=== PATIENT | male | born 1950 | race Caucasian/White ===

== ENCOUNTER 2021-01-23 12:59 | Inpatient (IN) | payer MEDICARE, OTHER ==
--- NOTE | 2021-01-23 13:34 | PCM.EKG ---
#1 Interpretation EKG Date: 01/23/21 Time: 13:27 Rhythm: NSR Rate (Beats/Min): 99 ST-T: Normal
[2021-01-23 14:28] LABS: BLOOD UREA NITROGEN,BUN 28 mg/dL (7.0-18.0); CARBON DIOXIDE,CO2 27.9 mmol/L (21.0-32.0); CHLORIDE,CL 102 mmol/L (98-107); GLUCOSE RANDOM 103 mg/dL (74-106); POTASSIUM,K 3.3 mmol/L (3.5-5.1); SODIUM,NA 140 mmol/L (136-148)
[2021-01-23] MEDS ORDERED: Sodium Chloride 0.9% 1,000 ML IV ONE (14:35)
[2021-01-23 15:14] LABS: LIPASE 30 U/L (73-393)
[2021-01-23] MEDS ORDERED: Iopamidol 755 MG/ML 500 ML Multipack Bottle IVPUSH STA (15:42)
[2021-01-23] MEDS ORDERED: Piperacillin/Tazobactam 3.375 GM in Sodium Chloride 0.9% 50 ML IV ONE (16:28)
[2021-01-23 16:41] LABS: CORONAVIRUS COVID-19 NAA NEGATIVE (NEGATIVE); INFLUENZA A NAA NEGATIVE (NEGATIVE); INFLUENZA B NAA NEGATIVE (NEGATIVE)
[2021-01-23] MEDS ORDERED: LORazepam 2 MG/ML SDV IVPUSH ONE ×2 (16:47→22:29)
--- NOTE | 2021-01-23 17:57 | CR ---
For Patients: As a result of the Cures Act, medical imaging exams and procedure reports are released immediately into your electronic medical record. You may view this report before your referring provider. If you have questions, please contact your health care provider. INDICATION: Sepsis TECHNIQUE: Chest 1 views COMPARISON: April 09, 2018 FINDINGS: Cardiovascular and mediastinum: Heart size and vasculature are normal in caliber and appearance. Lungs and pleural spaces: Lungs are hyperinflated but otherwise clear. No sign of infiltrate or mass. No sign of pleural effusion. No pneumothorax. Bones and soft tissues: No significant findings. IMPRESSION: No acute findings and no significant changes from the prior exam. No sign of pneumonia. Dictated by Rei Hawthorne MD @ 01/23/2021 5:56:[address] Rei Hawthorne @ Jan 23 2021 5:56PM
--- NOTE | 2021-01-23 18:42 | EDM.PDOC ---
ED HPI GENERAL MEDICAL PROBLEM - General Chief Complaint: General Stated Complaint: COPD FEET SWELLING Time Seen by Provider: 01/23/21 13:03 Source of Information: Reports: Patient, Family History Limitations: Reports: Other (dementia) - History of Present Illness INITIAL COMMENTS - FREE TEXT/NARRATIVE: HISTORY AND PHYSICAL: History of present illness: HPI is limited due to patient underlying dementia. He is unable to appropriately answer questions which is his baseline per . Patient is 71-year-old male, with a h/o dementia, COPD, who presents emergency department with his , who is his primary acute care nurse practitioner, secondary to a 2-day history of an itchy rash on his back and buttocks. Patients originally stats that she would just life a refill of his COPD medications as he is out of refills. She then notes that patient has been scratching at his back and buttocks over the last 2 days. The also reports that the patient feet has been swelling over the last week and sometimes red. The reports that the patient has COPD and has a primary care doctor who he sees but he had run out of his medications and she wanted him to get a refill. The was unable to remember which medications the patient is on for his COPD. The reports that the patient is able to toilet himself. She also notes that he has had intermittent softer stools. denies fever, chills, chest pain, shortness of breath, or cough. Denies headache, neck stiff ness, change in vision, syncope, or near syncope. Denies nausea, vomiting, abdominal pain, constipation, or dysuria. Has not noted any blood in urine or stool. Patient has been eating and drinking appropriately. Review of systems: As per history of present illness and below otherwise all systems reviewed and negative. Past medical history: As per history of present illness and as reviewed below otherwise noncontributory. Surgical history: As per history of present illness and as reviewed below otherwise noncontributory. Social history: See social history for further information Family history: As per history of present illness and as reviewed below otherwise noncontributory. Physical exam: General: Patient is alert, orientated to location but confused to time and unable to answer questions appropriately, baseline per , and in no acute distress. Non toxic. Patient sitting comfortably on exam table. Patient is tachycardic with a pulse of 100-110 but otherwise vitals are stable. HEENT: Atraumatic, normocephalic, pupils equal and reactive bilaterally, negative for conjunctival pallor or scleral icterus, mucous membranes moist, TMs normal bilaterally, throat clear, neck supple, nontender, trachea midline. No drooling or trismus noted. No meningeal signs. No hot potato voice noted. Lungs: Clear to auscultation, breath sounds equal bilaterally, chest nontender. Heart: S1S2, regular rate and rhythm without overt murmur Abdomen: Thin, Lower abdomen is distended but nontender. Negative for masses or hepatosplenomegaly. Negative for costovertebral tenderness. Pelvis: Stable nontender. Genitourinary: Package Car Driver at bedside, NARCISA Becker. The patient has a phimosis which is non-retractable and unable to visualize the urethral meatus, no masses or lesions noted. Rectal: See skin. Package Car Driver at bedside, NARCISA Becker. The external gluteal cleft is severely excoriated and bleeding noted from excoriation sites. Dried on feces of the gluteal cleft and buttock and down patients bilateral lower extremities. No obvious hemorrhoid, masses noted. Skin: Significant excoriations and scratch haas in various stages of healing on patient's back and buttocks around anus, there is dried stool in the gluteal cleft and down the patient's leg. Otherwise intact, warm, dry. No lesions or rashes noted. Extremities: 2+ pitting edema of bilateral lower extremities. Feet were initially purple as patient was sitting but when asked to lay down, this resolved. No erythema, drainage. DP/PT pulses intact bilaterally via doppler. Otherwise, Atraumatic, negative for cords or calf pain. Neurovascular unremarkable. Neuro: Awake, alert, oriented. Cranial nerves II through XII unremarkable. Cerebellum unremarkable. Motor and sensory unremarkable throughout. Exam nonfocal. Notes: Patient is a 71-year-old male, with a h/o COPD and dementia, who presents to the emergency department today with his primary lawn care specialist / , secondary to a 2- day history of rash and for refill for COPD medication. On initial exam, patient is noted to be tachycardic 110s but otherwise vitals are stable. Patient is sitting comfortably on exam table is alert, but confused on questioning but at baseline according to . Upon exam the patient's feet are moderately edematous and mottled/purple with sitting. Doppler was performed at the bedside and pulses were found which were consistent with media monitor. After patient elevated legs, after a few seconds, mottling and purple resolved. There are excoriations over the patient's back and buttocks, there are scratches in various stages of healing along the patient's back and on the buttock including the gluteal cleft and around the anus. There is dried feces in the patient's gluteal cleft and down the patient's leg. While cleaning the patient it was noted that the patient has severe phimosis, there is a small amount of urine around the opening of the phimosis but the phimosis is non-retractable and unable to visualize the urethra. The patient tried to urinate into a urinal and was unable to void any urine. At that time, performed a scan of the bladder with an ultrasound, the bladder was noted to be distended to the umbilicus. An 18 Divehi Blanc catheter was inserted through the phimosis and was successfully inserted into the urethra. 1800 mL of dark urine came out through the catheter. Started patient on normal saline and will obtain cardiac evaluation as well as obtain CT ang of abd/pelvis and bilateral lower extremities. See Dr. Dempsey's dictation for specific EKG interpretation. Otherwise, normal sinus rhythm and no signs of ischemia. The patient's CBC shows an elevated WBC of 18.97 with a normal lactate, RBC of 4.30, Hgb 12.5, neutrophil percent 90.6, lymph percent 2.8, neutrophil count 17.2, lymph count 0.5, [place] count 1.1. The patient's INR is 0.99. The patient's CMP shows mild derangements with a potassium of 3.3, BUN 28, calcium 8.4, ALT 10, albumin 3.1, Albumin/globulin ratio 1.8, lipase 30. Patient's UA shows trace protein, trace occult blood, trace leukocyte esterase, urine bacteria 2+. Will culture urine and blood. CXR shows no acute findings and no significant changes from prior. After patient had received the ct scans, due to technological difficulties at a hospital wide level, I have been informed that imaging cannot be formally interpreted for possibly 24 hours. The on-call hospital administration, Stormy Thurston, advised having Dr. Diaz look at the imaging in the interim. Dr. Diaz's preliminary interpretation of the CT angio shows no obvious occlusions in the lower extremities and no concern for acute abdomen. Dr. Hurley's interpretation of the images showed no acute urological reason for the patient's elevated white count and nothing surgical at this time. He recommends leaving the blanc in place and he will follow in an outpatient status to address the ph imosis. Given that I am unable to get a formal CT reading at this time, with no indication as to when this will be available, I will treat patient empirically for sepsis due to elevation in WBC and HR with IV vancomycin and Zosyn empirically. I did call and speak to the hospitalist on-call, Dr. Oneill, and thoroughly discussed patient's case. She is aware that patient's CT images are not able to be read formally by a radiologist at this time. Will admit to Dr. Oneill inpatient telemetry. Patient full code according to his Filed form with Vulnerable Adult for State of [place] Diagnostics: CBC, CMP, blood culture x 2, lactate, EKG, chest x-ray, CT angiogram abdomen and lower extremities INR, UA Therapeutics: Vancomycin, Zosyn, Ativan, normal saline Impression: SIRS, r/o sepsis, source unknown Urinary retention secondary to phimosis Plan: Admit to inpatient telemetry to Dr. Oneill. Definitive disposition and diagnosis as appropriate pending reevaluation and review of above. Bilateral Lower Leg Pain Score (Numeric/FACES): 4 - Related Data Allergies Allergy/AdvReac Type Severity Reaction Status Date / Time No Known Allergies Allergy Verified 01/23/21 13:58 Home Meds: Home Meds . [Unable to Verify Home Med List] 01/23/21 [History] Past Medical History HEENT History: Reports: None Cardiovascular History: Reports: None Respiratory History: Reports: Asthma, COPD Genitourinary History: Reports: None Musculoskeletal History: Reports: None Neurological History: Reports: Other (See Below) Other Neuro History: dementia Psychiatric History: Reports: None Endocrine/Metabolic History: Reports: None Hematologic History: Reports: None Immunologic History: Reports: None Oncologic (Cancer) History: Reports: None Dermatologic History: Reports: None - Infectious Disease History Infectious Disease History: Reports: None - Past Surgical History Head Surgeries/Procedures: Reports: None GI Surgical History: Reports: Hernia Repair/Other Social & Family History - Family History Family Medical History: No Pertinent Family History - Tobacco Use Tobacco Use Status *Q: Former Tobacco User Used Tobacco, but Quit: Yes Month/Year Tobacco Last Used: 10 years - Caffeine Use Caffeine Use: Reports: None - Recreational Drug Use Recreational Drug Use: No ED ROS GENERAL - Review of Systems Review Of Systems: Comprehensive ROS is negative, except as noted in HPI. ED EXAM, GENERAL - Physical Exam Exam: See Below (see dictation) Course - Vital Signs Last Recorded V/S: Last Vital Signs Temp 98.1 F 01/24/21 07:29 Pulse 95 01/24/21 07:29 Resp 16 01/24/21 07:29 BP 97/56 L 01/24/21 07:29 Pulse Ox 92 L 01/24/21 07:29 - Orders/Labs/Meds Orders: Active Orders 24 hr Category Date Time Status Bladder Scan [RC] ASDIRECTED Care 01/23/21 14:36 Active EKG Documentation Completion [RC] STAT Care 01/23/21 13:07 Active Blanc Catheter Insertion [Insert Urinary Catheter] [OM. Care 01/23/21 15:15 Ordered PC] Q24H Urinary Catheter Assessment [RC] ASDIRECTED Care 01/23/21 15:09 Active CULTURE BLOOD [BC] Stat Lab 01/23/21 14:41 Received CULTURE BLOOD [BC] Stat Lab 01/23/21 14:44 Received CULTURE URINE [MREF] Stat Lab 01/23/21 15:07 Received Blood Culture x2 Reflex Set [OM.PC] Stat Oth 01/23/21 14:35 Ordered Medication Orders Acetaminophen (Acetaminophen 325 Mg Tab) 650 mg PO Q4H PRN PRN Reason: Pain (Mild 1-3)/fever Albuterol/Ipratropium (Albuterol/Ipratropium 3.0-0.5 Mg/3 Ml Neb Soln) 3 ml NEB Q4HRRT PRN PRN Reason: Shortness Of Breath/wheezing Docusate Sodium (Docusate Sodium 100 Mg Cap) 100 mg PO BID PRN PRN Reason: Constipation Enoxaparin Sodium (Enoxaparin 40 Mg/0.4 Ml Syringe) 40 mg SUBCUT Q24H PENDING SALE TO [facility] Last Admin: 01/24/21 08:45 Dose: 40 mg Documented by: YAYA Piperacillin Sod/Tazobactam (Sod 3.375 gm/ Sodium Chloride) 50 mls @ 100 mls/hr IV Q6H PENDING SALE TO [facility] Last Admin: 01/24/21 10:55 Dose: 100 mls/hr Documented by: Infusion: 01/24/21 05:30 Dose: 100 mls/hr Documented by: Admin: 01/24/21 05:00 Dose: 100 mls/hr Documented by: Infusion: 01/23/21 23:49 Dose: 100 mls/hr Documented by: Admin: 01/23/21 23:19 Dose: 100 mls/hr Documented by: AUDRA Lactated Ringer's (Ringers, Lactated) 1,000 mls @ 125 mls/hr IV ASDIRECTED PENDING SALE TO [facility] Last Admin: 01/23/21 23:29 Dose: 125 mls/hr Documented by: AUDRA Ondansetron HCl (Ondansetron 4 Mg Tab.Dis) 4 mg PO Q4H PRN PRN Reason: nausea, able to take PO Labs: Laboratory Tests 01/23/21 01/23/21 01/23/21 Range/Units 13:37 13:37 14:35 WBC 18.97 H (4.0-11.0) K/uL RBC 4.30 L (4.50-5.90) M/uL Hgb 12.5 L (13.0-17.0) g/dL Hct 38.2 (38.0-50.0) % MCV 88.8 (80.0-98.0) fL MCH 29.1 (27.0-32.0) pg MCHC 32.7 (31.0-37.0) g/dL RDW Std Deviation 47.7 (28.0-62.0) fl RDW Coeff of Azeem 15 (11.0-15.0) % Plt Count 153 (150-400) K/uL MPV 12.10 H (7.40-12.00) fL Neut % (Auto) 90.6 H (48.0-80.0) % Lymph % (Auto) 2.8 L (16.0-40.0) % [place] % (Auto) 6.0 (0.0-15.0) % Eos % (Auto) 0.4 (0.0-7.0) % Baso % (Auto) 0.2 (0.0-1.5) % Neut # (Auto) 17.2 H (1.4-5.7) K/uL Lymph # (Auto) 0.5 L (0.6-2.4) K/uL [place] # (Auto) 1.1 H (0.0-0.8) K/uL Eos # (Auto) 0.1 (0.0-0.7) K/uL Baso # (Auto) 0.0 (0.0-0.1) K/uL Nucleated RBC % 0.0 /100WBC Nucleated RBCs # 0 K/uL INR Sodium 140 (136-148) mmol/L Potassium 3.3 L (3.5-5.1) mmol/L Chloride 102 (98-107) mmol/L Carbon Dioxide 27.9 (21.0-32.0) mmol/L BUN 28 H (7.0-18.0) mg/dL Creatinine 1.2 (0.8-1.3) mg/dL Est Cr Clr Drug Dosing 51.45 mL/min Estimated GFR (MDRD) 59.9 ml/min Glucose 103 (74-106) mg/dL Lactic Acid 1.3 (0.4-2.0) mmol/L Calcium 8.4 L (8.5-10.1) mg/dL Total Bilirubin 0.7 (0.2-1.0) mg/dL AST 27 (15-37) IU/L ALT 10 L (14-63) IU/L Alkaline Phosphatase 79 (46-116) U/L Troponin I < 0.050 (0.000-0.056) ng/mL Total Protein 6.8 (6.4-8.2) g/dL Albumin 3.1 L (3.4-5.0) g/dL Globulin 3.7 (2.6-4.0) g/dL Albumin/Globulin Ratio 0.8 L (0.9-1.6) Lipase (73-393) U/L Urine Color Urine Appearance Urine pH (5.0-8.0) Ur Specific Shelby (1.001-1.035) Urine Protein (NEGATIVE) mg/dL Urine Glucose (UA) (NEGATIVE) mg/dL Urine Ketones (NEGATIVE) mg/dL Urine Occult Blood (NEGATIVE) Urine Nitrite (NEGATIVE) Urine Bilirubin (NEGATIVE) Urine Urobilinogen (<2.0) EU/dL Ur Leukocyte Esterase (NEGATIVE) Urine RBC (0-2/HPF) Urine WBC (0-5/HPF) Ur Epithelial Cells (NONE-FEW) Urine Bacteria (NEGATIVE) Urine Mucus (NONE-MOD) Influenza Type A RNA (NEGATIVE) Influenza Type B RNA (NEGATIVE) SARS-CoV-2 RNA (BRENDA) (NEGATIVE) 01/23/21 01/23/21 01/23/21 Range/Units 14:36 14:41 15:07 WBC (4.0-11.0) K/uL RBC (4.50-5.90) M/uL Hgb (13.0-17.0) g/dL Hct (38.0-50.0) % MCV (80.0-98.0) fL MCH (27.0-32.0) pg MCHC (31.0-37.0) g/dL RDW Std Deviation (28.0-62.0) fl RDW Coeff of Azeem (11.0-15.0) % Plt Count (150-400) K/uL MPV (7.40-12.00) fL Neut % (Auto) (48.0-80.0) % Lymph % (Auto) (16.0-40.0) % [place] % (Auto) (0.0-15.0) % Eos % (Auto) (0.0-7.0) % Baso % (Auto) (0.0-1.5) % Neut # (Auto) (1.4-5.7) K/uL Lymph # (Auto) (0.6-2.4) K/uL [place] # (Auto) (0.0-0.8) K/uL Eos # (Auto) (0.0-0.7) K/uL Baso # (Auto) (0.0-0.1) K/uL Nucleated RBC % /100WBC Nucleated RBCs # K/uL INR 0.99 Sodium (136-148) mmol/L Potassium (3.5-5.1) mmol/L Chloride (98-107) mmol/L Carbon Dioxide (21.0-32.0) mmol/L BUN (7.0-18.0) mg/dL Creatinine (0.8-1.3) mg/dL Est Cr Clr Drug Dosing mL/min Estimated GFR (MDRD) ml/min Glucose (74-106) mg/dL Lactic Acid (0.4-2.0) mmol/L Calcium (8.5-10.1) mg/dL Total Bilirubin (0.2-1.0) mg/dL AST (15-37) IU/L ALT (14-63) IU/L Alkaline Phosphatase (46-116) U/L Troponin I < 0.050 (0.000-0.056) ng/mL Total Protein (6.4-8.2) g/dL Albumin (3.4-5.0) g/dL Globulin (2.6-4.0) g/dL Albumin/Globulin Ratio (0.9-1.6) Lipase 30 L (73-393) U/L Urine Color YELLOW Urine Appearance SLT CLOUDY Urine pH 7.0 (5.0-8.0) Ur Specific [place] 1.015 (1.001-1.035) Urine Protein TRACE H (NEGATIVE) mg/dL Urine Glucose (UA) NEGATIVE (NEGATIVE) mg/dL Urine Ketones NEGATIVE (NEGATIVE) mg/dL Urine Occult Blood TRACE-INTACT H (NEGATIVE) Urine Nitrite NEGATIVE (NEGATIVE) Urine Bilirubin NEGATIVE (NEGATIVE) Urine Urobilinogen 0.2 (<2.0) EU/dL Ur Leukocyte Esterase TRACE H (NEGATIVE) Urine RBC NONE SEEN (0-2/HPF) Urine WBC 0-2 (0-5/HPF) Ur Epithelial Cells RARE (NONE-FEW) Urine Bacteria 2+ H (NEGATIVE) Urine Mucus LIGHT (NONE-MOD) Influenza Type A RNA (NEGATIVE) Influenza Type B RNA (NEGATIVE) SARS-CoV-2 RNA (BRENDA) (NEGATIVE) 01/23/21 Range/Units 15:19 WBC (4.0-11.0) K/uL RBC (4.50-5.90) M/uL Hgb (13.0-17.0) g/dL Hct (38.0-50.0) % MCV (80.0-98.0) fL MCH (27.0-32.0) pg MCHC (31.0-37.0) g/dL RDW Std Deviation (28.0-62.0) fl RDW Coeff of Azeem (11.0-15.0) % Plt Count (150-400) K/uL MPV (7.40-12.00) fL Neut % (Auto) (48.0-80.0) % Lymph % (Auto) (16.0-40.0) % [place] % (Auto) (0.0-15.0) % Eos % (Auto) (0.0-7.0) % Baso % (Auto) (0.0-1.5) % Neut # (Auto) (1.4-5.7) K/uL Lymph # (Auto) (0.6-2.4) K/uL [place] # (Auto) (0.0-0.8) K/uL Eos # (Auto) (0.0-0.7) K/uL Baso # (Auto) (0.0-0.1) K/uL Nucleated RBC % /100WBC Nucleated RBCs # K/uL INR Sodium (136-148) mmol/L Potassium (3.5-5.1) mmol/L Chloride (98-107) mmol/L Carbon Dioxide (21.0-32.0) mmol/L BUN (7.0-18.0) mg/dL Creatinine (0.8-1.3) mg/dL Est Cr Clr Drug Dosing mL/min Estimated GFR (MDRD) ml/min Glucose (74-106) mg/dL Lactic Acid (0.4-2.0) mmol/L Calcium (8.5-10.1) mg/dL Total Bilirubin (0.2-1.0) mg/dL AST (15-37) IU/L ALT (14-63) IU/L Alkaline Phosphatase (46-116) U/L Troponin I (0.000-0.056) ng/mL Total Protein (6.4-8.2) g/dL Albumin (3.4-5.0) g/dL Globulin (2.6-4.0) g/dL Albumin/Globulin Ratio (0.9-1.6) Lipase (73-393) U/L Urine Color Urine Appearance Urine pH (5.0-8.0) Ur Specific [place] (1.001-1.035) Urine Protein (NEGATIVE) mg/dL Urine Glucose (UA) (NEGATIVE) mg/dL Urine Ketones (NEGATIVE) mg/dL Urine Occult Blood (NEGATIVE) Urine Nitrite (NEGATIVE) Urine Bilirubin (NEGATIVE) Urine Urobilinogen (<2.0) EU/dL Ur Leukocyte Esterase (NEGATIVE) Urine RBC (0-2/HPF) Urine WBC (0-5/HPF) Ur Epithelial Cells (NONE-FEW) Urine Bacteria (NEGATIVE) Urine Mucus (NONE-MOD) Influenza Type A RNA NEGATIVE (NEGATIVE) Influenza Type B RNA NEGATIVE (NEGATIVE) SARS-CoV-2 RNA (BRENDA) NEGATIVE (NEGATIVE) Meds: Medications Generic Name Dose Route Start Last Admin Trade Name Mary PRN Reason Stop Dose Admin Acetaminophen 650 mg 01/23/21 19:05 Acetaminophen 325 Mg Tab PO Q4H PRN Pain (Mild 1-3)/fever Albuterol/Ipratropium 3 ml 01/23/21 19:05 Albuterol/Ipratropium 3.0-0.5 Mg/3 Ml Neb Soln NEB Q4HRRT PRN Shortness Of Breath/wheezing Docusate Sodium 100 mg 01/23/21 19:05 Docusate Sodium 100 Mg Cap PO BID PRN Constipation Enoxaparin Sodium 40 mg 01/24/21 09:00 01/24/21 08:45 Enoxaparin 40 Mg/0.4 Ml Syringe SUBCUT 40 mg Q24H LEONARD Administration Piperacillin Sod/Tazobactam 50 mls @ 100 mls/hr 01/23/21 23:00 01/24/21 10:55 Sod 3.375 gm/ Sodium Chloride IV 100 mls/hr Q6H LEONARD Administration Lactated Ringer's 1,000 mls @ 125 mls/hr 01/23/21 20:30 01/23/21 23:29 Ringers, Lactated IV 125 mls/hr ASDIRECTED LEONARD Administration Ondansetron HCl 4 mg 01/23/21 19:05 Ondansetron 4 Mg Tab.Dis PO Q4H PRN nausea, able to take PO Discontinued Medications Generic Name Dose Route Start Last Admin Trade Name Mary PRN Reason Stop Dose Admin Diphenhydramine HCl 25 mg 01/23/21 20:58 01/23/21 21:08 Diphenhydramine 50 Mg/Ml Sdv IM 01/23/21 20:59 25 mg ONETIME ONE Administration Diphenhydramine HCl 25 mg 01/23/21 22:28 Diphenhydramine 50 Mg/Ml Sdv IVPUSH 01/23/21 22:29 ONETIME ONE Diphenhydramine HCl 25 mg 01/23/21 22:40 01/23/21 23:20 Diphenhydramine 50 Mg/Ml Sdv IM 01/23/21 22:41 25 mg ONETIME ONE Administration Diphenhydramine HCl Confirm 01/23/21 22:51 01/23/21 23:22 Diphenhydramine 50 Mg/Ml Sdv Administered 01/23/21 22:52 Not Given Dose 50 mg .ROUTE .STK-MED ONE Haloperidol Lactate 5 mg 01/23/21 20:57 01/23/21 21:09 Haloperidol Lactate 5 Mg/Ml Sdv IM 01/23/21 20:58 5 mg ONETIME ONE Administration Sodium Chloride 1,000 mls @ 999 mls/hr 01/23/21 14:35 01/23/21 15:49 Normal Saline IV 01/23/21 15:35 999 mls/hr STAT ONE Administration Piperacillin Sod/Tazobactam 50 mls @ 100 mls/hr 01/23/21 16:28 01/23/21 16:47 Sod 3.375 gm/ Sodium Chloride IV 01/23/21 16:57 100 mls/hr ONETIME ONE Administration Vancomycin HCl 1 gm/ Sodium 250 mls @ 166 mls/hr 01/23/21 16:29 01/23/21 17:31 Chloride IV 01/23/21 17:59 166 mls/hr ONETIME ONE Administration Lactated Ringer's 1,000 mls @ 999 mls/hr 01/23/21 19:05 01/23/21 20:00 Ringers, Lactated IV 01/23/21 20:05 999 mls/hr BOLUS ONE Administration Potassium Chloride 40 meq/ 100 mls @ 25 mls/hr 01/23/21 20:29 01/24/21 00:25 Premix IV 01/24/21 00:28 25 mls/hr ONETIME ONE Administration Olanzapine 10 mg/ Sterile 2.1 mls @ 999 mls/hr 01/23/21 22:28 Water IM 01/23/21 22:29 ONETIME ONE Sterile Water Confirm 01/23/21 23:06 01/23/21 23:22 Sterile Water For Injection Administered 01/23/21 23:07 Not Given Dose 20 mls @ as directed .ROUTE .STK-MED ONE Iopamidol 100 ml 01/23/21 15:42 01/23/21 15:42 Iopamidol 755 Mg/Ml 500 Ml Multipack Bottle IVPUSH 01/23/21 15:43 100 ml ONETIME STA Administration Lorazepam 0.5 mg 01/23/21 16:47 01/23/21 16:53 Lorazepam 2 Mg/Ml Sdv IVPUSH 01/23/21 16:48 0.5 mg ONETIME ONE Administration Lorazepam 2 mg 01/23/21 22:29 01/24/21 00:24 Lorazepam 2 Mg/Ml Sdv IVPUSH 01/23/21 22:30 2 mg ONETIME ONE Administration Olanzapine 10 mg 01/23/21 22:47 01/23/21 23:21 Olanzapine 10 Mg Vial IM 01/23/21 22:48 10 mg ONETIME ONE Administration Olanzapine Confirm 01/23/21 23:01 01/23/21 23:22 Olanzapine 10 Mg Vial Administered 01/23/21 23:02 Not Given Dose 10 mg .ROUTE .STK-MED ONE Departure - Departure Time of Disposition: 21:42 Disposition: Admitted As Inpatient 67 Clinical Impression: SIRS (systemic inflammatory response syndrome), Urinary retention, Phimosis - Discharge Information Sepsis Event Note (ED) - Evaluation Sepsis Screening Result: No Definite Risk - My Orders Last 24 Hours: My Active Orders 01/23/21 13:07 EKG Documentation Completion [RC] STAT 01/23/21 14:35 Blood Culture x2 Reflex Set [OM.PC] Stat 01/23/21 14:36 Bladder Scan [RC] ASDIRECTED 01/23/21 14:41 CULTURE BLOOD [BC] Stat 01/23/21 14:44 CULTURE BLOOD [BC] Stat 01/23/21 15:07 CULTURE URINE [MREF] Stat 01/23/21 15:09 Urinary Catheter Assessment [RC] ASDIRECTED 01/23/21 15:15 Blanc Catheter Insertion [Insert Urinary Catheter] [OM.PC] Q24H - Assessment/Plan Last 24 Hours: My Active Orders 01/23/21 13:07 EKG Documentation Completion [RC] STAT 01/23/21 14:35 Blood Culture x2 Reflex Set [OM.PC] Stat 01/23/21 14:36 Bladder Scan [RC] ASDIRECTED 01/23/21 14:41 CULTURE BLOOD [BC] Stat 01/23/21 14:44 CULTURE BLOOD [BC] Stat 01/23/21 15:07 CULTURE URINE [MREF] Stat 01/23/21 15:09 Urinary Catheter Assessment [RC] ASDIRECTED 01/23/21 15:15 Blanc Catheter Insertion [Insert Urinary Catheter] [OM.PC] Q24H
[2021-01-23] MEDS ORDERED: Acetaminophen 325 MG Tab PO PRN (19:05)
[2021-01-23] MEDS ORDERED: Ondansetron 4 MG Tab.DIS PO PRN (19:05)
[2021-01-23] MEDS ORDERED: Docusate Sodium 100 MG Cap PO PRN (19:05)
[2021-01-23] MEDS ORDERED: Lactated Ringers 1,000 ML IV ONE (19:05)
--- NOTE | 2021-01-23 19:30 | PCM.HP.2 ---
<Brenda Maciel - Last Filed: 01/23/21 19:52> H&P History of Present Illness - General Date of Service: 01/23/21 Admit Problem/Dx: Admission Diagnosis/Problem Admission Diagnosis/Problem Sepsis Source of Information: Family, Provider, Significant Other History Limitations: Reports: Altered Mental Status, Other (History of dementia) - History of Present Illness Initial Comments - Free Text/Narative: Patient is a 71-year-old gentleman with medical history of COPD, dementia therefore limiting his ability to share history. History was obtained by devin rubio other and ER admitting physician title i assistant. Patient was brought into the ED initially for refill of his COPD medications by his , patient was found to be alert and oriented x1, sitting in his feces, vitally unstable tachycardic and hypotensive. Patient was worked up for sepsis, also found to have a very distended bladder, unable to void therefore had Prince catheter inserted and found to have significant retention of approximately 2 L with dark- colored urine, foul-smelling. Patient denied any pain, fever, chills, cough, palpitations, shortness of breath, lesions, recent travel or sick contacts. ER course: Chest x-ray, aorta with runoff CTA, EKG, patient was restless therefore given Ativan 0.5, Zosyn, bank, bolus of normal saline, labs including CBC, CMP, INR, tropes, UA, influenza AB Covid with collection of urine blood cultures and lactic level. Bilateral Lower Leg Pain Score (Numeric/FACES): 4 - Related Data Allergies/Adverse Reactions: Allergies Allergy/AdvReac Type Severity Reaction Status Date / Time No Known Allergies Allergy Verified 01/23/21 13:58 Home Medications: Home Meds . [Unable to Verify Home Med List] 01/23/21 [History] Past Medical History HEENT History: Reports: None Cardiovascular History: Reports: None Respiratory History: Reports: Asthma, COPD Genitourinary History: Reports: None Musculoskeletal History: Reports: None Neurological History: Reports: Other (See Below) Other Neuro History: dementia Psychiatric History: Reports: None Endocrine/Metabolic History: Reports: None Hematologic History: Reports: None Immunologic History: Reports: None Oncologic (Cancer) History: Reports: None Dermatologic History: Reports: None - Infectious Disease History Infectious Disease History: Reports: None - Past Surgical History Head Surgeries/Procedures: Reports: None GI Surgical History: Reports: Hernia Repair/Other Social & Family History - Family History Family Medical History: No Pertinent Family History - Tobacco Use Tobacco Use Status *Q: Former Tobacco User Used Tobacco, but Quit: Yes Month/Year Tobacco Last Used: 10 years - Caffeine Use Caffeine Use: Reports: None - Recreational Drug Use Recreational Drug Use: No H&P Review of Systems - Review of Systems: Review Of Systems: Unable To Obtain Reason Not Obtained: Dementia Exam - Exam Exam: See Below - Vital Signs Vital Signs: Last Vital Signs Temp 98.6 F 01/23/21 19:08 Pulse 98 01/23/21 19:08 Resp 18 01/23/21 19:08 BP 104/66 01/23/21 19:08 Pulse Ox 98 01/23/21 19:08 Weight: 63.503 kg - Exam Quality Assessment: Urinary Catheter, DVT Prophylaxis General: Alert, Oriented HEENT: Conjunctiva Clear, EACs Clear, EOMI, Hearing Intact, Mucosa Moist & [place], PERRLA Neck: Supple, Trachea Midline Lungs: Clear to Auscultation, Normal Respiratory Effort Cardiovascular: Regular Rate, Regular Rhythm GI/Abdominal Exam: Normal Bowel Sounds, Soft, Non-Tender (At the end of the year you the contract that we have for leg was), No Distention (But I appreciate) Extremities: Normal Inspection, Normal Range of Motion, Normal Capillary Refill (I her biggest more with me any family member or even Basically like God visibly A), Pedal Edema Peripheral Pulses: 2+: Carotid (L), Carotid (R), Dorsalis Pedis (L), Dorsalis Pedis (R) (Extraocular) Skin: Warm, Dry, Intact Neurological: Cranial Nerves Intact, Reflexes Equal Bilateral Neuro Extensive - Mental Status: Alert, Oriented x3, Normal Mood/Affect, Normal Cognition, Memory Intact Neuro Extensive - Motor, Sensory, Reflexes: CN II-XII Intact, Normal Gait, Normal Reflexes DTR: 2+: Bicep (L), Bicep (R), Achilles (L), Achilles (R) Psychiatric: Alert, Normal Affect, Normal Mood - Patient Data Lab Results Last 24 hrs: Laboratory Results - last 24 hr 01/23/21 01/23/21 01/23/21 Range/Units 13:37 13:37 14:35 WBC 18.97 H (4.0-11.0) K/uL RBC 4.30 L (4.50-5.90) M/uL Hgb 12.5 L (13.0-17.0) g/dL Hct 38.2 (38.0-50.0) % MCV 88.8 (80.0-98.0) fL MCH 29.1 (27.0-32.0) pg MCHC 32.7 (31.0-37.0) g/dL RDW Std Deviation 47.7 (28.0-62.0) fl RDW Coeff of Azeem 15 (11.0-15.0) % Plt Count 153 (150-400) K/uL MPV 12.10 H (7.40-12.00) fL Neut % (Auto) 90.6 H (48.0-80.0) % Lymph % (Auto) 2.8 L (16.0-40.0) % Starr % (Auto) 6.0 (0.0-15.0) % Eos % (Auto) 0.4 (0.0-7.0) % Baso % (Auto) 0.2 (0.0-1.5) % Neut # (Auto) 17.2 H (1.4-5.7) K/uL Lymph # (Auto) 0.5 L (0.6-2.4) K/uL Starr # (Auto) 1.1 H (0.0-0.8) K/uL Eos # (Auto) 0.1 (0.0-0.7) K/uL Baso # (Auto) 0.0 (0.0-0.1) K/uL Nucleated RBC % 0.0 /100WBC Nucleated RBCs # 0 K/uL INR Sodium 140 (136-148) mmol/L Potassium 3.3 L (3.5-5.1) mmol/L Chloride 102 (98-107) mmol/L Carbon Dioxide 27.9 (21.0-32.0) mmol/L BUN 28 H (7.0-18.0) mg/dL Creatinine 1.2 (0.8-1.3) mg/dL Est Cr Clr Drug Dosing 51.45 mL/min Estimated GFR (MDRD) 59.9 ml/min Glucose 103 (74-106) mg/dL Lactic Acid 1.3 (0.4-2.0) mmol/L Calcium 8.4 L (8.5-10.1) mg/dL Total Bilirubin 0.7 (0.2-1.0) mg/dL AST 27 (15-37) IU/L ALT 10 L (14-63) IU/L Alkaline Phosphatase 79 (46-116) U/L Troponin I < 0.050 (0.000-0.056) ng/mL Total Protein 6.8 (6.4-8.2) g/dL Albumin 3.1 L (3.4-5.0) g/dL Globulin 3.7 (2.6-4.0) g/dL Albumin/Globulin Ratio 0.8 L (0.9-1.6) Lipase (73-393) U/L Urine Color Urine Appearance Urine pH (5.0-8.0) Ur Specific Echo (1.001-1.035) Urine Protein (NEGATIVE) mg/dL Urine Glucose (UA) (NEGATIVE) mg/dL Urine Ketones (NEGATIVE) mg/dL Urine Occult Blood (NEGATIVE) Urine Nitrite (NEGATIVE) Urine Bilirubin (NEGATIVE) Urine Urobilinogen (<2.0) EU/dL Ur Leukocyte Esterase (NEGATIVE) Urine RBC (0-2/HPF) Urine WBC (0-5/HPF) Ur Epithelial Cells (NONE-FEW) Urine Bacteria (NEGATIVE) Urine Mucus (NONE-MOD) Influenza Type A RNA (NEGATIVE) Influenza Type B RNA (NEGATIVE) SARS-CoV-2 RNA (BRENDA) (NEGATIVE) 01/23/21 01/23/21 01/23/21 Range/Units 14:36 14:41 15:07 WBC (4.0-11.0) K/uL RBC (4.50-5.90) M/uL Hgb (13.0-17.0) g/dL Hct (38.0-50.0) % MCV (80.0-98.0) fL MCH (27.0-32.0) pg MCHC (31.0-37.0) g/dL RDW Std Deviation (28.0-62.0) fl RDW Coeff of Azeem (11.0-15.0) % Plt Count (150-400) K/uL MPV (7.40-12.00) fL Neut % (Auto) (48.0-80.0) % Lymph % (Auto) (16.0-40.0) % Starr % (Auto) (0.0-15.0) % Eos % (Auto) (0.0-7.0) % Baso % (Auto) (0.0-1.5) % Neut # (Auto) (1.4-5.7) K/uL Lymph # (Auto) (0.6-2.4) K/uL Starr # (Auto) (0.0-0.8) K/uL Eos # (Auto) (0.0-0.7) K/uL Baso # (Auto) (0.0-0.1) K/uL Nucleated RBC % /100WBC Nucleated RBCs # K/uL INR 0.99 Sodium (136-148) mmol/L Potassium (3.5-5.1) mmol/L Chloride (98-107) mmol/L Carbon Dioxide (21.0-32.0) mmol/L BUN (7.0-18.0) mg/dL Creatinine (0.8-1.3) mg/dL Est Cr Clr Drug Dosing mL/min Estimated GFR (MDRD) ml/min Glucose (74-106) mg/dL Lactic Acid (0.4-2.0) mmol/L Calcium (8.5-10.1) mg/dL Total Bilirubin (0.2-1.0) mg/dL AST (15-37) IU/L ALT (14-63) IU/L Alkaline Phosphatase (46-116) U/L Troponin I < 0.050 (0.000-0.056) ng/mL Total Protein (6.4-8.2) g/dL Albumin (3.4-5.0) g/dL Globulin (2.6-4.0) g/dL Albumin/Globulin Ratio (0.9-1.6) Lipase 30 L (73-393) U/L Urine Color YELLOW Urine Appearance SLT CLOUDY Urine pH 7.0 (5.0-8.0) Ur Specific Echo 1.015 (1.001-1.035) Urine Protein TRACE H (NEGATIVE) mg/dL Urine Glucose (UA) NEGATIVE (NEGATIVE) mg/dL Urine Ketones NEGATIVE (NEGATIVE) mg/dL Urine Occult Blood TRACE-INTACT H (NEGATIVE) Urine Nitrite NEGATIVE (NEGATIVE) Urine Bilirubin NEGATIVE (NEGATIVE) Urine Urobilinogen 0.2 (<2.0) EU/dL Ur Leukocyte Esterase TRACE H (NEGATIVE) Urine RBC NONE SEEN (0-2/HPF) Urine WBC 0-2 (0-5/HPF) Ur Epithelial Cells RARE (NONE-FEW) Urine Bacteria 2+ H (NEGATIVE) Urine Mucus LIGHT (NONE-MOD) Influenza Type A RNA (NEGATIVE) Influenza Type B RNA (NEGATIVE) SARS-CoV-2 RNA (BRENDA) (NEGATIVE) 01/23/21 Range/Units 15:19 WBC (4.0-11.0) K/uL RBC (4.50-5.90) M/uL Hgb (13.0-17.0) g/dL Hct (38.0-50.0) % MCV (80.0-98.0) fL MCH (27.0-32.0) pg MCHC (31.0-37.0) g/dL RDW Std Deviation (28.0-62.0) fl RDW Coeff of Azeem (11.0-15.0) % Plt Count (150-400) K/uL MPV (7.40-12.00) fL Neut % (Auto) (48.0-80.0) % Lymph % (Auto) (16.0-40.0) % Starr % (Auto) (0.0-15.0) % Eos % (Auto) (0.0-7.0) % Baso % (Auto) (0.0-1.5) % Neut # (Auto) (1.4-5.7) K/uL Lymph # (Auto) (0.6-2.4) K/uL Starr # (Auto) (0.0-0.8) K/uL Eos # (Auto) (0.0-0.7) K/uL Baso # (Auto) (0.0-0.1) K/uL Nucleated RBC % /100WBC Nucleated RBCs # K/uL INR Sodium (136-148) mmol/L Potassium (3.5-5.1) mmol/L Chloride (98-107) mmol/L Carbon Dioxide (21.0-32.0) mmol/L BUN (7.0-18.0) mg/dL Creatinine (0.8-1.3) mg/dL Est Cr Clr Drug Dosing mL/min Estimated GFR (MDRD) ml/min Glucose (74-106) mg/dL Lactic Acid (0.4-2.0) mmol/L Calcium (8.5-10.1) mg/dL Total Bilirubin (0.2-1.0) mg/dL AST (15-37) IU/L ALT (14-63) IU/L Alkaline Phosphatase (46-116) U/L Troponin I (0.000-0.056) ng/mL Total Protein (6.4-8.2) g/dL Albumin (3.4-5.0) g/dL Globulin (2.6-4.0) g/dL Albumin/Globulin Ratio (0.9-1.6) Lipase (73-393) U/L Urine Color Urine Appearance Urine pH (5.0-8.0) Ur Specific Echo (1.001-1.035) Urine Protein (NEGATIVE) mg/dL Urine Glucose (UA) (NEGATIVE) mg/dL Urine Ketones (NEGATIVE) mg/dL Urine Occult Blood (NEGATIVE) Urine Nitrite (NEGATIVE) Urine Bilirubin (NEGATIVE) Urine Urobilinogen (<2.0) EU/dL Ur Leukocyte Esterase (NEGATIVE) Urine RBC (0-2/HPF) Urine WBC (0-5/HPF) Ur Epithelial Cells (NONE-FEW) Urine Bacteria (NEGATIVE) Urine Mucus (NONE-MOD) Influenza Type A RNA NEGATIVE (NEGATIVE) Influenza Type B RNA NEGATIVE (NEGATIVE) SARS-CoV-2 RNA (BRENDA) NEGATIVE (NEGATIVE) Result Diagrams: 01/23/21 13:37 01/23/21 13:37 Sepsis Event Note - Evaluation Sepsis Screening Result: No Definite Risk - Focused Exam Vital Signs: Vital Signs Temp Pulse Resp BP Pulse Ox 01/23/21 19:08 98.6 F 98 18 104/66 98 01/23/21 18:00 84 18 98/52 L 98 01/23/21 17:36 98.6 F 84 18 91/52 L 95 01/23/21 16:57 99.0 F 88 18 92/54 L 98 01/23/21 15:48 98.2 F 94 18 97/42 L 97 01/23/21 15:05 99.0 F 92 18 93/48 L 97 01/23/21 14:24 99.8 F 98 18 104/58 L 99 01/23/21 13:36 99.6 F 100 20 127/61 96 Problem List Initiated/Reviewed/Updated: Yes Orders Last 24hrs: Active Orders 24 hr Category Date Time Status Admission Status [Patient Status] [ADT] Stat ADT 01/23/21 18:16 Active Antiembolic Devices [RC] PER UNIT ROUTINE Care 01/23/21 19:09 Active Bedrest Bedside Commode [RC] ASDIRECTED Care 01/23/21 19:05 Active Bladder Scan [RC] ASDIRECTED Care 01/23/21 14:36 Active EKG Documentation Completion [RC] STAT Care 01/23/21 13:07 Active Prince Catheter Insertion [Insert Urinary Catheter] [OM. Care 01/23/21 15:15 Ordered PC] Q24H Oxygen Therapy [RC] PRN Care 01/23/21 19:05 Active RT Aerosol Therapy [RC] ASDIRECTED Care 01/23/21 19:09 Active Urinary Catheter Assessment [RC] ASDIRECTED Care 01/23/21 15:09 Active VTE/DVT Education [RC] PER UNIT ROUTINE Care 01/23/21 19:05 Active Vital Signs [RC] Q4H Care 01/23/21 19:05 Active PT Evaluation and Treatment [CONS] Routine Cons 01/23/21 19:05 Active Ang Abdomen Aorta w Bi Runoff [CT] Stat Exams 01/23/21 14:37 Taken CBC W/O DIFF,HEMOGRAM [HEME] AM Lab 01/24/21 05:11 Ordered COMPREHENSIVE METABOLIC PN,CMP [CHEM] AM Lab 01/24/21 05:11 Ordered CULTURE BLOOD [BC] Stat Lab 01/23/21 14:41 Received CULTURE BLOOD [BC] Stat Lab 01/23/21 14:44 Received CULTURE URINE [MREF] Stat Lab 01/23/21 15:07 Received MAGNESIUM [CHEM] AM Lab 01/24/21 05:11 Ordered PHOSPHORUS [CHEM] AM Lab 01/24/21 05:11 Ordered Acetaminophen [TylenoL] Med 01/23/21 19:05 Active 650 mg PO Q4H PRN Albuterol/Ipratropium [DuoNeb 3.0-0.5 MG/3 ML] Med 01/23/21 19:05 Active 3 ml NEB Q4HRRT PRN Docusate Sodium [Colace] Med 01/23/21 19:05 Active 100 mg PO BID PRN Lactated Ringers [Ringers, Lactated] 1,000 ml Med 01/23/21 19:05 Active IV BOLUS Ondansetron [Zofran ODT] Med 01/23/21 19:05 Active 4 mg PO Q4H PRN Blood Culture x2 Reflex Set [OM.PC] Stat Oth 01/23/21 14:35 Ordered Sequential Compression Device [OM.PC] Per Unit Routine Oth 01/23/21 19:07 Ordered Resuscitation Status Routine Resus Stat 01/23/21 19:05 Ordered Medication Orders Acetaminophen (Acetaminophen 325 Mg Tab) 650 mg PO Q4H PRN PRN Reason: Pain (Mild 1-3)/fever Albuterol/Ipratropium (Albuterol/Ipratropium 3.0-0.5 Mg/3 Ml Neb Soln) 3 ml NEB Q4HRRT PRN PRN Reason: Shortness Of Breath/wheezing Docusate Sodium (Docusate Sodium 100 Mg Cap) 100 mg PO BID PRN PRN Reason: Constipation Lactated Ringer's (Ringers, Lactated) 1,000 mls @ 999 mls/hr IV BOLUS ONE Stop: 01/23/21 20:05 Ondansetron HCl (Ondansetron 4 Mg Tab.Dis) 4 mg PO Q4H PRN PRN Reason: nausea, able to take PO Assessment/Plan Comment:: 71-year-old gentleman with history of advanced dementia, COPD was admitted for sepsis of unconfirmed source. 1. Sepsis: Elevated white blood cell count 19, normal lactate, urine, blood cultures are pending. Patient given 1 L bolus of fluids, will give additional bolus of LR, then on maintenance at 125. Patient is fluid responsive tachycardia has resolved, however patient appears to be hypotensive with blood pressure of 9 1/52. Patient had significant urinary retention, Prince catheter in place, removed approximately 2 L of foul-smelling dark-colored urine. Chest x-ray was normal without pneumonia UA, with 2+ bacteria, trace leukocyte esterase We will cover with broad-spectrum antibiotics Zosyn and will narrow based on cultures. 2. Mild BHARATI: Fluids, monitor daily CMP, avoid nephrotoxic agents possible secondary to sepsis/dehydration/significant urinary retention. 3.Mild hypokalemia: Replete 40 mEq IV CODE STATUS: Full code per GI prophylaxis: Protonix IV 40 DVT prophylaxis: Enoxaparin 40 IV Activity: Bedrest with commode Diet: Soft mechanical - Mortality Measure Prognosis:: Good <Astrid Oneill - Last Filed: 01/24/21 12:31> H&P History of Present Illness - General Admit Problem/Dx: Admission Diagnosis/Problem Admission Diagnosis/Problem Sepsis Exam - Vital Signs Vital Signs: Last Vital Signs Temp 36.1 C 01/24/21 11:00 Pulse 91 01/24/21 11:00 Resp 16 01/24/21 11:00 BP 102/56 L 01/24/21 11:00 Pulse Ox 95 01/24/21 11:00 - Patient Data Lab Results Last 24 hrs: Laboratory Results - last 24 hr 01/23/21 01/23/21 01/23/21 Range/Units 13:37 13:37 14:35 WBC 18.97 H (4.0-11.0) K/uL RBC 4.30 L (4.50-5.90) M/uL Hgb 12.5 L (13.0-17.0) g/dL Hct 38.2 (38.0-50.0) % MCV 88.8 (80.0-98.0) fL MCH 29.1 (27.0-32.0) pg MCHC 32.7 (31.0-37.0) g/dL RDW Std Deviation 47.7 (28.0-62.0) fl RDW Coeff of Azeem 15 (11.0-15.0) % Plt Count 153 (150-400) K/uL MPV 12.10 H (7.40-12.00) fL Neut % (Auto) 90.6 H (48.0-80.0) % Lymph % (Auto) 2.8 L (16.0-40.0) % Starr % (Auto) 6.0 (0.0-15.0) % Eos % (Auto) 0.4 (0.0-7.0) % Baso % (Auto) 0.2 (0.0-1.5) % Neut # (Auto) 17.2 H (1.4-5.7) K/uL Lymph # (Auto) 0.5 L (0.6-2.4) K/uL Starr # (Auto) 1.1 H (0.0-0.8) K/uL Eos # (Auto) 0.1 (0.0-0.7) K/uL Baso # (Auto) 0.0 (0.0-0.1) K/uL Nucleated RBC % 0.0 /100WBC Nucleated RBCs # 0 K/uL INR Sodium 140 (136-148) mmol/L Potassium 3.3 L (3.5-5.1) mmol/L Chloride 102 (98-107) mmol/L Carbon Dioxide 27.9 (21.0-32.0) mmol/L BUN 28 H (7.0-18.0) mg/dL Creatinine 1.2 (0.8-1.3) mg/dL Est Cr Clr Drug Dosing 51.45 mL/min Estimated GFR (MDRD) 59.9 ml/min Glucose 103 (74-106) mg/dL Lactic Acid 1.3 (0.4-2.0) mmol/L Calcium 8.4 L (8.5-10.1) mg/dL Phosphorus (2.6-4.7) mg/dL Magnesium (1.8-2.4) mg/dL Total Bilirubin 0.7 (0.2-1.0) mg/dL AST 27 (15-37) IU/L ALT 10 L (14-63) IU/L Alkaline Phosphatase 79 (46-116) U/L Troponin I < 0.050 (0.000-0.056) ng/mL Total Protein 6.8 (6.4-8.2) g/dL Albumin 3.1 L (3.4-5.0) g/dL Globulin 3.7 (2.6-4.0) g/dL Albumin/Globulin Ratio 0.8 L (0.9-1.6) Lipase (73-393) U/L Urine Color Urine Appearance Urine pH (5.0-8.0) Ur Specific Echo (1.001-1.035) Urine Protein (NEGATIVE) mg/dL Urine Glucose (UA) (NEGATIVE) mg/dL Urine Ketones (NEGATIVE) mg/dL Urine Occult Blood (NEGATIVE) Urine Nitrite (NEGATIVE) Urine Bilirubin (NEGATIVE) Urine Urobilinogen (<2.0) EU/dL Ur Leukocyte Esterase (NEGATIVE) Urine RBC (0-2/HPF) Urine WBC (0-5/HPF) Ur Epithelial Cells (NONE-FEW) Urine Bacteria (NEGATIVE) Urine Mucus (NONE-MOD) Influenza Type A RNA (NEGATIVE) Influenza Type B RNA (NEGATIVE) SARS-CoV-2 RNA (BRENDA) (NEGATIVE) 01/23/21 01/23/21 01/23/21 Range/Units 14:36 14:41 15:07 WBC (4.0-11.0) K/uL RBC (4.50-5.90) M/uL Hgb (13.0-17.0) g/dL Hct (38.0-50.0) % MCV (80.0-98.0) fL MCH (27.0-32.0) pg MCHC (31.0-37.0) g/dL RDW Std Deviation (28.0-62.0) fl RDW Coeff of Azeem (11.0-15.0) % Plt Count (150-400) K/uL MPV (7.40-12.00) fL Neut % (Auto) (48.0-80.0) % Lymph % (Auto) (16.0-40.0) % Starr % (Auto) (0.0-15.0) % Eos % (Auto) (0.0-7.0) % Baso % (Auto) (0.0-1.5) % Neut # (Auto) (1.4-5.7) K/uL Lymph # (Auto) (0.6-2.4) K/uL Starr # (Auto) (0.0-0.8) K/uL Eos # (Auto) (0.0-0.7) K/uL Baso # (Auto) (0.0-0.1) K/uL Nucleated RBC % /100WBC Nucleated RBCs # K/uL INR 0.99 Sodium (136-148) mmol/L Potassium (3.5-5.1) mmol/L Chloride (98-107) mmol/L Carbon Dioxide (21.0-32.0) mmol/L BUN (7.0-18.0) mg/dL Creatinine (0.8-1.3) mg/dL Est Cr Clr Drug Dosing mL/min Estimated GFR (MDRD) ml/min Glucose (74-106) mg/dL Lactic Acid (0.4-2.0) mmol/L Calcium (8.5-10.1) mg/dL Phosphorus (2.6-4.7) mg/dL Magnesium (1.8-2.4) mg/dL Total Bilirubin (0.2-1.0) mg/dL AST (15-37) IU/L ALT (14-63) IU/L Alkaline Phosphatase (46-116) U/L Troponin I < 0.050 (0.000-0.056) ng/mL Total Protein (6.4-8.2) g/dL Albumin (3.4-5.0) g/dL Globulin (2.6-4.0) g/dL Albumin/Globulin Ratio (0.9-1.6) Lipase 30 L (73-393) U/L Urine Color YELLOW Urine Appearance SLT CLOUDY Urine pH 7.0 (5.0-8.0) Ur Specific Echo 1.015 (1.001-1.035) Urine Protein TRACE H (NEGATIVE) mg/dL Urine Glucose (UA) NEGATIVE (NEGATIVE) mg/dL Urine Ketones NEGATIVE (NEGATIVE) mg/dL Urine Occult Blood TRACE-INTACT H (NEGATIVE) Urine Nitrite NEGATIVE (NEGATIVE) Urine Bilirubin NEGATIVE (NEGATIVE) Urine Urobilinogen 0.2 (<2.0) EU/dL Ur Leukocyte Esterase TRACE H (NEGATIVE) Urine RBC NONE SEEN (0-2/HPF) Urine WBC 0-2 (0-5/HPF) Ur Epithelial Cells RARE (NONE-FEW) Urine Bacteria 2+ H (NEGATIVE) Urine Mucus LIGHT (NONE-MOD) Influenza Type A RNA (NEGATIVE) Influenza Type B RNA (NEGATIVE) SARS-CoV-2 RNA (BRENDA) (NEGATIVE) 01/23/21 01/24/21 01/24/21 Range/Units 15:19 05:56 05:56 WBC 11.85 H (4.0-11.0) K/uL RBC 3.92 L (4.50-5.90) M/uL Hgb 11.4 L (13.0-17.0) g/dL Hct 34.7 L (38.0-50.0) % MCV 88.5 (80.0-98.0) fL MCH 29.1 (27.0-32.0) pg MCHC 32.9 (31.0-37.0) g/dL RDW Std Deviation 47.3 (28.0-62.0) fl RDW Coeff of Azeem 15 (11.0-15.0) % Plt Count 129 L (150-400) K/uL MPV 12.00 (7.40-12.00) fL Neut % (Auto) (48.0-80.0) % Lymph % (Auto) (16.0-40.0) % Starr % (Auto) (0.0-15.0) % Eos % (Auto) (0.0-7.0) % Baso % (Auto) (0.0-1.5) % Neut # (Auto) (1.4-5.7) K/uL Lymph # (Auto) (0.6-2.4) K/uL Starr # (Auto) (0.0-0.8) K/uL Eos # (Auto) (0.0-0.7) K/uL Baso # (Auto) (0.0-0.1) K/uL Nucleated RBC % 0.0 /100WBC Nucleated RBCs # 0 K/uL INR Sodium 142 (136-148) mmol/L Potassium 3.6 (3.5-5.1) mmol/L Chloride 109 H (98-107) mmol/L Carbon Dioxide 25.8 (21.0-32.0) mmol/L BUN 14 (7.0-18.0) mg/dL Creatinine 0.9 (0.8-1.3) mg/dL Est Cr Clr Drug Dosing 68.60 mL/min Estimated GFR (MDRD) > 60.0 ml/min Glucose 84 (74-106) mg/dL Lactic Acid (0.4-2.0) mmol/L Calcium 7.6 L (8.5-10.1) mg/dL Phosphorus 2.1 L (2.6-4.7) mg/dL Magnesium 1.9 (1.8-2.4) mg/dL Total Bilirubin 0.4 (0.2-1.0) mg/dL AST 28 (15-37) IU/L ALT 9 L (14-63) IU/L Alkaline Phosphatase 67 (46-116) U/L Troponin I (0.000-0.056) ng/mL Total Protein 5.4 L (6.4-8.2) g/dL Albumin 2.3 L (3.4-5.0) g/dL Globulin 3.1 (2.6-4.0) g/dL Albumin/Globulin Ratio 0.7 L (0.9-1.6) Lipase (73-393) U/L Urine Color Urine Appearance Urine pH (5.0-8.0) Ur Specific Echo (1.001-1.035) Urine Protein (NEGATIVE) mg/dL Urine Glucose (UA) (NEGATIVE) mg/dL Urine Ketones (NEGATIVE) mg/dL Urine Occult Blood (NEGATIVE) Urine Nitrite (NEGATIVE) Urine Bilirubin (NEGATIVE) Urine Urobilinogen (<2.0) EU/dL Ur Leukocyte Esterase (NEGATIVE) Urine RBC (0-2/HPF) Urine WBC (0-5/HPF) Ur Epithelial Cells (NONE-FEW) Urine Bacteria (NEGATIVE) Urine Mucus (NONE-MOD) Influenza Type A RNA NEGATIVE (NEGATIVE) Influenza Type B RNA NEGATIVE (NEGATIVE) SARS-CoV-2 RNA (BRENDA) NEGATIVE (NEGATIVE) Result Diagrams: 01/24/21 05:56 01/24/21 05:56 Sepsis Event Note - Focused Exam Vital Signs: Vital Signs Temp Pulse Resp BP BP Pulse Ox 01/24/21 11:00 36.1 C 91 16 102/56 L 95 01/24/21 07:29 36.7 C 95 16 97/56 L 92 L 01/24/21 04:00 36.9 C 86 17 112/73 90 L Orders Last 24hrs: Active Orders 24 hr Category Date Time Status Admission Status [Patient Status] [ADT] Stat ADT 01/23/21 18:16 Active Antiembolic Devices [RC] PER UNIT ROUTINE Care 01/23/21 19:09 Active Bedrest Bedside Commode [RC] ASDIRECTED Care 01/23/21 19:05 Active Bladder Scan [RC] ASDIRECTED Care 01/23/21 14:36 Active EKG Documentation Completion [RC] STAT Care 01/23/21 13:07 Active Prince Catheter Insertion [Insert Urinary Catheter] [OM. Care 01/23/21 15:15 Ordered PC] Q24H Oxygen Therapy [RC] PRN Care 01/23/21 19:05 Active RT Aerosol Therapy [RC] ASDIRECTED Care 01/23/21 19:09 Active Urinary Catheter Assessment [RC] ASDIRECTED Care 01/23/21 15:09 Active VTE/DVT Education [RC] PER UNIT ROUTINE Care 01/23/21 19:05 Active Vital Signs [RC] Q4H Care 01/23/21 19:05 Active Consult to Case Management/Machine Feed Operator [CONS] Cons 01/24/21 11:39 Active Routine PT Evaluation and Treatment [CONS] Routine Cons 01/23/21 19:05 Active Soft Diet [DIET] Diet 01/24/21 Dinner Active CULTURE BLOOD [BC] Stat Lab 01/23/21 14:41 Received CULTURE BLOOD [BC] Stat Lab 01/23/21 14:44 Received CULTURE URINE [MREF] Stat Lab 01/23/21 15:07 Received PHOSPHORUS [CHEM] Routine Lab 01/24/21 15:00 Ordered Acetaminophen [TylenoL] Med 01/23/21 19:05 Active 650 mg PO Q4H PRN Albuterol/Ipratropium [DuoNeb 3.0-0.5 MG/3 ML] Med 01/23/21 19:05 Active 3 ml NEB Q4HRRT PRN Docusate Sodium [Colace] Med 01/23/21 19:05 Active 100 mg PO BID PRN Enoxaparin [Lovenox] Med 01/24/21 09:00 Active 40 mg SUBCUT Q24H Lactated Ringers [Ringers, Lactated] 1,000 ml Med 01/23/21 20:30 Active IV ASDIRECTED Ondansetron [Zofran ODT] Med 01/23/21 19:05 Active 4 mg PO Q4H PRN Pantoprazole [ProTONIX IV] 40 mg Med 01/24/21 12:00 Active Sodium Chloride 0.9% [Normal Saline] 10 ml IV DAILY Phosphorus #1 [Neutra-Phos] Med 01/24/21 12:00 Active 250 mg PO QID Piperacillin/Tazobactam [Piperacil-Tazobact] 3.375 gm Med 01/23/21 23:00 Active Sodium Chloride 0.9% [Normal Saline] 50 ml IV Q6H Blood Culture x2 Reflex Set [OM.PC] Stat Oth 01/23/21 14:35 Ordered Sequential Compression Device [OM.PC] Per Unit Routine Oth 01/23/21 19:07 Ordered Resuscitation Status Routine Resus Stat 01/23/21 19:05 Ordered Medication Orders Acetaminophen (Acetaminophen 325 Mg Tab) 650 mg PO Q4H PRN PRN Reason: Pain (Mild 1-3)/fever Albuterol/Ipratropium (Albuterol/Ipratropium 3.0-0.5 Mg/3 Ml Neb Soln) 3 ml NEB Q4HRRT PRN PRN Reason: Shortness Of Breath/wheezing Docusate Sodium (Docusate Sodium 100 Mg Cap) 100 mg PO BID PRN PRN Reason: Constipation Enoxaparin Sodium (Enoxaparin 40 Mg/0.4 Ml Syringe) 40 mg SUBCUT Q24H FOR[facility], 1928–1983 Last Admin: 01/24/21 08:45 Dose: 40 mg Documented by: YAYA Piperacillin Sod/Tazobactam (Sod 3.375 gm/ Sodium Chloride) 50 mls @ 100 mls/hr IV Q6H [facility], 1928–1983 Last Admin: 01/24/21 10:55 Dose: 100 mls/hr Documented by: Infusion: 01/24/21 05:30 Dose: 100 mls/hr Documented by: Admin: 01/24/21 05:00 Dose: 100 mls/hr Documented by: Infusion: 01/23/21 23:49 Dose: 100 mls/hr Documented by: Admin: 01/23/21 23:19 Dose: 100 mls/hr Documented by: AUDRA Lactated Ringer's (Ringers, Lactated) 1,000 mls @ 125 mls/hr IV ASDIRECTED [facility], [facility]–1983 Last Admin: 01/24/21 12:21 Dose: 125 mls/hr Documented by: Infusion: 01/24/21 07:29 Dose: 125 mls/hr Documented by: Admin: 01/23/21 23:29 Dose: 125 mls/hr Documented by: AUDRA Pantoprazole Sodium 40 mg/ (Sodium Chloride) 10 mls @ 300 mls/hr IV DAILY FORMERLY [facility], 1928–1983 Last Admin: 01/24/21 12:20 Dose: 300 mls/hr Documented by: YAYA Ondansetron HCl (Ondansetron 4 Mg Tab.Dis) 4 mg PO Q4H PRN PRN Reason: nausea, able to take PO Sodium Phosphate (Phosphorus #1 250 Mg Tab) 250 mg PO QID LEONARD Last Admin: 01/24/21 12:28 Dose: Not Given Documented by: YAYA Assessment/Plan Comment:: I performed a history and physical exam of the patient and discussed management with resident. I have reviewed the residents note and agree with documented findings and plan unless otherwise specified in my note.
[2021-01-23] MEDS ORDERED: Potassium Chloride Riders 40 MEQ in Premix Bag 1 BAG IV ONE (20:29)
[2021-01-23] MEDS ORDERED: Haloperidol Lactate 5 MG/ML SDV IM ONE (20:57)
[2021-01-23] MEDS ORDERED: diphenhydrAMINE 50 MG/ML SDV IM ONE ×2 (20:58→22:40)
[2021-01-23] MEDS ORDERED: OLANZapine 10 MG in Water For Injection, Sterile 2.1 ML IM ONE (22:28)
[2021-01-23] MEDS ORDERED: diphenhydrAMINE 50 MG/ML SDV IVPUSH ONE (22:28)
[2021-01-23] MEDS ORDERED: OLANZapine 10 MG Vial IM ONE (22:47)
[2021-01-23] MEDS ORDERED: diphenhydrAMINE 50 MG/ML SDV ONE (22:51)
[2021-01-23] MEDS ORDERED: OLANZapine 10 MG Vial ONE (23:01)
[2021-01-23] MEDS ORDERED: Water For Injection, Sterile 20 ML ONE (23:06)
[2021-01-23] MEDS: Piperacillin/Tazobactam 3.375 GM in Sodium Chloride 0.9% 50 ML IV SCH (23:19)
[2021-01-23] MEDS: Lactated Ringers 1,000 ML IV SCH (23:29)
[2021-01-24] MEDS: Piperacillin/Tazobactam 3.375 GM in Sodium Chloride 0.9% 50 ML IV SCH ×4 (05:00→23:49)
[2021-01-24 06:40] LABS: BLOOD UREA NITROGEN,BUN 14 mg/dL (7.0-18.0); CARBON DIOXIDE,CO2 25.8 mmol/L (21.0-32.0); CHLORIDE,CL 109 mmol/L (98-107); GLUCOSE RANDOM 84 mg/dL (74-106); POTASSIUM,K 3.6 mmol/L (3.5-5.1); SODIUM,NA 142 mmol/L (136-148)
[2021-01-24] MEDS: Enoxaparin 40 MG/0.4 ML Syringe SUBCUT SCH (08:45)
--- NOTE | 2021-01-24 09:10 | PCM.PN ---
<Brenda Maciel - Last Filed: 01/24/21 11:34> - General Info Date of Service: 01/24/21 Admission Dx/Problem (Free Text): Admission Diagnosis/Problem Admission Diagnosis/Problem Sepsis Subjective Update: 71 gentleman with advanced dementia, was admitted for sepsis with unknown source, started on Zosyn. Overnight he is 90 agitated and pulled his IV out. IV in lumens were appropriately replaced. Patient was confused and try to get out of bed frequently, cursing at the staff saying like this upon to go home. Appreciate staff working with patient to reorient and frequently advising to say. Alarms currently placing patient has a one-to-one sitter. Patient was seen at bedside resting comfortably, in no acute distress, without any shortness of breath, pain or fever. - Review of Systems Systems Review Comment:: Unable to obtain review of systems since patient is alert but confused. Denies any pain, shortness of breath. - Patient Data Vitals - Most Recent: Last Vital Signs Temp 98.1 F 01/24/21 07:29 Pulse 95 01/24/21 07:29 Resp 16 01/24/21 07:29 BP 97/56 L 01/24/21 07:29 Pulse Ox 92 L 01/24/21 07:29 Weight - Most Recent: 63.503 kg I&O - Last 24 Hours: Intake & Output 01/23/21 01/24/21 01/24/21 22:59 06:59 14:59 Intake Total 1149 Output Total 90 350 Balance -89* 799 Lab Results Last 24 Hours: Laboratory Results - last 24 hr 01/23/21 01/23/21 01/23/21 Range/Units 13:37 13:37 14:35 WBC 18.97 H (4.0-11.0) K/uL RBC 4.30 L (4.50-5.90) M/uL Hgb 12.5 L (13.0-17.0) g/dL Hct 38.2 (38.0-50.0) % MCV 88.8 (80.0-98.0) fL MCH 29.1 (27.0-32.0) pg MCHC 32.7 (31.0-37.0) g/dL RDW Std Deviation 47.7 (28.0-62.0) fl RDW Coeff of Azeem 15 (11.0-15.0) % Plt Count 153 (150-400) K/uL MPV 12.10 H (7.40-12.00) fL Neut % (Auto) 90.6 H (48.0-80.0) % Lymph % (Auto) 2.8 L (16.0-40.0) % [place] % (Auto) 6.0 (0.0-15.0) % Eos % (Auto) 0.4 (0.0-7.0) % Baso % (Auto) 0.2 (0.0-1.5) % Neut # (Auto) 17.2 H (1.4-5.7) K/uL Lymph # (Auto) 0.5 L (0.6-2.4) K/uL [place] # (Auto) 1.1 H (0.0-0.8) K/uL Eos # (Auto) 0.1 (0.0-0.7) K/uL Baso # (Auto) 0.0 (0.0-0.1) K/uL Nucleated RBC % 0.0 /100WBC Nucleated RBCs # 0 K/uL INR Sodium 140 (136-148) mmol/L Potassium 3.3 L (3.5-5.1) mmol/L Chloride 102 (98-107) mmol/L Carbon Dioxide 27.9 (21.0-32.0) mmol/L BUN 28 H (7.0-18.0) mg/dL Creatinine 1.2 (0.8-1.3) mg/dL Est Cr Clr Drug Dosing 51.45 mL/min Estimated GFR (MDRD) 59.9 ml/min Glucose 103 (74-106) mg/dL Lactic Acid 1.3 (0.4-2.0) mmol/L Calcium 8.4 L (8.5-10.1) mg/dL Phosphorus (2.6-4.7) mg/dL Magnesium (1.8-2.4) mg/dL Total Bilirubin 0.7 (0.2-1.0) mg/dL AST 27 (15-37) IU/L ALT 10 L (14-63) IU/L Alkaline Phosphatase 79 (46-116) U/L Troponin I < 0.050 (0.000-0.056) ng/mL Total Protein 6.8 (6.4-8.2) g/dL Albumin 3.1 L (3.4-5.0) g/dL Globulin 3.7 (2.6-4.0) g/dL Albumin/Globulin Ratio 0.8 L (0.9-1.6) Lipase (73-393) U/L Urine Color Urine Appearance Urine pH (5.0-8.0) Ur Specific [place] (1.001-1.035) Urine Protein (NEGATIVE) mg/dL Urine Glucose (UA) (NEGATIVE) mg/dL Urine Ketones (NEGATIVE) mg/dL Urine Occult Blood (NEGATIVE) Urine Nitrite (NEGATIVE) Urine Bilirubin (NEGATIVE) Urine Urobilinogen (<2.0) EU/dL Ur Leukocyte Esterase (NEGATIVE) Urine RBC (0-2/HPF) Urine WBC (0-5/HPF) Ur Epithelial Cells (NONE-FEW) Urine Bacteria (NEGATIVE) Urine Mucus (NONE-MOD) Influenza Type A RNA (NEGATIVE) Influenza Type B RNA (NEGATIVE) SARS-CoV-2 RNA (BRENDA) (NEGATIVE) 01/23/21 01/23/21 01/23/21 Range/Units 14:36 14:41 15:07 WBC (4.0-11.0) K/uL RBC (4.50-5.90) M/uL Hgb (13.0-17.0) g/dL Hct (38.0-50.0) % MCV (80.0-98.0) fL MCH (27.0-32.0) pg MCHC (31.0-37.0) g/dL RDW Std Deviation (28.0-62.0) fl RDW Coeff of Azeem (11.0-15.0) % Plt Count (150-400) K/uL MPV (7.40-12.00) fL Neut % (Auto) (48.0-80.0) % Lymph % (Auto) (16.0-40.0) % [place] % (Auto) (0.0-15.0) % Eos % (Auto) (0.0-7.0) % Baso % (Auto) (0.0-1.5) % Neut # (Auto) (1.4-5.7) K/uL Lymph # (Auto) (0.6-2.4) K/uL [place] # (Auto) (0.0-0.8) K/uL Eos # (Auto) (0.0-0.7) K/uL Baso # (Auto) (0.0-0.1) K/uL Nucleated RBC % /100WBC Nucleated RBCs # K/uL INR 0.99 Sodium (136-148) mmol/L Potassium (3.5-5.1) mmol/L Chloride (98-107) mmol/L Carbon Dioxide (21.0-32.0) mmol/L BUN (7.0-18.0) mg/dL Creatinine (0.8-1.3) mg/dL Est Cr Clr Drug Dosing mL/min Estimated GFR (MDRD) ml/min Glucose (74-106) mg/dL Lactic Acid (0.4-2.0) mmol/L Calcium (8.5-10.1) mg/dL Phosphorus (2.6-4.7) mg/dL Magnesium (1.8-2.4) mg/dL Total Bilirubin (0.2-1.0) mg/dL AST (15-37) IU/L ALT (14-63) IU/L Alkaline Phosphatase (46-116) U/L Troponin I < 0.050 (0.000-0.056) ng/mL Total Protein (6.4-8.2) g/dL Albumin (3.4-5.0) g/dL Globulin (2.6-4.0) g/dL Albumin/Globulin Ratio (0.9-1.6) Lipase 30 L (73-393) U/L Urine Color YELLOW Urine Appearance SLT CLOUDY Urine pH 7.0 (5.0-8.0) Ur Specific [place] 1.015 (1.001-1.035) Urine Protein TRACE H (NEGATIVE) mg/dL Urine Glucose (UA) NEGATIVE (NEGATIVE) mg/dL Urine Ketones NEGATIVE (NEGATIVE) mg/dL Urine Occult Blood TRACE-INTACT H (NEGATIVE) Urine Nitrite NEGATIVE (NEGATIVE) Urine Bilirubin NEGATIVE (NEGATIVE) Urine Urobilinogen 0.2 (<2.0) EU/dL Ur Leukocyte Esterase TRACE H (NEGATIVE) Urine RBC NONE SEEN (0-2/HPF) Urine WBC 0-2 (0-5/HPF) Ur Epithelial Cells RARE (NONE-FEW) Urine Bacteria 2+ H (NEGATIVE) Urine Mucus LIGHT (NONE-MOD) Influenza Type A RNA (NEGATIVE) Influenza Type B RNA (NEGATIVE) SARS-CoV-2 RNA (BRENDA) (NEGATIVE) 01/23/21 01/24/21 01/24/21 Range/Units 15:19 05:56 05:56 WBC 11.85 H (4.0-11.0) K/uL RBC 3.92 L (4.50-5.90) M/uL Hgb 11.4 L (13.0-17.0) g/dL Hct 34.7 L (38.0-50.0) % MCV 88.5 (80.0-98.0) fL MCH 29.1 (27.0-32.0) pg MCHC 32.9 (31.0-37.0) g/dL RDW Std Deviation 47.3 (28.0-62.0) fl RDW Coeff of Azeem 15 (11.0-15.0) % Plt Count 129 L (150-400) K/uL MPV 12.00 (7.40-12.00) fL Neut % (Auto) (48.0-80.0) % Lymph % (Auto) (16.0-40.0) % [place] % (Auto) (0.0-15.0) % Eos % (Auto) (0.0-7.0) % Baso % (Auto) (0.0-1.5) % Neut # (Auto) (1.4-5.7) K/uL Lymph # (Auto) (0.6-2.4) K/uL [place] # (Auto) (0.0-0.8) K/uL Eos # (Auto) (0.0-0.7) K/uL Baso # (Auto) (0.0-0.1) K/uL Nucleated RBC % 0.0 /100WBC Nucleated RBCs # 0 K/uL INR Sodium 142 (136-148) mmol/L Potassium 3.6 (3.5-5.1) mmol/L Chloride 109 H (98-107) mmol/L Carbon Dioxide 25.8 (21.0-32.0) mmol/L BUN 14 (7.0-18.0) mg/dL Creatinine 0.9 (0.8-1.3) mg/dL Est Cr Clr Drug Dosing 68.60 mL/min Estimated GFR (MDRD) > 60.0 ml/min Glucose 84 (74-106) mg/dL Lactic Acid (0.4-2.0) mmol/L Calcium 7.6 L (8.5-10.1) mg/dL Phosphorus 2.1 L (2.6-4.7) mg/dL Magnesium 1.9 (1.8-2.4) mg/dL Total Bilirubin 0.4 (0.2-1.0) mg/dL AST 28 (15-37) IU/L ALT 9 L (14-63) IU/L Alkaline Phosphatase 67 (46-116) U/L Troponin I (0.000-0.056) ng/mL Total Protein 5.4 L (6.4-8.2) g/dL Albumin 2.3 L (3.4-5.0) g/dL Globulin 3.1 (2.6-4.0) g/dL Albumin/Globulin Ratio 0.7 L (0.9-1.6) Lipase (73-393) U/L Urine Color Urine Appearance Urine pH (5.0-8.0) Ur Specific [place] (1.001-1.035) Urine Protein (NEGATIVE) mg/dL Urine Glucose (UA) (NEGATIVE) mg/dL Urine Ketones (NEGATIVE) mg/dL Urine Occult Blood (NEGATIVE) Urine Nitrite (NEGATIVE) Urine Bilirubin (NEGATIVE) Urine Urobilinogen (<2.0) EU/dL Ur Leukocyte Esterase (NEGATIVE) Urine RBC (0-2/HPF) Urine WBC (0-5/HPF) Ur Epithelial Cells (NONE-FEW) Urine Bacteria (NEGATIVE) Urine Mucus (NONE-MOD) Influenza Type A RNA NEGATIVE (NEGATIVE) Influenza Type B RNA NEGATIVE (NEGATIVE) SARS-CoV-2 RNA (BRENDA) NEGATIVE (NEGATIVE) Med Orders - Current: Current Medications Acetaminophen (Acetaminophen 325 Mg Tab) 650 mg PO Q4H PRN PRN Reason: Pain (Mild 1-3)/fever Albuterol/Ipratropium (Albuterol/Ipratropium 3.0-0.5 Mg/3 Ml Neb Soln) 3 ml NEB Q4HRRT PRN PRN Reason: Shortness Of Breath/wheezing Docusate Sodium (Docusate Sodium 100 Mg Cap) 100 mg PO BID PRN PRN Reason: Constipation Enoxaparin Sodium (Enoxaparin 40 Mg/0.4 Ml Syringe) 40 mg SUBCUT Q24H [facility] Last Admin: 01/24/21 08:45 Dose: 40 mg Documented by: Piperacillin Sod/Tazobactam (Sod 3.375 gm/ Sodium Chloride) 50 mls @ 100 mls/hr IV Q6H [facility] Last Admin: 01/24/21 05:00 Dose: 100 mls/hr Documented by: Lactated Ringer's (Ringers, Lactated) 1,000 mls @ 125 mls/hr IV ASDIRECTED [facility] Last Admin: 01/23/21 23:29 Dose: 125 mls/hr Documented by: Ondansetron HCl (Ondansetron 4 Mg Tab.Dis) 4 mg PO Q4H PRN PRN Reason: nausea, able to take PO Discontinued Medications Diphenhydramine HCl (Diphenhydramine 50 Mg/Ml Sdv) 25 mg IM ONETIME ONE Stop: 01/23/21 20:59 Last Admin: 01/23/21 21:08 Dose: 25 mg Documented by: Diphenhydramine HCl (Diphenhydramine 50 Mg/Ml Sdv) 25 mg IVPUSH ONETIME ONE Stop: 01/23/21 22:29 Diphenhydramine HCl (Diphenhydramine 50 Mg/Ml Sdv) 25 mg IM ONETIME ONE Stop: 01/23/21 22:41 Last Admin: 01/23/21 23:20 Dose: 25 mg Documented by: Diphenhydramine HCl (Diphenhydramine 50 Mg/Ml Sdv) Confirm Administered Dose 50 mg .ROUTE .STK-MED ONE Stop: 01/23/21 22:52 Last Admin: 01/23/21 23:22 Dose: Not Given Documented by: Haloperidol Lactate (Haloperidol Lactate 5 Mg/Ml Sdv) 5 mg IM ONETIME ONE Stop: 01/23/21 20:58 Last Admin: 01/23/21 21:09 Dose: 5 mg Documented by: Sodium Chloride (Normal Saline) 1,000 mls @ 999 mls/hr IV STAT ONE Stop: 01/23/21 15:35 Last Admin: 01/23/21 15:49 Dose: 999 mls/hr Documented by: Piperacillin Sod/Tazobactam (Sod 3.375 gm/ Sodium Chloride) 50 mls @ 100 mls/hr IV ONETIME ONE Stop: 01/23/21 16:57 Last Admin: 01/23/21 16:47 Dose: 100 mls/hr Documented by: Vancomycin HCl 1 gm/ Sodium (Chloride) 250 mls @ 166 mls/hr IV ONETIME ONE Stop: 01/23/21 17:59 Last Admin: 01/23/21 17:31 Dose: 166 mls/hr Documented by: Lactated Ringer's (Ringers, Lactated) 1,000 mls @ 999 mls/hr IV BOLUS ONE Stop: 01/23/21 20:05 Last Admin: 01/23/21 20:00 Dose: 999 mls/hr Documented by: Potassium Chloride 40 meq/ (Premix) 100 mls @ 25 mls/hr IV ONETIME ONE Stop: 01/24/21 00:28 Last Admin: 01/24/21 00:25 Dose: 25 mls/hr Documented by: Olanzapine 10 mg/ Sterile (Water) 2.1 mls @ 999 mls/hr IM ONETIME ONE Stop: 01/23/21 22:29 Sterile Water (Sterile Water For Injection) Confirm Administered Dose 20 mls @ as directed .ROUTE .STK-MED ONE Stop: 01/23/21 23:07 Last Admin: 01/23/21 23:22 Dose: Not Given Documented by: Iopamidol (Iopamidol 755 Mg/Ml 500 Ml Multipack Bottle) 100 ml IVPUSH ONETIME STA Stop: 01/23/21 15:43 Last Admin: 01/23/21 15:42 Dose: 100 ml Documented by: Lorazepam (Lorazepam 2 Mg/Ml Sdv) 0.5 mg IVPUSH ONETIME ONE Stop: 01/23/21 16:48 Last Admin: 01/23/21 16:53 Dose: 0.5 mg Documented by: Lorazepam (Lorazepam 2 Mg/Ml Sdv) 2 mg IVPUSH ONETIME ONE Stop: 01/23/21 22:30 Last Admin: 01/24/21 00:24 Dose: 2 mg Documented by: Olanzapine (Olanzapine 10 Mg Vial) 10 mg IM ONETIME ONE Stop: 01/23/21 22:48 Last Admin: 01/23/21 23:21 Dose: 10 mg Documented by: Olanzapine (Olanzapine 10 Mg Vial) Confirm Administered Dose 10 mg .ROUTE .STK- MED ONE Stop: 01/23/21 23:02 Last Admin: 01/23/21 23:22 Dose: Not Given Documented by: - Exam Quality Assessment: Urine Catheter, DVT Prophylaxis Urinary Catheter Total Time: 0Days 0Hours General: Alert, Oriented (X1, able to standing), No Acute Distress HEENT: Pupils Equal, Pupils Reactive, EOMI, Mucous Membr. Moist/[place] Neck: Supple, Trachea Midline, No JVD. No: Lymphadenopathy, Carotid Bruit, Thyromegaly Lungs: Clear to Auscultation, Normal Respiratory Effort, Decreased Breath Sounds. No: Crackles, Rales, Rhonchi, Wheezing Cardiovascular: Regular Rate, Regular Rhythm GI/Abdominal Exam: Normal Bowel Sounds, Soft, Non-Tender Back Exam: Normal Inspection. No: CVA Tenderness (L), CVA Tenderness (R) Extremities: Normal Inspection, Normal Range of Motion, Non-Tender, No Pedal Edema, Normal Capillary Refill Peripheral Pulses: 2+: Carotid (L), Carotid (R), Dorsalis Pedis (L), Dorsalis Pedis (R) Skin: Warm, Dry, Other (Excoriations noted in anal region) Wound/Incisions: Healing Well, No Drainage, Erythema Improving Neurological: No New Focal Deficit, Reflexes Equal Bilateral, Sensation Intact. No: Normal Tone Psy/Mental Status: Alert - Patient Data Lab Results Last 24 hrs: Laboratory Results - last 24 hr 01/23/21 01/23/21 01/23/21 Range/Units 13:37 13:37 14:35 WBC 18.97 H (4.0-11.0) K/uL RBC 4.30 L (4.50-5.90) M/uL Hgb 12.5 L (13.0-17.0) g/dL Hct 38.2 (38.0-50.0) % MCV 88.8 (80.0-98.0) fL MCH 29.1 (27.0-32.0) pg MCHC 32.7 (31.0-37.0) g/dL RDW Std Deviation 47.7 (28.0-62.0) fl RDW Coeff of Azeem 15 (11.0-15.0) % Plt Count 153 (150-400) K/uL MPV 12.10 H (7.40-12.00) fL Neut % (Auto) 90.6 H (48.0-80.0) % Lymph % (Auto) 2.8 L (16.0-40.0) % [place] % (Auto) 6.0 (0.0-15.0) % Eos % (Auto) 0.4 (0.0-7.0) % Baso % (Auto) 0.2 (0.0-1.5) % Neut # (Auto) 17.2 H (1.4-5.7) K/uL Lymph # (Auto) 0.5 L (0.6-2.4) K/uL [place] # (Auto) 1.1 H (0.0-0.8) K/uL Eos # (Auto) 0.1 (0.0-0.7) K/uL Baso # (Auto) 0.0 (0.0-0.1) K/uL Nucleated RBC % 0.0 /100WBC Nucleated RBCs # 0 K/uL INR Sodium 140 (136-148) mmol/L Potassium 3.3 L (3.5-5.1) mmol/L Chloride 102 (98-107) mmol/L Carbon Dioxide 27.9 (21.0-32.0) mmol/L BUN 28 H (7.0-18.0) mg/dL Creatinine 1.2 (0.8-1.3) mg/dL Est Cr Clr Drug Dosing 51.45 mL/min Estimated GFR (MDRD) 59.9 ml/min Glucose 103 (74-106) mg/dL Lactic Acid 1.3 (0.4-2.0) mmol/L Calcium 8.4 L (8.5-10.1) mg/dL Phosphorus (2.6-4.7) mg/dL Magnesium (1.8-2.4) mg/dL Total Bilirubin 0.7 (0.2-1.0) mg/dL AST 27 (15-37) IU/L ALT 10 L (14-63) IU/L Alkaline Phosphatase 79 (46-116) U/L Troponin I < 0.050 (0.000-0.056) ng/mL Total Protein 6.8 (6.4-8.2) g/dL Albumin 3.1 L (3.4-5.0) g/dL Globulin 3.7 (2.6-4.0) g/dL Albumin/Globulin Ratio 0.8 L (0.9-1.6) Lipase (73-393) U/L Urine Color Urine Appearance Urine pH (5.0-8.0) Ur Specific [place] (1.001-1.035) Urine Protein (NEGATIVE) mg/dL Urine Glucose (UA) (NEGATIVE) mg/dL Urine Ketones (NEGATIVE) mg/dL Urine Occult Blood (NEGATIVE) Urine Nitrite (NEGATIVE) Urine Bilirubin (NEGATIVE) Urine Urobilinogen (<2.0) EU/dL Ur Leukocyte Esterase (NEGATIVE) Urine RBC (0-2/HPF) Urine WBC (0-5/HPF) Ur Epithelial Cells (NONE-FEW) Urine Bacteria (NEGATIVE) Urine Mucus (NONE-MOD) Influenza Type A RNA (NEGATIVE) Influenza Type B RNA (NEGATIVE) SARS-CoV-2 RNA (BRENDA) (NEGATIVE) 01/23/21 01/23/21 01/23/21 Range/Units 14:36 14:41 15:07 WBC (4.0-11.0) K/uL RBC (4.50-5.90) M/uL Hgb (13.0-17.0) g/dL Hct (38.0-50.0) % MCV (80.0-98.0) fL MCH (27.0-32.0) pg MCHC (31.0-37.0) g/dL RDW Std Deviation (28.0-62.0) fl RDW Coeff of Azeem (11.0-15.0) % Plt Count (150-400) K/uL MPV (7.40-12.00) fL Neut % (Auto) (48.0-80.0) % Lymph % (Auto) (16.0-40.0) % [place] % (Auto) (0.0-15.0) % Eos % (Auto) (0.0-7.0) % Baso % (Auto) (0.0-1.5) % Neut # (Auto) (1.4-5.7) K/uL Lymph # (Auto) (0.6-2.4) K/uL [place] # (Auto) (0.0-0.8) K/uL Eos # (Auto) (0.0-0.7) K/uL Baso # (Auto) (0.0-0.1) K/uL Nucleated RBC % /100WBC Nucleated RBCs # K/uL INR 0.99 Sodium (136-148) mmol/L Potassium (3.5-5.1) mmol/L Chloride (98-107) mmol/L Carbon Dioxide (21.0-32.0) mmol/L BUN (7.0-18.0) mg/dL Creatinine (0.8-1.3) mg/dL Est Cr Clr Drug Dosing mL/min Estimated GFR (MDRD) ml/min Glucose (74-106) mg/dL Lactic Acid (0.4-2.0) mmol/L Calcium (8.5-10.1) mg/dL Phosphorus (2.6-4.7) mg/dL Magnesium (1.8-2.4) mg/dL Total Bilirubin (0.2-1.0) mg/dL AST (15-37) IU/L ALT (14-63) IU/L Alkaline Phosphatase (46-116) U/L Troponin I < 0.050 (0.000-0.056) ng/mL Total Protein (6.4-8.2) g/dL Albumin (3.4-5.0) g/dL Globulin (2.6-4.0) g/dL Albumin/Globulin Ratio (0.9-1.6) Lipase 30 L (73-393) U/L Urine Color YELLOW Urine Appearance SLT CLOUDY Urine pH 7.0 (5.0-8.0) Ur Specific [place] 1.015 (1.001-1.035) Urine Protein TRACE H (NEGATIVE) mg/dL Urine Glucose (UA) NEGATIVE (NEGATIVE) mg/dL Urine Ketones NEGATIVE (NEGATIVE) mg/dL Urine Occult Blood TRACE-INTACT H (NEGATIVE) Urine Nitrite NEGATIVE (NEGATIVE) Urine Bilirubin NEGATIVE (NEGATIVE) Urine Urobilinogen 0.2 (<2.0) EU/dL Ur Leukocyte Esterase TRACE H (NEGATIVE) Urine RBC NONE SEEN (0-2/HPF) Urine WBC 0-2 (0-5/HPF) Ur Epithelial Cells RARE (NONE-FEW) Urine Bacteria 2+ H (NEGATIVE) Urine Mucus LIGHT (NONE-MOD) Influenza Type A RNA (NEGATIVE) Influenza Type B RNA (NEGATIVE) SARS-CoV-2 RNA (BRENDA) (NEGATIVE) 01/23/21 01/24/21 01/24/21 Range/Units 15:19 05:56 05:56 WBC 11.85 H (4.0-11.0) K/uL RBC 3.92 L (4.50-5.90) M/uL Hgb 11.4 L (13.0-17.0) g/dL Hct 34.7 L (38.0-50.0) % MCV 88.5 (80.0-98.0) fL MCH 29.1 (27.0-32.0) pg MCHC 32.9 (31.0-37.0) g/dL RDW Std Deviation 47.3 (28.0-62.0) fl RDW Coeff of Azeem 15 (11.0-15.0) % Plt Count 129 L (150-400) K/uL MPV 12.00 (7.40-12.00) fL Neut % (Auto) (48.0-80.0) % Lymph % (Auto) (16.0-40.0) % [place] % (Auto) (0.0-15.0) % Eos % (Auto) (0.0-7.0) % Baso % (Auto) (0.0-1.5) % Neut # (Auto) (1.4-5.7) K/uL Lymph # (Auto) (0.6-2.4) K/uL [place] # (Auto) (0.0-0.8) K/uL Eos # (Auto) (0.0-0.7) K/uL Baso # (Auto) (0.0-0.1) K/uL Nucleated RBC % 0.0 /100WBC Nucleated RBCs # 0 K/uL INR Sodium 142 (136-148) mmol/L Potassium 3.6 (3.5-5.1) mmol/L Chloride 109 H (98-107) mmol/L Carbon Dioxide 25.8 (21.0-32.0) mmol/L BUN 14 (7.0-18.0) mg/dL Creatinine 0.9 (0.8-1.3) mg/dL Est Cr Clr Drug Dosing 68.60 mL/min Estimated GFR (MDRD) > 60.0 ml/min Glucose 84 (74-106) mg/dL Lactic Acid (0.4-2.0) mmol/L Calcium 7.6 L (8.5-10.1) mg/dL Phosphorus 2.1 L (2.6-4.7) mg/dL Magnesium 1.9 (1.8-2.4) mg/dL Total Bilirubin 0.4 (0.2-1.0) mg/dL AST 28 (15-37) IU/L ALT 9 L (14-63) IU/L Alkaline Phosphatase 67 (46-116) U/L Troponin I (0.000-0.056) ng/mL Total Protein 5.4 L (6.4-8.2) g/dL Albumin 2.3 L (3.4-5.0) g/dL Globulin 3.1 (2.6-4.0) g/dL Albumin/Globulin Ratio 0.7 L (0.9-1.6) Lipase (73-393) U/L Urine Color Urine Appearance Urine pH (5.0-8.0) Ur Specific [place] (1.001-1.035) Urine Protein (NEGATIVE) mg/dL Urine Glucose (UA) (NEGATIVE) mg/dL Urine Ketones (NEGATIVE) mg/dL Urine Occult Blood (NEGATIVE) Urine Nitrite (NEGATIVE) Urine Bilirubin (NEGATIVE) Urine Urobilinogen (<2.0) EU/dL Ur Leukocyte Esterase (NEGATIVE) Urine RBC (0-2/HPF) Urine WBC (0-5/HPF) Ur Epithelial Cells (NONE-FEW) Urine Bacteria (NEGATIVE) Urine Mucus (NONE-MOD) Influenza Type A RNA NEGATIVE (NEGATIVE) Influenza Type B RNA NEGATIVE (NEGATIVE) SARS-CoV-2 RNA (BRENDA) NEGATIVE (NEGATIVE) Result Diagrams: 01/24/21 05:56 01/24/21 05:56 Sepsis Event Note - Evaluation Sepsis Screening Result: No Definite Risk - Focused Exam Vital Signs: Vital Signs Temp Pulse Resp BP BP Pulse Ox 01/24/21 07:29 98.1 F 95 16 97/56 L 92 L 01/24/21 04:00 98.4 F 86 17 112/73 90 L 01/24/21 00:00 98.3 F 87 17 103/69 93 L - Problem List Review Problem List Initiated/Reviewed/Updated: Yes - My Orders Last 24 Hours: My Active Orders 01/23/21 19:05 Bedrest Bedside Commode [RC] ASDIRECTED Oxygen Therapy [RC] PRN VTE/DVT Education [RC] PER UNIT ROUTINE Vital Signs [RC] Q4H PT Evaluation and Treatment [CONS] Routine Acetaminophen [TylenoL] 650 mg PO Q4H PRN Albuterol/Ipratropium [DuoNeb 3.0-0.5 MG/3 ML] 3 ml NEB Q4HRRT PRN Docusate Sodium [Colace] 100 mg PO BID PRN Ondansetron [Zofran ODT] 4 mg PO Q4H PRN Resuscitation Status Routine 01/23/21 19:07 Sequential Compression Device [OM.PC] Per Unit Routine 01/23/21 19:09 Antiembolic Devices [RC] PER UNIT ROUTINE RT Aerosol Therapy [RC] ASDIRECTED 01/23/21 20:30 Lactated Ringers [Ringers, Lactated] 1,000 ml IV ASDIRECTED 01/23/21 23:00 Piperacillin/Tazobactam [Piperacil-Tazobact] 3.375 gm Sodium Chloride 0.9% [Normal Saline] 50 ml IV Q6H 01/24/21 09:00 Enoxaparin [Lovenox] 40 mg SUBCUT Q24H 01/24/21 Dinner Soft Diet [DIET] - Plan Plan:: 71-year-old gentleman with history of advanced dementia, COPD was admitted for sepsis of unconfirmed source. 1. Delirium likely secondary to possible underlying UTI: Remains afebrile, vital signs have improved however patient has soft blood pressure of 97/56 with maps over 65 Leukocytosis improved, 11.9 this morning, normal lactate, urine, blood cultures are pending. No longer septic Patient had significant urinary retention, Prince catheter in place, removed approximately 2 L of foul-smelling dark-colored urine on admission. This morning, Prince in place, with drainage, with yellow straw-colored urine Chest x-ray was normal without pneumonia UA, with 2+ bacteria, trace leukocyte esterase, urine culture pending Continue treating with Zosyn; awaiting cultures to narrow antibiotics. 2. Mild BHARATI: Resolved, continue on maintenance fluids until patient demonstrates ability to tolerate a diet. 3.Mild hypokalemia: Resolved 4. Possible history of dementia: Contact and confirm possible past medical history of dementia; as he is demonstrated will be alert and oriented x1, significant confusion, restlessness/agitation overnight, frequently needing reorientation and likely lacking capacity. We will discuss possible need for assistance with his care. Consult case management regarding possibility for placement options. CODE STATUS: Full code per GI prophylaxis: Protonix IV 40 DVT prophylaxis: Enoxaparin 40 IV Activity: Bedrest with commode Diet: Soft mechanical <Astrid Oneill - Last Filed: 01/28/21 16:19> - Patient Data Vitals - Most Recent: Last Vital Signs Temp 37.0 C 01/27/21 12:26 Pulse 77 01/27/21 12:26 Resp 17 01/27/21 12:26 BP 105/63 01/27/21 12:26 Pulse Ox 92 L 01/27/21 12:26 Shahbaz Results Last 24 Hours: Microbiology 01/23/21 14:44 Aerobic Blood Culture - Final Blood - Venous - Lab Draw NO GROWTH AFTER 5 DAYS Anaerobic Blood Culture - Final NO GROWTH AFTER 5 DAYS 01/23/21 14:41 Aerobic Blood Culture - Final Blood - Venous NO GROWTH AFTER 5 DAYS Anaerobic Blood Culture - Final NO GROWTH AFTER 5 DAYS Med Orders - Current: Current Medications Discontinued Medications Acetaminophen (Acetaminophen 325 Mg Tab) 650 mg PO Q4H PRN PRN Reason: Pain (Mild 1-3)/fever Albuterol/Ipratropium (Albuterol/Ipratropium 3.0-0.5 Mg/3 Ml Neb Soln) 3 ml NEB Q4HRRT PRN PRN Reason: Shortness Of Breath/wheezing Last Admin: 01/27/21 09:25 Dose: 3 ml Documented by: Diphenhydramine HCl (Diphenhydramine 50 Mg/Ml Sdv) 25 mg IM ONETIME ONE Stop: 01/23/21 20:59 Last Admin: 01/23/21 21:08 Dose: 25 mg Documented by: Diphenhydramine HCl (Diphenhydramine 50 Mg/Ml Sdv) 25 mg IVPUSH ONETIME ONE Stop: 01/23/21 22:29 Diphenhydramine HCl (Diphenhydramine 50 Mg/Ml Sdv) 25 mg IM ONETIME ONE Stop: 01/23/21 22:41 Last Admin: 01/23/21 23:20 Dose: 25 mg Documented by: Diphenhydramine HCl (Diphenhydramine 50 Mg/Ml Sdv) Confirm Administered Dose 50 mg .ROUTE .STK-MED ONE Stop: 01/23/21 22:52 Last Admin: 01/23/21 23:22 Dose: Not Given Documented by: Docusate Sodium (Docusate Sodium 100 Mg Cap) 100 mg PO BID PRN PRN Reason: Constipation Enoxaparin Sodium (Enoxaparin 40 Mg/0.4 Ml Syringe) 40 mg SUBCUT Q24H [facility] Last Admin: 01/27/21 08:40 Dose: 40 mg Documented by: Haloperidol Lactate (Haloperidol Lactate 5 Mg/Ml Sdv) 5 mg IM ONETIME ONE Stop: 01/23/21 20:58 Last Admin: 01/23/21 21:09 Dose: 5 mg Documented by: Sodium Chloride (Normal Saline) 1,000 mls @ 999 mls/hr IV STAT ONE Stop: 01/23/21 15:35 Last Admin: 01/23/21 15:49 Dose: 999 mls/hr Documented by: Piperacillin Sod/Tazobactam (Sod 3.375 gm/ Sodium Chloride) 50 mls @ 100 mls/hr IV ONETIME ONE Stop: 01/23/21 16:57 Last Admin: 01/23/21 16:47 Dose: 100 mls/hr Documented by: Vancomycin HCl 1 gm/ Sodium (Chloride) 250 mls @ 166 mls/hr IV ONETIME ONE Stop: 01/23/21 17:59 Last Admin: 01/23/21 17:31 Dose: 166 mls/hr Documented by: Lactated Ringer's (Ringers, Lactated) 1,000 mls @ 999 mls/hr IV BOLUS ONE Stop: 01/23/21 20:05 Last Admin: 01/23/21 20:00 Dose: 999 mls/hr Documented by: Piperacillin Sod/Tazobactam (Sod 3.375 gm/ Sodium Chloride) 50 mls @ 100 mls/hr IV Q6H [facility] Last Admin: 01/26/21 11:18 Dose: 100 mls/hr Documented by: Potassium Chloride 40 meq/ (Premix) 100 mls @ 25 mls/hr IV ONETIME ONE Stop: 01/24/21 00:28 Last Admin: 01/24/21 00:25 Dose: 25 mls/hr Documented by: Lactated Ringer's (Ringers, Lactated) 1,000 mls @ 125 mls/hr IV ASDIRECTED [facility] Last Admin: 01/27/21 08:41 Dose: 125 mls/hr Documented by: Olanzapine 10 mg/ Sterile (Water) 2.1 mls @ 999 mls/hr IM ONETIME ONE Stop: 01/23/21 22:29 Sterile Water (Sterile Water For Injection) Confirm Administered Dose 20 mls @ as directed .ROUTE .STK-MED ONE Stop: 01/23/21 23:07 Last Admin: 01/23/21 23:22 Dose: Not Given Documented by: Pantoprazole Sodium 40 mg/ (Sodium Chloride) 10 mls @ 300 mls/hr IV DAILY [facility] Last Admin: 01/27/21 08:41 Dose: 300 mls/hr Documented by: Sodium Phosphate 20 mmole/ (Sodium Chloride) 256.6667 mls @ 51.333 mls/hr IV ONETIME ONE Stop: 01/24/21 23:14 Last Admin: 01/24/21 18:29 Dose: 51.333 mls/hr Documented by: Potassium Chloride 40 meq/Magnesium Sulfate 2 gm/ Sodium Chloride 524 mls @ 131 mls/hr IV ONETIME ONE Stop: 01/25/21 15:29 Last Admin: 01/25/21 12:54 Dose: 131 mls/hr Documented by: Potassium Phosphate 15 mmole/ (Sodium Chloride) 255 mls @ 42.5 mls/hr IV ONETIME ONE Stop: 01/26/21 20:29 Last Admin: 01/26/21 15:21 Dose: 42.5 mls/hr Documented by: Iopamidol (Iopamidol 755 Mg/Ml 500 Ml Multipack Bottle) 100 ml IVPUSH ONETIME STA Stop: 01/23/21 15:43 Last Admin: 01/23/21 15:42 Dose: 100 ml Documented by: Lorazepam (Lorazepam 2 Mg/Ml Sdv) 0.5 mg IVPUSH ONETIME ONE Stop: 01/23/21 16:48 Last Admin: 01/23/21 16:53 Dose: 0.5 mg Documented by: Lorazepam (Lorazepam 2 Mg/Ml Sdv) 2 mg IVPUSH ONETIME ONE Stop: 01/23/21 22:30 Last Admin: 01/24/21 00:24 Dose: 2 mg Documented by: Olanzapine (Olanzapine 10 Mg Vial) 10 mg IM ONETIME ONE Stop: 01/23/21 22:48 Last Admin: 01/23/21 23:21 Dose: 10 mg Documented by: Olanzapine (Olanzapine 10 Mg Vial) Confirm Administered Dose 10 mg .ROUTE .STK- MED ONE Stop: 01/23/21 23:02 Last Admin: 01/23/21 23:22 Dose: Not Given Documented by: Ondansetron HCl (Ondansetron 4 Mg Tab.Dis) 4 mg PO Q4H PRN PRN Reason: nausea, able to take PO Potassium Chloride (Potassium Chloride 20 Meq Tab.Er) 40 meq PO ONETIME ONE Stop: 01/25/21 11:21 Last Admin: 01/25/21 12:54 Dose: 40 meq Documented by: Quetiapine Fumarate (Quetiapine 50 Mg Tab) 50 mg PO BEDTIME [facility] Last Admin: 01/26/21 20:17 Dose: 50 mg Documented by: Sodium Phosphate (Phosphorus #1 250 Mg Tab) 250 mg PO QID [facility] Last Admin: 01/24/21 17:14 Dose: 250 mg Documented by: - Patient Data Result Diagrams: 01/27/21 04:45 01/27/21 04:45 Shahbaz Results Last 24 hrs: Microbiology 01/23/21 14:44 Aerobic Blood Culture - Final Blood - Venous - Lab Draw NO GROWTH AFTER 5 DAYS Anaerobic Blood Culture - Final NO GROWTH AFTER 5 DAYS 01/23/21 14:41 Aerobic Blood Culture - Final Blood - Venous NO GROWTH AFTER 5 DAYS Anaerobic Blood Culture - Final NO GROWTH AFTER 5 DAYS - Plan Plan:: I have seen and evaluated the patient and agree with the residents note unless specified in my note
--- NOTE | 2021-01-24 11:08 | CT ---
INDICATION: Abdominal pain, diarrhea, distension, pain, mottling, and difficult pulses in extremities. COMPARISON: None available. TECHNIQUE: CTA runoffs with CTA imaging of the abdomen, pelvis, bilateral lower extremities with additional delayed imaging obtained from the distal femurs through the feet. 100 mL intravenous contrast administered. FINDINGS: Atherosclerotic changes. This includes both calcified and noncalcified atherosclerotic disease. No abdominal aortic aneurysm. No significant iliac artery stenosis. The celiac artery and SMA are patent. The renal arteries are patent. The TIAGO stenosis at origin but is patent. In the right lower extremity there is coral reef plaque causing less than 50 percent stenosis of the common femoral artery. High-grade stenosis of a posterior femoral circumflex artery. The profunda and SFA are otherwise patent. The popliteal artery is patent. There is a three-vessel runoff. Patent dorsalis pedis artery and common plantar artery. In the left lower extremity there is mild posterior disease in the common femoral artery. The profunda femoral artery and SFA are patent. The popliteal artery is patent. There is a 2 vessel runoff with a patent posterior tibial artery and peroneal artery. Anterior tibial artery is small and diseased, potentially occluding in the mid to distal portion. The common plantar arteries patent. The dorsalis pedis artery is not opacified which may be due to the timing and there are no delayed phase images available. There is subcutaneous edema in bilateral lower extremities involving the feet and ankles mostly the dorsum. Moderate severity emphysema in the lung bases. Arterial phase imaging limits evaluation of solid organs and bowel. The liver is not cirrhotic in morphology. Motion artifact also limits the upper abdomen. The gallbladder is nondistended. The kidneys enhance symmetrically without hydronephrosis. The spleen is normal in size. Adrenal glands are unremarkable. No obvious pancreatic mass lesion or pancreatitis. No intra or extrahepatic biliary ductal dilatation. No bowel obstruction. A Prince catheter is present. There is marked diffuse urinary bladder wall thickening present, with mild stranding surrounding the urinary bladder. Multilevel degenerative change in the lumbar spine. No listhesis. Vertebral body heights are well maintained. There is a pseudo permeative appearance within the femur and about the knee, nonspecific but may be due to disuse. This is seen to a lesser degree around the ankle. IMPRESSION: 1. Diffuse atherosclerotic disease with no significant inflow or outflow lesions, a 3 vessel runoff on the right and 2 vessel runoff on the left. 2. Severe diffuse urinary bladder wall thickening with an indwelling Prince catheter. 3. Emphysema seen in the lung bases. 4. Arterial phase imaging limits evaluation of solid organs and bowel. No bowel obstruction. Please note that all CT scans at this facility use dose modulation, iterative reconstruction, and/or weight-based dosing when appropriate to reduce radiation dose to as low as reasonably achievable. Dictated by Jesus Monahan MD @ 01/24/2021 10:00:43 AM (Electronically Signed)
[2021-01-24] MEDS: Phosphorus #1 250 MG Tab PO SCH ×3 (12:20→17:14)
[2021-01-24] MEDS: Pantoprazole 40 MG in Sodium Chloride 0.9% 10 ML IV SCH (12:20)
[2021-01-24] MEDS: Lactated Ringers 1,000 ML IV SCH (12:21)
[2021-01-24] MEDS ORDERED: Sodium Phosphate 20 MMOLE in Sodium Chloride 0.9% 250 ML IV ONE (18:15)
[2021-01-24] MEDS ORDERED: Sodium Phosphate 15 mMole/5 ML SDV IV ONE (18:15)
[2021-01-24] MEDS: Albuterol/Ipratropium 3.0-0.5 MG/3 ML Neb Soln NEB PRN (23:44)
[2021-01-25] MEDS: Lactated Ringers 1,000 ML IV SCH ×2 (02:53→10:23)
[2021-01-25] MEDS: Piperacillin/Tazobactam 3.375 GM in Sodium Chloride 0.9% 50 ML IV SCH ×4 (05:37→23:03)
[2021-01-25 05:41] LABS: BLOOD UREA NITROGEN,BUN 8 mg/dL (7.0-18.0); CARBON DIOXIDE,CO2 29.4 mmol/L (21.0-32.0); CHLORIDE,CL 108 mmol/L (98-107); GLUCOSE RANDOM 100 mg/dL (74-106); SODIUM,NA 145 mmol/L (136-148)
[2021-01-25] MEDS: Enoxaparin 40 MG/0.4 ML Syringe SUBCUT SCH (09:13)
--- NOTE | 2021-01-25 09:25 | PCM.PN ---
<Brenda Maciel - Last Filed: 01/25/21 20:40> - General Info Date of Service: 01/25/21 Admission Dx/Problem (Free Text): Admission Diagnosis/Problem Admission Diagnosis/Problem Sepsis Subjective Update: 71 gentleman with advanced dementia, was admitted for sepsis with unknown source, on Zosyn. Overnight patient barely slept Per report, appeared to be confused and requiring reorientation. Last 24 hours patient has had very minimal p.o. intake. This morning patient was wheezing therefore given duo nebs. Patient at bedside appears to be calm resting comfortably this morning, now had just completed a full breakfast. No acute distress denies any pain, more alert however unable to clearly communicate or demonstrate being alert and oriented x3. Family members both sisters were visiting at bedside were updated on his treatment, all questions and concerns were addressed at bedside. Functional Status: Reports: Pain Controlled - Review of Systems General: Reports: No Symptoms HEENT: Reports: No Symptoms Pulmonary: Reports: No Symptoms Cardiovascular: Reports: No Symptoms Gastrointestinal: Reports: No Symptoms Genitourinary: Reports: No Symptoms Musculoskeletal: Reports: No Symptoms Skin: Reports: No Symptoms Neurological: Reports: No Symptoms Psychiatric: Reports: No Symptoms - Patient Data Vitals - Most Recent: Last Vital Signs Temp 98.4 F 01/25/21 07:40 Pulse 62 01/25/21 07:40 Resp 16 01/25/21 07:40 BP 128/68 01/25/21 07:40 Pulse Ox 96 01/25/21 07:40 Weight - Most Recent: 63.503 kg I&O - Last 24 Hours: Intake & Output 01/24/21 01/25/21 01/25/21 22:59 06:59 14:59 Intake Total 1540 1263 Output Total 87% 80 Balance 66E 46C Lab Results Last 24 Hours: Laboratory Results - last 24 hr 01/24/21 01/25/21 01/25/21 Range/Units 15:06 05:00 05:00 WBC 8.43 (4.0-11.0) K/uL RBC 4.17 L (4.50-5.90) M/uL Hgb 12.1 L (13.0-17.0) g/dL Hct 36.7 L (38.0-50.0) % MCV 88.0 (80.0-98.0) fL MCH 29.0 (27.0-32.0) pg MCHC 33.0 (31.0-37.0) g/dL RDW Std Deviation 46.3 (28.0-62.0) fl RDW Coeff of Azeem 14 (11.0-15.0) % Plt Count 144 L (150-400) K/uL MPV 12.30 H (7.40-12.00) fL Neut % (Auto) 80.9 H (48.0-80.0) % Lymph % (Auto) 7.6 L (16.0-40.0) % [place] % (Auto) 9.0 (0.0-15.0) % Eos % (Auto) 2.3 (0.0-7.0) % Baso % (Auto) 0.2 (0.0-1.5) % Neut # (Auto) 6.8 H (1.4-5.7) K/uL Lymph # (Auto) 0.6 (0.6-2.4) K/uL [place] # (Auto) 0.8 (0.0-0.8) K/uL Eos # (Auto) 0.2 (0.0-0.7) K/uL Baso # (Auto) 0.0 (0.0-0.1) K/uL Nucleated RBC % 0.0 /100WBC Nucleated RBCs # 0 K/uL Sodium 145 (136-148) mmol/L Potassium 3.0 L (3.5-5.1) mmol/L Chloride 108 H (98-107) mmol/L Carbon Dioxide 29.4 (21.0-32.0) mmol/L BUN 8 (7.0-18.0) mg/dL Creatinine 0.9 (0.8-1.3) mg/dL Est Cr Clr Drug Dosing 68.60 mL/min Estimated GFR (MDRD) > 60.0 ml/min Glucose 100 (74-106) mg/dL Calcium 7.4 L (8.5-10.1) mg/dL Phosphorus 2.0 L 2.9 (2.6-4.7) mg/dL Magnesium 1.5 L (1.8-2.4) mg/dL Total Bilirubin 0.6 (0.2-1.0) mg/dL AST 27 (15-37) IU/L ALT 12 L (14-63) IU/L Alkaline Phosphatase 72 (46-116) U/L Total Protein 5.4 L (6.4-8.2) g/dL Albumin 2.3 L (3.4-5.0) g/dL Globulin 3.1 (2.6-4.0) g/dL Albumin/Globulin Ratio 0.7 L (0.9-1.6) Shahbaz Results Last 24 Hours: Microbiology 01/23/21 14:44 Aerobic Blood Culture - Preliminary Blood - Venous - Lab Draw NO GROWTH AFTER 1 DAY Anaerobic Blood Culture - Preliminary NO GROWTH AFTER 1 DAY 01/23/21 14:41 Aerobic Blood Culture - Preliminary Blood - Venous NO GROWTH AFTER 1 DAY Anaerobic Blood Culture - Preliminary NO GROWTH AFTER 1 DAY Med Orders - Current: Current Medications Acetaminophen (Acetaminophen 325 Mg Tab) 650 mg PO Q4H PRN PRN Reason: Pain (Mild 1-3)/fever Albuterol/Ipratropium (Albuterol/Ipratropium 3.0-0.5 Mg/3 Ml Neb Soln) 3 ml NEB Q4HRRT PRN PRN Reason: Shortness Of Breath/wheezing Last Admin: 01/24/21 23:44 Dose: 3 ml Documented by: Docusate Sodium (Docusate Sodium 100 Mg Cap) 100 mg PO BID PRN PRN Reason: Constipation Enoxaparin Sodium (Enoxaparin 40 Mg/0.4 Ml Syringe) 40 mg SUBCUT Q24H [facility] Last Admin: 01/25/21 09:13 Dose: 40 mg Documented by: Piperacillin Sod/Tazobactam (Sod 3.375 gm/ Sodium Chloride) 50 mls @ 100 mls/hr IV Q6H [facility] Last Admin: 01/25/21 05:37 Dose: 100 mls/hr Documented by: Lactated Ringer's (Ringers, Lactated) 1,000 mls @ 125 mls/hr IV ASDIRECTED [facility] Last Admin: 01/25/21 02:53 Dose: 125 mls/hr Documented by: Pantoprazole Sodium 40 mg/ (Sodium Chloride) 10 mls @ 300 mls/hr IV DAILY [facility] Last Admin: 01/24/21 12:20 Dose: 300 mls/hr Documented by: Ondansetron HCl (Ondansetron 4 Mg Tab.Dis) 4 mg PO Q4H PRN PRN Reason: nausea, able to take PO Discontinued Medications Diphenhydramine HCl (Diphenhydramine 50 Mg/Ml Sdv) 25 mg IM ONETIME ONE Stop: 01/23/21 20:59 Last Admin: 01/23/21 21:08 Dose: 25 mg Documented by: Diphenhydramine HCl (Diphenhydramine 50 Mg/Ml Sdv) 25 mg IVPUSH ONETIME ONE Stop: 01/23/21 22:29 Diphenhydramine HCl (Diphenhydramine 50 Mg/Ml Sdv) 25 mg IM ONETIME ONE Stop: 01/23/21 22:41 Last Admin: 01/23/21 23:20 Dose: 25 mg Documented by: Diphenhydramine HCl (Diphenhydramine 50 Mg/Ml Sdv) Confirm Administered Dose 50 mg .ROUTE .STK-MED ONE Stop: 01/23/21 22:52 Last Admin: 01/23/21 23:22 Dose: Not Given Documented by: Haloperidol Lactate (Haloperidol Lactate 5 Mg/Ml Sdv) 5 mg IM ONETIME ONE Stop: 01/23/21 20:58 Last Admin: 01/23/21 21:09 Dose: 5 mg Documented by: Sodium Chloride (Normal Saline) 1,000 mls @ 999 mls/hr IV STAT ONE Stop: 01/23/21 15:35 Last Admin: 01/23/21 15:49 Dose: 999 mls/hr Documented by: Piperacillin Sod/Tazobactam (Sod 3.375 gm/ Sodium Chloride) 50 mls @ 100 mls/hr IV ONETIME ONE Stop: 01/23/21 16:57 Last Admin: 01/23/21 16:47 Dose: 100 mls/hr Documented by: Vancomycin HCl 1 gm/ Sodium (Chloride) 250 mls @ 166 mls/hr IV ONETIME ONE Stop: 01/23/21 17:59 Last Admin: 01/23/21 17:31 Dose: 166 mls/hr Documented by: Lactated Ringer's (Ringers, Lactated) 1,000 mls @ 999 mls/hr IV BOLUS ONE Stop: 01/23/21 20:05 Last Admin: 01/23/21 20:00 Dose: 999 mls/hr Documented by: Potassium Chloride 40 meq/ (Premix) 100 mls @ 25 mls/hr IV ONETIME ONE Stop: 01/24/21 00:28 Last Admin: 01/24/21 00:25 Dose: 25 mls/hr Documented by: Olanzapine 10 mg/ Sterile (Water) 2.1 mls @ 999 mls/hr IM ONETIME ONE Stop: 01/23/21 22:29 Sterile Water (Sterile Water For Injection) Confirm Administered Dose 20 mls @ as directed .ROUTE .STK-MED ONE Stop: 01/23/21 23:07 Last Admin: 01/23/21 23:22 Dose: Not Given Documented by: Sodium Phosphate 20 mmole/ (Sodium Chloride) 256.6667 mls @ 51.333 mls/hr IV ONETIME ONE Stop: 01/24/21 23:14 Last Admin: 01/24/21 18:29 Dose: 51.333 mls/hr Documented by: Iopamidol (Iopamidol 755 Mg/Ml 500 Ml Multipack Bottle) 100 ml IVPUSH ONETIME STA Stop: 01/23/21 15:43 Last Admin: 01/23/21 15:42 Dose: 100 ml Documented by: Lorazepam (Lorazepam 2 Mg/Ml Sdv) 0.5 mg IVPUSH ONETIME ONE Stop: 01/23/21 16:48 Last Admin: 01/23/21 16:53 Dose: 0.5 mg Documented by: Lorazepam (Lorazepam 2 Mg/Ml Sdv) 2 mg IVPUSH ONETIME ONE Stop: 01/23/21 22:30 Last Admin: 01/24/21 00:24 Dose: 2 mg Documented by: Olanzapine (Olanzapine 10 Mg Vial) 10 mg IM ONETIME ONE Stop: 01/23/21 22:48 Last Admin: 01/23/21 23:21 Dose: 10 mg Documented by: Olanzapine (Olanzapine 10 Mg Vial) Confirm Administered Dose 10 mg .ROUTE .STK- MED ONE Stop: 01/23/21 23:02 Last Admin: 01/23/21 23:22 Dose: Not Given Documented by: Sodium Phosphate (Phosphorus #1 250 Mg Tab) 250 mg PO QID [facility] Last Admin: 01/24/21 17:14 Dose: 250 mg Documented by: - Exam Urinary Catheter Total Time: 1Days 14Hours General: Alert, Cooperative, No Acute Distress HEENT: Pupils Equal, Pupils Reactive, EOMI Neck: Supple, No JVD. No: Thyromegaly Lungs: Clear to Auscultation, Normal Respiratory Effort Cardiovascular: Regular Rate, Regular Rhythm GI/Abdominal Exam: Normal Bowel Sounds, Soft, Non-Tender Extremities: Normal Inspection, Normal Range of Motion, No Pedal Edema, Normal Capillary Refill Peripheral Pulses: 2+: Carotid (L), Carotid (R), Dorsalis Pedis (L), Dorsalis Pedis (R) Skin: Warm, Dry, Intact Neurological: No New Focal Deficit Psy/Mental Status: Alert, Normal Affect, Normal Mood - Patient Data Lab Results Last 24 hrs: Laboratory Results - last 24 hr 01/24/21 01/25/21 01/25/21 Range/Units 15:06 05:00 05:00 WBC 8.43 (4.0-11.0) K/uL RBC 4.17 L (4.50-5.90) M/uL Hgb 12.1 L (13.0-17.0) g/dL Hct 36.7 L (38.0-50.0) % MCV 88.0 (80.0-98.0) fL MCH 29.0 (27.0-32.0) pg MCHC 33.0 (31.0-37.0) g/dL RDW Std Deviation 46.3 (28.0-62.0) fl RDW Coeff of Azeem 14 (11.0-15.0) % Plt Count 144 L (150-400) K/uL MPV 12.30 H (7.40-12.00) fL Neut % (Auto) 80.9 H (48.0-80.0) % Lymph % (Auto) 7.6 L (16.0-40.0) % [place] % (Auto) 9.0 (0.0-15.0) % Eos % (Auto) 2.3 (0.0-7.0) % Baso % (Auto) 0.2 (0.0-1.5) % Neut # (Auto) 6.8 H (1.4-5.7) K/uL Lymph # (Auto) 0.6 (0.6-2.4) K/uL [place] # (Auto) 0.8 (0.0-0.8) K/uL Eos # (Auto) 0.2 (0.0-0.7) K/uL Baso # (Auto) 0.0 (0.0-0.1) K/uL Nucleated RBC % 0.0 /100WBC Nucleated RBCs # 0 K/uL Sodium 145 (136-148) mmol/L Potassium 3.0 L (3.5-5.1) mmol/L Chloride 108 H (98-107) mmol/L Carbon Dioxide 29.4 (21.0-32.0) mmol/L BUN 8 (7.0-18.0) mg/dL Creatinine 0.9 (0.8-1.3) mg/dL Est Cr Clr Drug Dosing 68.60 mL/min Estimated GFR (MDRD) > 60.0 ml/min Glucose 100 (74-106) mg/dL Calcium 7.4 L (8.5-10.1) mg/dL Phosphorus 2.0 L 2.9 (2.6-4.7) mg/dL Magnesium 1.5 L (1.8-2.4) mg/dL Total Bilirubin 0.6 (0.2-1.0) mg/dL AST 27 (15-37) IU/L ALT 12 L (14-63) IU/L Alkaline Phosphatase 72 (46-116) U/L Total Protein 5.4 L (6.4-8.2) g/dL Albumin 2.3 L (3.4-5.0) g/dL Globulin 3.1 (2.6-4.0) g/dL Albumin/Globulin Ratio 0.7 L (0.9-1.6) Result Diagrams: 01/25/21 05:00 01/25/21 18:28 Shahbaz Results Last 24 hrs: Microbiology 01/23/21 14:44 Aerobic Blood Culture - Preliminary Blood - Venous - Lab Draw NO GROWTH AFTER 1 DAY Anaerobic Blood Culture - Preliminary NO GROWTH AFTER 1 DAY 01/23/21 14:41 Aerobic Blood Culture - Preliminary Blood - Venous NO GROWTH AFTER 1 DAY Anaerobic Blood Culture - Preliminary NO GROWTH AFTER 1 DAY Sepsis Event Note - Evaluation Sepsis Screening Result: No Definite Risk - Focused Exam Vital Signs: Vital Signs Temp Pulse Resp BP Pulse Ox 01/25/21 07:40 98.4 F 62 16 128/68 96 01/25/21 04:20 98.2 F 82 17 98/57 L 93 L 01/24/21 23:36 98.4 F 70 18 128/75 95 - Problem List Review Problem List Initiated/Reviewed/Updated: Yes - My Orders Last 24 Hours: My Active Orders 01/24/21 09:00 Enoxaparin [Lovenox] 40 mg SUBCUT Q24H 01/24/21 11:39 Consult to Case Management/Resident Care Manager [CONS] Routine 01/24/21 12:00 Pantoprazole [ProTONIX IV] 40 mg Sodium Chloride 0.9% [Normal Saline] 10 ml IV DAILY 01/24/21 Dinner Soft Diet [DIET] 01/26/21 05:11 CBC WITH AUTO DIFF [HEME] AM CMP [COMPREHENSIVE METABOLIC PN,CMP] [CHEM] AM MAGNESIUM [CHEM] AM PHOSPHORUS [CHEM] AM 01/27/21 05:11 CBC WITH AUTO DIFF [HEME] AM CMP [COMPREHENSIVE METABOLIC PN,CMP] [CHEM] AM MAGNESIUM [CHEM] AM PHOSPHORUS [CHEM] AM - Plan Plan:: 71-year-old gentleman with history of advanced dementia, COPD was admitted for sepsis of unconfirmed source. 1. Delirium likely secondary to possible underlying UTI: Improved per family members appears to be at his baseline with history of advancing dementia Remains afebrile, vital signs have improved however patient has soft blood pressure of 97/56 with maps over 65 Leukocytosis resolved, 8.4 this morning, normal lactate, urine, blood cultures no growth. Continue treating with Zosyn 2. Mild BHARATI: Resolved, had minimal intake day prior therefore continue maintenance fluids for now, per I's and O's/p.o. intake will consider discontinuing fluids tomorrow. 3.Mild hypokalemia and hypomagnesemia: 40 mEq IV, 40 mEq p.o potassium., continue to monitor daily Replete mag with mag sulfate 2 g, continue to monitor daily 4. Possible history of dementia: Contact and confirm possible past medical history of dementia; a, significant confusion, restlessness/agitation overnight, frequently needing reorientation and likely lacking capacity. Discussed with family likely need for group home facility as it is recommended due to patient unable to currently perform ADLs or take medications. Advancing disease puts him at risk for injury and self-harm. We will discuss possible need for assistance with his in the interim case management has been consulted. Suggested be present on rounds so we can address any concerns or questions that may help with her decision-making process. Will rediscuss tomorrow with family. Check CT head, consider consulting neurology, Have physical therapy evaluate and treat help with strength and conditioning Seroquel 50 mg at night to help with agitation CODE STATUS: Full code per GI prophylaxis: Protonix IV 40 DVT prophylaxis: Enoxaparin 40 IV Activity: Bedrest with commode Diet: Soft mechanical I performed a history and physical exam of the patient and discussed management with resident. I have reviewed the residents note and agree with documented findings and plan unless otherwise specified in my note. <Astrid Oneill - Last Filed: 01/28/21 16:21> - Patient Data Vitals - Most Recent: Last Vital Signs Temp 37.0 C 01/27/21 12:26 Pulse 77 01/27/21 12:26 Resp 17 01/27/21 12:26 BP 105/63 01/27/21 12:26 Pulse Ox 92 L 01/27/21 12:26 Shahbaz Results Last 24 Hours: Microbiology 01/23/21 14:44 Aerobic Blood Culture - Final Blood - Venous - Lab Draw NO GROWTH AFTER 5 DAYS Anaerobic Blood Culture - Final NO GROWTH AFTER 5 DAYS 01/23/21 14:41 Aerobic Blood Culture - Final Blood - Venous NO GROWTH AFTER 5 DAYS Anaerobic Blood Culture - Final NO GROWTH AFTER 5 DAYS Med Orders - Current: Current Medications Discontinued Medications Acetaminophen (Acetaminophen 325 Mg Tab) 650 mg PO Q4H PRN PRN Reason: Pain (Mild 1-3)/fever Albuterol/Ipratropium (Albuterol/Ipratropium 3.0-0.5 Mg/3 Ml Neb Soln) 3 ml NEB Q4HRRT PRN PRN Reason: Shortness Of Breath/wheezing Last Admin: 01/27/21 09:25 Dose: 3 ml Documented by: Diphenhydramine HCl (Diphenhydramine 50 Mg/Ml Sdv) 25 mg IM ONETIME ONE Stop: 01/23/21 20:59 Last Admin: 01/23/21 21:08 Dose: 25 mg Documented by: Diphenhydramine HCl (Diphenhydramine 50 Mg/Ml Sdv) 25 mg IVPUSH ONETIME ONE Stop: 01/23/21 22:29 Diphenhydramine HCl (Diphenhydramine 50 Mg/Ml Sdv) 25 mg IM ONETIME ONE Stop: 01/23/21 22:41 Last Admin: 01/23/21 23:20 Dose: 25 mg Documented by: Diphenhydramine HCl (Diphenhydramine 50 Mg/Ml Sdv) Confirm Administered Dose 50 mg .ROUTE .STK-MED ONE Stop: 01/23/21 22:52 Last Admin: 01/23/21 23:22 Dose: Not Given Documented by: Docusate Sodium (Docusate Sodium 100 Mg Cap) 100 mg PO BID PRN PRN Reason: Constipation Enoxaparin Sodium (Enoxaparin 40 Mg/0.4 Ml Syringe) 40 mg SUBCUT Q24H [facility] Last Admin: 01/27/21 08:40 Dose: 40 mg Documented by: Haloperidol Lactate (Haloperidol Lactate 5 Mg/Ml Sdv) 5 mg IM ONETIME ONE Stop: 01/23/21 20:58 Last Admin: 01/23/21 21:09 Dose: 5 mg Documented by: Sodium Chloride (Normal Saline) 1,000 mls @ 999 mls/hr IV STAT ONE Stop: 01/23/21 15:35 Last Admin: 01/23/21 15:49 Dose: 999 mls/hr Documented by: Piperacillin Sod/Tazobactam (Sod 3.375 gm/ Sodium Chloride) 50 mls @ 100 mls/hr IV ONETIME ONE Stop: 01/23/21 16:57 Last Admin: 01/23/21 16:47 Dose: 100 mls/hr Documented by: Vancomycin HCl 1 gm/ Sodium (Chloride) 250 mls @ 166 mls/hr IV ONETIME ONE Stop: 01/23/21 17:59 Last Admin: 01/23/21 17:31 Dose: 166 mls/hr Documented by: Lactated Ringer's (Ringers, Lactated) 1,000 mls @ 999 mls/hr IV BOLUS ONE Stop: 01/23/21 20:05 Last Admin: 01/23/21 20:00 Dose: 999 mls/hr Documented by: Piperacillin Sod/Tazobactam (Sod 3.375 gm/ Sodium Chloride) 50 mls @ 100 mls/hr IV Q6H [facility] Last Admin: 01/26/21 11:18 Dose: 100 mls/hr Documented by: Potassium Chloride 40 meq/ (Premix) 100 mls @ 25 mls/hr IV ONETIME ONE Stop: 01/24/21 00:28 Last Admin: 01/24/21 00:25 Dose: 25 mls/hr Documented by: Lactated Ringer's (Ringers, Lactated) 1,000 mls @ 125 mls/hr IV ASDIRECTED [facility] Last Admin: 01/27/21 08:41 Dose: 125 mls/hr Documented by: Olanzapine 10 mg/ Sterile (Water) 2.1 mls @ 999 mls/hr IM ONETIME ONE Stop: 01/23/21 22:29 Sterile Water (Sterile Water For Injection) Confirm Administered Dose 20 mls @ as directed .ROUTE .STK-MED ONE Stop: 01/23/21 23:07 Last Admin: 01/23/21 23:22 Dose: Not Given Documented by: Pantoprazole Sodium 40 mg/ (Sodium Chloride) 10 mls @ 300 mls/hr IV DAILY [facility] Last Admin: 01/27/21 08:41 Dose: 300 mls/hr Documented by: Sodium Phosphate 20 mmole/ (Sodium Chloride) 256.6667 mls @ 51.333 mls/hr IV ONETIME ONE Stop: 01/24/21 23:14 Last Admin: 01/24/21 18:29 Dose: 51.333 mls/hr Documented by: Potassium Chloride 40 meq/Magnesium Sulfate 2 gm/ Sodium Chloride 524 mls @ 131 mls/hr IV ONETIME ONE Stop: 01/25/21 15:29 Last Admin: 01/25/21 12:54 Dose: 131 mls/hr Documented by: Potassium Phosphate 15 mmole/ (Sodium Chloride) 255 mls @ 42.5 mls/hr IV ONETIME ONE Stop: 01/26/21 20:29 Last Admin: 01/26/21 15:21 Dose: 42.5 mls/hr Documented by: Iopamidol (Iopamidol 755 Mg/Ml 500 Ml Multipack Bottle) 100 ml IVPUSH ONETIME STA Stop: 01/23/21 15:43 Last Admin: 01/23/21 15:42 Dose: 100 ml Documented by: Lorazepam (Lorazepam 2 Mg/Ml Sdv) 0.5 mg IVPUSH ONETIME ONE Stop: 01/23/21 16:48 Last Admin: 01/23/21 16:53 Dose: 0.5 mg Documented by: Lorazepam (Lorazepam 2 Mg/Ml Sdv) 2 mg IVPUSH ONETIME ONE Stop: 01/23/21 22:30 Last Admin: 01/24/21 00:24 Dose: 2 mg Documented by: Olanzapine (Olanzapine 10 Mg Vial) 10 mg IM ONETIME ONE Stop: 01/23/21 22:48 Last Admin: 01/23/21 23:21 Dose: 10 mg Documented by: Olanzapine (Olanzapine 10 Mg Vial) Confirm Administered Dose 10 mg .ROUTE .STK- MED ONE Stop: 01/23/21 23:02 Last Admin: 01/23/21 23:22 Dose: Not Given Documented by: Ondansetron HCl (Ondansetron 4 Mg Tab.Dis) 4 mg PO Q4H PRN PRN Reason: nausea, able to take PO Potassium Chloride (Potassium Chloride 20 Meq Tab.Er) 40 meq PO ONETIME ONE Stop: 01/25/21 11:21 Last Admin: 01/25/21 12:54 Dose: 40 meq Documented by: Quetiapine Fumarate (Quetiapine 50 Mg Tab) 50 mg PO BEDTIME [facility] Last Admin: 01/26/21 20:17 Dose: 50 mg Documented by: Sodium Phosphate (Phosphorus #1 250 Mg Tab) 250 mg PO QID [facility] Last Admin: 01/24/21 17:14 Dose: 250 mg Documented by: - Patient Data Result Diagrams: 01/27/21 04:45 01/27/21 04:45 Shahbaz Results Last 24 hrs: Microbiology 01/23/21 14:44 Aerobic Blood Culture - Final Blood - Venous - Lab Draw NO GROWTH AFTER 5 DAYS Anaerobic Blood Culture - Final NO GROWTH AFTER 5 DAYS 01/23/21 14:41 Aerobic Blood Culture - Final Blood - Venous NO GROWTH AFTER 5 DAYS Anaerobic Blood Culture - Final NO GROWTH AFTER 5 DAYS - Plan Plan:: I have seen and evaluated the patient and agree with the residents note unless specified in my note .
[2021-01-25] MEDS: Pantoprazole 40 MG in Sodium Chloride 0.9% 10 ML IV SCH (10:05)
[2021-01-25] MEDS ORDERED: Magnesium Sulfate/Water 2 GM in Premix Bag 1 BAG IV ONE (11:15)
[2021-01-25] MEDS ORDERED: Potassium Chloride 20 MEQ Tab.ER PO ONE (11:20)
[2021-01-25] MEDS ORDERED: Potassium Chloride 40 MEQ, Magnesium Sulfate 2 GM in Sodium Chloride 0.9% 500 ML IV ONE (11:30)
--- NOTE | 2021-01-25 12:45 | CT ---
For Patients: As a result of the Cures Act, medical imaging exams and procedure reports are released immediately into your electronic medical record. You may view this report before your referring provider. If you have questions, please contact your health care provider. Indication: Headache hypertension confusion Technique: Noncontrast head CT Comparison: No comparison Findings: Axial noncontrast images the brain demonstrates generalized parenchymal volume loss and periventricular hypo lucencies reflecting chronic small vessel ischemic change. Area of old right frontal infarct. There is no acute intracranial hemorrhage or mass. There is no midline shift. No abnormal extra-axial air fluid collections are seen. Mucosal thickening of the maxillary sinuses paranasal sinuses mastoid air cells, skull and scalp otherwise appears unremarkable. Impression: No acute intracranial hemorrhage or mass. Old right frontal infarct. Please note that all CT scans at this facility use dose modulation, iterative reconstruction, and/or weight-based dosing when appropriate to reduce radiation dose to as low as reasonably achievable. Dictated by Josie Ceballos MD @ 01/25/2021 12:44:[address] Josie Ceballos @ Jan 25 2021 12:44PM
[2021-01-25 19:15] LABS: POTASSIUM,K 3.5 mmol/L (3.5-5.1)
[2021-01-26] MEDS: Lactated Ringers 1,000 ML IV SCH ×2 (01:28→09:56)
[2021-01-26] MEDS: Piperacillin/Tazobactam 3.375 GM in Sodium Chloride 0.9% 50 ML IV SCH ×2 (05:01→11:18)
[2021-01-26] MEDS: Albuterol/Ipratropium 3.0-0.5 MG/3 ML Neb Soln NEB PRN (05:12)
[2021-01-26 06:18] LABS: BLOOD UREA NITROGEN,BUN 5 mg/dL (7.0-18.0); CARBON DIOXIDE,CO2 25.8 mmol/L (21.0-32.0); CHLORIDE,CL 110 mmol/L (98-107); GLUCOSE RANDOM 94 mg/dL (74-106); POTASSIUM,K 3.6 mmol/L (3.5-5.1); SODIUM,NA 145 mmol/L (136-148)
[2021-01-26] MEDS: Pantoprazole 40 MG in Sodium Chloride 0.9% 10 ML IV SCH (09:56)
[2021-01-26] MEDS: Enoxaparin 40 MG/0.4 ML Syringe SUBCUT SCH (09:57)
[2021-01-26] MEDS ORDERED: Potassium Phosphates 15 MMOLE in Sodium Chloride 0.9% 250 ML IV ONE (14:30)
[2021-01-26] MEDS ORDERED: Potassium Phos,M-Basic-D-Basic 3 MMOL/ML VIAL IV ONE (14:30)
--- NOTE | 2021-01-26 16:40 | PCM.PN ---
<TalibcorinnaBrenda - Last Filed: 01/26/21 17:05> - General Info Date of Service: 01/26/21 Admission Dx/Problem (Free Text): Admission Diagnosis/Problem Admission Diagnosis/Problem Sepsis Subjective Update: Mr. Pineda was admitted for sepsis due to urinary retention, continues to have Prince in place, urine is straw-colored, catheter is draining appropriately. Last night patient was initially restless but eventually settled down and is doing well with Seroquel. Slept really well throughout the night. This morning was noted to have some wheezing at 5 AM was given duo nebs with improvement. Patient was seen at bedside this morning, much improved, stable in no acute distress with significant improvement in mentation alert and oriented x2, able make eye contact, express his desires to go home and with an increased ability to respond to questions today despite underlying dementia. Functional Status: Reports: Tolerating Diet, Urinating - Review of Systems General: Reports: No Symptoms HEENT: Reports: No Symptoms Pulmonary: Reports: No Symptoms Cardiovascular: Reports: No Symptoms Gastrointestinal: Reports: No Symptoms Genitourinary: Reports: No Symptoms. Denies: Flank Pain Musculoskeletal: Reports: No Symptoms Skin: Reports: No Symptoms Neurological: Reports: No Symptoms Psychiatric: Reports: No Symptoms - Patient Data Vitals - Most Recent: Last Vital Signs Temp 97.8 F 01/26/21 15:26 Pulse 58 L 01/26/21 15:26 Resp 22 H 01/26/21 15:26 BP 138/68 01/26/21 15:26 Pulse Ox 94 L 01/26/21 15:26 Weight - Most Recent: 63.503 kg I&O - Last 24 Hours: Intake & Output 01/26/21 01/26/21 01/26/21 06:59 14:59 22:59 Intake Total 240 Output Total 85 Balance -61 Lab Results Last 24 Hours: Laboratory Results - last 24 hr 01/25/21 01/26/21 01/26/21 Range/Units 18:28 05:25 05:25 WBC 7.07 (4.0-11.0) K/uL RBC 4.03 L (4.50-5.90) M/uL Hgb 11.6 L (13.0-17.0) g/dL Hct 35.1 L (38.0-50.0) % MCV 87.1 (80.0-98.0) fL MCH 28.8 (27.0-32.0) pg MCHC 33.0 (31.0-37.0) g/dL RDW Std Deviation 45.9 (28.0-62.0) fl RDW Coeff of Azeem 14 (11.0-15.0) % Plt Count 149 L (150-400) K/uL MPV 12.00 (7.40-12.00) fL Neut % (Auto) 68.8 (48.0-80.0) % Lymph % (Auto) 14.6 L (16.0-40.0) % [place] % (Auto) 11.5 (0.0-15.0) % Eos % (Auto) 4.7 (0.0-7.0) % Baso % (Auto) 0.4 (0.0-1.5) % Neut # (Auto) 4.9 (1.4-5.7) K/uL Lymph # (Auto) 1.0 (0.6-2.4) K/uL [place] # (Auto) 0.8 (0.0-0.8) K/uL Eos # (Auto) 0.3 (0.0-0.7) K/uL Baso # (Auto) 0.0 (0.0-0.1) K/uL Nucleated RBC % 0.0 /100WBC Nucleated RBCs # 0 K/uL Sodium 145 (136-148) mmol/L Potassium 3.5 3.6 (3.5-5.1) mmol/L Chloride 110 H (98-107) mmol/L Carbon Dioxide 25.8 (21.0-32.0) mmol/L BUN 5 L (7.0-18.0) mg/dL Creatinine 0.9 (0.8-1.3) mg/dL Est Cr Clr Drug Dosing 68.60 mL/min Estimated GFR (MDRD) > 60.0 ml/min Glucose 94 (74-106) mg/dL Calcium 7.5 L (8.5-10.1) mg/dL Phosphorus 2.5 L (2.6-4.7) mg/dL Magnesium 2.2 2.0 (1.8-2.4) mg/dL Total Bilirubin 0.6 (0.2-1.0) mg/dL AST 16 (15-37) IU/L ALT 8 L (14-63) IU/L Alkaline Phosphatase 69 (46-116) U/L Total Protein 5.4 L (6.4-8.2) g/dL Albumin 2.2 L (3.4-5.0) g/dL Globulin 3.2 (2.6-4.0) g/dL Albumin/Globulin Ratio 0.7 L (0.9-1.6) Shahbaz Results Last 24 Hours: Microbiology 01/23/21 14:44 Aerobic Blood Culture - Preliminary Blood - Venous - Lab Draw NO GROWTH AFTER 3 DAYS Anaerobic Blood Culture - Preliminary NO GROWTH AFTER 3 DAYS 01/23/21 14:41 Aerobic Blood Culture - Preliminary Blood - Venous NO GROWTH AFTER 3 DAYS Anaerobic Blood Culture - Preliminary NO GROWTH AFTER 3 DAYS 01/23/21 15:07 Urine Culture - Final Urine Med Orders - Current: Current Medications Acetaminophen (Acetaminophen 325 Mg Tab) 650 mg PO Q4H PRN PRN Reason: Pain (Mild 1-3)/fever Albuterol/Ipratropium (Albuterol/Ipratropium 3.0-0.5 Mg/3 Ml Neb Soln) 3 ml NEB Q4HRRT PRN PRN Reason: Shortness Of Breath/wheezing Last Admin: 01/26/21 05:12 Dose: 3 ml Documented by: Docusate Sodium (Docusate Sodium 100 Mg Cap) 100 mg PO BID PRN PRN Reason: Constipation Enoxaparin Sodium (Enoxaparin 40 Mg/0.4 Ml Syringe) 40 mg SUBCUT Q24H [facility] Last Admin: 01/26/21 09:57 Dose: 40 mg Documented by: Lactated Ringer's (Ringers, Lactated) 1,000 mls @ 125 mls/hr IV ASDIRECTED [facility] Last Admin: 01/26/21 09:56 Dose: 125 mls/hr Documented by: Pantoprazole Sodium 40 mg/ (Sodium Chloride) 10 mls @ 300 mls/hr IV DAILY [facility] Last Admin: 01/26/21 09:56 Dose: 300 mls/hr Documented by: Potassium Phosphate 15 mmole/ (Sodium Chloride) 255 mls @ 42.5 mls/hr IV ONETIME ONE Stop: 01/26/21 20:29 Last Admin: 01/26/21 15:21 Dose: 42.5 mls/hr Documented by: Ondansetron HCl (Ondansetron 4 Mg Tab.Dis) 4 mg PO Q4H PRN PRN Reason: nausea, able to take PO Quetiapine Fumarate (Quetiapine 50 Mg Tab) 50 mg PO BEDTIME [facility] Last Admin: 01/25/21 21:15 Dose: 50 mg Documented by: Discontinued Medications Diphenhydramine HCl (Diphenhydramine 50 Mg/Ml Sdv) 25 mg IM ONETIME ONE Stop: 01/23/21 20:59 Last Admin: 01/23/21 21:08 Dose: 25 mg Documented by: Diphenhydramine HCl (Diphenhydramine 50 Mg/Ml Sdv) 25 mg IVPUSH ONETIME ONE Stop: 01/23/21 22:29 Diphenhydramine HCl (Diphenhydramine 50 Mg/Ml Sdv) 25 mg IM ONETIME ONE Stop: 01/23/21 22:41 Last Admin: 01/23/21 23:20 Dose: 25 mg Documented by: Diphenhydramine HCl (Diphenhydramine 50 Mg/Ml Sdv) Confirm Administered Dose 50 mg .ROUTE .STK-MED ONE Stop: 01/23/21 22:52 Last Admin: 01/23/21 23:22 Dose: Not Given Documented by: Haloperidol Lactate (Haloperidol Lactate 5 Mg/Ml Sdv) 5 mg IM ONETIME ONE Stop: 01/23/21 20:58 Last Admin: 01/23/21 21:09 Dose: 5 mg Documented by: Sodium Chloride (Normal Saline) 1,000 mls @ 999 mls/hr IV STAT ONE Stop: 01/23/21 15:35 Last Admin: 01/23/21 15:49 Dose: 999 mls/hr Documented by: Piperacillin Sod/Tazobactam (Sod 3.375 gm/ Sodium Chloride) 50 mls @ 100 mls/hr IV ONETIME ONE Stop: 01/23/21 16:57 Last Admin: 01/23/21 16:47 Dose: 100 mls/hr Documented by: Vancomycin HCl 1 gm/ Sodium (Chloride) 250 mls @ 166 mls/hr IV ONETIME ONE Stop: 01/23/21 17:59 Last Admin: 01/23/21 17:31 Dose: 166 mls/hr Documented by: Lactated Ringer's (Ringers, Lactated) 1,000 mls @ 999 mls/hr IV BOLUS ONE Stop: 01/23/21 20:05 Last Admin: 01/23/21 20:00 Dose: 999 mls/hr Documented by: Piperacillin Sod/Tazobactam (Sod 3.375 gm/ Sodium Chloride) 50 mls @ 100 mls/hr IV Q6H [facility] Last Admin: 01/26/21 11:18 Dose: 100 mls/hr Documented by: Potassium Chloride 40 meq/ (Premix) 100 mls @ 25 mls/hr IV ONETIME ONE Stop: 01/24/21 00:28 Last Admin: 01/24/21 00:25 Dose: 25 mls/hr Documented by: Olanzapine 10 mg/ Sterile (Water) 2.1 mls @ 999 mls/hr IM ONETIME ONE Stop: 01/23/21 22:29 Sterile Water (Sterile Water For Injection) Confirm Administered Dose 20 mls @ as directed .ROUTE .STK-MED ONE Stop: 01/23/21 23:07 Last Admin: 01/23/21 23:22 Dose: Not Given Documented by: Sodium Phosphate 20 mmole/ (Sodium Chloride) 256.6667 mls @ 51.333 mls/hr IV ONETIME ONE Stop: 01/24/21 23:14 Last Admin: 01/24/21 18:29 Dose: 51.333 mls/hr Documented by: Potassium Chloride 40 meq/Magnesium Sulfate 2 gm/ Sodium Chloride 524 mls @ 131 mls/hr IV ONETIME ONE Stop: 01/25/21 15:29 Last Admin: 01/25/21 12:54 Dose: 131 mls/hr Documented by: Iopamidol (Iopamidol 755 Mg/Ml 500 Ml Multipack Bottle) 100 ml IVPUSH ONETIME STA Stop: 01/23/21 15:43 Last Admin: 01/23/21 15:42 Dose: 100 ml Documented by: Lorazepam (Lorazepam 2 Mg/Ml Sdv) 0.5 mg IVPUSH ONETIME ONE Stop: 01/23/21 16:48 Last Admin: 01/23/21 16:53 Dose: 0.5 mg Documented by: Lorazepam (Lorazepam 2 Mg/Ml Sdv) 2 mg IVPUSH ONETIME ONE Stop: 01/23/21 22:30 Last Admin: 01/24/21 00:24 Dose: 2 mg Documented by: Olanzapine (Olanzapine 10 Mg Vial) 10 mg IM ONETIME ONE Stop: 01/23/21 22:48 Last Admin: 01/23/21 23:21 Dose: 10 mg Documented by: Olanzapine (Olanzapine 10 Mg Vial) Confirm Administered Dose 10 mg .ROUTE .STK- MED ONE Stop: 01/23/21 23:02 Last Admin: 01/23/21 23:22 Dose: Not Given Documented by: Potassium Chloride (Potassium Chloride 20 Meq Tab.Er) 40 meq PO ONETIME ONE Stop: 01/25/21 11:21 Last Admin: 01/25/21 12:54 Dose: 40 meq Documented by: Sodium Phosphate (Phosphorus #1 250 Mg Tab) 250 mg PO QID [facility] Last Admin: 01/24/21 17:14 Dose: 250 mg Documented by: - Exam Quality Assessment: Supplemental Oxygen, DVT Prophylaxis Urinary Catheter Total Time: 2Days 14Hours General: Alert, Oriented HEENT: Pupils Equal, Pupils Reactive, EOMI, Mucous Membr. Moist/[place] Neck: Supple Lungs: Clear to Auscultation, Normal Respiratory Effort Cardiovascular: Regular Rate, Regular Rhythm GI/Abdominal Exam: Normal Bowel Sounds, Soft, Non-Tender, No Organomegaly, No Distention Extremities: Normal Inspection, Normal Range of Motion, Non-Tender, No Pedal Edema, Normal Capillary Refill Peripheral Pulses: 2+: Carotid (L), Carotid (R), Dorsalis Pedis (L), Dorsalis Pedis (R) Skin: Warm, Dry, Intact Wound/Incisions: Healing Well Neurological: No New Focal Deficit Psy/Mental Status: Alert, Normal Affect, Normal Mood - Patient Data Lab Results Last 24 hrs: Laboratory Results - last 24 hr 01/25/21 01/26/21 01/26/21 Range/Units 18:28 05:25 05:25 WBC 7.07 (4.0-11.0) K/uL RBC 4.03 L (4.50-5.90) M/uL Hgb 11.6 L (13.0-17.0) g/dL Hct 35.1 L (38.0-50.0) % MCV 87.1 (80.0-98.0) fL MCH 28.8 (27.0-32.0) pg MCHC 33.0 (31.0-37.0) g/dL RDW Std Deviation 45.9 (28.0-62.0) fl RDW Coeff of Azeem 14 (11.0-15.0) % Plt Count 149 L (150-400) K/uL MPV 12.00 (7.40-12.00) fL Neut % (Auto) 68.8 (48.0-80.0) % Lymph % (Auto) 14.6 L (16.0-40.0) % [place] % (Auto) 11.5 (0.0-15.0) % Eos % (Auto) 4.7 (0.0-7.0) % Baso % (Auto) 0.4 (0.0-1.5) % Neut # (Auto) 4.9 (1.4-5.7) K/uL Lymph # (Auto) 1.0 (0.6-2.4) K/uL [place] # (Auto) 0.8 (0.0-0.8) K/uL Eos # (Auto) 0.3 (0.0-0.7) K/uL Baso # (Auto) 0.0 (0.0-0.1) K/uL Nucleated RBC % 0.0 /100WBC Nucleated RBCs # 0 K/uL Sodium 145 (136-148) mmol/L Potassium 3.5 3.6 (3.5-5.1) mmol/L Chloride 110 H (98-107) mmol/L Carbon Dioxide 25.8 (21.0-32.0) mmol/L BUN 5 L (7.0-18.0) mg/dL Creatinine 0.9 (0.8-1.3) mg/dL Est Cr Clr Drug Dosing 68.60 mL/min Estimated GFR (MDRD) > 60.0 ml/min Glucose 94 (74-106) mg/dL Calcium 7.5 L (8.5-10.1) mg/dL Phosphorus 2.5 L (2.6-4.7) mg/dL Magnesium 2.2 2.0 (1.8-2.4) mg/dL Total Bilirubin 0.6 (0.2-1.0) mg/dL AST 16 (15-37) IU/L ALT 8 L (14-63) IU/L Alkaline Phosphatase 69 (46-116) U/L Total Protein 5.4 L (6.4-8.2) g/dL Albumin 2.2 L (3.4-5.0) g/dL Globulin 3.2 (2.6-4.0) g/dL Albumin/Globulin Ratio 0.7 L (0.9-1.6) Result Diagrams: 01/26/21 05:25 01/26/21 05:25 Shahbaz Results Last 24 hrs: Microbiology 01/23/21 14:44 Aerobic Blood Culture - Preliminary Blood - Venous - Lab Draw NO GROWTH AFTER 3 DAYS Anaerobic Blood Culture - Preliminary NO GROWTH AFTER 3 DAYS 01/23/21 14:41 Aerobic Blood Culture - Preliminary Blood - Venous NO GROWTH AFTER 3 DAYS Anaerobic Blood Culture - Preliminary NO GROWTH AFTER 3 DAYS 01/23/21 15:07 Urine Culture - Final Urine Sepsis Event Note - Evaluation Sepsis Screening Result: No Definite Risk - Focused Exam Vital Signs: Vital Signs Temp Pulse Resp BP Pulse Ox 01/26/21 15:26 97.8 F 58 L 22 H 138/68 94 L 01/26/21 12:00 96.1 F L 75 20 107/61 90 L 01/26/21 08:00 97.4 F 71 22 H 129/59 L 92 L - Problem List & Annotations (1) Phimosis SNOMED Code(s): 961094992 Code(s): N47.1 - PHIMOSIS Status: Acute (2) SIRS (systemic inflammatory response syndrome) SNOMED Code(s): 561439819 Code(s): R65.10 - SIRS OF NON-INFECTIOUS ORIGIN W/O ACUTE ORGAN DYSFUNCTION Status: Acute (3) Urinary retention SNOMED Code(s): 305253721 Code(s): R33.9 - RETENTION OF URINE, UNSPECIFIED Status: Acute - Problem List Review Problem List Initiated/Reviewed/Updated: Yes - My Orders Last 24 Hours: My Active Orders 01/25/21 21:00 QUEtiapine [SEROquel] 50 mg PO BEDTIME 01/26/21 14:30 Potassium Phosphates 15 mmole Sodium Chloride 0.9% [Normal Saline] 250 ml IV ONETIME 01/27/21 05:11 CBC WITH AUTO DIFF [HEME] AM CMP [COMPREHENSIVE METABOLIC PN,CMP] [CHEM] AM MAGNESIUM [CHEM] AM PHOSPHORUS [CHEM] AM - Plan Plan:: 71-year-old gentleman with history of advanced dementia, COPD was admitted for sepsis of unconfirmed source. 1. Delirium likely secondary to possible underlying UTI: Resolved, Patient has significant improvement in mentation alert and oriented x2, able to make eye contact and significantly more responsive in more inclined to engage i n conversation and expresses desires. However due to underlying history of dementia patient unable to answer or orient to time and place. Remains afebrile, vitally stable on room air Leukocytosis resolved, 7.1 today , normal lactate, urine, blood cultures no growth. Discontinue antibiotics as no source of infection found 2. Mild BHARATI: Resolved, BUN 5, creatinine 0.9 3.Mild hypokalemia and hypomagnesemia: resolved, repleted yesterday 4. Hypophosphatemia: 2.5 today, will replete with 15 mmol IV, recheck and replete as necessary. 5.Possible history of dementia: Head CT demonstrated no mass or intracranial lesion, did demonstrate old infarct, therefore we suspect possible microvascular changes contributing to dementia as it has been slow ongoing progressive process. Had an extensive discussion with and 3 siblings along with patient present. Discussed possible need for additional support due to his underlying condition of dementia. Patient will benefit from outpatient neurology follow-up and follow-up closer follow-ups with his PCP to ensure he receives appropriate care post discharge. Emphasized to patient and family the importance of this. Case management is involved, home health has been consulted. Patient's family has been made well aware of all possible options and given the appropriate contacts for our recommendations with care. Patient himself expresses desire to return home, additional option of having home health at least help with ho mebound and skilled services. In addition had discussed possible eventual need for senior care facility. Discussed that patient is not vaccinated at this time and therefore [facility] would not accept patient. Emphasized to family that if this is something they are interested in they may want to consider getting vaccinated if they want to pursue such placement. This can also be made a possible future option, which repeat close follow-up with his PCP can help facilitate. patientHave physical therapy evaluate and treat help with strength and conditioning Seroquel 50 mg at night to help with agitation CODE STATUS: Full code per GI prophylaxis: Protonix IV 40 DVT prophylaxis: Enoxaparin 40 IV Activity: Bedrest with commode Diet: Soft mechanical I performed a history and physical exam of the patient and discussed management with resident. I have reviewed the residents note and agree with documented findings and plan unless otherwise specified in my note. <Astrid Oneill - Last Filed: 01/28/21 16:15> - Patient Data Vitals - Most Recent: Last Vital Signs Temp 37.0 C 01/27/21 12:26 Pulse 77 01/27/21 12:26 Resp 17 01/27/21 12:26 BP 105/63 01/27/21 12:26 Pulse Ox 92 L 01/27/21 12:26 Shahbaz Results Last 24 Hours: Microbiology 01/23/21 14:44 Aerobic Blood Culture - Preliminary Blood - Venous - Lab Draw NO GROWTH AFTER 4 DAYS Anaerobic Blood Culture - Preliminary NO GROWTH AFTER 4 DAYS 01/23/21 14:41 Aerobic Blood Culture - Preliminary Blood - Venous NO GROWTH AFTER 4 DAYS Anaerobic Blood Culture - Preliminary NO GROWTH AFTER 4 DAYS Med Orders - Current: Current Medications Discontinued Medications Acetaminophen (Acetaminophen 325 Mg Tab) 650 mg PO Q4H PRN PRN Reason: Pain (Mild 1-3)/fever Albuterol/Ipratropium (Albuterol/Ipratropium 3.0-0.5 Mg/3 Ml Neb Soln) 3 ml NEB Q4HRRT PRN PRN Reason: Shortness Of Breath/wheezing Last Admin: 01/27/21 09:25 Dose: 3 ml Documented by: Diphenhydramine HCl (Diphenhydramine 50 Mg/Ml Sdv) 25 mg IM ONETIME ONE Stop: 01/23/21 20:59 Last Admin: 01/23/21 21:08 Dose: 25 mg Documented by: Diphenhydramine HCl (Diphenhydramine 50 Mg/Ml Sdv) 25 mg IVPUSH ONETIME ONE Stop: 01/23/21 22:29 Diphenhydramine HCl (Diphenhydramine 50 Mg/Ml Sdv) 25 mg IM ONETIME ONE Stop: 01/23/21 22:41 Last Admin: 01/23/21 23:20 Dose: 25 mg Documented by: Diphenhydramine HCl (Diphenhydramine 50 Mg/Ml Sdv) Confirm Administered Dose 50 mg .ROUTE .STK-MED ONE Stop: 01/23/21 22:52 Last Admin: 01/23/21 23:22 Dose: Not Given Documented by: Docusate Sodium (Docusate Sodium 100 Mg Cap) 100 mg PO BID PRN PRN Reason: Constipation Enoxaparin Sodium (Enoxaparin 40 Mg/0.4 Ml Syringe) 40 mg SUBCUT Q24H [facility] Last Admin: 01/27/21 08:40 Dose: 40 mg Documented by: Haloperidol Lactate (Haloperidol Lactate 5 Mg/Ml Sdv) 5 mg IM ONETIME ONE Stop: 01/23/21 20:58 Last Admin: 01/23/21 21:09 Dose: 5 mg Documented by: Sodium Chloride (Normal Saline) 1,000 mls @ 999 mls/hr IV STAT ONE Stop: 01/23/21 15:35 Last Admin: 01/23/21 15:49 Dose: 999 mls/hr Documented by: Piperacillin Sod/Tazobactam (Sod 3.375 gm/ Sodium Chloride) 50 mls @ 100 mls/hr IV ONETIME ONE Stop: 01/23/21 16:57 Last Admin: 01/23/21 16:47 Dose: 100 mls/hr Documented by: Vancomycin HCl 1 gm/ Sodium (Chloride) 250 mls @ 166 mls/hr IV ONETIME ONE Stop: 01/23/21 17:59 Last Admin: 01/23/21 17:31 Dose: 166 mls/hr Documented by: Lactated Ringer's (Ringers, Lactated) 1,000 mls @ 999 mls/hr IV BOLUS ONE Stop: 01/23/21 20:05 Last Admin: 01/23/21 20:00 Dose: 999 mls/hr Documented by: Piperacillin Sod/Tazobactam (Sod 3.375 gm/ Sodium Chloride) 50 mls @ 100 mls/hr IV Q6H [facility] Last Admin: 01/26/21 11:18 Dose: 100 mls/hr Documented by: Potassium Chloride 40 meq/ (Premix) 100 mls @ 25 mls/hr IV ONETIME ONE Stop: 01/24/21 00:28 Last Admin: 01/24/21 00:25 Dose: 25 mls/hr Documented by: Lactated Ringer's (Ringers, Lactated) 1,000 mls @ 125 mls/hr IV ASDIRECTED [facility] Last Admin: 01/27/21 08:41 Dose: 125 mls/hr Documented by: Olanzapine 10 mg/ Sterile (Water) 2.1 mls @ 999 mls/hr IM ONETIME ONE Stop: 01/23/21 22:29 Sterile Water (Sterile Water For Injection) Confirm Administered Dose 20 mls @ as directed .ROUTE .STK-MED ONE Stop: 01/23/21 23:07 Last Admin: 01/23/21 23:22 Dose: Not Given Documented by: Pantoprazole Sodium 40 mg/ (Sodium Chloride) 10 mls @ 300 mls/hr IV DAILY [facility] Last Admin: 01/27/21 08:41 Dose: 300 mls/hr Documented by: Sodium Phosphate 20 mmole/ (Sodium Chloride) 256.6667 mls @ 51.333 mls/hr IV ONETIME ONE Stop: 01/24/21 23:14 Last Admin: 01/24/21 18:29 Dose: 51.333 mls/hr Documented by: Potassium Chloride 40 meq/Magnesium Sulfate 2 gm/ Sodium Chloride 524 mls @ 131 mls/hr IV ONETIME ONE Stop: 01/25/21 15:29 Last Admin: 01/25/21 12:54 Dose: 131 mls/hr Documented by: Potassium Phosphate 15 mmole/ (Sodium Chloride) 255 mls @ 42.5 mls/hr IV ONETIME ONE Stop: 01/26/21 20:29 Last Admin: 01/26/21 15:21 Dose: 42.5 mls/hr Documented by: Iopamidol (Iopamidol 755 Mg/Ml 500 Ml Multipack Bottle) 100 ml IVPUSH ONETIME STA Stop: 01/23/21 15:43 Last Admin: 01/23/21 15:42 Dose: 100 ml Documented by: Lorazepam (Lorazepam 2 Mg/Ml Sdv) 0.5 mg IVPUSH ONETIME ONE Stop: 01/23/21 16:48 Last Admin: 01/23/21 16:53 Dose: 0.5 mg Documented by: Lorazepam (Lorazepam 2 Mg/Ml Sdv) 2 mg IVPUSH ONETIME ONE Stop: 01/23/21 22:30 Last Admin: 01/24/21 00:24 Dose: 2 mg Documented by: Olanzapine (Olanzapine 10 Mg Vial) 10 mg IM ONETIME ONE Stop: 01/23/21 22:48 Last Admin: 01/23/21 23:21 Dose: 10 mg Documented by: Olanzapine (Olanzapine 10 Mg Vial) Confirm Administered Dose 10 mg .ROUTE .STK- MED ONE Stop: 01/23/21 23:02 Last Admin: 01/23/21 23:22 Dose: Not Given Documented by: Ondansetron HCl (Ondansetron 4 Mg Tab.Dis) 4 mg PO Q4H PRN PRN Reason: nausea, able to take PO Potassium Chloride (Potassium Chloride 20 Meq Tab.Er) 40 meq PO ONETIME ONE Stop: 01/25/21 11:21 Last Admin: 01/25/21 12:54 Dose: 40 meq Documented by: Quetiapine Fumarate (Quetiapine 50 Mg Tab) 50 mg PO BEDTIME [facility] Last Admin: 01/26/21 20:17 Dose: 50 mg Documented by: Sodium Phosphate (Phosphorus #1 250 Mg Tab) 250 mg PO QID [facility] Last Admin: 01/24/21 17:14 Dose: 250 mg Documented by: - Patient Data Result Diagrams: 01/27/21 04:45 01/27/21 04:45 Shahbaz Results Last 24 hrs: Microbiology 01/23/21 14:44 Aerobic Blood Culture - Preliminary Blood - Venous - Lab Draw NO GROWTH AFTER 4 DAYS Anaerobic Blood Culture - Preliminary NO GROWTH AFTER 4 DAYS 01/23/21 14:41 Aerobic Blood Culture - Preliminary Blood - Venous NO GROWTH AFTER 4 DAYS Anaerobic Blood Culture - Preliminary NO GROWTH AFTER 4 DAYS - Plan Plan:: I have seen and evaluated the patient and agree with the residents note unless specified in my note
[2021-01-27] MEDS: Lactated Ringers 1,000 ML IV SCH ×2 (00:20→08:41)
[2021-01-27 05:25] LABS: BLOOD UREA NITROGEN,BUN 4 mg/dL (7.0-18.0); CHLORIDE,CL 110 mmol/L (98-107); GLUCOSE RANDOM 88 mg/dL (74-106); POTASSIUM,K 3.7 mmol/L (3.5-5.1); SODIUM,NA 144 mmol/L (136-148)
[2021-01-27] MEDS: Enoxaparin 40 MG/0.4 ML Syringe SUBCUT SCH (08:40)
[2021-01-27] MEDS: Pantoprazole 40 MG in Sodium Chloride 0.9% 10 ML IV SCH (08:41)
[2021-01-27] MEDS: Albuterol/Ipratropium 3.0-0.5 MG/3 ML Neb Soln NEB PRN (09:25)
--- NOTE | 2021-01-27 12:54 | PCM.DCSUM1 ---
Discharge Summary - Hospital Course Free Text/Narrative:: Patient is a 71-year-old male, with a h/o COPD and dementia, who presents to the emergency department today with his primary childcare center director / , secondary to a 2- day history of rash and for refill for COPD medication. On initial exam, patient is noted to be tachycardic 110s but otherwise vitals are stable. Patient is sitting comfortably on exam table is alert, but confused on questioning but at baseline according to . Upon exam the patient's feet are moderately edematous and mottled/purple with sitting. Doppler was performed at the bedside and pulses were found which were consistent with monitoring engineer. After patient elevated legs, after a few seconds, mottling and purple resolved. There are excoriations over the patient's back and buttocks, there are scratches in various stages of healing along the patient's back and on the buttock inclu ding the gluteal cleft and around the anus. There is dried feces in the patient's gluteal cleft and down the patient's leg. While cleaning the patient it was noted that the patient has severe phimosis, there is a small amount of urine around the opening of the phimosis but the phimosis is non-retractable and unable to visualize the urethra. The patient tried to urinate into a urinal and was unable to void any urine. At that time, performed a scan of the bladder with an ultrasound, the bladder was noted to be distended to the umbilicus. An 18 [place] Prince catheter was inserted through the phimosis and was successfully inserted into the urethra. 1800 mL of dark urine came out through the catheter. Started patient on normal saline and will obtain cardiac evaluation as well as obtain CT ang of abd/pelvis and bilateral lower extremities. EKG showed, normal sinus rhythm and no signs of ischemia. The patient's CBC shows an elevated WBC of 18.97 with a normal lactate, RBC of 4.30, Hgb 12.5, neutrophil percent 90.6, lymph percent 2.8, neutrophil count 17.2, lymph count 0.5, Payne count 1.1. The patient's INR is 0.99. The patient's CMP shows mild derangements with a potassium of 3.3, BUN 28, calcium 8.4, ALT 10, albumin 3.1, Albumin/globulin ratio 1.8, lipase 30. Patient's UA shows trace protein, trace occult blood, trace leukocyte esterase, urine bacteria 2+. Will culture urine and blood. CXR shows no acute findings and no significant changes from prior. After patient had received the ct scans, due to technological difficulties at a hospital wide level, I have been informed that imaging cannot be formally interpreted for possibly 24 hours. The on-call hospital administration, Stormy Thurston, advised having Dr. Diaz look at the imaging in the interim. Dr. Diaz's preliminary interpretation of the CT angio shows no obvious occlusions in the lower extremities and no concern for acute abdomen. Dr. Hurley's interpretation of the images showed no acute urological reason for the patient's elevated white count and nothing surgical at this time. He recommends leaving the Prince in place and he will follow in an outpatient status to address the phimosis. patient was treated empirically for sepsis due to elevation in WBC and HR with IV vancomycin and Zosyn empirically. Patient was admitted to the hospital for further care. The final report of the CT came back later which showed diffuse atherosclerotic changes with no significant inflow or outflow lesions, diffuse severe urinary bladder wall thickening with an indwelling Prince catheter that had been placed earlier. Chest x-ray was negative for any pneumonia. Upon admission patient was quite agitated and delirious and was pulling on his IVs and trying to pull the Prince and get out of bed. Patient was constantly redirected and required a sitter by bedside. Patient also received some Haldol and Zyprexa for chemical sedation for patient safety. 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 MRI of the brain could not be obtained because patient would not have been able to tolerate being in the MRI machine for longer period of time without getting agitated. The agitation was contributed to delirium possibly secondary to underlying UTI as well as worsening dementia. Patient's mentation was a little better but he was still quite confused and agitated. patient was started on risperidone at bedtime for agitation, it helped patient remained calm through the night and get a good night sleep, Patient became more calm and complacent the following days, . Urine culture came back negative. IV antibiotics were eventually stopped. Patient's urine was more clear. Patient was more alert awake and oriented although still had some memory deficit. Patient was doing much better, eating and drinking had no chest pain, PT evaluated the patient and recommended walker for ambulation which patient is very reluctant to use. Family meeting was held and family was explained that patient needs to see primary care on regular basis as well as asked to see a urologist for the indwelling Prince. Patient will also benefit from seeing neurology at some time in future. Patient is very resistant to seeing physicians and seeking health care. Goals of care discussion was recommended as well. Family was informed that patient would be going home with home health/PT. patient was medically stable for discharge and recommended to follow-up with his primary care for further care. Patient will need to have an appointment with urology as well as neurology in near future. Diagnosis: Stroke: No - Discharge Data Discharge Date: 01/27/21 Discharge Disposition: Home, Self-Care 01 Condition: Stable - Referral to Home Health Primary Care Physician: Renato Sol MD - Patient Summary/Data Consults: Consultations 01/23/21 19:05 PT Evaluation and Treatment [CONS] Routine 01/24/21 11:39 Consult to Case Management/Internal Controls Manager [CONS] Routine 01/26/21 10:35 Consult to Home Health [CONS] Routine - Discharge Plan *PRESCRIPTION DRUG MONITORING PROGRAM REVIEWED*: No *COPY OF PRESCRIPTION DRUG MONITORING REPORT IN PATIENT RAI: No Prescriptions/Med Rec: Albuterol Sulfate [Albuterol Sulfate HFA] 8.5 gm INH Q2H #1 inhaler Docusate Sodium [Colace] 100 mg PO BID PRN #30 cap PRN Reason: Constipation QUEtiapine [SEROquel] 50 mg PO BEDTIME #30 tab Home Medications: Home Meds Albuterol Sulfate [Albuterol Sulfate HFA] 8.5 gm INH Q2H #1 inhaler 01/27/21 [Rx] Docusate Sodium [Colace] 100 mg PO BID PRN #30 cap 01/27/21 [Rx] QUEtiapine [SEROquel] 50 mg PO BEDTIME #30 tab 01/27/21 [Rx] Patient Handouts: Albuterol inhalation aerosol, Quetiapine tablets, Urinary Tract Infection, Adult, [id number], Indwelling Urinary Catheter Care, Adult, [id number], Docusate capsules Referrals: Renato Sol MD [Primary Care Provider] - 02/02/21 10:15 am - Discharge Summary/Plan Comment DC Time >30 min.: No - Patient Data Vitals - Most Recent: Last Vital Signs Temp 37.0 C 01/27/21 12:26 Pulse 77 01/27/21 12:26 Resp 17 01/27/21 12:26 BP 105/63 01/27/21 12:26 Pulse Ox 92 L 01/27/21 12:26 Weight - Most Recent: 63.503 kg I&O - Last 24 hours: Intake & Output 01/26/21 01/27/21 01/27/21 22:59 06:59 14:59 Intake Total 2321 881 Output Total 145 67% Balance 887 20F Lab Results - Last 24 hrs: Laboratory Results - last 24 hr 01/27/21 01/27/21 Range/Units 04:45 04:45 WBC 8.16 (4.0-11.0) K/uL RBC 3.80 L (4.50-5.90) M/uL Hgb 10.9 L (13.0-17.0) g/dL Hct 33.4 L (38.0-50.0) % MCV 87.9 (80.0-98.0) fL MCH 28.7 (27.0-32.0) pg MCHC 32.6 (31.0-37.0) g/dL RDW Std Deviation 46.5 (28.0-62.0) fl RDW Coeff of Azeem 14 (11.0-15.0) % Plt Count 174 (150-400) K/uL MPV 11.60 (7.40-12.00) fL Neut % (Auto) 64.0 (48.0-80.0) % Lymph % (Auto) 16.5 (16.0-40.0) % Payne % (Auto) 12.6 (0.0-15.0) % Eos % (Auto) 6.5 (0.0-7.0) % Baso % (Auto) 0.4 (0.0-1.5) % Neut # (Auto) 5.2 (1.4-5.7) K/uL Lymph # (Auto) 1.4 (0.6-2.4) K/uL Payne # (Auto) 1.0 H (0.0-0.8) K/uL Eos # (Auto) 0.5 (0.0-0.7) K/uL Baso # (Auto) 0.0 (0.0-0.1) K/uL Nucleated RBC % 0.0 /100WBC Nucleated RBCs # 0 K/uL Sodium 144 (136-148) mmol/L Potassium 3.7 (3.5-5.1) mmol/L Chloride 110 H (98-107) mmol/L Carbon Dioxide 28.0 (21.0-32.0) mmol/L BUN 4 L (7.0-18.0) mg/dL Creatinine 0.7 L (0.8-1.3) mg/dL Est Cr Clr Drug Dosing 88.20 mL/min Estimated GFR (MDRD) > 60.0 ml/min Glucose 88 (74-106) mg/dL Calcium 7.5 L (8.5-10.1) mg/dL Phosphorus 2.7 (2.6-4.7) mg/dL Magnesium 1.8 (1.8-2.4) mg/dL Total Bilirubin 0.3 (0.2-1.0) mg/dL AST 17 (15-37) IU/L ALT 9 L (14-63) IU/L Alkaline Phosphatase 55 (46-116) U/L Total Protein 5.0 L (6.4-8.2) g/dL Albumin 2.1 L (3.4-5.0) g/dL Globulin 2.9 (2.6-4.0) g/dL Albumin/Globulin Ratio 0.7 L (0.9-1.6) NIDIA Results - Last 24 hrs: Microbiology 01/23/21 14:44 Aerobic Blood Culture - Preliminary Blood - Venous - Lab Draw NO GROWTH AFTER 3 DAYS Anaerobic Blood Culture - Preliminary NO GROWTH AFTER 3 DAYS 01/23/21 14:41 Aerobic Blood Culture - Preliminary Blood - Venous NO GROWTH AFTER 3 DAYS Anaerobic Blood Culture - Preliminary NO GROWTH AFTER 3 DAYS 01/23/21 15:07 Urine Culture - Final Urine Med Orders - Current: Current Medications Acetaminophen (Acetaminophen 325 Mg Tab) 650 mg PO Q4H PRN PRN Reason: Pain (Mild 1-3)/fever Albuterol/Ipratropium (Albuterol/Ipratropium 3.0-0.5 Mg/3 Ml Neb Soln) 3 ml NEB Q4HRRT PRN PRN Reason: Shortness Of Breath/wheezing Last Admin: 01/27/21 09:25 Dose: 3 ml Documented by: Docusate Sodium (Docusate Sodium 100 Mg Cap) 100 mg PO BID PRN PRN Reason: Constipation Enoxaparin Sodium (Enoxaparin 40 Mg/0.4 Ml Syringe) 40 mg SUBCUT Q24H [facility] Last Admin: 01/27/21 08:40 Dose: 40 mg Documented by: Lactated Ringer's (Ringers, Lactated) 1,000 mls @ 125 mls/hr IV ASDIRECTED [facility] Last Admin: 01/27/21 08:41 Dose: 125 mls/hr Documented by: Pantoprazole Sodium 40 mg/ (Sodium Chloride) 10 mls @ 300 mls/hr IV DAILY [facility] Last Admin: 01/27/21 08:41 Dose: 300 mls/hr Documented by: Ondansetron HCl (Ondansetron 4 Mg Tab.Dis) 4 mg PO Q4H PRN PRN Reason: nausea, able to take PO Quetiapine Fumarate (Quetiapine 50 Mg Tab) 50 mg PO BEDTIME [facility] Last Admin: 01/26/21 20:17 Dose: 50 mg Documented by: Discontinued Medications Diphenhydramine HCl (Diphenhydramine 50 Mg/Ml Sdv) 25 mg IM ONETIME ONE Stop: 01/23/21 20:59 Last Admin: 01/23/21 21:08 Dose: 25 mg Documented by: Diphenhydramine HCl (Diphenhydramine 50 Mg/Ml Sdv) 25 mg IVPUSH ONETIME ONE Stop: 01/23/21 22:29 Diphenhydramine HCl (Diphenhydramine 50 Mg/Ml Sdv) 25 mg IM ONETIME ONE Stop: 01/23/21 22:41 Last Admin: 01/23/21 23:20 Dose: 25 mg Documented by: Diphenhydramine HCl (Diphenhydramine 50 Mg/Ml Sdv) Confirm Administered Dose 50 mg .ROUTE .STK-MED ONE Stop: 01/23/21 22:52 Last Admin: 01/23/21 23:22 Dose: Not Given Documented by: Haloperidol Lactate (Haloperidol Lactate 5 Mg/Ml Sdv) 5 mg IM ONETIME ONE Stop: 01/23/21 20:58 Last Admin: 01/23/21 21:09 Dose: 5 mg Documented by: Sodium Chloride (Normal Saline) 1,000 mls @ 999 mls/hr IV STAT ONE Stop: 01/23/21 15:35 Last Admin: 01/23/21 15:49 Dose: 999 mls/hr Documented by: Piperacillin Sod/Tazobactam (Sod 3.375 gm/ Sodium Chloride) 50 mls @ 100 mls/hr IV ONETIME ONE Stop: 01/23/21 16:57 Last Admin: 01/23/21 16:47 Dose: 100 mls/hr Documented by: Vancomycin HCl 1 gm/ Sodium (Chloride) 250 mls @ 166 mls/hr IV ONETIME ONE Stop: 01/23/21 17:59 Last Admin: 01/23/21 17:31 Dose: 166 mls/hr Documented by: Lactated Ringer's (Ringers, Lactated) 1,000 mls @ 999 mls/hr IV BOLUS ONE Stop: 01/23/21 20:05 Last Admin: 01/23/21 20:00 Dose: 999 mls/hr Documented by: Piperacillin Sod/Tazobactam (Sod 3.375 gm/ Sodium Chloride) 50 mls @ 100 mls/hr IV Q6H [facility] Last Admin: 01/26/21 11:18 Dose: 100 mls/hr Documented by: Potassium Chloride 40 meq/ (Premix) 100 mls @ 25 mls/hr IV ONETIME ONE Stop: 01/24/21 00:28 Last Admin: 01/24/21 00:25 Dose: 25 mls/hr Documented by: Olanzapine 10 mg/ Sterile (Water) 2.1 mls @ 999 mls/hr IM ONETIME ONE Stop: 01/23/21 22:29 Sterile Water (Sterile Water For Injection) Confirm Administered Dose 20 mls @ as directed .ROUTE .STK-MED ONE Stop: 01/23/21 23:07 Last Admin: 01/23/21 23:22 Dose: Not Given Documented by: Sodium Phosphate 20 mmole/ (Sodium Chloride) 256.6667 mls @ 51.333 mls/hr IV ONETIME ONE Stop: 01/24/21 23:14 Last Admin: 01/24/21 18:29 Dose: 51.333 mls/hr Documented by: Potassium Chloride 40 meq/Magnesium Sulfate 2 gm/ Sodium Chloride 524 mls @ 131 mls/hr IV ONETIME ONE Stop: 01/25/21 15:29 Last Admin: 01/25/21 12:54 Dose: 131 mls/hr Documented by: Potassium Phosphate 15 mmole/ (Sodium Chloride) 255 mls @ 42.5 mls/hr IV ONETIME ONE Stop: 01/26/21 20:29 Last Admin: 01/26/21 15:21 Dose: 42.5 mls/hr Documented by: Iopamidol (Iopamidol 755 Mg/Ml 500 Ml Multipack Bottle) 100 ml IVPUSH ONETIME STA Stop: 01/23/21 15:43 Last Admin: 01/23/21 15:42 Dose: 100 ml Documented by: Lorazepam (Lorazepam 2 Mg/Ml Sdv) 0.5 mg IVPUSH ONETIME ONE Stop: 01/23/21 16:48 Last Admin: 01/23/21 16:53 Dose: 0.5 mg Documented by: Lorazepam (Lorazepam 2 Mg/Ml Sdv) 2 mg IVPUSH ONETIME ONE Stop: 01/23/21 22:30 Last Admin: 01/24/21 00:24 Dose: 2 mg Documented by: Olanzapine (Olanzapine 10 Mg Vial) 10 mg IM ONETIME ONE Stop: 01/23/21 22:48 Last Admin: 01/23/21 23:21 Dose: 10 mg Documented by: Olanzapine (Olanzapine 10 Mg Vial) Confirm Administered Dose 10 mg .ROUTE .STK- MED ONE Stop: 01/23/21 23:02 Last Admin: 01/23/21 23:22 Dose: Not Given Documented by: Potassium Chloride (Potassium Chloride 20 Meq Tab.Er) 40 meq PO ONETIME ONE Stop: 01/25/21 11:21 Last Admin: 01/25/21 12:54 Dose: 40 meq Documented by: Sodium Phosphate (Phosphorus #1 250 Mg Tab) 250 mg PO QID [facility]ONARD Last Admin: 01/24/21 17:14 Dose: 250 mg Documented by:
== END 2021-01-27 15:20 | disposition home health service (06) | DRG 872 ==
LOC: MW.ED 12:59 → MW.MS 18:16 → UNDOADMIN 18:26 → MW.MS 19:55
PROVIDERS: ADMIT Student in an Organized Health Care Education/Training Program; ATTEND Student in an Organized Health Care Education/Training Program
DX: A41.9 Sepsis, unspecified organism (principal); N39.0 Urinary tract infection, site not specified; N17.9 Acute kidney failure, unspecified; F33.9 Major depressive disorder, recurrent, unspecified; R45.1 Restlessness and agitation; R41.0 Disorientation, unspecified; N47.1 Phimosis; J44.9 Chronic obstructive pulmonary disease, unspecified; E87.6 Hypokalemia; E83.42 Hypomagnesemia; E83.39 Other disorders of phosphorus metabolism; F03.90 Unspecified dementia, unspecified severity, without behavioral disturbance, psychotic disturbance, mood disturbance, and anxiety; Z79.899 Other long term (current) drug therapy; Z87.891 Personal history of nicotine dependence; Z20.822 Contact with and (suspected) exposure to COVID-19
CPT/HCPCS: 0240U; 36415; 51702; 70450; 71045; 75635; 80053; 81001; 83605; 83690; 83735; 84100; 84132; 84484; 85025; 85027; 85610; 87040; 87086; 93005; 94640; 96365; 96367; 96375; 97162; 99285; 93010; 99222; 99233; 99238; A9270-GY; C9113; J1200; J1630; J1650; J2060; J2543; J3370; J3475; J3480; J3490; J7030; J7040; J7050; J7120; J7620-GY; Q9967

== ENCOUNTER 2021-02-08 21:09 | Inpatient (IN) | payer MEDICARE, OTHER ==
[2021-02-08] MEDS ORDERED: Sodium Chloride 0.9% 10 ML Syringe FLUSH PRN (21:18)
[2021-02-08] MEDS ORDERED: Sodium Chloride 0.9% 2.5 ML Syringe FLUSH PRN (21:18)
--- NOTE | 2021-02-08 22:02 | EDM.PDOC ---
ED HPI GENERAL MEDICAL PROBLEM - General Chief Complaint: Genitourinary Problem Stated Complaint: REFFED BY HOME HEALTH Time Seen by Provider: 02/08/21 21:13 - History of Present Illness INITIAL COMMENTS - FREE TEXT/NARRATIVE: History of present illness: [] The patient had a recent admission for sepsis from urinary tract infection resulting from urinary retention. He has a Prince catheter. The home health nurse called because the patient had dark rust colored urine. He also had distended abdomen. The family noted the distention. The patient says he does not have any abdominal pain or symptoms. He is not vomiting. He is having bowel movements. The catheter is draining urine. It is rust colored. The home health nurse noticed some greenish discharge around the meatus. Patient has no systemic signs of infection at this time. He actually has no complaint. Review of systems: As per history of present illness and below otherwise all systems reviewed and negative. Past medical history: As per history of present illness and as reviewed below otherwise noncontributory. Surgical history: As per history of present illness and as reviewed below otherwise noncontributory. Social history: No reported history of drug or alcohol abuse. Family history: As per history of present illness and as reviewed below otherwise noncontributory. Physical exam: Constitutional - well developed, well-nourished and in no acute distress HEENT - normocephalic, no evidence of trauma - external nose and mouth normal - no mass in neck and no JVD - mucosae moist EYES - full EOM, PERRL, no icterus - no evidence of inflammation, injection, or drainage Respiratory - no respiratory distress, equal bilateral expansion, lungs clear to auscultation and no abnormal lung sounds Cardiovascular - Regular Rhythm with S1 and S2 appreciated and no murmur, gallop or rub. GI - abdomen firm- normal bowel sounds - no guard or rebound no tenderness -external genitalia normal. The catheter bag has transapparent urine that is rust colored. Musculoskeletal no gross deformity of long bones or joints - no tenderness, swelling or edema Neurologic - Alert and oriented times four - CN II-XII grossly intact - motor sensory and coordination symmetrically normal Psychiatric - appropriate mood and affect with normal thought content Hematologic - No petechiae or purpura - mucosa appropriate color and sclera not pale - normal nail bed color and refill Integument - no rash or evidence of trauma - normal turgor Diagnostics: [] Therapeutics: [] Impression: [] Plan: [] Definitive disposition and diagnosis as appropriate pending reevaluation and review of above. - Related Data Allergies Allergy/AdvReac Type Severity Reaction Status Date / Time No Known Allergies Allergy Verified 01/26/21 12:18 Home Meds: Home Meds Albuterol Sulfate [Albuterol Sulfate HFA] 8.5 gm INH Q2H #1 inhaler 01/27/21 [Rx] Docusate Sodium [Colace] 100 mg PO BID PRN #30 cap 01/27/21 [Rx] QUEtiapine [SEROquel] 50 mg PO BEDTIME #30 tab 01/27/21 [Rx] Past Medical History HEENT History: Reports: None Cardiovascular History: Reports: None Respiratory History: Reports: Asthma, COPD Genitourinary History: Reports: None Musculoskeletal History: Reports: None Neurological History: Reports: Other (See Below) Other Neuro History: dementia Psychiatric History: Reports: None Endocrine/Metabolic History: Reports: None Hematologic History: Reports: None Immunologic History: Reports: None Oncologic (Cancer) History: Reports: None Dermatologic History: Reports: None - Infectious Disease History Infectious Disease History: Reports: Chicken Pox, Measles - Past Surgical History Head Surgeries/Procedures: Reports: None GI Surgical History: Reports: Hernia Repair/Other Social & Family History - Family History Family Medical History: No Pertinent Family History - Tobacco Use Tobacco Use Status *Q: Never Tobacco User Second Hand Smoke Exposure: Yes - Caffeine Use Caffeine Use: Reports: None - Recreational Drug Use Recreational Drug Use: No ED ROS GENERAL - Review of Systems Review Of Systems: Comprehensive ROS is negative, except as noted in HPI. ED EXAM, GENERAL - Physical Exam Exam: See Below Free Text/Narrative:: My physical exam is in the HPI Course - Vital Signs Text/Narrative:: Patient had 1400 cc of urine in his bladder. That was bladder scan result. Catheter was placed and was drained. After it was drained a new urine was sent in a new specimen shows a UTI. Patient has an elevated white count. Lactate is normal. Discussed with Dr. Francis and admitted to the hospital. Last Recorded V/S: Last Vital Signs Temp 35.9 C L 02/08/21 21:40 Pulse 78 02/08/21 21:40 Resp 16 02/08/21 21:40 BP 111/69 02/08/21 21:40 Pulse Ox 94 L 02/08/21 21:40 - Orders/Labs/Meds Orders: Active Orders 24 hr Category Date Time Status Communication Order [RC] STAT Care 02/08/21 22:01 Active CULTURE BLOOD [BC] Stat Lab 02/08/21 22:51 Received CULTURE BLOOD [BC] Stat Lab 02/08/21 22:56 Received CULTURE URINE [MREF] Stat Lab 02/08/21 22:50 Received Sodium Chloride 0.9% [Saline Flush] Med 02/08/21 21:18 Active 10 ml FLUSH ASDIRECTED PRN Sodium Chloride 0.9% [Saline Flush] Med 02/08/21 21:18 Active 2.5 ml FLUSH ASDIRECTED PRN Blood Culture x2 Reflex Set [OM.PC] Stat Oth 02/08/21 22:43 Ordered Saline Lock Insert [OM.PC] Stat Oth 02/08/21 21:18 Ordered Medication Orders Sodium Chloride (Sodium Chloride 0.9% 10 Ml Syringe) 10 ml FLUSH ASDIRECTED PRN PRN Reason: Keep Vein Open Last Admin: 02/08/21 22:27 Dose: 10 ml Documented by: SUMAYA Sodium Chloride (Sodium Chloride 0.9% 2.5 Ml Syringe) 2.5 ml FLUSH ASDIRECTED PRN PRN Reason: Keep Vein Open Last Admin: 02/08/21 22:27 Dose: 2.5 ml Documented by: SUMAYA Labs: Laboratory Tests 02/08/21 02/08/21 02/08/21 Range/Units 22:00 22:00 22:00 WBC 14.08 H (4.0-11.0) K/uL RBC 3.95 L (4.50-5.90) M/uL Hgb 11.2 L (13.0-17.0) g/dL Hct 34.0 L (38.0-50.0) % MCV 86.1 (80.0-98.0) fL MCH 28.4 (27.0-32.0) pg MCHC 32.9 (31.0-37.0) g/dL RDW Std Deviation 43.7 (28.0-62.0) fl RDW Coeff of Azeem 14 (11.0-15.0) % Plt Count 591 H (150-400) K/uL MPV 9.90 (7.40-12.00) fL Neut % (Auto) 68.9 (48.0-80.0) % Lymph % (Auto) 15.0 L (16.0-40.0) % Randolph % (Auto) 14.1 (0.0-15.0) % Eos % (Auto) 1.8 (0.0-7.0) % Baso % (Auto) 0.2 (0.0-1.5) % Neut # (Auto) 9.7 H (1.4-5.7) K/uL Lymph # (Auto) 2.1 (0.6-2.4) K/uL Randolph # (Auto) 2.0 H (0.0-0.8) K/uL Eos # (Auto) 0.3 (0.0-0.7) K/uL Baso # (Auto) 0.0 (0.0-0.1) K/uL Sodium 131 L (136-148) mmol/L Potassium 3.6 (3.5-5.1) mmol/L Chloride 96 L (98-107) mmol/L Carbon Dioxide 31.3 (21.0-32.0) mmol/L BUN 14 (7.0-18.0) mg/dL Creatinine 1.1 (0.8-1.3) mg/dL Est Cr Clr Drug Dosing 40.09 mL/min Estimated GFR (MDRD) > 60.0 ml/min Glucose 94 (74-106) mg/dL Lactic Acid (0.4-2.0) mmol/L Calcium 8.2 L (8.5-10.1) mg/dL Total Bilirubin 0.4 (0.2-1.0) mg/dL AST 11 L (15-37) IU/L ALT 11 L (14-63) IU/L Alkaline Phosphatase 83 (46-116) U/L Total Protein 7.3 (6.4-8.2) g/dL Albumin 3.1 L (3.4-5.0) g/dL Globulin 4.2 H (2.6-4.0) g/dL Albumin/Globulin Ratio 0.7 L (0.9-1.6) Urine Color Cancelled Urine Appearance Cancelled Urine pH Cancelled Ur Specific Granger Cancelled Urine Protein Cancelled Urine Glucose (UA) Cancelled Urine Ketones Cancelled Urine Occult Blood Cancelled Urine Nitrite Cancelled Urine Bilirubin Cancelled Urine Ictotest Cancelled Urine Urobilinogen Cancelled Ur Leukocyte Esterase Cancelled U Hyaline Cast (Auto) Cancelled Urine RBC Cancelled Urine WBC Cancelled Ur Epithelial Cells Cancelled Ur Squamous Epith Cells Cancelled Ur Renal Epithelial Cell Cancelled Calcium Oxalate Crystal Cancelled Uric Acid Crystals Cancelled Triple Phos Crystals Cancelled Other Crystals Cancelled Amorphous Sediment Cancelled Urine Bacteria Cancelled Fine Granular Casts Cancelled Coarse Granular Casts Cancelled Waxy Casts Cancelled RBC Casts Cancelled WBC Casts Cancelled Urine Mucus Cancelled Urine Other Cancelled Urine Trichomonas Cancelled Urine Yeast Cancelled Urine Sperm Cancelled Ur Oval Fat Bodies Cancelled Urinalysis Comment Cancelled 02/08/21 02/08/21 Range/Units 22:50 22:56 WBC (4.0-11.0) K/uL RBC (4.50-5.90) M/uL Hgb (13.0-17.0) g/dL Hct (38.0-50.0) % MCV (80.0-98.0) fL MCH (27.0-32.0) pg MCHC (31.0-37.0) g/dL RDW Std Deviation (28.0-62.0) fl RDW Coeff of Azeem (11.0-15.0) % Plt Count (150-400) K/uL MPV (7.40-12.00) fL Neut % (Auto) (48.0-80.0) % Lymph % (Auto) (16.0-40.0) % Randolph % (Auto) (0.0-15.0) % Eos % (Auto) (0.0-7.0) % Baso % (Auto) (0.0-1.5) % Neut # (Auto) (1.4-5.7) K/uL Lymph # (Auto) (0.6-2.4) K/uL Randolph # (Auto) (0.0-0.8) K/uL Eos # (Auto) (0.0-0.7) K/uL Baso # (Auto) (0.0-0.1) K/uL Sodium (136-148) mmol/L Potassium (3.5-5.1) mmol/L Chloride (98-107) mmol/L Carbon Dioxide (21.0-32.0) mmol/L BUN (7.0-18.0) mg/dL Creatinine (0.8-1.3) mg/dL Est Cr Clr Drug Dosing mL/min Estimated GFR (MDRD) ml/min Glucose (74-106) mg/dL Lactic Acid 1.4 (0.4-2.0) mmol/L Calcium (8.5-10.1) mg/dL Total Bilirubin (0.2-1.0) mg/dL AST (15-37) IU/L ALT (14-63) IU/L Alkaline Phosphatase (46-116) U/L Total Protein (6.4-8.2) g/dL Albumin (3.4-5.0) g/dL Globulin (2.6-4.0) g/dL Albumin/Globulin Ratio (0.9-1.6) Urine Color BROWN Urine Appearance CLOUDY Urine pH 7.0 Ur Specific Granger 1.015 Urine Protein >=300 H Urine Glucose (UA) NEGATIVE Urine Ketones NEGATIVE Urine Occult Blood LARGE H Urine Nitrite POSITIVE H Urine Bilirubin MODERATE H Urine Ictotest NEGATIVE Urine Urobilinogen 1.0 Ur Leukocyte Esterase MODERATE H U Hyaline Cast (Auto) Urine RBC TOO NUMEROUS TO CT Urine WBC 40-50 Ur Epithelial Cells FEW Ur Squamous Epith Cells Ur Renal Epithelial Cell Calcium Oxalate Crystal Uric Acid Crystals Triple Phos Crystals Other Crystals Amorphous Sediment Urine Bacteria FEW Fine Granular Casts Coarse Granular Casts Waxy Casts RBC Casts WBC Casts Urine Mucus Urine Other Urine Trichomonas Urine Yeast Urine Sperm Ur Oval Fat Bodies Urinalysis Comment Meds: Medications Generic Name Dose Route Start Last Admin Trade Name Freq PRN Reason Stop Dose Admin Sodium Chloride 10 ml 02/08/21 21:18 02/08/21 22:27 Sodium Chloride 0.9% 10 Ml Syringe FLUSH 10 ml ASDIRECTED PRN Administration Keep Vein Open Sodium Chloride 2.5 ml 02/08/21 21:18 02/08/21 22:27 Sodium Chloride 0.9% 2.5 Ml Syringe FLUSH 2.5 ml ASDIRECTED PRN Administration Keep Vein Open Discontinued Medications Generic Name Dose Route Start Last Admin Trade Name Freq PRN Reason Stop Dose Admin Ceftriaxone Sodium/Dextrose 1 50 mls @ 100 mls/hr 02/08/21 22:42 02/08/21 23:41 gm/ Premix IV 02/08/21 23:11 100 mls/hr ONETIME ONE Administration Departure - Departure Time of Disposition: 00:14 Disposition: Admitted As Inpatient 67 Condition: Good Clinical Impression: UTI, Urinary tract infectious disease, Obstruction of catheter - Discharge Information Referrals: Renato Sol MD [Primary Care Provider] - Forms: ED Department Discharge Sepsis Event Note (ED) - Evaluation Sepsis Screening Result: No Definite Risk - Focused Exam Vital Signs: Vital Signs Temp Pulse Resp BP Pulse Ox 02/08/21 21:40 35.9 C L 78 16 111/69 94 L - My Orders Last 24 Hours: My Active Orders 02/08/21 22:01 Communication Order [RC] STAT 02/08/21 22:43 Blood Culture x2 Reflex Set [OM.PC] Stat 02/08/21 22:50 CULTURE URINE [MREF] Stat 02/08/21 22:51 CULTURE BLOOD [BC] Stat 02/08/21 22:56 CULTURE BLOOD [BC] Stat - Assessment/Plan Last 24 Hours: My Active Orders 02/08/21 22:01 Communication Order [RC] STAT 02/08/21 22:43 Blood Culture x2 Reflex Set [OM.PC] Stat 02/08/21 22:50 CULTURE URINE [MREF] Stat 02/08/21 22:51 CULTURE BLOOD [BC] Stat 02/08/21 22:56 CULTURE BLOOD [BC] Stat
[2021-02-08 22:26] LABS: BLOOD UREA NITROGEN,BUN 14 mg/dL (7.0-18.0); CARBON DIOXIDE,CO2 31.3 mmol/L (21.0-32.0); CHLORIDE,CL 96 mmol/L (98-107); GLUCOSE RANDOM 94 mg/dL (74-106); POTASSIUM,K 3.6 mmol/L (3.5-5.1); SODIUM,NA 131 mmol/L (136-148)
[2021-02-08] MEDS ORDERED: cefTRIAXone 1 GM in Premix Bag 1 BAG IV ONE (22:42)
--- NOTE | 2021-02-08 23:36 | CR ---
INDICATION: Distended abdomen TECHNIQUE: Abdomen/Pelvis radiograph 1 view COMPARISON: None FINDINGS: Bowel: Mild gaseous distention of small bowel and colonic loops are noted in the left abdomen. Soft tissue: No evidence of pneumoperitoneum present. No suspicious calcifications noted. Bone: Unremarkable for age. IMPRESSION: 1. Mild gaseous distention of small bowel and colonic loops are noted in the left abdomen. No definite bowel obstruction is seen. Dictated by Sherwin Collado MD @ 02/08/2021 11:34:23 PM Dictated by: Sherwin Collado MD @ 02/08/2021 23:34:27 (Electronically Signed)
[2021-02-09] MEDS ORDERED: LORazepam 2 MG/ML SDV IVPUSH ONE (03:43)
[2021-02-09] MEDS ORDERED: Acetaminophen 325 MG Tab PO PRN (04:01)
[2021-02-09] MEDS ORDERED: Ondansetron 4 MG/2 ML SDV IVPUSH PRN (04:02)
[2021-02-09] MEDS ORDERED: Albuterol/Ipratropium 3.0-0.5 MG/3 ML Neb Soln NEB PRN (04:04)
[2021-02-09] MEDS ORDERED: Haloperidol Lactate 5 MG/ML SDV IM PRN (04:05)
[2021-02-09] MEDS ORDERED: diphenhydrAMINE 50 MG/ML SDV IVPUSH PRN (04:06)
[2021-02-09] MEDS: Lactated Ringers 1,000 ML IV SCH ×3 (04:08→21:16)
[2021-02-09 09:39] LABS: BLOOD UREA NITROGEN,BUN 8 mg/dL (7.0-18.0); CARBON DIOXIDE,CO2 27.9 mmol/L (21.0-32.0); CHLORIDE,CL 105 mmol/L (98-107); GLUCOSE RANDOM 88 mg/dL (74-106); POTASSIUM,K 3.6 mmol/L (3.5-5.1); SODIUM,NA 137 mmol/L (136-148)
[2021-02-09] MEDS: Pantoprazole 40 MG in Sodium Chloride 0.9% 10 ML IV SCH (09:57)
--- NOTE | 2021-02-09 13:27 | PCM.HP.2 ---
<Brenda Maciel - Last Filed: 02/09/21 13:27> H&P History of Present Illness - General Date of Service: 02/09/21 Admit Problem/Dx: Admission Diagnosis/Problem Admission Diagnosis/Problem UTI, Urinary tract infectious disease - History of Present Illness Initial Comments - Free Text/Narative: Patient is a 71-year-old gentleman with history of unspecified dementia, was recently seen and admitted for sepsis UTI secondary to urinary retention. Discharged with Prince in place. Per patient's he had been declining since the last couple of days approximately 3 days, and yesterday found to have dark- colored urine noted by home health. Upon admission patient was afebrile, without any fever chills, nausea, vomiting, diarrhea, has had normal bowel movements, catheter has been draining well. However family has noticed that his abdomen appears to be distended and upon admission it was noticed that there was some green discharge around the meatus of the Prince catheter. Prince catheter had been changed in the ED. Patient also received Rocephin and Ativan. This morning patient was seen and examined at bedside with his family at his bedside patient appeared to be quite somnolent/difficult to arouse, however not in any distress, and denied any pain. At bedside catheter appears to be draining appropriately. All questions and concerns in future planning with family at bedside were discussed thoroughly. - Related Data Allergies/Adverse Reactions: Allergies Allergy/AdvReac Type Severity Reaction Status Date / Time No Known Allergies Allergy Verified 01/26/21 12:18 Home Medications: Home Meds Albuterol Sulfate [Albuterol Sulfate HFA] 8.5 gm INH Q2H #1 inhaler 01/27/21 [Rx] Docusate Sodium [Colace] 100 mg PO BID PRN #30 cap 01/27/21 [Rx] QUEtiapine [SEROquel] 50 mg PO BEDTIME #30 tab 01/27/21 [Rx] Past Medical History HEENT History: Reports: None Cardiovascular History: Reports: None Respiratory History: Reports: Asthma, COPD Genitourinary History: Reports: None Musculoskeletal History: Reports: None Neurological History: Reports: Other (See Below) Other Neuro History: dementia Psychiatric History: Reports: None Endocrine/Metabolic History: Reports: None Hematologic History: Reports: None Immunologic History: Reports: None Oncologic (Cancer) History: Reports: None Dermatologic History: Reports: None - Infectious Disease History Infectious Disease History: Reports: Chicken Pox, Measles - Past Surgical History Head Surgeries/Procedures: Reports: None GI Surgical History: Reports: Hernia Repair/Other Social & Family History - Family History Family Medical History: No Pertinent Family History - Tobacco Use Tobacco Use Status *Q: Never Tobacco User Second Hand Smoke Exposure: Yes - Caffeine Use Caffeine Use: Reports: None - Recreational Drug Use Recreational Drug Use: No H&P Review of Systems - Review of Systems: Review Of Systems: Unable To Obtain (This patient is alert and oriented x0, quite lethargic and somnolent as he presented previously with a UTI. Remains afebrile, stable and denied any pain when briefly arousable.) Reason Not Obtained: Patient somnolent due to urinary tract infection. Exam - Exam Exam: See Below - Vital Signs Vital Signs: Last Vital Signs Temp 98.4 F 02/09/21 08:00 Pulse 76 02/09/21 08:00 Resp 16 02/09/21 08:00 BP 97/51 L 02/09/21 08:00 Pulse Ox 91 L 02/09/21 08:00 Weight: 51.483 kg - Exam Quality Assessment: No: DVT Prophylaxis (Due to blood noted in catheter) General: Lethargic. No: Alert, Oriented, Mild Distress HEENT: Conjunctiva Clear, EACs Clear, EOMI, PERRLA Neck: Supple (Like to get to bring us find all wishes to do his patients with drug allergies having been easily taking care of him in the hospital good kill me to do this plays games with you) Lungs: Clear to Auscultation, Normal Respiratory Effort (INR right) Cardiovascular: Regular Rate, Regular Rhythm, Normal S1, Normal S2 (I feel you might get it) GI/Abdominal Exam: Normal Bowel Sounds, Soft, Non-Tender, No Organomegaly, No Distention. No: Guarding, Rigid, Rebound Peripheral Pulses: 2+: Carotid (L), Carotid (R), Dorsalis Pedis (L), Dorsalis Pedis (R) Skin: Warm, Dry, Intact (Orthostatics earlier so between Microlite laying down and getting up like) Neurological: Cranial Nerves Intact Neuro Extensive - Mental Status: Disorientation to Person, Disorientation to Place, Disorientation to Time. No: Alert, Oriented x3, Normal Mood/Affect, Normal Cognition, Memory Intact - Patient Data Lab Results Last 24 hrs: Laboratory Results - last 24 hr 02/08/21 02/08/21 02/08/21 Range/Units 22:00 22:00 22:00 WBC 14.08 H (4.0-11.0) K/uL RBC 3.95 L (4.50-5.90) M/uL Hgb 11.2 L (13.0-17.0) g/dL Hct 34.0 L (38.0-50.0) % MCV 86.1 (80.0-98.0) fL MCH 28.4 (27.0-32.0) pg MCHC 32.9 (31.0-37.0) g/dL RDW Std Deviation 43.7 (28.0-62.0) fl RDW Coeff of Azeem 14 (11.0-15.0) % Plt Count 591 H (150-400) K/uL MPV 9.90 (7.40-12.00) fL Neut % (Auto) 68.9 (48.0-80.0) % Lymph % (Auto) 15.0 L (16.0-40.0) % Bonner % (Auto) 14.1 (0.0-15.0) % Eos % (Auto) 1.8 (0.0-7.0) % Baso % (Auto) 0.2 (0.0-1.5) % Neut # (Auto) 9.7 H (1.4-5.7) K/uL Lymph # (Auto) 2.1 (0.6-2.4) K/uL Bonner # (Auto) 2.0 H (0.0-0.8) K/uL Eos # (Auto) 0.3 (0.0-0.7) K/uL Baso # (Auto) 0.0 (0.0-0.1) K/uL Sodium 131 L (136-148) mmol/L Potassium 3.6 (3.5-5.1) mmol/L Chloride 96 L (98-107) mmol/L Carbon Dioxide 31.3 (21.0-32.0) mmol/L BUN 14 (7.0-18.0) mg/dL Creatinine 1.1 (0.8-1.3) mg/dL Est Cr Clr Drug Dosing 40.09 mL/min Estimated GFR (MDRD) > 60.0 ml/min Glucose 94 (74-106) mg/dL Lactic Acid (0.4-2.0) mmol/L Calcium 8.2 L (8.5-10.1) mg/dL Phosphorus (2.6-4.7) mg/dL Magnesium (1.8-2.4) mg/dL Total Bilirubin 0.4 (0.2-1.0) mg/dL AST 11 L (15-37) IU/L ALT 11 L (14-63) IU/L Alkaline Phosphatase 83 (46-116) U/L Total Protein 7.3 (6.4-8.2) g/dL Albumin 3.1 L (3.4-5.0) g/dL Globulin 4.2 H (2.6-4.0) g/dL Albumin/Globulin Ratio 0.7 L (0.9-1.6) Urine Color Cancelled Urine Appearance Cancelled Urine pH Cancelled Ur Specific [place] Cancelled Urine Protein Cancelled Urine Glucose (UA) Cancelled Urine Ketones Cancelled Urine Occult Blood Cancelled Urine Nitrite Cancelled Urine Bilirubin Cancelled Urine Ictotest Cancelled Urine Urobilinogen Cancelled Ur Leukocyte Esterase Cancelled U Hyaline Cast (Auto) Cancelled Urine RBC Cancelled Urine WBC Cancelled Ur Epithelial Cells Cancelled Ur Squamous Epith Cells Cancelled Ur Renal Epithelial Cell Cancelled Calcium Oxalate Crystal Cancelled Uric Acid Crystals Cancelled Triple Phos Crystals Cancelled Other Crystals Cancelled Amorphous Sediment Cancelled Urine Bacteria Cancelled Fine Granular Casts Cancelled Coarse Granular Casts Cancelled Waxy Casts Cancelled RBC Casts Cancelled WBC Casts Cancelled Urine Mucus Cancelled Urine Other Cancelled Urine Trichomonas Cancelled Urine Yeast Cancelled Urine Sperm Cancelled Ur Oval Fat Bodies Cancelled Urinalysis Comment Cancelled SARS-CoV-2 RNA (BRENDA) (NEGATIVE) 02/08/21 02/08/21 02/09/21 Range/Units 22:50 22:56 00:36 WBC (4.0-11.0) K/uL RBC (4.50-5.90) M/uL Hgb (13.0-17.0) g/dL Hct (38.0-50.0) % MCV (80.0-98.0) fL MCH (27.0-32.0) pg MCHC (31.0-37.0) g/dL RDW Std Deviation (28.0-62.0) fl RDW Coeff of Azeem (11.0-15.0) % Plt Count (150-400) K/uL MPV (7.40-12.00) fL Neut % (Auto) (48.0-80.0) % Lymph % (Auto) (16.0-40.0) % Bonner % (Auto) (0.0-15.0) % Eos % (Auto) (0.0-7.0) % Baso % (Auto) (0.0-1.5) % Neut # (Auto) (1.4-5.7) K/uL Lymph # (Auto) (0.6-2.4) K/uL Bonner # (Auto) (0.0-0.8) K/uL Eos # (Auto) (0.0-0.7) K/uL Baso # (Auto) (0.0-0.1) K/uL Sodium (136-148) mmol/L Potassium (3.5-5.1) mmol/L Chloride (98-107) mmol/L Carbon Dioxide (21.0-32.0) mmol/L BUN (7.0-18.0) mg/dL Creatinine (0.8-1.3) mg/dL Est Cr Clr Drug Dosing mL/min Estimated GFR (MDRD) ml/min Glucose (74-106) mg/dL Lactic Acid 1.4 (0.4-2.0) mmol/L Calcium (8.5-10.1) mg/dL Phosphorus (2.6-4.7) mg/dL Magnesium (1.8-2.4) mg/dL Total Bilirubin (0.2-1.0) mg/dL AST (15-37) IU/L ALT (14-63) IU/L Alkaline Phosphatase (46-116) U/L Total Protein (6.4-8.2) g/dL Albumin (3.4-5.0) g/dL Globulin (2.6-4.0) g/dL Albumin/Globulin Ratio (0.9-1.6) Urine Color BROWN Urine Appearance CLOUDY Urine pH 7.0 Ur Specific [place] 1.015 Urine Protein >=300 H Urine Glucose (UA) NEGATIVE Urine Ketones NEGATIVE Urine Occult Blood LARGE H Urine Nitrite POSITIVE H Urine Bilirubin MODERATE H Urine Ictotest NEGATIVE Urine Urobilinogen 1.0 Ur Leukocyte Esterase MODERATE H U Hyaline Cast (Auto) Urine RBC TOO NUMEROUS TO CT Urine WBC 40-50 Ur Epithelial Cells FEW Ur Squamous Epith Cells Ur Renal Epithelial Cell Calcium Oxalate Crystal Uric Acid Crystals Triple Phos Crystals Other Crystals Amorphous Sediment Urine Bacteria FEW Fine Granular Casts Coarse Granular Casts Waxy Casts RBC Casts WBC Casts Urine Mucus Urine Other Urine Trichomonas Urine Yeast Urine Sperm Ur Oval Fat Bodies Urinalysis Comment SARS-CoV-2 RNA (BRENDA) NEGATIVE (NEGATIVE) 02/09/21 02/09/21 Range/Units 08:38 08:38 WBC 10.66 (4.0-11.0) K/uL RBC 3.47 L (4.50-5.90) M/uL Hgb 9.9 L (13.0-17.0) g/dL Hct 30.1 L (38.0-50.0) % MCV 86.7 (80.0-98.0) fL MCH 28.5 (27.0-32.0) pg MCHC 32.9 (31.0-37.0) g/dL RDW Std Deviation 43.4 (28.0-62.0) fl RDW Coeff of Azeem 14 (11.0-15.0) % Plt Count 514 H (150-400) K/uL MPV 10.00 (7.40-12.00) fL Neut % (Auto) 68.7 (48.0-80.0) % Lymph % (Auto) 14.6 L (16.0-40.0) % Bonner % (Auto) 14.6 (0.0-15.0) % Eos % (Auto) 1.7 (0.0-7.0) % Baso % (Auto) 0.4 (0.0-1.5) % Neut # (Auto) 7.3 H (1.4-5.7) K/uL Lymph # (Auto) 1.6 (0.6-2.4) K/uL Bonner # (Auto) 1.6 H (0.0-0.8) K/uL Eos # (Auto) 0.2 (0.0-0.7) K/uL Baso # (Auto) 0.0 (0.0-0.1) K/uL Sodium 137 (136-148) mmol/L Potassium 3.6 (3.5-5.1) mmol/L Chloride 105 (98-107) mmol/L Carbon Dioxide 27.9 (21.0-32.0) mmol/L BUN 8 (7.0-18.0) mg/dL Creatinine 0.7 L (0.8-1.3) mg/dL Est Cr Clr Drug Dosing 71.50 mL/min Estimated GFR (MDRD) > 60.0 ml/min Glucose 88 (74-106) mg/dL Lactic Acid (0.4-2.0) mmol/L Calcium 7.9 L (8.5-10.1) mg/dL Phosphorus 3.0 (2.6-4.7) mg/dL Magnesium 2.0 (1.8-2.4) mg/dL Total Bilirubin 0.4 (0.2-1.0) mg/dL AST 9 L (15-37) IU/L ALT 6 L (14-63) IU/L Alkaline Phosphatase 65 (46-116) U/L Total Protein 6.1 L (6.4-8.2) g/dL Albumin 2.4 L (3.4-5.0) g/dL Globulin 3.7 (2.6-4.0) g/dL Albumin/Globulin Ratio 0.7 L (0.9-1.6) Urine Color Urine Appearance Urine pH Ur Specific [place] Urine Protein Urine Glucose (UA) Urine Ketones Urine Occult Blood Urine Nitrite Urine Bilirubin Urine Ictotest Urine Urobilinogen Ur Leukocyte Esterase U Hyaline Cast (Auto) Urine RBC Urine WBC Ur Epithelial Cells Ur Squamous Epith Cells Ur Renal Epithelial Cell Calcium Oxalate Crystal Uric Acid Crystals Triple Phos Crystals Other Crystals Amorphous Sediment Urine Bacteria Fine Granular Casts Coarse Granular Casts Waxy Casts RBC Casts WBC Casts Urine Mucus Urine Other Urine Trichomonas Urine Yeast Urine Sperm Ur Oval Fat Bodies Urinalysis Comment SARS-CoV-2 RNA (BRENDA) (NEGATIVE) Result Diagrams: 02/09/21 08:38 02/09/21 08:38 Sepsis Event Note - Evaluation Sepsis Screening Result: No Definite Risk - Focused Exam Vital Signs: Vital Signs Temp Pulse Resp BP Pulse Ox 02/09/21 08:00 98.4 F 76 16 97/51 L 91 L 02/09/21 03:55 97.9 F 90 18 122/57 L 93 L 02/09/21 01:34 75 14 100/60 95 - Problem List (1) Obstruction of catheter SNOMED Code(s): 764279168 ICD Code: T85.698A - [facility] COMPL OF INTERNAL PROSTH DEV/GRFT, INIT Status: Acute Current Visit: Yes (2) UTI, Urinary tract infectious disease SNOMED Code(s): 00160733 ICD Code: N39.0 - URINARY TRACT INFECTION, SITE NOT SPECIFIED Status: Acute Current Visit: Yes (3) Phimosis SNOMED Code(s): 004289888 ICD Code: N47.1 - PHIMOSIS Status: Acute Current Visit: No (4) Urinary retention SNOMED Code(s): 489954429 ICD Code: R33.9 - RETENTION OF URINE, UNSPECIFIED Status: Acute Current Visit: No Problem List Initiated/Reviewed/Updated: Yes Orders Last 24hrs: Active Orders 24 hr Category Date Time Status Admission Status [Patient Status] [ADT] Stat ADT 02/09/21 00:17 Active Ambulate [RC] ASDIRECTED Care 02/09/21 03:58 Active RT Aerosol Therapy [RC] ASDIRECTED Care 02/09/21 04:04 Active Wellness Specialist Discontinue [Cardiac Monitoring Care 02/09/21 03:29 Active Discontinue] [RC] Click to Edit Vital Signs [RC] Q4H Care 02/09/21 03:58 Active PT Evaluation and Treatment [CONS] Routine Cons 02/09/21 10:42 Active Regular Diet [DIET] Diet 02/09/21 Breakfast Active CULTURE BLOOD [BC] Stat Lab 02/08/21 22:51 Received CULTURE BLOOD [BC] Stat Lab 02/08/21 22:56 Received CULTURE URINE [MREF] Stat Lab 02/08/21 22:50 Received Acetaminophen [TylenoL] Med 02/09/21 04:01 Active 650 mg PO Q4H PRN Albuterol/Ipratropium [DuoNeb 3.0-0.5 MG/3 ML] Med 02/09/21 04:04 Active 3 ml NEB Q4HRRT PRN Haloperidol Lactate [Haldol] Med 02/09/21 04:05 Active 5 mg IM Q4H PRN Lactated Ringers [Ringers, Lactated] 1,000 ml Med 02/09/21 04:00 Active IV ASDIRECTED Ondansetron [Zofran] Med 02/09/21 04:02 Active 4 mg IVPUSH Q4H PRN Pantoprazole [ProTONIX IV] 40 mg Med 02/09/21 09:00 Active Sodium Chloride 0.9% [Normal Saline] 10 ml IV DAILY QUEtiapine [SEROquel] Med 02/09/21 21:00 Active 50 mg PO BEDTIME Sodium Chloride 0.9% [Saline Flush] Med 02/08/21 21:18 Active 10 ml FLUSH ASDIRECTED PRN Sodium Chloride 0.9% [Saline Flush] Med 02/08/21 21:18 Active 2.5 ml FLUSH ASDIRECTED PRN cefTRIAXone [Rocephin in Dextrose,Iso-Osm 1 GM/50 ML] 1 Med 02/09/21 22:00 Act victoriano gm Premix Bag 1 bag IV Q24H diphenhydrAMINE [Benadryl] Med 02/09/21 04:06 Active 25 mg IVPUSH Q4H PRN Blood Culture x2 Reflex Set [OM.PC] Stat Oth 02/08/21 22:43 Ordered Saline Lock Insert [OM.PC] Stat Oth 02/08/21 21:18 Ordered Resuscitation Status Routine Resus Stat 02/09/21 10:45 Ordered Medication Orders Acetaminophen (Acetaminophen 325 Mg Tab) 650 mg PO Q4H PRN PRN Reason: Pain/Fever Albuterol/Ipratropium (Albuterol/Ipratropium 3.0-0.5 Mg/3 Ml Neb Soln) 3 ml NEB Q4HRRT PRN PRN Reason: Wheezing Diphenhydramine HCl (Diphenhydramine 50 Mg/Ml Sdv) 25 mg IVPUSH Q4H PRN PRN Reason: Agitation Haloperidol Lactate (Haloperidol Lactate 5 Mg/Ml Sdv) 5 mg IM Q4H PRN PRN Reason: Agitation Lactated Ringer's (Ringers, Lactated) 1,000 mls @ 125 mls/hr IV ASDIRECTED LEONARD Last Admin: 02/09/21 11:55 Dose: 125 mls/hr Documented by: Infusion: 02/09/21 11:55 Dose: 125 mls/hr Documented by: Admin: 02/09/21 04:08 Dose: 125 mls/hr Documented by: MARY Ceftriaxone Sodium/Dextrose 1 (gm/ Premix) 50 mls @ 100 mls/hr IV Q24H LEONARD Pantoprazole Sodium 40 mg/ (Sodium Chloride) 10 mls @ 300 mls/hr IV DAILY REPLACED BY [facility] Last Admin: 02/09/21 09:57 Dose: 300 mls/hr Documented by: YAYA Ondansetron HCl (Ondansetron 4 Mg/2 Ml Sdv) 4 mg IVPUSH Q4H PRN PRN Reason: Nausea/Vomiting Quetiapine Fumarate (Quetiapine 50 Mg Tab) 50 mg PO BEDTIME LEONARD Sodium Chloride (Sodium Chloride 0.9% 10 Ml Syringe) 10 ml FLUSH ASDIRECTED PRN PRN Reason: Keep Vein Open Last Admin: 02/08/21 22:27 Dose: 10 ml Documented by: SUMAYA Sodium Chloride (Sodium Chloride 0.9% 2.5 Ml Syringe) 2.5 ml FLUSH ASDIRECTED PRN PRN Reason: Keep Vein Open Last Admin: 02/08/21 22:27 Dose: 2.5 ml Documented by: SUMAYA Assessment/Plan Comment:: 71-year-old gentleman admitted for UTI secondary to urinary retention. 1. UTI secondary to indwelling urinary catheter with urinary retention: White blood cell count 14.08, patient is afebrile, noted moderate to high leukocyte esterase, nitrates and occult blood. Continue to hydrate with LR 125, Prince has been changed, patient on Rocephin, cultures pending we will narrow antibiotics accordingly. 2. Mild thrombocytosis: 591 today, patient was likely dehydrated on admission, continue to hydrate, will hold off on DVT prophylaxis at this time, however provide SCDs due to blood in urine. 3. Baseline dementia: Agitation at night, resume home dose of 50 mg p.o. bedtime Seroquel. 4. 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 However, on rounds we had an extensive conversation with both and sister discussing need for additional support, possible need for [facility] facility. Discussed, that patient would be required to initiate processes by first step getting vaccinated, also it is important the family have these discussions with and children so that they can come to a decision regarding future planning to ensure patient's wishes are respected and align with his future care. <Astrid Oneill - Last Filed: 02/13/21 14:31> H&P History of Present Illness - General Admit Problem/Dx: Admission Diagnosis/Problem Admission Diagnosis/Problem UTI, Urinary tract infectious disease Exam - Vital Signs Vital Signs: Last Vital Signs Temp 36.4 C 02/13/21 12:22 Pulse 62 02/13/21 12:22 Resp 17 02/13/21 12:22 BP 99/54 L 02/13/21 12:22 Pulse Ox 95 02/13/21 12:22 - Patient Data Lab Results Last 24 hrs: Laboratory Results - last 24 hr 02/13/21 02/13/21 Range/Units 05:25 05:25 WBC 8.28 (4.0-11.0) K/uL RBC 3.56 L (4.50-5.90) M/uL Hgb 10.0 L (13.0-17.0) g/dL Hct 30.7 L (38.0-50.0) % MCV 86.2 (80.0-98.0) fL MCH 28.1 (27.0-32.0) pg MCHC 32.6 (31.0-37.0) g/dL RDW Std Deviation 46.0 (28.0-62.0) fl RDW Coeff of Azeem 15 (11.0-15.0) % Plt Count 600 H (150-400) K/uL MPV 10.10 (7.40-12.00) fL Neut % (Auto) 57.1 (48.0-80.0) % Lymph % (Auto) 22.3 (16.0-40.0) % Bonner % (Auto) 14.0 (0.0-15.0) % Eos % (Auto) 5.9 (0.0-7.0) % Baso % (Auto) 0.7 (0.0-1.5) % Neut # (Auto) 4.7 (1.4-5.7) K/uL Lymph # (Auto) 1.9 (0.6-2.4) K/uL Bonner # (Auto) 1.2 H (0.0-0.8) K/uL Eos # (Auto) 0.5 (0.0-0.7) K/uL Baso # (Auto) 0.1 (0.0-0.1) K/uL Nucleated RBC % 0.0 /100WBC Nucleated RBCs # 0 K/uL Sodium 141 (136-148) mmol/L Potassium 4.1 (3.5-5.1) mmol/L Chloride 109 H (98-107) mmol/L Carbon Dioxide 26.1 (21.0-32.0) mmol/L BUN 8 (7.0-18.0) mg/dL Creatinine 0.7 L (0.8-1.3) mg/dL Est Cr Clr Drug Dosing 71.50 mL/min Estimated GFR (MDRD) > 60.0 ml/min Glucose 92 (74-106) mg/dL Calcium 8.0 L (8.5-10.1) mg/dL Phosphorus 3.1 (2.6-4.7) mg/dL Magnesium 1.8 (1.8-2.4) mg/dL Result Diagrams: 02/13/21 05:25 02/13/21 05:25 Shahbaz Results Last 24 hrs: Microbiology 02/10/21 13:57 Aerobic Blood Culture - Preliminary Blood - Venous - Lab Draw NO GROWTH AFTER 3 DAYS Anaerobic Blood Culture - Preliminary NO GROWTH AFTER 3 DAYS 02/10/21 13:51 Aerobic Blood Culture - Preliminary Blood - Venous NO GROWTH AFTER 3 DAYS Anaerobic Blood Culture - Preliminary NO GROWTH AFTER 3 DAYS 02/08/21 22:51 Blood Culture Identification Panel - Final Blood Diphtheroids 02/08/21 22:56 Aerobic Blood Culture - Preliminary Blood - Venous - Lab Draw Anaerobic Blood Culture - Preliminary NO GROWTH AFTER 4 DAYS 02/08/21 22:51 Aerobic Blood Culture - Preliminary Blood - Venous Anaerobic Blood Culture - Preliminary NO GROWTH AFTER 4 DAYS 02/08/21 22:50 Urine Culture - Final Urine Sepsis Event Note - Focused Exam Vital Signs: Vital Signs Temp Pulse Resp BP BP Pulse Ox 02/13/21 12:22 36.4 C 62 17 99/54 L 95 02/13/21 07:47 36.4 C 61 17 108/45 L 96 02/13/21 04:00 36.8 C 61 16 103/53 L 98 - Problem List (1) Dementia SNOMED Code(s): 50627814 ICD Code: F03.90 - UNSPECIFIED DEMENTIA WITHOUT BEHAVIORAL DISTURBANCE Status: Acute Current Visit: Yes (2) Altered mental status SNOMED Code(s): 739878972 ICD Code: R41.82 - ALTERED MENTAL STATUS, UNSPECIFIED Status: Acute Current Visit: Yes (3) Obstruction of catheter SNOMED Code(s): 973787192 ICD Code: T85.698A - [facility] COMPL OF INTERNAL PROSTH DEV/GRFT, INIT Status: Acute Current Visit: Yes (4) UTI, Urinary tract infectious disease SNOMED Code(s): 81235664 ICD Code: N39.0 - URINARY TRACT INFECTION, SITE NOT SPECIFIED Status: Acute Current Visit: Yes (5) Urinary retention SNOMED Code(s): 055466669 ICD Code: R33.9 - RETENTION OF URINE, UNSPECIFIED Status: Acute Current Visit: No Orders Last 24hrs: Active Orders 24 hr Category Date Time Status BMP [BASIC METABOLIC PANEL,BMP] [CHEM] AM Lab 02/14/21 05:11 Ordered CBC WITH AUTO DIFF [HEME] AM Lab 02/14/21 05:11 Ordered MAGNESIUM [CHEM] AM Lab 02/14/21 05:11 Ordered PHOSPHORUS [CHEM] AM Lab 02/14/21 05:11 Ordered Medication Orders Acetaminophen (Acetaminophen 325 Mg Tab) 650 mg PO Q4H PRN PRN Reason: Pain/Fever Albuterol/Ipratropium (Albuterol/Ipratropium 3.0-0.5 Mg/3 Ml Neb Soln) 3 ml NEB Q4HRRT PRN PRN Reason: Wheezing Calcium Carbonate/Glycine (Calcium Carbonate 500 Mg Tab.Chew) 1,000 mg PO Q2HR PRN PRN Reason: Indigestion Diphenhydramine HCl (Diphenhydramine 50 Mg/Ml Sdv) 25 mg IVPUSH Q4H PRN PRN Reason: Agitation Docusate Sodium (Docusate Sodium 100 Mg Cap) 100 mg PO BID PRN PRN Reason: Constipation Enoxaparin Sodium (Enoxaparin 30 Mg/0.3 Ml Syringe) 30 mg SUBCUT Q24H REPLACED BY [facility] Last Admin: 02/13/21 14:07 Dose: 30 mg Documented by: Admin: 02/12/21 12:54 Dose: 30 mg Documented by: Admin: 02/11/21 12:54 Dose: 30 mg Documented by: Admin: 02/10/21 14:04 Dose: 30 mg Documented by: JAGRUTI Haloperidol Lactate (Haloperidol Lactate 5 Mg/Ml Sdv) 5 mg IM Q4H PRN PRN Reason: Agitation Ceftriaxone Sodium/Dextrose 1 (gm/ Premix) 50 mls @ 100 mls/hr IV Q24H REPLACED BY [facility] Last Admin: 02/12/21 22:46 Dose: 100 mls/hr Documented by: Infusion: 02/11/21 22:14 Dose: 100 mls/hr Documented by: Admin: 02/11/21 21:44 Dose: 100 mls/hr Documented by: Infusion: 02/10/21 22:17 Dose: 100 mls/hr Documented by: Admin: 02/10/21 21:47 Dose: 100 mls/hr Documented by: Infusion: 02/09/21 22:51 Dose: 100 mls/hr Documented by: Admin: 02/09/21 22:21 Dose: 100 mls/hr Documented by: MARY Pantoprazole Sodium 40 mg/ (Sodium Chloride) 10 mls @ 300 mls/hr IV DAILY REPLACED BY [facility] Last Admin: 02/13/21 08:52 Dose: 300 mls/hr Documented by: Infusion: 02/12/21 08:47 Dose: 300 mls/hr Documented by: Admin: 02/12/21 08:45 Dose: 300 mls/hr Documented by: Infusion: 02/11/21 09:28 Dose: 300 mls/hr Documented by: Admin: 02/11/21 09:26 Dose: 300 mls/hr Documented by: Infusion: 02/10/21 09:20 Dose: 300 mls/hr Documented by: Admin: 02/10/21 09:18 Dose: 300 mls/hr Documented by: Infusion: 02/09/21 09:59 Dose: 300 mls/hr Documented by: Admin: 02/09/21 09:57 Dose: 300 mls/hr Documented by: YAYA Lorazepam (Lorazepam 2 Mg/Ml Sdv) 1 mg IVPUSH Q4H PRN PRN Reason: Agitation Last Admin: 02/11/21 22:44 Dose: 1 mg Documented by: Admin: 02/11/21 13:35 Dose: 1 mg Documented by: Admin: 02/11/21 05:34 Dose: 1 mg Documented by: Admin: 02/10/21 22:26 Dose: 1 mg Documented by: Admin: 02/10/21 17:10 Dose: 1 mg Documented by: ISRAEL Ondansetron HCl (Ondansetron 4 Mg/2 Ml Sdv) 4 mg IVPUSH Q4H PRN PRN Reason: Nausea/Vomiting Quetiapine Fumarate (Quetiapine 50 Mg Tab) 50 mg PO BEDTIME REPLACED BY [facility] Last Admin: 02/12/21 20:19 Dose: 50 mg Documented by: Admin: 02/11/21 21:44 Dose: 50 mg Documented by: Admin: 02/10/21 21:06 Dose: 50 mg Documented by: Admin: 02/09/21 20:25 Dose: 50 mg Documented by: MARY Sodium Chloride (Sodium Chloride 0.9% 10 Ml Syringe) 10 ml FLUSH ASDIRECTED PRN PRN Reason: Keep Vein Open Last Admin: 02/08/21 22:27 Dose: 10 ml Documented by: SUMAYA Sodium Chloride (Sodium Chloride 0.9% 2.5 Ml Syringe) 2.5 ml FLUSH ASDIRECTED PRN PRN Reason: Keep Vein Open Last Admin: 02/08/21 22:27 Dose: 2.5 ml Documented by: SUMAYA Tamsulosin HCl (Tamsulosin 0.4 Mg Cap.Er) 0.4 mg PO BIDPC REPLACED BY [facility] Last Admin: 02/13/21 08:52 Dose: 0.4 mg Documented by: Admin: 02/12/21 17:44 Dose: 0.4 mg Documented by: Admin: 02/12/21 08:45 Dose: 0.4 mg Documented by: Admin: 02/11/21 17:19 Dose: 0.4 mg Documented by: Admin: 02/11/21 09:26 Dose: 0.4 mg Documented by: Admin: 02/10/21 23:46 Dose: 0.4 mg Documented by: SUSANA Vancomycin HCl (Pharmacy To Dose - Vancomycin) 1 dose .XX ASDIRECTED LEONARD Assessment/Plan Comment:: I performed a history and physical exam of the patient and discussed management with resident. I have reviewed the residents note and agree with documented findings and plan unless otherwise specified in my note.
[2021-02-09] MEDS: cefTRIAXone 1 GM in Premix Bag 1 BAG IV SCH (22:21)
[2021-02-10] MEDS: Lactated Ringers 1,000 ML IV SCH ×3 (05:26→22:35)
[2021-02-10] MEDS: Pantoprazole 40 MG in Sodium Chloride 0.9% 10 ML IV SCH (09:18)
--- NOTE | 2021-02-10 12:40 | PCM.PN ---
- General Info Date of Service: 02/10/21 Admission Dx/Problem (Free Text): Admission Diagnosis/Problem Admission Diagnosis/Problem UTI, Urinary tract infectious disease Subjective Update: Patient seen at bedside, awake and alert today, but not really interested in an swering most of my questions, defers them to the family at bedside. Patient is sitting on the chair comfortably reportedly patient had good breakfast this morning. Functional Status: Reports: Pain Controlled, Tolerating Diet, Ambulating, Urinating - Review of Systems General: Reports: Weakness. Denies: Fever, Fatigue Pulmonary: Denies: Shortness of Breath Cardiovascular: Denies: Chest Pain, Palpitations Gastrointestinal: Reports: Decreased Appetite. Denies: Abdominal Pain, Constipation Genitourinary: Denies: Dysuria, Frequency, Burning Neurological: Reports: Confusion. Denies: Dizziness, Headache, Numbness, Difficulty Walking, Weakness - Patient Data Vitals - Most Recent: Last Vital Signs Temp 36.9 C 02/10/21 09:00 Pulse 68 02/10/21 09:00 Resp 18 02/10/21 09:00 BP 105/55 L 02/10/21 09:00 Pulse Ox 91 L 02/10/21 09:00 Weight - Most Recent: 51.483 kg I&O - Last 24 Hours: Intake & Output 02/09/21 02/10/21 02/10/21 22:59 06:59 14:59 Intake Total 1733 1921 Output Total 1575 1250 Balance 158 671 Shahbaz Results Last 24 Hours: Microbiology 02/08/21 22:56 Aerobic Blood Culture - Preliminary Blood - Venous - Lab Draw Anaerobic Blood Culture - Preliminary NO GROWTH AFTER 1 DAY 02/08/21 22:51 Aerobic Blood Culture - Preliminary Blood - Venous NO GROWTH AFTER 1 DAY Anaerobic Blood Culture - Preliminary NO GROWTH AFTER 1 DAY Med Orders - Current: Current Medications Acetaminophen (Acetaminophen 325 Mg Tab) 650 mg PO Q4H PRN PRN Reason: Pain/Fever Albuterol/Ipratropium (Albuterol/Ipratropium 3.0-0.5 Mg/3 Ml Neb Soln) 3 ml NEB Q4HRRT PRN PRN Reason: Wheezing Diphenhydramine HCl (Diphenhydramine 50 Mg/Ml Sdv) 25 mg IVPUSH Q4H PRN PRN Reason: Agitation Haloperidol Lactate (Haloperidol Lactate 5 Mg/Ml Sdv) 5 mg IM Q4H PRN PRN Reason: Agitation Lactated Ringer's (Ringers, Lactated) 1,000 mls @ 125 mls/hr IV ASDIRECTED [facility] Last Admin: 02/10/21 05:26 Dose: 125 mls/hr Documented by: Ceftriaxone Sodium/Dextrose 1 (gm/ Premix) 50 mls @ 100 mls/hr IV Q24H [facility] Last Admin: 02/09/21 22:21 Dose: 100 mls/hr Documented by: Pantoprazole Sodium 40 mg/ (Sodium Chloride) 10 mls @ 300 mls/hr IV DAILY [facility] Last Admin: 02/10/21 09:18 Dose: 300 mls/hr Documented by: Ondansetron HCl (Ondansetron 4 Mg/2 Ml Sdv) 4 mg IVPUSH Q4H PRN PRN Reason: Nausea/Vomiting Quetiapine Fumarate (Quetiapine 50 Mg Tab) 50 mg PO BEDTIME [facility] Last Admin: 02/09/21 20:25 Dose: 50 mg Documented by: Sodium Chloride (Sodium Chloride 0.9% 10 Ml Syringe) 10 ml FLUSH ASDIRECTED PRN PRN Reason: Keep Vein Open Last Admin: 02/08/21 22:27 Dose: 10 ml Documented by: Sodium Chloride (Sodium Chloride 0.9% 2.5 Ml Syringe) 2.5 ml FLUSH ASDIRECTED PRN PRN Reason: Keep Vein Open Last Admin: 02/08/21 22:27 Dose: 2.5 ml Documented by: Discontinued Medications Ceftriaxone Sodium/Dextrose 1 (gm/ Premix) 50 mls @ 100 mls/hr IV ONETIME ONE Stop: 02/08/21 23:11 Last Admin: 02/08/21 23:41 Dose: 100 mls/hr Documented by: Lorazepam (Lorazepam 2 Mg/Ml Sdv) 2 mg IVPUSH ONETIME ONE Stop: 02/09/21 03:44 Last Admin: 02/09/21 03:52 Dose: 2 mg Documented by: - Exam General: Alert, Cooperative, No Acute Distress. No: Oriented Neck: Supple Lungs: Clear to Auscultation, Normal Respiratory Effort Cardiovascular: Regular Rate, Regular Rhythm GI/Abdominal Exam: Normal Bowel Sounds, Soft, Non-Tender (Male) Exam: Other (Prince in place draining clear urine) - Patient Data Result Diagrams: 02/09/21 08:38 02/09/21 08:38 Shahbaz Results Last 24 hrs: Microbiology 02/08/21 22:56 Aerobic Blood Culture - Preliminary Blood - Venous - Lab Draw Anaerobic Blood Culture - Preliminary NO GROWTH AFTER 1 DAY 02/08/21 22:51 Aerobic Blood Culture - Preliminary Blood - Venous NO GROWTH AFTER 1 DAY Anaerobic Blood Culture - Preliminary NO GROWTH AFTER 1 DAY Sepsis Event Note - Evaluation Sepsis Screening Result: No Definite Risk - Focused Exam Vital Signs: Vital Signs Temp Pulse Resp BP Pulse Ox 02/10/21 09:00 36.9 C 68 18 105/55 L 91 L 02/10/21 05:18 36.6 C 63 17 105/50 L 94 L 02/10/21 01:57 36.6 C 75 17 105/63 94 L - Problem List & Annotations (1) Dementia SNOMED Code(s): 88327720 Code(s): F03.90 - UNSPECIFIED DEMENTIA WITHOUT BEHAVIORAL DISTURBANCE Status: Acute Current Visit: Yes (2) Altered mental status SNOMED Code(s): 827756518 Code(s): R41.82 - ALTERED MENTAL STATUS, UNSPECIFIED Status: Acute Current Visit: Yes (3) Obstruction of catheter SNOMED Code(s): 211488406 Code(s): T85.698A - [facility] COMPL OF INTERNAL PROSTH DEV/GRFT, INIT Status: Acute Current Visit: Yes (4) UTI, Urinary tract infectious disease SNOMED Code(s): 72110978 Code(s): N39.0 - URINARY TRACT INFECTION, SITE NOT SPECIFIED Status: Acute Current Visit: Yes (5) Urinary retention SNOMED Code(s): 323595792 Code(s): R33.9 - RETENTION OF URINE, UNSPECIFIED Status: Acute Current Visit: No - Problem List Review Problem List Initiated/Reviewed/Updated: Yes - My Orders Last 24 Hours: My Active Orders 02/09/21 22:00 cefTRIAXone [Rocephin in Dextrose,Iso-Osm 1 GM/50 ML] 1 gm Premix Bag 1 bag IV Q24H - Plan Plan:: 71-year-old gentleman admitted for UTI secondary to urinary retention. 1. UTI secondary to indwelling urinary catheter with urinary retention: Leukocytosis as improved, continue IV antibiotics, blood cultures noted 1 bottle positive likely contaminant, will order repeat blood cultures and in the meantime will start IV vancomycin 2. Baseline dementia: Agitation mostly at night, resume home dose of 50 mg p.o. bedtime Seroquel. -Frequent redirection loan and credit manager has spoken to family, is in the process of discussing need for visiting [place] for additional support. However, on rounds we had an extensive conversation with both and sister discussing need for additional support, possible need for correction facility in near future. Discussed, that patient would be required to initiate processes by first step getting vaccinated, also it is important the family have these discussions with and children so that they can come to a decision regarding future planning to ensure patient's wishes are respected and align with his future care. Patient was evaluated by physical therapy, reportedly patient is at his baseline in terms of ambulatory status, patient can be discharged safely to home with a walker although patient refuses to use walker at home per family. Possible discharge in 1 to 2 days once we have more information on blood cultures.
[2021-02-10] MEDS: Enoxaparin 30 MG/0.3 ML Syringe SUBCUT SCH (14:04)
[2021-02-10] MEDS: LORazepam 2 MG/ML SDV IVPUSH PRN ×2 (17:10→22:26)
[2021-02-10] MEDS: cefTRIAXone 1 GM in Premix Bag 1 BAG IV SCH (21:47)
[2021-02-10] MEDS: Tamsulosin 0.4 MG Cap.ER PO SCH (23:46)
[2021-02-11] MEDS: LORazepam 2 MG/ML SDV IVPUSH PRN ×3 (05:34→22:44)
[2021-02-11 07:16] LABS: BLOOD UREA NITROGEN,BUN 7 mg/dL (7.0-18.0); CARBON DIOXIDE,CO2 30.8 mmol/L (21.0-32.0); CHLORIDE,CL 109 mmol/L (98-107); GLUCOSE RANDOM 86 mg/dL (74-106); POTASSIUM,K 3.5 mmol/L (3.5-5.1); SODIUM,NA 141 mmol/L (136-148)
[2021-02-11] MEDS: Lactated Ringers 1,000 ML IV SCH ×2 (08:48→20:30)
[2021-02-11] MEDS: Pantoprazole 40 MG in Sodium Chloride 0.9% 10 ML IV SCH (09:26)
[2021-02-11] MEDS: Tamsulosin 0.4 MG Cap.ER PO SCH ×2 (09:26→17:19)
--- NOTE | 2021-02-11 09:37 | PCM.PN ---
<Brenda Maciel - Last Filed: 02/11/21 10:56> - General Info Date of Service: 02/11/21 Admission Dx/Problem (Free Text): Admission Diagnosis/Problem Admission Diagnosis/Problem UTI, Urinary tract infectious disease Subjective Update: Patient seen and examined, difficult to wake due to recent giving Ativan last night as he was quite agitated and trying to pull his IV out. Continue to rest, appeared to be resting comfortably in no acute distress. Functional Status: Reports: Pain Controlled - Review of Systems General: Reports: Other ([place]min[place] status post receiving Ativan last night for agitation ) HEENT: Reports: No Symptoms Pulmonary: Reports: No Symptoms Cardiovascular: Reports: No Symptoms Gastrointestinal: Reports: No Symptoms Genitourinary: Reports: No Symptoms Musculoskeletal: Reports: No Symptoms Skin: Reports: No Symptoms Neurological: Reports: No Symptoms Psychiatric: Reports: No Symptoms - Patient Data Vitals - Most Recent: Last Vital Signs Temp 97.5 F 02/11/21 08:00 Pulse 61 02/11/21 08:00 Resp 18 02/11/21 08:00 BP 123/50 L 02/11/21 08:00 Pulse Ox 93 L 02/11/21 08:00 Weight - Most Recent: 51.483 kg I&O - Last 24 Hours: Intake & Output 02/10/21 02/11/21 02/11/21 22:59 06:59 14:59 Intake Total 2643 100 Output Total 1325 1100 Balance 1318 -1000 Lab Results Last 24 Hours: Laboratory Results - last 24 hr 02/11/21 02/11/21 Range/Units 06:30 06:30 WBC 8.46 (4.0-11.0) K/uL RBC 3.34 L (4.50-5.90) M/uL Hgb 9.4 L (13.0-17.0) g/dL Hct 29.6 L (38.0-50.0) % MCV 88.6 (80.0-98.0) fL MCH 28.1 (27.0-32.0) pg MCHC 31.8 (31.0-37.0) g/dL RDW Std Deviation 44.7 (28.0-62.0) fl RDW Coeff of Azeem 14 (11.0-15.0) % Plt Count 565 H (150-400) K/uL MPV 9.70 (7.40-12.00) fL Neut % (Auto) 64.7 (48.0-80.0) % Lymph % (Auto) 14.8 L (16.0-40.0) % [place] % (Auto) 14.8 (0.0-15.0) % Eos % (Auto) 5.1 (0.0-7.0) % Baso % (Auto) 0.6 (0.0-1.5) % Neut # (Auto) 5.5 (1.4-5.7) K/uL Lymph # (Auto) 1.3 (0.6-2.4) K/uL [place] # (Auto) 1.3 H (0.0-0.8) K/uL Eos # (Auto) 0.4 (0.0-0.7) K/uL Baso # (Auto) 0.1 (0.0-0.1) K/uL Sodium 141 (136-148) mmol/L Potassium 3.5 (3.5-5.1) mmol/L Chloride 109 H (98-107) mmol/L Carbon Dioxide 30.8 (21.0-32.0) mmol/L BUN 7 (7.0-18.0) mg/dL Creatinine 0.7 L (0.8-1.3) mg/dL Est Cr Clr Drug Dosing 71.50 mL/min Estimated GFR (MDRD) > 60.0 ml/min Glucose 86 (74-106) mg/dL Calcium 7.8 L (8.5-10.1) mg/dL Phosphorus 2.9 (2.6-4.7) mg/dL Magnesium 1.8 (1.8-2.4) mg/dL Shahbaz Results Last 24 Hours: Microbiology 02/08/21 22:50 Urine Culture - Preliminary Urine 02/08/21 22:51 Aerobic Blood Culture - Preliminary Blood - Venous Anaerobic Blood Culture - Preliminary NO GROWTH AFTER 2 DAYS 02/08/21 22:56 Aerobic Blood Culture - Preliminary Blood - Venous - Lab Draw Anaerobic Blood Culture - Preliminary NO GROWTH AFTER 2 DAYS Med Orders - Current: Current Medications Acetaminophen (Acetaminophen 325 Mg Tab) 650 mg PO Q4H PRN PRN Reason: Pain/Fever Albuterol/Ipratropium (Albuterol/Ipratropium 3.0-0.5 Mg/3 Ml Neb Soln) 3 ml NEB Q4HRRT PRN PRN Reason: Wheezing Diphenhydramine HCl (Diphenhydramine 50 Mg/Ml Sdv) 25 mg IVPUSH Q4H PRN PRN Reason: Agitation Enoxaparin Sodium (Enoxaparin 30 Mg/0.3 Ml Syringe) 30 mg SUBCUT Q24H [facility] Last Admin: 02/10/21 14:04 Dose: 30 mg Documented by: Haloperidol Lactate (Haloperidol Lactate 5 Mg/Ml Sdv) 5 mg IM Q4H PRN PRN Reason: Agitation Lactated Ringer's (Ringers, Lactated) 1,000 mls @ 125 mls/hr IV ASDIRECTED [facility] Last Admin: 02/11/21 08:48 Dose: 125 mls/hr Documented by: Ceftriaxone Sodium/Dextrose 1 (gm/ Premix) 50 mls @ 100 mls/hr IV Q24H [facility] Last Admin: 02/10/21 21:47 Dose: 100 mls/hr Documented by: Pantoprazole Sodium 40 mg/ (Sodium Chloride) 10 mls @ 300 mls/hr IV DAILY [facility] Last Admin: 02/11/21 09:26 Dose: 300 mls/hr Documented by: Vancomycin HCl 1 gm/ Sodium (Chloride) 250 mls @ 250 mls/hr IV Q12H [facility] Last Admin: 02/11/21 00:27 Dose: 250 mls/hr Documented by: Lorazepam (Lorazepam 2 Mg/Ml Sdv) 1 mg IVPUSH Q4H PRN PRN Reason: Agitation Last Admin: 02/11/21 05:34 Dose: 1 mg Documented by: Ondansetron HCl (Ondansetron 4 Mg/2 Ml Sdv) 4 mg IVPUSH Q4H PRN PRN Reason: Nausea/Vomiting Quetiapine Fumarate (Quetiapine 50 Mg Tab) 50 mg PO BEDTIME [facility] Last Admin: 02/10/21 21:06 Dose: 50 mg Documented by: Sodium Chloride (Sodium Chloride 0.9% 10 Ml Syringe) 10 ml FLUSH ASDIRECTED PRN PRN Reason: Keep Vein Open Last Admin: 02/08/21 22:27 Dose: 10 ml Documented by: Sodium Chloride (Sodium Chloride 0.9% 2.5 Ml Syringe) 2.5 ml FLUSH ASDIRECTED PRN PRN Reason: Keep Vein Open Last Admin: 02/08/21 22:27 Dose: 2.5 ml Documented by: Tamsulosin HCl (Tamsulosin 0.4 Mg Cap.Er) 0.4 mg PO BIDPC [facility] Last Admin: 02/11/21 09:26 Dose: 0.4 mg Documented by: Vancomycin HCl (Pharmacy To Dose - Vancomycin) 1 dose .XX ASDIRECTED [facility] Discontinued Medications Ceftriaxone Sodium/Dextrose 1 (gm/ Premix) 50 mls @ 100 mls/hr IV ONETIME ONE Stop: 02/08/21 23:11 Last Admin: 02/08/21 23:41 Dose: 100 mls/hr Documented by: Lorazepam (Lorazepam 2 Mg/Ml Sdv) 2 mg IVPUSH ONETIME ONE Stop: 02/09/21 03:44 Last Admin: 02/09/21 03:52 Dose: 2 mg Documented by: - Exam Quality Assessment: Urine Catheter, DVT Prophylaxis. No: Supplemental Oxygen, Skin Breakdown, Restraints General: Obtunded (Due to Ativan for agitation given yesterday evening). No: Alert, Oriented HEENT: Pupils Equal, Pupils Reactive, EOMI, Mucous Membr. Moist/[place] Neck: Supple Lungs: Clear to Auscultation, Normal Respiratory Effort Cardiovascular: Regular Rate, Regular Rhythm GI/Abdominal Exam: Normal Bowel Sounds, Soft, Non-Tender, No Organomegaly, No Distention, No Mass Back Exam: Normal Inspection, Full Range of Motion Extremities: Normal Inspection, Normal Range of Motion, Non-Tender, No Pedal Edema, Normal Capillary Refill Peripheral Pulses: 2+: Carotid (L), Carotid (R), Dorsalis Pedis (L), Dorsalis Pedis (R) Skin: Warm, Dry, Intact Neurological: No New Focal Deficit Psy/Mental Status: Alert, Normal Affect, Normal Mood - Patient Data Lab Results Last 24 hrs: Laboratory Results - last 24 hr 02/11/21 02/11/21 Range/Units 06:30 06:30 WBC 8.46 (4.0-11.0) K/uL RBC 3.34 L (4.50-5.90) M/uL Hgb 9.4 L (13.0-17.0) g/dL Hct 29.6 L (38.0-50.0) % MCV 88.6 (80.0-98.0) fL MCH 28.1 (27.0-32.0) pg MCHC 31.8 (31.0-37.0) g/dL RDW Std Deviation 44.7 (28.0-62.0) fl RDW Coeff of Azeem 14 (11.0-15.0) % Plt Count 565 H (150-400) K/uL MPV 9.70 (7.40-12.00) fL Neut % (Auto) 64.7 (48.0-80.0) % Lymph % (Auto) 14.8 L (16.0-40.0) % [place] % (Auto) 14.8 (0.0-15.0) % Eos % (Auto) 5.1 (0.0-7.0) % Baso % (Auto) 0.6 (0.0-1.5) % Neut # (Auto) 5.5 (1.4-5.7) K/uL Lymph # (Auto) 1.3 (0.6-2.4) K/uL [place] # (Auto) 1.3 H (0.0-0.8) K/uL Eos # (Auto) 0.4 (0.0-0.7) K/uL Baso # (Auto) 0.1 (0.0-0.1) K/uL Sodium 141 (136-148) mmol/L Potassium 3.5 (3.5-5.1) mmol/L Chloride 109 H (98-107) mmol/L Carbon Dioxide 30.8 (21.0-32.0) mmol/L BUN 7 (7.0-18.0) mg/dL Creatinine 0.7 L (0.8-1.3) mg/dL Est Cr Clr Drug Dosing 71.50 mL/min Estimated GFR (MDRD) > 60.0 ml/min Glucose 86 (74-106) mg/dL Calcium 7.8 L (8.5-10.1) mg/dL Phosphorus 2.9 (2.6-4.7) mg/dL Magnesium 1.8 (1.8-2.4) mg/dL Result Diagrams: 02/11/21 06:30 02/11/21 06:30 Shahbaz Results Last 24 hrs: Microbiology 02/08/21 22:50 Urine Culture - Preliminary Urine 02/08/21 22:51 Aerobic Blood Culture - Preliminary Blood - Venous Anaerobic Blood Culture - Preliminary NO GROWTH AFTER 2 DAYS 02/08/21 22:56 Aerobic Blood Culture - Preliminary Blood - Venous - Lab Draw Anaerobic Blood Culture - Preliminary NO GROWTH AFTER 2 DAYS Sepsis Event Note - Evaluation Sepsis Screening Result: No Definite Risk - Focused Exam Vital Signs: Vital Signs Temp Pulse Resp BP BP Pulse Ox 02/11/21 08:00 97.5 F 61 18 123/50 L 93 L 02/11/21 03:25 97.2 F 70 16 121/64 95 02/11/21 00:31 97.8 F 65 16 95/50 L 95 - Problem List & Annotations (1) Obstruction of catheter SNOMED Code(s): 053795867 Code(s): T85.698A - [facility] COMPL OF INTERNAL PROSTH DEV/GRFT, INIT Status: Acute Current Visit: Yes (2) UTI, Urinary tract infectious disease SNOMED Code(s): 70455878 Code(s): N39.0 - URINARY TRACT INFECTION, SITE NOT SPECIFIED Status: Acute Current Visit: Yes (3) Phimosis SNOMED Code(s): 853515037 Code(s): N47.1 - PHIMOSIS Status: Acute Current Visit: No (4) Urinary retention SNOMED Code(s): 562056973 Code(s): R33.9 - RETENTION OF URINE, UNSPECIFIED Status: Acute Current Visit: No - Problem List Review Problem List Initiated/Reviewed/Updated: Yes - Plan Plan:: 71-year-old gentleman admitted for UTI secondary to urinary retention with Prince catheter in place. 1. UTI secondary to indwelling urinary catheter with urinary retention: Afebrile, leukocytosis as improved 8.5 this morning, continue on IV antibiotics vancomycin and Rocephin. 2. Baseline dementia: Received Ativan for agitation last night, this morning resting comfortably however difficult to arouse as is his usual response to Ativan. We will continue to monitor closely. Going forward we will try to continue with home dose of 50 mg p.o. bedtime Seroquel. 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 However, on rounds we had an extensive conversation with both and sister discussing need for additional support, possible need for jail facility in near future. Discussed, that patient would be required to initiate processes by first step getting vaccinated, also it is important the family have these discussions with and children so that they can come to a decision regarding future planning to ensure patient's wishes are respected and align with his future care. Patient was evaluated by physical therapy, reportedly patient is at his baseline in terms of ambulatory status, patient can be discharged safely to home with a walker although patient refuses to use walker at home per family. Possible discharge in 1 to 2 days once we have more information on blood cultures. <Astrid Oneill - Last Filed: 02/13/21 14:42> - Patient Data Vitals - Most Recent: Last Vital Signs Temp 36.4 C 02/13/21 12:22 Pulse 62 02/13/21 12:22 Resp 17 02/13/21 12:22 BP 99/54 L 02/13/21 12:22 Pulse Ox 95 02/13/21 12:22 I&O - Last 24 Hours: Intake & Output 02/12/21 02/13/21 02/13/21 22:59 06:59 14:59 Intake Total 1200 700 Output Total 1700 2300 Balance -500 -1600 Lab Results Last 24 Hours: Laboratory Results - last 24 hr 02/13/21 02/13/21 Range/Units 05:25 05:25 WBC 8.28 (4.0-11.0) K/uL RBC 3.56 L (4.50-5.90) M/uL Hgb 10.0 L (13.0-17.0) g/dL Hct 30.7 L (38.0-50.0) % MCV 86.2 (80.0-98.0) fL MCH 28.1 (27.0-32.0) pg MCHC 32.6 (31.0-37.0) g/dL RDW Std Deviation 46.0 (28.0-62.0) fl RDW Coeff of Azeem 15 (11.0-15.0) % Plt Count 600 H (150-400) K/uL MPV 10.10 (7.40-12.00) fL Neut % (Auto) 57.1 (48.0-80.0) % Lymph % (Auto) 22.3 (16.0-40.0) % [place] % (Auto) 14.0 (0.0-15.0) % Eos % (Auto) 5.9 (0.0-7.0) % Baso % (Auto) 0.7 (0.0-1.5) % Neut # (Auto) 4.7 (1.4-5.7) K/uL Lymph # (Auto) 1.9 (0.6-2.4) K/uL [place] # (Auto) 1.2 H (0.0-0.8) K/uL Eos # (Auto) 0.5 (0.0-0.7) K/uL Baso # (Auto) 0.1 (0.0-0.1) K/uL Nucleated RBC % 0.0 /100WBC Nucleated RBCs # 0 K/uL Sodium 141 (136-148) mmol/L Potassium 4.1 (3.5-5.1) mmol/L Chloride 109 H (98-107) mmol/L Carbon Dioxide 26.1 (21.0-32.0) mmol/L BUN 8 (7.0-18.0) mg/dL Creatinine 0.7 L (0.8-1.3) mg/dL Est Cr Clr Drug Dosing 71.50 mL/min Estimated GFR (MDRD) > 60.0 ml/min Glucose 92 (74-106) mg/dL Calcium 8.0 L (8.5-10.1) mg/dL Phosphorus 3.1 (2.6-4.7) mg/dL Magnesium 1.8 (1.8-2.4) mg/dL Shahbaz Results Last 24 Hours: Microbiology 02/10/21 13:57 Aerobic Blood Culture - Preliminary Blood - Venous - Lab Draw NO GROWTH AFTER 3 DAYS Anaerobic Blood Culture - Preliminary NO GROWTH AFTER 3 DAYS 02/10/21 13:51 Aerobic Blood Culture - Preliminary Blood - Venous NO GROWTH AFTER 3 DAYS Anaerobic Blood Culture - Preliminary NO GROWTH AFTER 3 DAYS 02/08/21 22:51 Blood Culture Identification Panel - Final Blood Diphtheroids 02/08/21 22:56 Aerobic Blood Culture - Preliminary Blood - Venous - Lab Draw Anaerobic Blood Culture - Preliminary NO GROWTH AFTER 4 DAYS 02/08/21 22:51 Aerobic Blood Culture - Preliminary Blood - Venous Anaerobic Blood Culture - Preliminary NO GROWTH AFTER 4 DAYS 02/08/21 22:50 Urine Culture - Final Urine Med Orders - Current: Current Medications Acetaminophen (Acetaminophen 325 Mg Tab) 650 mg PO Q4H PRN PRN Reason: Pain/Fever Albuterol/Ipratropium (Albuterol/Ipratropium 3.0-0.5 Mg/3 Ml Neb Soln) 3 ml NEB Q4HRRT PRN PRN Reason: Wheezing Calcium Carbonate/Glycine (Calcium Carbonate 500 Mg Tab.Chew) 1,000 mg PO Q2HR PRN PRN Reason: Indigestion Diphenhydramine HCl (Diphenhydramine 50 Mg/Ml Sdv) 25 mg IVPUSH Q4H PRN PRN Reason: Agitation Docusate Sodium (Docusate Sodium 100 Mg Cap) 100 mg PO BID PRN PRN Reason: Constipation Enoxaparin Sodium (Enoxaparin 30 Mg/0.3 Ml Syringe) 30 mg SUBCUT Q24H [facility] Last Admin: 02/13/21 14:07 Dose: 30 mg Documented by: Haloperidol Lactate (Haloperidol Lactate 5 Mg/Ml Sdv) 5 mg IM Q4H PRN PRN Reason: Agitation Ceftriaxone Sodium/Dextrose 1 (gm/ Premix) 50 mls @ 100 mls/hr IV Q24H [facility] Last Admin: 02/12/21 22:46 Dose: 100 mls/hr Documented by: Pantoprazole Sodium 40 mg/ (Sodium Chloride) 10 mls @ 300 mls/hr IV DAILY [facility] Last Admin: 02/13/21 08:52 Dose: 300 mls/hr Documented by: Lorazepam (Lorazepam 2 Mg/Ml Sdv) 1 mg IVPUSH Q4H PRN PRN Reason: Agitation Last Admin: 02/11/21 22:44 Dose: 1 mg Documented by: Ondansetron HCl (Ondansetron 4 Mg/2 Ml Sdv) 4 mg IVPUSH Q4H PRN PRN Reason: Nausea/Vomiting Quetiapine Fumarate (Quetiapine 50 Mg Tab) 50 mg PO BEDTIME [facility] Last Admin: 02/12/21 20:19 Dose: 50 mg Documented by: Sodium Chloride (Sodium Chloride 0.9% 10 Ml Syringe) 10 ml FLUSH ASDIRECTED PRN PRN Reason: Keep Vein Open Last Admin: 02/08/21 22:27 Dose: 10 ml Documented by: Sodium Chloride (Sodium Chloride 0.9% 2.5 Ml Syringe) 2.5 ml FLUSH ASDIRECTED PRN PRN Reason: Keep Vein Open Last Admin: 02/08/21 22:27 Dose: 2.5 ml Documented by: Tamsulosin HCl (Tamsulosin 0.4 Mg Cap.Er) 0.4 mg PO BIDPC [facility] Last Admin: 02/13/21 08:52 Dose: 0.4 mg Documented by: Vancomycin HCl (Pharmacy To Dose - Vancomycin) 1 dose .XX ASDIRECTED [facility] Discontinued Medications Ceftriaxone Sodium/Dextrose 1 (gm/ Premix) 50 mls @ 100 mls/hr IV ONETIME ONE Stop: 02/08/21 23:11 Last Admin: 02/08/21 23:41 Dose: 100 mls/hr Documented by: Lactated Ringer's (Ringers, Lactated) 1,000 mls @ 125 mls/hr IV ASDIRECTED [facility] Last Admin: 02/13/21 07:51 Dose: 125 mls/hr Documented by: Vancomycin HCl 1 gm/ Sodium (Chloride) 250 mls @ 250 mls/hr IV Q12H [facility] Last Admin: 02/12/21 06:06 Dose: Not Given Documented by: Metronidazole 500 mg/ Premix 100 mls @ 100 mls/hr IV QID [facility] Last Admin: 02/13/21 06:19 Dose: 100 mls/hr Documented by: Vancomycin HCl 1.25 gm/ Sodium (Chloride) 250 mls @ 166.667 mls/hr IV Q12H [facility] Last Admin: 02/13/21 02:36 Dose: 166.667 mls/hr Documented by: Lorazepam (Lorazepam 2 Mg/Ml Sdv) 2 mg IVPUSH ONETIME ONE Stop: 02/09/21 03:44 Last Admin: 02/09/21 03:52 Dose: 2 mg Documented by: - Patient Data Lab Results Last 24 hrs: Laboratory Results - last 24 hr 02/13/21 02/13/21 Range/Units 05:25 05:25 WBC 8.28 (4.0-11.0) K/uL RBC 3.56 L (4.50-5.90) M/uL Hgb 10.0 L (13.0-17.0) g/dL Hct 30.7 L (38.0-50.0) % MCV 86.2 (80.0-98.0) fL MCH 28.1 (27.0-32.0) pg MCHC 32.6 (31.0-37.0) g/dL RDW Std Deviation 46.0 (28.0-62.0) fl RDW Coeff of Azeem 15 (11.0-15.0) % Plt Count 600 H (150-400) K/uL MPV 10.10 (7.40-12.00) fL Neut % (Auto) 57.1 (48.0-80.0) % Lymph % (Auto) 22.3 (16.0-40.0) % [place] % (Auto) 14.0 (0.0-15.0) % Eos % (Auto) 5.9 (0.0-7.0) % Baso % (Auto) 0.7 (0.0-1.5) % Neut # (Auto) 4.7 (1.4-5.7) K/uL Lymph # (Auto) 1.9 (0.6-2.4) K/uL [place] # (Auto) 1.2 H (0.0-0.8) K/uL Eos # (Auto) 0.5 (0.0-0.7) K/uL Baso # (Auto) 0.1 (0.0-0.1) K/uL Nucleated RBC % 0.0 /100WBC Nucleated RBCs # 0 K/uL Sodium 141 (136-148) mmol/L Potassium 4.1 (3.5-5.1) mmol/L Chloride 109 H (98-107) mmol/L Carbon Dioxide 26.1 (21.0-32.0) mmol/L BUN 8 (7.0-18.0) mg/dL Creatinine 0.7 L (0.8-1.3) mg/dL Est Cr Clr Drug Dosing 71.50 mL/min Estimated GFR (MDRD) > 60.0 ml/min Glucose 92 (74-106) mg/dL Calcium 8.0 L (8.5-10.1) mg/dL Phosphorus 3.1 (2.6-4.7) mg/dL Magnesium 1.8 (1.8-2.4) mg/dL Result Diagrams: 02/13/21 05:25 02/13/21 05:25 Shahbaz Results Last 24 hrs: Microbiology 02/10/21 13:57 Aerobic Blood Culture - Preliminary Blood - Venous - Lab Draw NO GROWTH AFTER 3 DAYS Anaerobic Blood Culture - Preliminary NO GROWTH AFTER 3 DAYS 02/10/21 13:51 Aerobic Blood Culture - Preliminary Blood - Venous NO GROWTH AFTER 3 DAYS Anaerobic Blood Culture - Preliminary NO GROWTH AFTER 3 DAYS 02/08/21 22:51 Blood Culture Identification Panel - Final Blood Diphtheroids 02/08/21 22:56 Aerobic Blood Culture - Preliminary Blood - Venous - Lab Draw Anaerobic Blood Culture - Preliminary NO GROWTH AFTER 4 DAYS 02/08/21 22:51 Aerobic Blood Culture - Preliminary Blood - Venous Anaerobic Blood Culture - Preliminary NO GROWTH AFTER 4 DAYS 02/08/21 22:50 Urine Culture - Final Urine Sepsis Event Note - Focused Exam Vital Signs: Vital Signs Temp Pulse Resp BP BP Pulse Ox 02/13/21 12:22 36.4 C 62 17 99/54 L 95 02/13/21 07:47 36.4 C 61 17 108/45 L 96 02/13/21 04:00 36.8 C 61 16 103/53 L 98 - Problem List & Annotations (1) Dementia SNOMED Code(s): 03149910 Code(s): F03.90 - UNSPECIFIED DEMENTIA WITHOUT BEHAVIORAL DISTURBANCE Status: Acute Current Visit: Yes (2) Altered mental status SNOMED Code(s): 728911774 Code(s): R41.82 - ALTERED MENTAL STATUS, UNSPECIFIED Status: Acute Current Visit: Yes (3) Obstruction of catheter SNOMED Code(s): 968341897 Code(s): T85.698A - [facility] COMPL OF INTERNAL PROSTH DEV/GRFT, INIT Status: Acute Current Visit: Yes (4) UTI, Urinary tract infectious disease SNOMED Code(s): 06705976 Code(s): N39.0 - URINARY TRACT INFECTION, SITE NOT SPECIFIED Status: Acute Current Visit: Yes (5) Urinary retention SNOMED Code(s): 468086006 Code(s): R33.9 - RETENTION OF URINE, UNSPECIFIED Status: Acute Current Visit: No - My Orders Last 24 Hours: My Active Orders 02/14/21 05:11 BMP [BASIC METABOLIC PANEL,BMP] [CHEM] AM CBC WITH AUTO DIFF [HEME] AM MAGNESIUM [CHEM] AM PHOSPHORUS [CHEM] AM - Plan Plan:: I have seen and evaluated the patient and agree with the residents note unless specified in my note
[2021-02-11] MEDS: Enoxaparin 30 MG/0.3 ML Syringe SUBCUT SCH (12:54)
[2021-02-11] MEDS: metroNIDAZOLE/Normal Saline 500 MG in Premix Bag 1 BAG IV SCH ×2 (14:24→17:19)
[2021-02-11] MEDS ORDERED: Docusate Sodium 100 MG Cap PO PRN (14:40)
[2021-02-11] MEDS ORDERED: Calcium Carbonate 500 MG Tab.Chew PO PRN (18:08)
[2021-02-11] MEDS: cefTRIAXone 1 GM in Premix Bag 1 BAG IV SCH (21:44)
[2021-02-12] MEDS: metroNIDAZOLE/Normal Saline 500 MG in Premix Bag 1 BAG IV SCH ×6 (06:14→23:29)
[2021-02-12] MEDS: Lactated Ringers 1,000 ML IV SCH ×2 (08:45→20:19)
[2021-02-12] MEDS: Pantoprazole 40 MG in Sodium Chloride 0.9% 10 ML IV SCH (08:45)
[2021-02-12] MEDS: Tamsulosin 0.4 MG Cap.ER PO SCH ×2 (08:45→17:44)
[2021-02-12 09:34] LABS: BLOOD UREA NITROGEN,BUN 7 mg/dL (7.0-18.0); CARBON DIOXIDE,CO2 28.8 mmol/L (21.0-32.0); CHLORIDE,CL 106 mmol/L (98-107); GLUCOSE RANDOM 89 mg/dL (74-106); POTASSIUM,K 4.6 mmol/L (3.5-5.1); SODIUM,NA 141 mmol/L (136-148)
--- NOTE | 2021-02-12 12:30 | PCM.PN ---
- General Info Date of Service: 02/12/21 Admission Dx/Problem (Free Text): Admission Diagnosis/Problem Admission Diagnosis/Problem UTI, Urinary tract infectious disease Subjective Update: Patient seen and examined, sitting with family at bedside, no acute distress. Functional Status: Reports: Tolerating Diet, Ambulating, Urinating - Review of Systems General: Denies: Fever, Weakness Pulmonary: Reports: Cough. Denies: Shortness of Breath, Sputum Cardiovascular: Denies: Chest Pain, Palpitations, Dyspnea on Exertion Gastrointestinal: Denies: Abdominal Pain, Constipation, Decreased Appetite Genitourinary: Denies: Dysuria, Frequency, Burning Musculoskeletal: Denies: Neck Pain, Shoulder Pain, Arm Pain, Hand Pain Skin: Denies: Cyanosis, Jaundice, Mottled, Pallor - Patient Data Vitals - Most Recent: Last Vital Signs Temp 37.2 C 02/12/21 09:01 Pulse 74 02/12/21 09:01 Resp 16 02/12/21 09:01 BP 99/63 02/12/21 09:01 Pulse Ox 94 L 02/12/21 09:01 Weight - Most Recent: 51.483 kg I&O - Last 24 Hours: Intake & Output 02/11/21 02/12/21 02/12/21 22:59 06:59 14:59 Intake Total 3535 300 Output Total 3000 2000 Balance 535 -1700 Lab Results Last 24 Hours: Laboratory Results - last 24 hr 02/12/21 02/12/21 02/12/21 Range/Units 00:25 08:49 08:49 WBC 7.21 (4.0-11.0) K/uL RBC 3.53 L (4.50-5.90) M/uL Hgb 9.9 L (13.0-17.0) g/dL Hct 30.8 L (38.0-50.0) % MCV 87.3 (80.0-98.0) fL MCH 28.0 (27.0-32.0) pg MCHC 32.1 (31.0-37.0) g/dL RDW Std Deviation 44.0 (28.0-62.0) fl RDW Coeff of Azeem 14 (11.0-15.0) % Plt Count 579 H (150-400) K/uL MPV 9.50 (7.40-12.00) fL Neut % (Auto) 59.0 (48.0-80.0) % Lymph % (Auto) 20.1 (16.0-40.0) % [place] % (Auto) 14.7 (0.0-15.0) % Eos % (Auto) 5.8 (0.0-7.0) % Baso % (Auto) 0.4 (0.0-1.5) % Neut # (Auto) 4.3 (1.4-5.7) K/uL Lymph # (Auto) 1.5 (0.6-2.4) K/uL [place] # (Auto) 1.1 H (0.0-0.8) K/uL Eos # (Auto) 0.4 (0.0-0.7) K/uL Baso # (Auto) 0.0 (0.0-0.1) K/uL Sodium 141 (136-148) mmol/L Potassium 4.6 (3.5-5.1) mmol/L Chloride 106 (98-107) mmol/L Carbon Dioxide 28.8 (21.0-32.0) mmol/L BUN 7 (7.0-18.0) mg/dL Creatinine 0.7 L (0.8-1.3) mg/dL Est Cr Clr Drug Dosing 71.50 mL/min Estimated GFR (MDRD) > 60.0 ml/min Glucose 89 (74-106) mg/dL Calcium 8.2 L (8.5-10.1) mg/dL Phosphorus 3.3 (2.6-4.7) mg/dL Magnesium 1.8 (1.8-2.4) mg/dL Vancomycin Trough 11.2 H (5.0-10.0) ug/mL Shahbaz Results Last 24 Hours: Microbiology 02/08/21 22:50 Urine Culture - Final Urine 02/08/21 22:51 Blood Culture Identification Panel - Preliminary Blood Gram Positive Rods 02/08/21 22:56 Aerobic Blood Culture - Preliminary Blood - Venous - Lab Draw Anaerobic Blood Culture - Preliminary NO GROWTH AFTER 3 DAYS 02/08/21 22:51 Aerobic Blood Culture - Preliminary Blood - Venous Anaerobic Blood Culture - Preliminary NO GROWTH AFTER 3 DAYS 02/10/21 13:57 Aerobic Blood Culture - Preliminary Blood - Venous - Lab Draw NO GROWTH AFTER 1 DAY Anaerobic Blood Culture - Preliminary NO GROWTH AFTER 1 DAY 02/10/21 13:51 Aerobic Blood Culture - Preliminary Blood - Venous NO GROWTH AFTER 1 DAY Anaerobic Blood Culture - Preliminary NO GROWTH AFTER 1 DAY Med Orders - Current: Current Medications Acetaminophen (Acetaminophen 325 Mg Tab) 650 mg PO Q4H PRN PRN Reason: Pain/Fever Albuterol/Ipratropium (Albuterol/Ipratropium 3.0-0.5 Mg/3 Ml Neb Soln) 3 ml NEB Q4HRRT PRN PRN Reason: Wheezing Calcium Carbonate/Glycine (Calcium Carbonate 500 Mg Tab.Chew) 1,000 mg PO Q2HR PRN PRN Reason: Indigestion Diphenhydramine HCl (Diphenhydramine 50 Mg/Ml Sdv) 25 mg IVPUSH Q4H PRN PRN Reason: Agitation Docusate Sodium (Docusate Sodium 100 Mg Cap) 100 mg PO BID PRN PRN Reason: Constipation Enoxaparin Sodium (Enoxaparin 30 Mg/0.3 Ml Syringe) 30 mg SUBCUT Q24H [facility] Last Admin: 02/11/21 12:54 Dose: 30 mg Documented by: Haloperidol Lactate (Haloperidol Lactate 5 Mg/Ml Sdv) 5 mg IM Q4H PRN PRN Reason: Agitation Lactated Ringer's (Ringers, Lactated) 1,000 mls @ 125 mls/hr IV ASDIRECTED [facility] Last Admin: 02/12/21 08:45 Dose: 125 mls/hr Documented by: Ceftriaxone Sodium/Dextrose 1 (gm/ Premix) 50 mls @ 100 mls/hr IV Q24H [facility] Last Admin: 02/11/21 21:44 Dose: 100 mls/hr Documented by: Pantoprazole Sodium 40 mg/ (Sodium Chloride) 10 mls @ 300 mls/hr IV DAILY [facility] Last Admin: 02/12/21 08:45 Dose: 300 mls/hr Documented by: Metronidazole 500 mg/ Premix 100 mls @ 100 mls/hr IV QID [facility] Last Admin: 02/12/21 06:14 Dose: 100 mls/hr Documented by: Vancomycin HCl 1.25 gm/ Sodium (Chloride) 250 mls @ 166.667 mls/hr IV Q12H [facility] Last Admin: 02/12/21 02:21 Dose: 166.667 mls/hr Documented by: Lorazepam (Lorazepam 2 Mg/Ml Sdv) 1 mg IVPUSH Q4H PRN PRN Reason: Agitation Last Admin: 02/11/21 22:44 Dose: 1 mg Documented by: Ondansetron HCl (Ondansetron 4 Mg/2 Ml Sdv) 4 mg IVPUSH Q4H PRN PRN Reason: Nausea/Vomiting Quetiapine Fumarate (Quetiapine 50 Mg Tab) 50 mg PO BEDTIME [facility] Last Admin: 02/11/21 21:44 Dose: 50 mg Documented by: Sodium Chloride (Sodium Chloride 0.9% 10 Ml Syringe) 10 ml FLUSH ASDIRECTED PRN PRN Reason: Keep Vein Open Last Admin: 02/08/21 22:27 Dose: 10 ml Documented by: Sodium Chloride (Sodium Chloride 0.9% 2.5 Ml Syringe) 2.5 ml FLUSH ASDIRECTED PRN PRN Reason: Keep Vein Open Last Admin: 02/08/21 22:27 Dose: 2.5 ml Documented by: Tamsulosin HCl (Tamsulosin 0.4 Mg Cap.Er) 0.4 mg PO BIDPC [facility] Last Admin: 02/12/21 08:45 Dose: 0.4 mg Documented by: Vancomycin HCl (Pharmacy To Dose - Vancomycin) 1 dose .XX ASDIRECTED [facility] Discontinued Medications Ceftriaxone Sodium/Dextrose 1 (gm/ Premix) 50 mls @ 100 mls/hr IV ONETIME ONE Stop: 02/08/21 23:11 Last Admin: 02/08/21 23:41 Dose: 100 mls/hr Documented by: Vancomycin HCl 1 gm/ Sodium (Chloride) 250 mls @ 250 mls/hr IV Q12H [facility] Last Admin: 02/12/21 06:06 Dose: Not Given Documented by: Lorazepam (Lorazepam 2 Mg/Ml Sdv) 2 mg IVPUSH ONETIME ONE Stop: 02/09/21 03:44 Last Admin: 02/09/21 03:52 Dose: 2 mg Documented by: - Exam General: Alert, Cooperative, No Acute Distress. No: Oriented Lungs: Clear to Auscultation, Normal Respiratory Effort GI/Abdominal Exam: Normal Bowel Sounds, Soft Extremities: Normal Inspection, Normal Range of Motion - Patient Data Lab Results Last 24 hrs: Laboratory Results - last 24 hr 02/12/21 02/12/21 02/12/21 Range/Units 00:25 08:49 08:49 WBC 7.21 (4.0-11.0) K/uL RBC 3.53 L (4.50-5.90) M/uL Hgb 9.9 L (13.0-17.0) g/dL Hct 30.8 L (38.0-50.0) % MCV 87.3 (80.0-98.0) fL MCH 28.0 (27.0-32.0) pg MCHC 32.1 (31.0-37.0) g/dL RDW Std Deviation 44.0 (28.0-62.0) fl RDW Coeff of Azeem 14 (11.0-15.0) % Plt Count 579 H (150-400) K/uL MPV 9.50 (7.40-12.00) fL Neut % (Auto) 59.0 (48.0-80.0) % Lymph % (Auto) 20.1 (16.0-40.0) % [place] % (Auto) 14.7 (0.0-15.0) % Eos % (Auto) 5.8 (0.0-7.0) % Baso % (Auto) 0.4 (0.0-1.5) % Neut # (Auto) 4.3 (1.4-5.7) K/uL Lymph # (Auto) 1.5 (0.6-2.4) K/uL [place] # (Auto) 1.1 H (0.0-0.8) K/uL Eos # (Auto) 0.4 (0.0-0.7) K/uL Baso # (Auto) 0.0 (0.0-0.1) K/uL Sodium 141 (136-148) mmol/L Potassium 4.6 (3.5-5.1) mmol/L Chloride 106 (98-107) mmol/L Carbon Dioxide 28.8 (21.0-32.0) mmol/L BUN 7 (7.0-18.0) mg/dL Creatinine 0.7 L (0.8-1.3) mg/dL Est Cr Clr Drug Dosing 71.50 mL/min Estimated GFR (MDRD) > 60.0 ml/min Glucose 89 (74-106) mg/dL Calcium 8.2 L (8.5-10.1) mg/dL Phosphorus 3.3 (2.6-4.7) mg/dL Magnesium 1.8 (1.8-2.4) mg/dL Vancomycin Trough 11.2 H (5.0-10.0) ug/mL Result Diagrams: 02/12/21 08:49 02/12/21 08:49 Shahbaz Results Last 24 hrs: Microbiology 02/08/21 22:50 Urine Culture - Final Urine 02/08/21 22:51 Blood Culture Identification Panel - Preliminary Blood Gram Positive Rods 02/08/21 22:56 Aerobic Blood Culture - Preliminary Blood - Venous - Lab Draw Anaerobic Blood Culture - Preliminary NO GROWTH AFTER 3 DAYS 02/08/21 22:51 Aerobic Blood Culture - Preliminary Blood - Venous Anaerobic Blood Culture - Preliminary NO GROWTH AFTER 3 DAYS 02/10/21 13:57 Aerobic Blood Culture - Preliminary Blood - Venous - Lab Draw NO GROWTH AFTER 1 DAY Anaerobic Blood Culture - Preliminary NO GROWTH AFTER 1 DAY 02/10/21 13:51 Aerobic Blood Culture - Preliminary Blood - Venous NO GROWTH AFTER 1 DAY Anaerobic Blood Culture - Preliminary NO GROWTH AFTER 1 DAY Sepsis Event Note - Evaluation Sepsis Screening Result: No Definite Risk - Focused Exam Vital Signs: Vital Signs Temp Pulse Resp BP BP Pulse Ox 02/12/21 09:01 37.2 C 74 16 99/63 94 L 02/12/21 03:14 37.5 C 69 16 114/54 L 94 L - Problem List & Annotations (1) Dementia SNOMED Code(s): 48136724 Code(s): F03.90 - UNSPECIFIED DEMENTIA WITHOUT BEHAVIORAL DISTURBANCE Status: Acute Current Visit: Yes (2) Altered mental status SNOMED Code(s): 502323809 Code(s): R41.82 - ALTERED MENTAL STATUS, UNSPECIFIED Status: Acute Current Visit: Yes (3) Obstruction of catheter SNOMED Code(s): 758022059 Code(s): T85.698A - [facility] COMPL OF INTERNAL PROSTH DEV/GRFT, INIT Status: Acute Current Visit: Yes (4) UTI, Urinary tract infectious disease SNOMED Code(s): 52376184 Code(s): N39.0 - URINARY TRACT INFECTION, SITE NOT SPECIFIED Status: Acute Current Visit: Yes (5) Urinary retention SNOMED Code(s): 934996017 Code(s): R33.9 - RETENTION OF URINE, UNSPECIFIED Status: Acute Current Visit: No - Problem List Review Problem List Initiated/Reviewed/Updated: Yes - My Orders Last 24 Hours: My Active Orders 02/11/21 13:51 metroNIDAZOLE/Normal Saline [Flagyl in NS 500 MG/100 ML] 500 mg Premix Bag 1 bag IV QID 02/11/21 14:40 Docusate Sodium [Colace] 100 mg PO BID PRN 02/12/21 02:00 Vancomycin 1.25 gm Sodium Chloride 0.9% [Normal Saline (AdvBag)] 250 ml IV Q12H - Plan Plan:: 71-year-old gentleman admitted for UTI secondary to urinary retention with Prince catheter in place. 1. UTI secondary to indwelling urinary catheter with urinary retention: Bacteremia noted, awaiting cultures Afebrile, continue on IV antibiotics vancomycin and Rocephin and flagyl 2. Baseline dementia: cont supportive care continue with home dose of 50 mg p.o. bedtime Seroquel. 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 Family requesting speaking to day care worker again today, Patient was evaluated by physical therapy, reportedly patient is at his baseline in terms of ambulatory status, patient can be discharged safely to home with a walker although patient refuses to use walker at home per family. Possible discharge in 1 to 2 days once we have more information on blood cultures. Patients family at bedside discussed extensively, goals of care if patient ends u needing IV antibiotics assisted, based of cultures, patient is generally resistant to treatment, so assisted antibiotics infusuion is a concern. Will cont having appropriate conversation with family based on clinical course.
[2021-02-12] MEDS: Enoxaparin 30 MG/0.3 ML Syringe SUBCUT SCH (12:54)
[2021-02-12] MEDS: cefTRIAXone 1 GM in Premix Bag 1 BAG IV SCH (22:46)
[2021-02-13] MEDS: metroNIDAZOLE/Normal Saline 500 MG in Premix Bag 1 BAG IV SCH (06:19)
[2021-02-13 06:31] LABS: BLOOD UREA NITROGEN,BUN 8 mg/dL (7.0-18.0); CARBON DIOXIDE,CO2 26.1 mmol/L (21.0-32.0); CHLORIDE,CL 109 mmol/L (98-107); GLUCOSE RANDOM 92 mg/dL (74-106); POTASSIUM,K 4.1 mmol/L (3.5-5.1); SODIUM,NA 141 mmol/L (136-148)
[2021-02-13] MEDS: Lactated Ringers 1,000 ML IV SCH (07:51)
[2021-02-13] MEDS: Pantoprazole 40 MG in Sodium Chloride 0.9% 10 ML IV SCH (08:52)
[2021-02-13] MEDS: Tamsulosin 0.4 MG Cap.ER PO SCH ×2 (08:52→17:17)
--- NOTE | 2021-02-13 12:31 | PCM.PN ---
- General Info Date of Service: 02/13/21 Admission Dx/Problem (Free Text): Admission Diagnosis/Problem Admission Diagnosis/Problem UTI, Urinary tract infectious disease Subjective Update: Patient seen and examined, sitting with family at bedside, no acute distress. Functional Status: Reports: Pain Controlled, Tolerating Diet, Urinating - Review of Systems General: Denies: Fever, Weakness, Fatigue Pulmonary: Denies: Shortness of Breath Cardiovascular: Denies: Chest Pain, Palpitations Gastrointestinal: Denies: Abdominal Pain, Constipation, Decreased Appetite Genitourinary: Denies: Dysuria, Frequency, Burning Musculoskeletal: Denies: Neck Pain, Shoulder Pain, Arm Pain Skin: Denies: Cyanosis, Jaundice, Mottled, Pallor Neurological: Denies: Confusion, Dizziness, Headache - Patient Data Vitals - Most Recent: Last Vital Signs Temp 36.4 C 02/13/21 12:22 Pulse 62 02/13/21 12:22 Resp 17 02/13/21 12:22 BP 99/54 L 02/13/21 12:22 Pulse Ox 95 02/13/21 12:22 Weight - Most Recent: 51.483 kg I&O - Last 24 Hours: Intake & Output 02/12/21 02/13/21 02/13/21 22:59 06:59 14:59 Intake Total 1200 700 Output Total 1700 2300 Balance -500 -1600 Lab Results Last 24 Hours: Laboratory Results - last 24 hr 02/13/21 02/13/21 Range/Units 05:25 05:25 WBC 8.28 (4.0-11.0) K/uL RBC 3.56 L (4.50-5.90) M/uL Hgb 10.0 L (13.0-17.0) g/dL Hct 30.7 L (38.0-50.0) % MCV 86.2 (80.0-98.0) fL MCH 28.1 (27.0-32.0) pg MCHC 32.6 (31.0-37.0) g/dL RDW Std Deviation 46.0 (28.0-62.0) fl RDW Coeff of Azeem 15 (11.0-15.0) % Plt Count 600 H (150-400) K/uL MPV 10.10 (7.40-12.00) fL Neut % (Auto) 57.1 (48.0-80.0) % Lymph % (Auto) 22.3 (16.0-40.0) % [place] % (Auto) 14.0 (0.0-15.0) % Eos % (Auto) 5.9 (0.0-7.0) % Baso % (Auto) 0.7 (0.0-1.5) % Neut # (Auto) 4.7 (1.4-5.7) K/uL Lymph # (Auto) 1.9 (0.6-2.4) K/uL [place] # (Auto) 1.2 H (0.0-0.8) K/uL Eos # (Auto) 0.5 (0.0-0.7) K/uL Baso # (Auto) 0.1 (0.0-0.1) K/uL Nucleated RBC % 0.0 /100WBC Nucleated RBCs # 0 K/uL Sodium 141 (136-148) mmol/L Potassium 4.1 (3.5-5.1) mmol/L Chloride 109 H (98-107) mmol/L Carbon Dioxide 26.1 (21.0-32.0) mmol/L BUN 8 (7.0-18.0) mg/dL Creatinine 0.7 L (0.8-1.3) mg/dL Est Cr Clr Drug Dosing 71.50 mL/min Estimated GFR (MDRD) > 60.0 ml/min Glucose 92 (74-106) mg/dL Calcium 8.0 L (8.5-10.1) mg/dL Phosphorus 3.1 (2.6-4.7) mg/dL Magnesium 1.8 (1.8-2.4) mg/dL Shah[facility] Results Last 24 Hours: Microbiology 02/08/21 22:51 Blood Culture Identification Panel - Final Blood Diphtheroids 02/08/21 22:56 Aerobic Blood Culture - Preliminary Blood - Venous - Lab Draw Anaerobic Blood Culture - Preliminary NO GROWTH AFTER 4 DAYS 02/08/21 22:51 Aerobic Blood Culture - Preliminary Blood - Venous Anaerobic Blood Culture - Preliminary NO GROWTH AFTER 4 DAYS 02/10/21 13:57 Aerobic Blood Culture - Preliminary Blood - Venous - Lab Draw NO GROWTH AFTER 2 DAYS Anaerobic Blood Culture - Preliminary NO GROWTH AFTER 2 DAYS 02/10/21 13:51 Aerobic Blood Culture - Preliminary Blood - Venous NO GROWTH AFTER 2 DAYS Anaerobic Blood Culture - Preliminary NO GROWTH AFTER 2 DAYS 02/08/21 22:50 Urine Culture - Final Urine Med Orders - Current: Current Medications Acetaminophen (Acetaminophen 325 Mg Tab) 650 mg PO Q4H PRN PRN Reason: Pain/Fever Albuterol/Ipratropium (Albuterol/Ipratropium 3.0-0.5 Mg/3 Ml Neb Soln) 3 ml NEB Q4HRRT PRN PRN Reason: Wheezing Calcium Carbonate/Glycine (Calcium Carbonate 500 Mg Tab.Chew) 1,000 mg PO Q2HR PRN PRN Reason: Indigestion Diphenhydramine HCl (Diphenhydramine 50 Mg/Ml Sdv) 25 mg IVPUSH Q4H PRN PRN Reason: Agitation Docusate Sodium (Docusate Sodium 100 Mg Cap) 100 mg PO BID PRN PRN Reason: Constipation Enoxaparin Sodium (Enoxaparin 30 Mg/0.3 Ml Syringe) 30 mg SUBCUT Q24H [facility] Last Admin: 02/12/21 12:54 Dose: 30 mg Documented by: Haloperidol Lactate (Haloperidol Lactate 5 Mg/Ml Sdv) 5 mg IM Q4H PRN PRN Reason: Agitation Ceftriaxone Sodium/Dextrose 1 (gm/ Premix) 50 mls @ 100 mls/hr IV Q24H [facility] Last Admin: 02/12/21 22:46 Dose: 100 mls/hr Documented by: Pantoprazole Sodium 40 mg/ (Sodium Chloride) 10 mls @ 300 mls/hr IV DAILY [facility] Last Admin: 02/13/21 08:52 Dose: 300 mls/hr Documented by: Lorazepam (Lorazepam 2 Mg/Ml Sdv) 1 mg IVPUSH Q4H PRN PRN Reason: Agitation Last Admin: 02/11/21 22:44 Dose: 1 mg Documented by: Ondansetron HCl (Ondansetron 4 Mg/2 Ml Sdv) 4 mg IVPUSH Q4H PRN PRN Reason: Nausea/Vomiting Quetiapine Fumarate (Quetiapine 50 Mg Tab) 50 mg PO BEDTIME [facility] Last Admin: 02/12/21 20:19 Dose: 50 mg Documented by: Sodium Chloride (Sodium Chloride 0.9% 10 Ml Syringe) 10 ml FLUSH ASDIRECTED PRN PRN Reason: Keep Vein Open Last Admin: 02/08/21 22:27 Dose: 10 ml Documented by: Sodium Chloride (Sodium Chloride 0.9% 2.5 Ml Syringe) 2.5 ml FLUSH ASDIRECTED PRN PRN Reason: Keep Vein Open Last Admin: 02/08/21 22:27 Dose: 2.5 ml Documented by: Tamsulosin HCl (Tamsulosin 0.4 Mg Cap.Er) 0.4 mg PO BIDPC [facility] Last Admin: 02/13/21 08:52 Dose: 0.4 mg Documented by: Vancomycin HCl (Pharmacy To Dose - Vancomycin) 1 dose .XX ASDIRECTED [facility] Discontinued Medications Ceftriaxone Sodium/Dextrose 1 (gm/ Premix) 50 mls @ 100 mls/hr IV ONETIME ONE Stop: 02/08/21 23:11 Last Admin: 02/08/21 23:41 Dose: 100 mls/hr Documented by: Lactated Ringer's (Ringers, Lactated) 1,000 mls @ 125 mls/hr IV ASDIRECTED [facility] Last Admin: 02/13/21 07:51 Dose: 125 mls/hr Documented by: Vancomycin HCl 1 gm/ Sodium (Chloride) 250 mls @ 250 mls/hr IV Q12H [facility] Last Admin: 02/12/21 06:06 Dose: Not Given Documented by: Metronidazole 500 mg/ Premix 100 mls @ 100 mls/hr IV QID [facility] Last Admin: 02/13/21 06:19 Dose: 100 mls/hr Documented by: Vancomycin HCl 1.25 gm/ Sodium (Chloride) 250 mls @ 166.667 mls/hr IV Q12H [facility] Last Admin: 02/13/21 02:36 Dose: 166.667 mls/hr Documented by: Lorazepam (Lorazepam 2 Mg/Ml Sdv) 2 mg IVPUSH ONETIME ONE Stop: 02/09/21 03:44 Last Admin: 02/09/21 03:52 Dose: 2 mg Documented by: - Exam General: Alert, Oriented Lungs: Clear to Auscultation, Normal Respiratory Effort Cardiovascular: Regular Rate, Regular Rhythm GI/Abdominal Exam: Normal Bowel Sounds, Soft Back Exam: Normal Inspection, Full Range of Motion Extremities: Normal Inspection, Normal Range of Motion, Non-Tender Skin: Rash (in anal region) - Patient Data Lab Results Last 24 hrs: Laboratory Results - last 24 hr 02/13/21 02/13/21 Range/Units 05:25 05:25 WBC 8.28 (4.0-11.0) K/uL RBC 3.56 L (4.50-5.90) M/uL Hgb 10.0 L (13.0-17.0) g/dL Hct 30.7 L (38.0-50.0) % MCV 86.2 (80.0-98.0) fL MCH 28.1 (27.0-32.0) pg MCHC 32.6 (31.0-37.0) g/dL RDW Std Deviation 46.0 (28.0-62.0) fl RDW Coeff of Azeem 15 (11.0-15.0) % Plt Count 600 H (150-400) K/uL MPV 10.10 (7.40-12.00) fL Neut % (Auto) 57.1 (48.0-80.0) % Lymph % (Auto) 22.3 (16.0-40.0) % [place] % (Auto) 14.0 (0.0-15.0) % Eos % (Auto) 5.9 (0.0-7.0) % Baso % (Auto) 0.7 (0.0-1.5) % Neut # (Auto) 4.7 (1.4-5.7) K/uL Lymph # (Auto) 1.9 (0.6-2.4) K/uL [place] # (Auto) 1.2 H (0.0-0.8) K/uL Eos # (Auto) 0.5 (0.0-0.7) K/uL Baso # (Auto) 0.1 (0.0-0.1) K/uL Nucleated RBC % 0.0 /100WBC Nucleated RBCs # 0 K/uL Sodium 141 (136-148) mmol/L Potassium 4.1 (3.5-5.1) mmol/L Chloride 109 H (98-107) mmol/L Carbon Dioxide 26.1 (21.0-32.0) mmol/L BUN 8 (7.0-18.0) mg/dL Creatinine 0.7 L (0.8-1.3) mg/dL Est Cr Clr Drug Dosing 71.50 mL/min Estimated GFR (MDRD) > 60.0 ml/min Glucose 92 (74-106) mg/dL Calcium 8.0 L (8.5-10.1) mg/dL Phosphorus 3.1 (2.6-4.7) mg/dL Magnesium 1.8 (1.8-2.4) mg/dL Result Diagrams: 02/13/21 05:25 02/13/21 05:25 Shahbaz Results Last 24 hrs: Microbiology 02/08/21 22:51 Blood Culture Identification Panel - Final Blood Diphtheroids 02/08/21 22:56 Aerobic Blood Culture - Preliminary Blood - Venous - Lab Draw Anaerobic Blood Culture - Preliminary NO GROWTH AFTER 4 DAYS 02/08/21 22:51 Aerobic Blood Culture - Preliminary Blood - Venous Anaerobic Blood Culture - Preliminary NO GROWTH AFTER 4 DAYS 02/10/21 13:57 Aerobic Blood Culture - Preliminary Blood - Venous - Lab Draw NO GROWTH AFTER 2 DAYS Anaerobic Blood Culture - Preliminary NO GROWTH AFTER 2 DAYS 02/10/21 13:51 Aerobic Blood Culture - Preliminary Blood - Venous NO GROWTH AFTER 2 DAYS Anaerobic Blood Culture - Preliminary NO GROWTH AFTER 2 DAYS 02/08/21 22:50 Urine Culture - Final Urine Sepsis Event Note - Evaluation Sepsis Screening Result: No Definite Risk - Focused Exam Vital Signs: Vital Signs Temp Pulse Resp BP BP Pulse Ox 02/13/21 12:22 36.4 C 62 17 99/54 L 95 02/13/21 07:47 36.4 C 61 17 108/45 L 96 02/13/21 04:00 36.8 C 61 16 103/53 L 98 - Problem List & Annotations (1) Dementia SNOMED Code(s): 74832838 Code(s): F03.90 - UNSPECIFIED DEMENTIA WITHOUT BEHAVIORAL DISTURBANCE Status: Acute Current Visit: Yes (2) Altered mental status SNOMED Code(s): 004591063 Code(s): R41.82 - ALTERED MENTAL STATUS, UNSPECIFIED Status: Acute Current Visit: Yes (3) Obstruction of catheter SNOMED Code(s): 507129167 Code(s): T85.698A - [facility] COMPL OF INTERNAL PROSTH DEV/GRFT, INIT Status: Acute Current Visit: Yes (4) UTI, Urinary tract infectious disease SNOMED Code(s): 88298024 Code(s): N39.0 - URINARY TRACT INFECTION, SITE NOT SPECIFIED Status: Acute Current Visit: Yes (5) Urinary retention SNOMED Code(s): 187978323 Code(s): R33.9 - RETENTION OF URINE, UNSPECIFIED Status: Acute Current Visit: No - Problem List Review Problem List Initiated/Reviewed/Updated: Yes - Plan Plan:: 71-year-old gentleman admitted for UTI secondary to urinary retention with Prince catheter in place. 1. UTI secondary to indwelling urinary catheter with urinary retention: cultures noted, likely contaminant, will deescalate abx Afebrile, will continue on IV antibiotics Rocephin for now although UC is not significant , will finish the course due to frequency of reoccurrence of UTI 2. Baseline dementia: cont supportive care continue with home dose of 50 mg p.o. bedtime Seroquel. 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 Family requesting speaking to settlement worker again today, they want to make some arrangements before they can take him home. Patient was evaluated by physical therapy, reportedly patient is at his baseline in terms of ambulatory status, patient can be discharged safely to home with a walker although patient refuses to use walker at home per family. Likely dc tomorrow
[2021-02-13] MEDS: Enoxaparin 30 MG/0.3 ML Syringe SUBCUT SCH (14:07)
[2021-02-13] MEDS: LORazepam 2 MG/ML SDV IVPUSH PRN (14:54)
[2021-02-13] MEDS: cefTRIAXone 1 GM in Premix Bag 1 BAG IV SCH (21:47)
[2021-02-14 06:24] LABS: BLOOD UREA NITROGEN,BUN 10 mg/dL (7.0-18.0); CARBON DIOXIDE,CO2 26.9 mmol/L (21.0-32.0); CHLORIDE,CL 107 mmol/L (98-107); GLUCOSE RANDOM 87 mg/dL (74-106); POTASSIUM,K 4.1 mmol/L (3.5-5.1); SODIUM,NA 140 mmol/L (136-148)
[2021-02-14] MEDS: Tamsulosin 0.4 MG Cap.ER PO SCH (09:52)
[2021-02-14] MEDS: Pantoprazole 40 MG in Sodium Chloride 0.9% 10 ML IV SCH (09:52)
--- NOTE | 2021-02-14 12:10 | PCM.DCSUM1 ---
Discharge Summary - Discharge Data Discharge Date: 02/14/21 Discharge Disposition: Home, W Home Health Agency 06 Condition: Good - Referral to Home Health Date of Face to Face Encounter: 02/14/21 Reason for Homebound Status: resume home health Primary Care Physician: Renato Sol MD Skilled Need: [facility] - Patient Summary/Data Consults: Consultations 02/09/21 10:42 PT Evaluation and Treatment [CONS] Routine Hospital Course: Patient is a 71-year-old gentleman with history of dementia, who was admitted for speis from UTI due to chronic indwelling Prince. Patient presented with lethargy, dark cloudy urine, pyuria and WBC of 14,000. Patient was treated with IV Fluids and Rocephin. His mentation did improve and white count resolved. He was treated with vancomycin which was discontinued when positive blood culture was thought to be a contaminate. His Prince was exchanged and his urine culture grew out less than 10,000 colony forming units. He completed five days of Rocephin. He is to be discharged today with resumption of home health. He is to follow up with Dr. Lee. - Discharge Plan Home Medications: Home Meds Albuterol Sulfate [Albuterol Sulfate HFA] 8.5 gm INH Q2H #1 inhaler 01/27/21 [Rx] Docusate Sodium [Colace] 100 mg PO BID PRN #30 cap 01/27/21 [Rx] QUEtiapine [SEROquel] 50 mg PO BEDTIME #30 tab 01/27/21 [Rx] Patient Handouts: Urinary Tract Infection, Adult, [id number] Referrals: Renato Sol MD [Primary Care Provider] - 02/22/21 10:15 am - Discharge Summary/Plan Comment DC Time >30 min.: No - Patient Data Vitals - Most Recent: Last Vital Signs Temp 36.6 C 02/14/21 08:00 Pulse 86 02/14/21 08:00 Resp 18 02/14/21 08:00 BP 95/53 L 02/14/21 08:00 Pulse Ox 91 L 02/14/21 08:00 Weight - Most Recent: 51.483 kg I&O - Last 24 hours: Intake & Output 02/13/21 02/14/21 02/14/21 22:59 06:59 14:59 Intake Total 760 200 Output Total 2000 1000 Balance -1240 -800 Lab Results - Last 24 hrs: Laboratory Results - last 24 hr 02/14/21 02/14/21 Range/Units 05:05 05:05 WBC 8.54 (4.0-11.0) K/uL RBC 3.59 L (4.50-5.90) M/uL Hgb 10.1 L (13.0-17.0) g/dL Hct 31.1 L (38.0-50.0) % MCV 86.6 (80.0-98.0) fL MCH 28.1 (27.0-32.0) pg MCHC 32.5 (31.0-37.0) g/dL RDW Std Deviation 46.9 (28.0-62.0) fl RDW Coeff of Azeem 15 (11.0-15.0) % Plt Count 568 H (150-400) K/uL MPV 10.00 (7.40-12.00) fL Neut % (Auto) 54.1 (48.0-80.0) % Lymph % (Auto) 24.6 (16.0-40.0) % Forrest % (Auto) 15.5 H (0.0-15.0) % Eos % (Auto) 4.7 (0.0-7.0) % Baso % (Auto) 1.1 (0.0-1.5) % Neut # (Auto) 4.6 (1.4-5.7) K/uL Lymph # (Auto) 2.1 (0.6-2.4) K/uL Forrest # (Auto) 1.3 H (0.0-0.8) K/uL Eos # (Auto) 0.4 (0.0-0.7) K/uL Baso # (Auto) 0.1 (0.0-0.1) K/uL Nucleated RBC % 0.0 /100WBC Nucleated RBCs # 0 K/uL Sodium 140 (136-148) mmol/L Potassium 4.1 (3.5-5.1) mmol/L Chloride 107 (98-107) mmol/L Carbon Dioxide 26.9 (21.0-32.0) mmol/L BUN 10 (7.0-18.0) mg/dL Creatinine 0.8 (0.8-1.3) mg/dL Est Cr Clr Drug Dosing 62.57 mL/min Estimated GFR (MDRD) > 60.0 ml/min Glucose 87 (74-106) mg/dL Calcium 8.2 L (8.5-10.1) mg/dL Phosphorus 3.3 (2.6-4.7) mg/dL Magnesium 1.9 (1.8-2.4) mg/dL NIDIA Results - Last 24 hrs: Microbiology 02/08/21 22:56 Aerobic Blood Culture - Preliminary Blood - Venous - Lab Draw Anaerobic Blood Culture - Final NO GROWTH AFTER 5 DAYS 02/08/21 22:51 Aerobic Blood Culture - Preliminary Blood - Venous Anaerobic Blood Culture - Final NO GROWTH AFTER 5 DAYS 02/10/21 13:57 Aerobic Blood Culture - Preliminary Blood - Venous - Lab Draw NO GROWTH AFTER 3 DAYS Anaerobic Blood Culture - Preliminary NO GROWTH AFTER 3 DAYS 02/10/21 13:51 Aerobic Blood Culture - Preliminary Blood - Venous NO GROWTH AFTER 3 DAYS Anaerobic Blood Culture - Preliminary NO GROWTH AFTER 3 DAYS 02/08/21 22:51 Blood Culture Identification Panel - Final Blood Diphtheroids Med Orders - Current: Current Medications Acetaminophen (Acetaminophen 325 Mg Tab) 650 mg PO Q4H PRN PRN Reason: Pain/Fever Albuterol/Ipratropium (Albuterol/Ipratropium 3.0-0.5 Mg/3 Ml Neb Soln) 3 ml NEB Q4HRRT PRN PRN Reason: Wheezing Calcium Carbonate/Glycine (Calcium Carbonate 500 Mg Tab.Chew) 1,000 mg PO Q2HR PRN PRN Reason: Indigestion Diphenhydramine HCl (Diphenhydramine 50 Mg/Ml Sdv) 25 mg IVPUSH Q4H PRN PRN Reason: Agitation Docusate Sodium (Docusate Sodium 100 Mg Cap) 100 mg PO BID PRN PRN Reason: Constipation Enoxaparin Sodium (Enoxaparin 30 Mg/0.3 Ml Syringe) 30 mg SUBCUT Q24H [facility] Last Admin: 02/13/21 14:07 Dose: 30 mg Documented by: Haloperidol Lactate (Haloperidol Lactate 5 Mg/Ml Sdv) 5 mg IM Q4H PRN PRN Reason: Agitation Ceftriaxone Sodium/Dextrose 1 (gm/ Premix) 50 mls @ 100 mls/hr IV Q24H [facility] Last Admin: 02/13/21 21:47 Dose: 100 mls/hr Documented by: Pantoprazole Sodium 40 mg/ (Sodium Chloride) 10 mls @ 300 mls/hr IV DAILY [facility] Last Admin: 02/14/21 09:52 Dose: 300 mls/hr Documented by: Lorazepam (Lorazepam 2 Mg/Ml Sdv) 1 mg IVPUSH Q4H PRN PRN Reason: Agitation Last Admin: 02/13/21 14:54 Dose: 1 mg Documented by: Ondansetron HCl (Ondansetron 4 Mg/2 Ml Sdv) 4 mg IVPUSH Q4H PRN PRN Reason: Nausea/Vomiting Quetiapine Fumarate (Quetiapine 50 Mg Tab) 50 mg PO BEDTIME [facility] Last Admin: 02/13/21 21:44 Dose: 50 mg Documented by: Sodium Chloride (Sodium Chloride 0.9% 10 Ml Syringe) 10 ml FLUSH ASDIRECTED PRN PRN Reason: Keep Vein Open Last Admin: 02/08/21 22:27 Dose: 10 ml Documented by: Sodium Chloride (Sodium Chloride 0.9% 2.5 Ml Syringe) 2.5 ml FLUSH ASDIRECTED PRN PRN Reason: Keep Vein Open Last Admin: 02/08/21 22:27 Dose: 2.5 ml Documented by: Tamsulosin HCl (Tamsulosin 0.4 Mg Cap.Er) 0.4 mg PO BIDPC [facility] Last Admin: 02/14/21 09:52 Dose: 0.4 mg Documented by: Vancomycin HCl (Pharmacy To Dose - Vancomycin) 1 dose .XX ASDIRECTED [facility] Discontinued Medications Ceftriaxone Sodium/Dextrose 1 (gm/ Premix) 50 mls @ 100 mls/hr IV ONETIME ONE Stop: 02/08/21 23:11 Last Admin: 02/08/21 23:41 Dose: 100 mls/hr Documented by: Lactated Ringer's (Ringers, Lactated) 1,000 mls @ 125 mls/hr IV ASDIRECTED [facility] Last Admin: 02/13/21 07:51 Dose: 125 mls/hr Documented by: Vancomycin HCl 1 gm/ Sodium (Chloride) 250 mls @ 250 mls/hr IV Q12H [facility] Last Admin: 02/12/21 06:06 Dose: Not Given Documented by: Metronidazole 500 mg/ Premix 100 mls @ 100 mls/hr IV QID [facility] Last Admin: 02/13/21 06:19 Dose: 100 mls/hr Documented by: Vancomycin HCl 1.25 gm/ Sodium (Chloride) 250 mls @ 166.667 mls/hr IV Q12H [facility] Last Admin: 02/13/21 02:36 Dose: 166.667 mls/hr Documented by: Lorazepam (Lorazepam 2 Mg/Ml Sdv) 2 mg IVPUSH ONETIME ONE Stop: 02/09/21 03:44 Last Admin: 02/09/21 03:52 Dose: 2 mg Documented by:
== END 2021-02-14 12:38 | disposition home health service (06) | DRG 698 ==
LOC: MW.ED 21:09 → MW.MS 02-09 00:17
PROVIDERS: ADMIT Student in an Organized Health Care Education/Training Program; ATTEND Student in an Organized Health Care Education/Training Program
DX: T83.518A Infection and inflammatory reaction due to other urinary catheter, initial encounter (principal); A41.9 Sepsis, unspecified organism; N39.0 Urinary tract infection, site not specified; T83.098A Other mechanical complication of other urinary catheter, initial encounter; D47.3 Essential (hemorrhagic) thrombocythemia; Z93.6 Other artificial openings of urinary tract status; F03.90 Unspecified dementia, unspecified severity, without behavioral disturbance, psychotic disturbance, mood disturbance, and anxiety; J44.9 Chronic obstructive pulmonary disease, unspecified; Z20.822 Contact with and (suspected) exposure to COVID-19; R33.9 Retention of urine, unspecified; Z79.899 Other long term (current) drug therapy
CPT/HCPCS: 36415; 51702; 74018; 80053; 81001; 83605; 85025; 87040 ×2; 87086; 96365; 99284; J0696; 80048; 80202; 83735; 84100; 97161-GP; 99222; 99232; 99233; 99238; A9270-GY; C9113; J1650; J2060; J3370; J3490; J7050; J7120; U0002

== ENCOUNTER 2021-03-10 14:52 | Emergency (ER) | payer MEDICARE, OTHER ==
--- NOTE | 2021-03-10 15:01 | EDM.PDOC ---
ED HPI GENERAL MEDICAL PROBLEM - General Chief Complaint: Genitourinary Problem Stated Complaint: unable to urinate Time Seen by Provider: 03/10/21 14:53 Source of Information: Reports: Patient History Limitations: Reports: No Limitations - History of Present Illness INITIAL COMMENTS - FREE TEXT/NARRATIVE: HISTORY AND PHYSICAL: History of present illness: Patient is a 71-year-old male who presents to the emergency room with complaints of urinary retention. Patient is complaining of feeling and sensation of needing to void but has been having difficulty starting his stream. The home health nurse attempted to straight cath the patient to alleviate discomfort, he "was not having it". He has voided twice on his own although still has the sensation of needing to empty his bladder. The home health nurse recommended he come in for evaluation. Patient denies any fever, chills, headache, change in vision, syncope or near syncope. Denies any chest pain, back pain, shortness of breath or cough. Denies any abdominal pain, nausea, vomiting, diarrhea, constipation or dysuria. Has not noted any blood in urine or stool. Patient has been eating and drinking appropriately. Review of systems: As per history of present illness and below otherwise all systems reviewed and negative. Past medical history: As per history of present illness and as reviewed below otherwise n oncontributory. Surgical history: As per history of present illness and as reviewed below otherwise noncontributory. Social history: See social history for further information Family history: As per history of present illness and as reviewed below otherwise noncontributory. Physical exam: General: Well developed and well nourished. Alert and orientated x 3. Nontoxic in appearance and in no acute distress. Vital signs are stable and have been reviewed by me. Nursing notes were reviewed. HEENT: Atraumatic, normocephalic, pupils equal and reactive bilaterally, negative for conjunctival pallor or scleral icterus, mucous membranes moist, TMs normal bilaterally, throat clear, neck supple, nontender, trachea midline. No drooling or trismus noted. No meningeal signs. No hot potato voice noted. Lungs: Clear to auscultation bilaterally. No wheezes, rales, or rhonchi. Chest nontender. Normal work of breathing, no accessory muscles used. Heart: S1S2, regular rate and rhythm without overt murmur, gallops, or rubs. No JVD. No peripheral edema Abdomen: Soft, nondistended, nontender. Normoactive bowel sounds. Negative for masses or costovertebral tenderness. Pelvis: Stable nontender. Genitourinary/Rectal: No redness or drainage noted. Skin: Intact, warm, dry. No lesions or rashes noted. Hematologic: No petechiae or purpra. Mucosa appropriate color and normal nail bed color and refill. Extremities: Atraumatic, moves all extremities per self without difficulty or deficits, negative for cords or calf pain. Neurovascular unremarkable. Neuro: Awake, alert, oriented. Cranial nerves II through XII unremarkable. Cerebellum unremarkable. Motor and sensory unremarkable throughout. Exam nonfocal. Psychiatric: Mood and affect are appropriate. Normal thought process. Answering questions appropriately. Notes: *This patient was seen and evaluated during the 2019 SARS-CoV-2 novel coronavirus pandemic period. Community viral transmission is ongoing at time of this encounter and the emergency department is operating under pandemic response procedures. 02/09/21: Patient was admitted to [facility] for a significant urinary tract infection secondary to urinary retention. The bladder scanner shows greater than 900 mL. I did discuss with the patient, and sister about placing a Blanc catheter in with the intent of he going home with that. The states that he would not tolerated and will pull it out before the even leave the hospital. I informed her that if we straight cath him and they go home, there could be a high likelihood they may have to return to have his bladder drained again. The states she would rather do that then have him put a Blanc in as he had a bad experience with this in the past. Nursing was able to put a balnc catheter in, over a course of 30 minutes we drained 1400mls. Again, we discussed leaving the blanc in place until he could follow up with urology. He requests to have it removed. Family states they have an appointment on Friday for bladder ultrasound and "further workup". Lab work is unremarkable today. I have talked with the patient about today's findings, in addition to providing specific details for plan of care. Reassessment at the time of disposition demonstrates that the patient is in no acute distress. The patient is stable for discharge, counseling was provided and we discussed in great detail signs and symptoms that would prompt them to return to the Emergency Department. Medication, follow up and supportive care measures were reviewed and discussed. Voices understanding and is agreeable to plan of care. Denies any further questions or concerns at this time. Diagnostics: CBC, CMP, UA, Bladder Scanner Therapeutics: Flomax Prescription: Flomax Impression: Acute urinary retention Plan: 1. You were evaluated today on an emergent basis. Your lab work is normal. YOU need to call UROLOGY on Friday to set up a follow up appointment. Dr Rosen in [facility] is the closest facility. 2. You can alternate Tylenol and ibuprofen as needed for pain and fever management. 3. If your symptoms should worsen, new symptoms develop or any of the signs and symptoms we discussed should arise please return to the emergency room or call 911 (if needed). Definitive disposition and diagnosis as appropriate pending reevaluation and review of above. - Related Data Allergies Allergy/AdvReac Type Severity Reaction Status Date / Time No Known Allergies Allergy Verified 03/10/21 15:09 Home Meds: Home Meds Albuterol Sulfate [Albuterol Sulfate HFA] 8.5 gm INH Q2H #1 inhaler 01/27/21 [Rx] Docusate Sodium [Colace] 100 mg PO BID PRN #30 cap 01/27/21 [Rx] QUEtiapine [SEROquel] 50 mg PO BEDTIME #30 tab 01/27/21 [Rx] Tamsulosin [Tamsulosin 24 Hr] 0.4 mg PO DAILY 30 Days #30 cap.er 03/10/21 [Rx] Past Medical History HEENT History: Reports: None Cardiovascular History: Reports: None Respiratory History: Reports: Asthma, COPD Genitourinary History: Reports: None Musculoskeletal History: Reports: None Neurological History: Reports: Other (See Below) Other Neuro History: dementia Psychiatric History: Reports: None Endocrine/Metabolic History: Reports: None Hematologic History: Reports: None Immunologic History: Reports: None Oncologic (Cancer) History: Reports: None Dermatologic History: Reports: None - Infectious Disease History Infectious Disease History: Reports: Chicken Pox, Measles - Past Surgical History Head Surgeries/Procedures: Reports: None GI Surgical History: Reports: Hernia Repair/Other Social & Family History - Family History Family Medical History: No Pertinent Family History - Caffeine Use Caffeine Use: Reports: None ED ROS GENERAL - Review of Systems Review Of Systems: Comprehensive ROS is negative, except as noted in HPI. ED EXAM, RENAL/ - Physical Exam Exam: See Below (See dictation) Course - Vital Signs Last Recorded V/S: Last Vital Signs Temp 98.4 F 03/10/21 15:09 Pulse 55 L 03/10/21 15:09 Resp 18 03/10/21 15:09 BP 135/66 03/10/21 15:09 Pulse Ox 95 03/10/21 15:09 - Orders/Labs/Meds Orders: Active Orders 24 hr Category Date Time Status Bladder Scan [RC] ASDIRECTED Care 03/10/21 15:04 Active Blanc Catheter Insertion [Insert Urinary Catheter] [OM. Care 03/10/21 15:45 Ordered PC] Q24H Urinary Catheter Assessment [RC] ASDIRECTED Care 03/10/21 15:41 Active Labs: Laboratory Tests 03/10/21 03/10/21 03/10/21 Range/Units 15:13 15:13 15:20 WBC 7.48 (4.0-11.0) K/uL RBC 4.10 L (4.50-5.90) M/uL Hgb 11.5 L (13.0-17.0) g/dL Hct 36.4 L (38.0-50.0) % MCV 88.8 (80.0-98.0) fL MCH 28.0 (27.0-32.0) pg MCHC 31.6 (31.0-37.0) g/dL RDW Std Deviation 50.5 (28.0-62.0) fl RDW Coeff of Azeem 16 H (11.0-15.0) % Plt Count 308 (150-400) K/uL MPV 10.20 (7.40-12.00) fL Neut % (Auto) 62.5 (48.0-80.0) % Lymph % (Auto) 22.5 (16.0-40.0) % [place] % (Auto) 9.4 (0.0-15.0) % Eos % (Auto) 4.9 (0.0-7.0) % Baso % (Auto) 0.7 (0.0-1.5) % Neut # (Auto) 4.7 (1.4-5.7) K/uL Lymph # (Auto) 1.7 (0.6-2.4) K/uL [place] # (Auto) 0.7 (0.0-0.8) K/uL Eos # (Auto) 0.4 (0.0-0.7) K/uL Baso # (Auto) 0.1 (0.0-0.1) K/uL Nucleated RBC % 0.0 /100WBC Nucleated RBCs # 0 K/uL Sodium 140 (136-148) mmol/L Potassium 3.9 (3.5-5.1) mmol/L Chloride 104 (98-107) mmol/L Carbon Dioxide 30.6 (21.0-32.0) mmol/L BUN 15 (7.0-18.0) mg/dL Creatinine 0.9 (0.8-1.3) mg/dL Est Cr Clr Drug Dosing TNP Estimated GFR (MDRD) > 60.0 ml/min Glucose 94 (74-106) mg/dL Calcium 8.2 L (8.5-10.1) mg/dL Total Bilirubin 0.3 (0.2-1.0) mg/dL AST 11 L (15-37) IU/L ALT 11 L (14-63) IU/L Alkaline Phosphatase 70 (46-116) U/L Total Protein 7.1 (6.4-8.2) g/dL Albumin 3.9 (3.4-5.0) g/dL Globulin 3.2 (2.6-4.0) g/dL Albumin/Globulin Ratio 1.2 (0.9-1.6) Urine Color YELLOW Urine Appearance CLEAR Urine pH 6.5 (5.0-8.0) Ur Specific [place] 1.010 (1.001-1.035) Urine Protein NEGATIVE (NEGATIVE) mg/dL Urine Glucose (UA) NEGATIVE (NEGATIVE) mg/dL Urine Ketones NEGATIVE (NEGATIVE) mg/dL Urine Occult Blood NEGATIVE (NEGATIVE) Urine Nitrite NEGATIVE (NEGATIVE) Urine Bilirubin NEGATIVE (NEGATIVE) Urine Urobilinogen 0.2 (<2.0) EU/dL Ur Leukocyte Esterase NEGATIVE (NEGATIVE) Meds: Medications Discontinued Medications Generic Name Dose Route Start Last Admin Trade Name Freq PRN Reason Stop Dose Admin Tamsulosin HCl 0.4 mg 03/10/21 15:42 03/10/21 15:56 Tamsulosin 0.4 Mg Cap.Er PO 03/10/21 15:43 Not Given ONETIME ONE Departure - Departure Time of Disposition: 16:15 Disposition: Home, Self-Care 01 Clinical Impression: Acute urinary retention - Discharge Information Prescriptions: Tamsulosin [Tamsulosin 24 Hr] 0.4 mg PO DAILY 30 Days #30 cap.er Instructions: Acute Urinary Retention, Male, [id number] Referrals: Renato Sol MD [Primary Care Provider] - Forms: ED Department Discharge Additional Instructions: The following information is given to patients seen in the emergency department who are being discharged to home. This information is to outline your options for follow-up care. We provide all patients seen in our emergency department with a follow-up referral. The need for follow-up, as well as the timing and circumstances, are variable depending upon the specifics of your emergency department visit. If you don't have a primary care physician on staff, we will provide you with a referral. We always advise you to contact your personal physician following an emergency department visit to inform them of the circumstance of the visit and for follow-up with them and/or the need for any referrals to a consulting specialist. The emergency department will also refer you to a specialist when appropriate. This referral assures that you have the opportunity for follow-up care with a specialist. All of these measure are taken in an effort to provide you with optimal care, which includes your follow-up. Under all circumstances we always encourage you to contact your private physician who remains a resource for coordinating your care. When calling for follow-up care, please make the office aware that this follow-up is from your recent emergency room visit. If for any reason you are refused follow-up, please contact the [facility] at and asked to speak to the emergency department charge nurse. [facility] [address] [place] [id number] [facility] [address] [place] [id number] Thank you for choosing the [facility] emergency department in [place] for your medical needs today. It was a pleasure caring for you. Today you were seen in the emergency department for urinary retention. 1. You were evaluated today on an emergent basis. Your lab work is normal. YOU need to call UROLOGY on Friday to set up a follow up appointment. Dr Rosen in [facility] is the closest facility. 2. You can alternate Tylenol and ibuprofen as needed for pain and fever management. 3. If your symptoms should worsen, new symptoms develop or any of the signs and symptoms we discussed should arise please return to the emergency room or call 911 (if needed). Sepsis Event Note (ED) - Focused Exam Vital Signs: Vital Signs Temp Pulse Resp BP Pulse Ox 03/10/21 15:09 98.4 F 55 L 18 135/66 95 - My Orders Last 24 Hours: My Active Orders 03/10/21 15:04 Bladder Scan [RC] ASDIRECTED 03/10/21 15:41 Urinary Catheter Assessment [RC] ASDIRECTED 03/10/21 15:45 Blanc Catheter Insertion [Insert Urinary Catheter] [OM.PC] Q24H - Assessment/Plan Last 24 Hours: My Active Orders 03/10/21 15:04 Bladder Scan [RC] ASDIRECTED 03/10/21 15:41 Urinary Catheter Assessment [RC] ASDIRECTED 03/10/21 15:45 Blanc Catheter Insertion [Insert Urinary Catheter] [OM.PC] Q24H
[2021-03-10] MEDS ORDERED: Tamsulosin 0.4 MG Cap.ER PO ONE (15:42)
[2021-03-10 16:08] LABS: BLOOD UREA NITROGEN,BUN 15 mg/dL (7.0-18.0); CARBON DIOXIDE,CO2 30.6 mmol/L (21.0-32.0); CHLORIDE,CL 104 mmol/L (98-107); GLUCOSE RANDOM 94 mg/dL (74-106); POTASSIUM,K 3.9 mmol/L (3.5-5.1); SODIUM,NA 140 mmol/L (136-148)
== END 2021-03-10 16:23 | disposition home or self-care (01) ==
LOC: MW.ED 14:52
DX: R33.9 Retention of urine, unspecified (principal); J44.9 Chronic obstructive pulmonary disease, unspecified
CPT/HCPCS: 36415; 51702; 80053; 81003; 85025; 99283-25

== ENCOUNTER 2021-06-22 16:59 | Emergency (ER) | payer MEDICARE, OTHER ==
--- NOTE | 2021-06-22 20:33 | EDM.PDOC ---
ED HPI GENERAL MEDICAL PROBLEM - General Chief Complaint: Genitourinary Problem Stated Complaint: CATHETER REINSERTION Time Seen by Provider: 06/22/21 20:27 Source of Information: Reports: Patient History Limitations: Reports: No Limitations - History of Present Illness INITIAL COMMENTS - FREE TEXT/NARRATIVE: 71M PMHx chronic blanc catheter presents for blanc catheter dislodgement with bleeding. Occurred this afternoon. Patient got up and accidentally ripped out his blanc catheter and noted bleeding afterwards which has since stopped. - Related Data Allergies Allergy/AdvReac Type Severity Reaction Status Date / Time No Known Allergies Allergy Verified 03/10/21 15:09 Home Meds: Home Meds Albuterol Sulfate [Albuterol Sulfate HFA] 8.5 gm INH Q2H #1 inhaler 01/27/21 [Rx] Docusate Sodium [Colace] 100 mg PO BID PRN #30 cap 01/27/21 [Rx] QUEtiapine [SEROquel] 50 mg PO BEDTIME #30 tab 01/27/21 [Rx] Tamsulosin [Tamsulosin 24 Hr] 0.4 mg PO DAILY 30 Days #30 cap.er 03/10/21 [Rx] Past Medical History HEENT History: Reports: None Cardiovascular History: Reports: None Respiratory History: Reports: Asthma, COPD Genitourinary History: Reports: None Musculoskeletal History: Reports: None Neurological History: Reports: Other (See Below) Other Neuro History: dementia Psychiatric History: Reports: None Endocrine/Metabolic History: Reports: None Hematologic History: Reports: None Immunologic History: Reports: None Oncologic (Cancer) History: Reports: None Dermatologic History: Reports: None - Infectious Disease History Infectious Disease History: Reports: Chicken Pox, Measles - Past Surgical History Head Surgeries/Procedures: Reports: None GI Surgical History: Reports: Hernia Repair/Other Social & Family History - Family History Family Medical History: No Pertinent Family History - Tobacco Use Second Hand Smoke Exposure: Yes - Caffeine Use Caffeine Use: Reports: Coffee ED ROS GENERAL - Review of Systems Review Of Systems: Comprehensive ROS is negative, except as noted in HPI. ED EXAM, GENERAL - Physical Exam Exam: See Below Exam Limited By: No Limitations General Appearance: Alert, WD/WN, No Apparent Distress Ears: Hearing Grossly Normal Throat/Mouth: Normal Voice, No Airway Compromise Head: Atraumatic, Normocephalic Respiratory/Chest: No Respiratory Distress, Lungs Clear, Normal Breath Sounds, No Accessory Muscle Use Cardiovascular: Normal Peripheral Pulses, Regular Rate, Rhythm GI/Abdominal: Soft, Non-Tender (Male) Exam: Other (small amount of blood at urethral meatus) Extremities: Normal Inspection Neurological: Alert, Normal Cognition Psychiatric: Normal Affect, Normal Mood Skin Exam: Warm, Dry, Intact, Normal Color Course - Vital Signs Last Recorded V/S: Last Vital Signs Temp 98.1 F 06/22/21 20:01 Pulse 93 06/22/21 20:01 Resp 15 06/22/21 20:01 BP 124/92 H 06/22/21 20:01 Pulse Ox 89 L 06/22/21 20:01 - Orders/Labs/Meds Orders: Active Orders 24 hr Category Date Time Status Blanc Catheter Insertion [Insert Urinary Catheter] [OM. Care 06/22/21 20:30 Ordered PC] Q24H Urinary Catheter Assessment [RC] ASDIRECTED Care 06/22/21 20:27 Active Meds: Medications Discontinued Medications Generic Name Dose Route Start Last Admin Trade Name Mary PRN Reason Stop Dose Admin Lidocaine HCl 20 ml 06/22/21 20:54 06/22/21 21:40 Lidocaine 2% Viscous Solution 100 Ml Bottle MUCMEM 06/22/21 20:55 Not Given ONETIME ONE Lidocaine HCl Confirm 06/22/21 21:32 06/22/21 21:38 Lidocaine 2% Viscous Solution 15 Ml Cup Administered 06/22/21 21:33 Not Given Dose 15 ml .ROUTE .STK-MED ONE Lidocaine HCl 15 ml 06/22/21 21:41 06/22/21 21:44 Lidocaine 2% Viscous Solution 15 Ml Cup TOP 06/22/21 21:42 15 ml ONETIME ONE Administration Morphine Sulfate 4 mg 06/22/21 21:03 06/22/21 21:38 Morphine 4 Mg/Ml Vial IM 06/22/21 21:04 4 mg ONETIME ONE Administration - Re-Assessments/Exams Free Text/Narrative Re-Assessment/Exam: 06/22/21 20:33 Will replace Blanc catheter 06/22/21 22:08 Blanc catheter was replaced. Patient needs follow-up with urology within the next week for reassessment. Return precautions discussed. Departure - Departure Time of Disposition: 22:08 Disposition: Home, Self-Care 01 Condition: Good Clinical Impression: Dislodged Blanc catheter Qualifiers: Encounter type: initial encounter Qualified Code(s): T83.021A - Displacement of indwelling urethral catheter, initial encounter - Discharge Information Instructions: Indwelling Urinary Catheter Care, Adult Referrals: Renato Sol MD [Primary Care Provider] - Forms: ED Department Discharge Additional Instructions: You will need to follow-up with your urologist within the next week. You may have injury to your urethra from the dislodgment of the Blanc catheter. We did place another Blanc catheter. If the catheter becomes clogged and you are unable to drain urine the need to come back to the emergency department. The following information is given to patients seen in the emergency department who are being discharged to home. This information is to outline your options for follow-up care. We provide all patients seen in our emergency department with a follow-up referral. The need for follow-up, as well as the timing and circumstances, are variable depending upon the specifics of your emergency department visit. If you don't have a primary care physician on staff, we will provide you with a referral. We always advise you to contact your personal physician following an emergency department visit to inform them of the circumstance of the visit and for follow-up with them and/or the need for any referrals to a consulting specialist. The emergency department will also refer you to a specialist when appropriate. This referral assures that you have the opportunity for follow-up care with a specialist. All of these measure are taken in an effort to provide you with optimal care, which includes your follow-up. Under all circumstances we always encourage you to contact your private physician who remains a resource for coordinating your care. When calling for follow-up care, please make the office aware that this follow-up is from your recent emergency room visit. If for any reason you are refused follow-up, please contact the [facility] Emergency Department at and asked to speak to the emergency department charge nurse. Please follow up with your primary care physician. If you do not have a primary care physician, see below: [facility] [address] [place] [id number] [facility] [address] [place] [address] [facility] [address] [place] [address] Sepsis Event Note (ED) - Evaluation Sepsis Screening Result: No Definite Risk - Focused Exam Vital Signs: Vital Signs Temp Pulse Resp BP Pulse Ox 06/22/21 20:01 98.1 F 93 15 124/92 H 89 L - My Orders Last 24 Hours: My Active Orders 06/22/21 20:27 Urinary Catheter Assessment [RC] ASDIRECTED 06/22/21 20:30 Blanc Catheter Insertion [Insert Urinary Catheter] [OM.PC] Q24H - Assessment/Plan Last 24 Hours: My Active Orders 06/22/21 20:27 Urinary Catheter Assessment [RC] ASDIRECTED 06/22/21 20:30 Blanc Catheter Insertion [Insert Urinary Catheter] [OM.PC] Q24H
[2021-06-22] MEDS ORDERED: Lidocaine 2% Viscous Solution 100 ML Bottle MUCMEM ONE (20:54)
[2021-06-22] MEDS ORDERED: Morphine 4 MG/ML VIAL IM ONE (21:03)
[2021-06-22] MEDS ORDERED: Lidocaine 2% Viscous Solution 15 ML Cup ONE (21:32)
[2021-06-22] MEDS ORDERED: Lidocaine 2% Viscous Solution 15 ML Cup TOP ONE (21:41)
== END 2021-06-22 22:29 | disposition home or self-care (01) ==
LOC: MW.ED 16:59
DX: T83.028A Displacement of other urinary catheter, initial encounter (principal); J44.9 Chronic obstructive pulmonary disease, unspecified; Z77.22 Contact with and (suspected) exposure to environmental tobacco smoke (acute) (chronic); Z79.899 Other long term (current) drug therapy
CPT/HCPCS: 51702; 96372; 99283; A9270; J2270

== ENCOUNTER 2021-08-15 15:44 | Observation (INO) | payer MEDICARE, OTHER ==
[2021-08-15] MEDS ORDERED: Sodium Chloride 0.9% 2.5 ML Syringe FLUSH PRN (16:46)
[2021-08-15] MEDS ORDERED: Sodium Chloride 0.9% 10 ML Syringe FLUSH PRN (16:46)
[2021-08-15] MEDS ORDERED: Sodium Chloride 0.9% 1,000 ML IV ONE (16:47)
[2021-08-15] MEDS ORDERED: Acetaminophen 500 MG Tab PO ONE (16:47)
[2021-08-15] MEDS ORDERED: LORazepam 2 MG/ML SDV IVPUSH ONE (16:53)
[2021-08-15 17:21] LABS: CORONAVIRUS COVID-19 NAA NEGATIVE (NEGATIVE); INFLUENZA A NAA NEGATIVE (NEGATIVE); INFLUENZA B NAA NEGATIVE (NEGATIVE)
[2021-08-15 17:52] LABS: CARBON DIOXIDE,CO2 27.5 mmol/L (21.0-32.0); POTASSIUM,K 4.1 mmol/L (3.5-5.1)
[2021-08-15] MEDS ORDERED: cefTRIAXone 1,000 MG in Sodium Chloride 0.9% 50 ML IV ONE (18:14)
[2021-08-15] MEDS ORDERED: cefTRIAXone 1 GM in Premix Bag 1 BAG IV ONE (18:21)
--- NOTE | 2021-08-15 21:15 | EDM.PDOC ---
ED HPI GENERAL MEDICAL PROBLEM - General Chief Complaint: Genitourinary Problem Stated Complaint: CATH BROKE Time Seen by Provider: 08/15/21 15:55 Source of Information: Reports: Patient, Family History Limitations: Reports: No Limitations, Other (dementia) - History of Present Illness INITIAL COMMENTS - FREE TEXT/NARRATIVE: HISTORY AND PHYSICAL: History of present illness: Patient is a 71-year-old male, with a history of severe dementia, who presents emergency room today with his family including his for concern of possible urinary tract infection as his Blanc has not been draining since yesterday, has had a cloudy output with bloody substance, and patient has had a fever around 101 at home. Patient has a Blanc catheter placed secondary to urinary retention and is supposed to follow-up with the urologist, Dr. Mejía in my not. According to , she has not taken him to any appointments. Family at bedside states that they just got here to town and recognize patient symptoms and realized right away that he needed to come to the emergency room. Family at bedside states that they did not realize that the had not been addressing these concerns at home. Patient's Blanc was last changed 2 months ago at a prior emergency room visit and since then, patient has not seen any provider since. His states that she did not know she was close to make these appointments and nobody informed her that the Blanc was placed to be continually changed. states that she started noticing bloody discharge off and on but has worsened over the past several days and his urine has been more cloudy. She states that he also tries to periodically pull out the catheter so thought it was more related to this. Family states that they noticed today that he had a fever and chills and he was shaking at home. Due to patient's underlying dementia, he is not able to contribute much more to this conversation. Review of systems: As per history of present illness and below otherwise all systems reviewed and negative. Past medical history: As per history of present illness and as reviewed below otherwise noncontributory. Surgical history: As per history of present illness and as reviewed below otherwise noncontributory. Social history: See social history for further information Family history: As per history of present illness and as reviewed below otherwise noncontributory. Physical exam: General: Patient is alert, oriented, and in no acute distress. Patient sitting comfortably on exam table. HEENT: Atraumatic, normocephalic, pupils equal and reactive bilaterally, negative for conjunctival pallor or scleral icterus, mucous membranes moist, throat clear, neck supple, nontender, trachea midline. No drooling or trismus noted. No meningeal signs. No hot potato voice noted. Lungs: Clear to auscultation, breath sounds equal bilaterally, chest nontender. Heart: S1S2, regular rate and rhythm without overt murmur Abdomen: Soft, nondistended, nontender. Negative for masses or hepatosplenomegaly. Negative for costovertebral tenderness. Pelvis: Stable nontender. Genitourinary: Deferred. Rectal: Deferred. Skin: Intact, warm, dry. No lesions or rashes noted. Extremities: Atraumatic, negative for cords or calf pain. Neurovascular unremarkable. Neuro: Awake, alert, oriented. Cranial nerves II through XII unremarkable. Cerebellum unremarkable. Motor and sensory unremarkable throughout. Exam nonfocal. Medical Decision Making: Patient is a 71 year old male who presents to the ED today with family for concern of possible UTI, fever, blanc not draining and increased dementia behaviors secondary to presumed UTI. Upon arrival to the ED, patient is lying comfortably on exam table. He does appear agitated and is trying to remove his own Blanc catheter. Due to agitation, he does not allow me to fully assess his Blanc catheter at bedside but it does not appear to be draining. Patient's lower abdomen is also distended and quick bedside ultrasound does show 1000 cc plus urine in bladder. From what I can see from the Blanc catheter tubing, it is bloody/dried and full of old discolored sediment and needed to be changed out quite some time ago. It also has a foul odor. Because of patient's irritability (presumed secondary to underlying significant dementia) will write a dose of Ativan and then fully assess patient's Blanc catheter. Also upon arrival to the ED, patient is noted to be at 100 degrees orally. After Ativan, patient is much more calm and participating on exam. The blanc catheter is noted to be running backward up through patient's rectal area and is covered in feces and blood. Blanc catheter is extensively dirty and was removed by myself without difficulty. Nursing staff will replace blanc catheter and obtain UA. Will also obtain labwork. CBC mild derangements are unremarkable. CMP does show elevated isolation of BUN at 28, otherwise mild derangements of CMP unremarkable. Urinalysis is signific ant for infection with 3+ bacteria, 50 white blood cells, 6 red blood cells, positive leukocyte Estrace. 1 dose of IV Rocephin given here in the emergency room. Following Blanc repeat placement by nursing staff, patient drained just a little bit over 1000 cc urine output and it does appear to be cloudy in appearance. Family at bedside does feel that patient agitation worsened by infection / fever as this has occurred in the past and feel that his behaviors are difficult to take care of at home with significant infection. Did call and speak to the hospitalist on-call, Dr. Raymond thoroughly discussed patient's case. Will admit to observation of Dr. Raymond. Diagnostics: CBC, CMP, UA, COVID/Flu Therapeutics: Rocephin, NS, Blanc catheter removal with insertion of new catheter placed by nursing staff, tylenol Impression: Urinary tract infection with fever Urinary retention secondary to indwelling Blanc catheter obstruction Plan: Admit to observation to Dr. Raymond Definitive disposition and diagnosis as appropriate pending reevaluation and review of above. - Related Data Allergies Allergy/AdvReac Type Severity Reaction Status Date / Time No Known Allergies Allergy Verified 08/15/21 15:53 Home Meds: Home Meds Albuterol Sulfate [Albuterol Sulfate HFA] 8.5 gm INH Q2H #1 inhaler 01/27/21 [Rx] Docusate Sodium [Colace] 100 mg PO BID PRN #30 cap 01/27/21 [Rx] QUEtiapine [SEROquel] 50 mg PO BEDTIME #30 tab 01/27/21 [Rx] Tamsulosin [Tamsulosin 24 Hr] 0.4 mg PO DAILY 30 Days #30 cap.er 03/10/21 [Rx] Past Medical History HEENT History: Reports: None Cardiovascular History: Reports: None Respiratory History: Reports: Asthma, COPD Genitourinary History: Reports: None Musculoskeletal History: Reports: None Neurological History: Reports: Other (See Below) Other Neuro History: dementia Psychiatric History: Reports: None Endocrine/Metabolic History: Reports: None Hematologic History: Reports: None Immunologic History: Reports: None Oncologic (Cancer) History: Reports: None Dermatologic History: Reports: None - Infectious Disease History Infectious Disease History: Reports: Chicken Pox, Measles - Past Surgical History Head Surgeries/Procedures: Reports: None GI Surgical History: Reports: Hernia Repair/Other Social & Family History - Family History Family Medical History: No Pertinent Family History - Caffeine Use Caffeine Use: Reports: Soda - Recreational Drug Use Recreational Drug Use: No ED ROS GENERAL - Review of Systems Review Of Systems: Comprehensive ROS is negative, except as noted in HPI. ED EXAM, GENERAL - Physical Exam Exam: See Below (see dictation) Course - Vital Signs Last Recorded V/S: Last Vital Signs Temp 98.1 F 08/15/21 17:46 Pulse 85 08/15/21 21:06 Resp 18 08/15/21 21:06 BP 131/65 08/15/21 21:06 Pulse Ox 95 08/15/21 21:06 - Orders/Labs/Meds Orders: Active Orders 24 hr Category Date Time Status Blanc Catheter Insertion [Insert Urinary Catheter] [OM. Care 08/15/21 16:45 Ordered PC] Q24H Urinary Catheter Assessment [RC] ASDIRECTED Care 08/15/21 16:46 Active CULTURE URINE [MREF] Stat Lab 08/15/21 15:40 Received Sodium Chloride 0.9% [Saline Flush] Med 08/15/21 16:46 Active 10 ml FLUSH ASDIRECTED PRN Sodium Chloride 0.9% [Saline Flush] Med 08/15/21 16:46 Active 2.5 ml FLUSH ASDIRECTED PRN Saline Lock Insert [OM.PC] Stat Oth 08/15/21 16:46 Ordered Medication Orders Sodium Chloride (Sodium Chloride 0.9% 10 Ml Syringe) 10 ml FLUSH ASDIRECTED PRN PRN Reason: Keep Vein Open Last Admin: 08/15/21 17:17 Dose: 10 ml Documented by: NORA Sodium Chloride (Sodium Chloride 0.9% 2.5 Ml Syringe) 2.5 ml FLUSH ASDIRECTED PRN PRN Reason: Keep Vein Open Last Admin: 08/15/21 17:17 Dose: 2.5 ml Documented by: NORA Labs: Laboratory Tests 08/15/21 08/15/21 08/15/21 Range/Units 15:40 15:58 17:17 WBC 10.30 (4.0-11.0) K/uL RBC 4.60 (4.50-5.90) M/uL Hgb 12.8 L (13.0-17.0) g/dL Hct 39.9 (38.0-50.0) % MCV 86.7 (80.0-98.0) fL MCH 27.8 (27.0-32.0) pg MCHC 32.1 (31.0-37.0) g/dL RDW Std Deviation 48.8 (28.0-62.0) fl RDW Coeff of Azeem 15 (11.0-15.0) % Plt Count 348 (150-400) K/uL MPV 10.30 (7.40-12.00) fL Neut % (Auto) 74.5 (48.0-80.0) % Lymph % (Auto) 10.9 L (16.0-40.0) % [place] % (Auto) 12.4 (0.0-15.0) % Eos % (Auto) 1.8 (0.0-7.0) % Baso % (Auto) 0.4 (0.0-1.5) % Neut # (Auto) 7.7 H (1.4-5.7) K/uL Lymph # (Auto) 1.1 (0.6-2.4) K/uL [place] # (Auto) 1.3 H (0.0-0.8) K/uL Eos # (Auto) 0.2 (0.0-0.7) K/uL Baso # (Auto) 0.0 (0.0-0.1) K/uL Nucleated RBC % 0.0 /100WBC Nucleated RBCs # 0 K/uL Sodium (136-148) mmol/L Potassium (3.5-5.1) mmol/L Chloride (98-107) mmol/L Carbon Dioxide (21.0-32.0) mmol/L BUN (7.0-18.0) mg/dL Creatinine (0.8-1.3) mg/dL Est Cr Clr Drug Dosing mL/min Estimated GFR (MDRD) ml/min Glucose (74-106) mg/dL Calcium (8.5-10.1) mg/dL Total Bilirubin (0.2-1.0) mg/dL AST (15-37) IU/L ALT (14-63) IU/L Alkaline Phosphatase (46-116) U/L Total Protein (6.4-8.2) g/dL Albumin (3.4-5.0) g/dL Globulin (2.6-4.0) g/dL Albumin/Globulin Ratio (0.9-1.6) Urine Color YELLOW Urine Appearance CLOUDY Urine pH 7.5 (5.0-8.0) Ur Specific [place] 1.020 (1.001-1.035) Urine Protein 100 H (NEGATIVE) mg/dL Urine Glucose (UA) NEGATIVE (NEGATIVE) mg/dL Urine Ketones NEGATIVE (NEGATIVE) mg/dL Urine Occult Blood SMALL H (NEGATIVE) Urine Nitrite NEGATIVE (NEGATIVE) Urine Bilirubin NEGATIVE (NEGATIVE) Urine Urobilinogen 0.2 (<2.0) EU/dL Ur Leukocyte Esterase LARGE H (NEGATIVE) Urine RBC 3-6 (0-2/HPF) Urine WBC 40-50 (0-5/HPF) Ur Epithelial Cells OCCASIONAL (NONE-FEW) Urine Bacteria 3+ H (NEGATIVE) Influenza Type A RNA NEGATIVE (NEGATIVE) Influenza Type B RNA NEGATIVE (NEGATIVE) SARS-CoV-2 RNA (BRENDA) NEGATIVE (NEGATIVE) 08/15/21 Range/Units 17:17 WBC (4.0-11.0) K/uL RBC (4.50-5.90) M/uL Hgb (13.0-17.0) g/dL Hct (38.0-50.0) % MCV (80.0-98.0) fL MCH (27.0-32.0) pg MCHC (31.0-37.0) g/dL RDW Std Deviation (28.0-62.0) fl RDW Coeff of Azeem (11.0-15.0) % Plt Count (150-400) K/uL MPV (7.40-12.00) fL Neut % (Auto) (48.0-80.0) % Lymph % (Auto) (16.0-40.0) % [place] % (Auto) (0.0-15.0) % Eos % (Auto) (0.0-7.0) % Baso % (Auto) (0.0-1.5) % Neut # (Auto) (1.4-5.7) K/uL Lymph # (Auto) (0.6-2.4) K/uL [place] # (Auto) (0.0-0.8) K/uL Eos # (Auto) (0.0-0.7) K/uL Baso # (Auto) (0.0-0.1) K/uL Nucleated RBC % /100WBC Nucleated RBCs # K/uL Sodium 141 (136-148) mmol/L Potassium 4.1 (3.5-5.1) mmol/L Chloride 104 (98-107) mmol/L Carbon Dioxide 27.5 (21.0-32.0) mmol/L BUN 28 H (7.0-18.0) mg/dL Creatinine 1.3 (0.8-1.3) mg/dL Est Cr Clr Drug Dosing 40.71 mL/min Estimated GFR (MDRD) 54.6 ml/min Glucose 107 H (74-106) mg/dL Calcium 8.4 L (8.5-10.1) mg/dL Total Bilirubin 0.3 (0.2-1.0) mg/dL AST 5 L (15-37) IU/L ALT 8 L (14-63) IU/L Alkaline Phosphatase 85 (46-116) U/L Total Protein 7.3 (6.4-8.2) g/dL Albumin 3.7 (3.4-5.0) g/dL Globulin 3.6 (2.6-4.0) g/dL Albumin/Globulin Ratio 1.0 (0.9-1.6) Urine Color Urine Appearance Urine pH (5.0-8.0) Ur Specific [place] (1.001-1.035) Urine Protein (NEGATIVE) mg/dL Urine Glucose (UA) (NEGATIVE) mg/dL Urine Ketones (NEGATIVE) mg/dL Urine Occult Blood (NEGATIVE) Urine Nitrite (NEGATIVE) Urine Bilirubin (NEGATIVE) Urine Urobilinogen (<2.0) EU/dL Ur Leukocyte Esterase (NEGATIVE) Urine RBC (0-2/HPF) Urine WBC (0-5/HPF) Ur Epithelial Cells (NONE-FEW) Urine Bacteria (NEGATIVE) Influenza Type A RNA (NEGATIVE) Influenza Type B RNA (NEGATIVE) SARS-CoV-2 RNA (BRENDA) (NEGATIVE) Meds: Medications Generic Name Dose Route Start Last Admin Trade Name Freq PRN Reason Stop Dose Admin Sodium Chloride 10 ml 08/15/21 16:46 08/15/21 17:17 Sodium Chloride 0.9% 10 Ml Syringe FLUSH 10 ml ASDIRECTED PRN Administration Keep Vein Open Sodium Chloride 2.5 ml 08/15/21 16:46 08/15/21 17:17 Sodium Chloride 0.9% 2.5 Ml Syringe FLUSH 2.5 ml ASDIRECTED PRN Administration Keep Vein Open Discontinued Medications Generic Name Dose Route Start Last Admin Trade Name Freq PRN Reason Stop Dose Admin Acetaminophen 1,000 mg 08/15/21 16:47 08/15/21 17:16 Acetaminophen 500 Mg Tab PO 08/15/21 16:48 1,000 mg ONETIME ONE Administration Sodium Chloride 1,000 mls @ 750 mls/hr 08/15/21 16:47 08/15/21 17:25 Normal Saline IV 08/15/21 18:06 750 mls/hr STAT ONE Administration Ceftriaxone Sodium 1,000 mg/ 50 mls @ 100 mls/hr 08/15/21 18:14 08/15/21 18:22 Sodium Chloride IV 08/15/21 18:43 Not Given ONETIME ONE Ceftriaxone Sodium/Dextrose 1 50 mls @ 100 mls/hr 08/15/21 18:21 08/15/21 18:25 gm/ Premix IV 08/15/21 18:50 100 mls/hr ONETIME ONE Administration Lorazepam 1 mg 08/15/21 16:53 08/15/21 17:21 Lorazepam 2 Mg/Ml Sdv IVPUSH 08/15/21 16:54 1 mg ONETIME ONE Administration Departure - Departure Time of Disposition: 21:27 Disposition: Refer to Observation Clinical Impression: Urinary tract infection, Fever, Acute urinary retention Dislodged Blanc catheter Qualifiers: Encounter type: initial encounter Qualified Code(s): T83.021A - Displacement of indwelling urethral catheter, initial encounter - Discharge Information Sepsis Event Note (ED) - Evaluation Sepsis Screening Result: No Definite Risk - Focused Exam Vital Signs: Vital Signs Temp Temp Pulse Resp BP Pulse Ox 08/15/21 18:55 88 120/63 94 L 08/15/21 17:55 86 117/67 92 L 08/15/21 17:46 98.1 F 08/15/21 17:16 99 F 08/15/21 16:55 102 H 132/64 93 L 08/15/21 15:54 99.0 F 96 18 136/91 H 95 - My Orders Last 24 Hours: My Active Orders 08/15/21 15:40 CULTURE URINE [MREF] Stat 08/15/21 16:45 Blanc Catheter Insertion [Insert Urinary Catheter] [OM.PC] Q24H 08/15/21 16:46 Urinary Catheter Assessment [RC] ASDIRECTED Sodium Chloride 0.9% [Saline Flush] 10 ml FLUSH ASDIRECTED PRN Sodium Chloride 0.9% [Saline Flush] 2.5 ml FLUSH ASDIRECTED PRN Saline Lock Insert [OM.PC] Stat - Assessment/Plan Last 24 Hours: My Active Orders 08/15/21 15:40 CULTURE URINE [MREF] Stat 08/15/21 16:45 Blanc Catheter Insertion [Insert Urinary Catheter] [OM.PC] Q24H 08/15/21 16:46 Urinary Catheter Assessment [RC] ASDIRECTED Sodium Chloride 0.9% [Saline Flush] 10 ml FLUSH ASDIRECTED PRN Sodium Chloride 0.9% [Saline Flush] 2.5 ml FLUSH ASDIRECTED PRN Saline Lock Insert [OM.PC] Stat
--- NOTE | 2021-08-15 22:38 | PCM.HP.2 ---
H&P History of Present Illness - General Date of Service: 08/15/21 Admit Problem/Dx: Admission Diagnosis/Problem Admission Diagnosis/Problem Urinary tract infection - History of Present Illness Initial Comments - Free Text/Narative: 71 yo male with pmh of dementia and urinary obstruction with chronic indwelling blanc who present with fever and worsening confusion. The blanc has not been replaced in two months. ER staff noted foly cath had feces on it. - Related Data Allergies/Adverse Reactions: Allergies Allergy/AdvReac Type Severity Reaction Status Date / Time No Known Allergies Allergy Verified 08/15/21 22:01 Home Medications: Home Meds Albuterol Sulfate [Albuterol Sulfate HFA] 8.5 gm INH Q2H #1 inhaler 01/27/21 [Rx] Docusate Sodium [Colace] 100 mg PO BID PRN #30 cap 01/27/21 [Rx] QUEtiapine [SEROquel] 50 mg PO BEDTIME #30 tab 01/27/21 [Rx] Tamsulosin [Tamsulosin 24 Hr] 0.4 mg PO DAILY 30 Days #30 cap.er 03/10/21 [Rx] Past Medical History HEENT History: Reports: None Cardiovascular History: Reports: None Respiratory History: Reports: Asthma, COPD Genitourinary History: Reports: None Musculoskeletal History: Reports: None Neurological History: Reports: Other (See Below) Other Neuro History: dementia Psychiatric History: Reports: None Endocrine/Metabolic History: Reports: None Hematologic History: Reports: None Immunologic History: Reports: None Oncologic (Cancer) History: Reports: None Dermatologic History: Reports: None - Infectious Disease History Infectious Disease History: Reports: Chicken Pox, Measles - Past Surgical History Head Surgeries/Procedures: Reports: None GI Surgical History: Reports: Hernia Repair/Other Social & Family History - Family History Family Medical History: No Pertinent Family History - Caffeine Use Caffeine Use: Reports: Soda - Recreational Drug Use Recreational Drug Use: No H&P Review of Systems - Review of Systems: Review Of Systems: Comprehensive ROS is negative, except as noted in HPI. Exam - Exam Exam: See Below - Vital Signs Vital Signs: Last Vital Signs Temp 36.3 C 08/15/21 21:20 Pulse 88 08/15/21 21:20 Resp 16 08/15/21 21:20 BP 118/70 08/15/21 21:20 Pulse Ox 93 L 08/15/21 21:20 Weight: 54.431 kg - Exam General: Cooperative. No: Oriented HEENT: Conjunctiva Clear Lungs: Clear to Auscultation, Normal Respiratory Effort Cardiovascular: Regular Rate, Regular Rhythm GI/Abdominal Exam: Normal Bowel Sounds, Soft, Non-Tender Extremities: Non-Tender, No Pedal Edema Skin: Warm, Dry, Intact Neurological: No: Focal Deficit - Patient Data Lab Results Last 24 hrs: Laboratory Results - last 24 hr 08/15/21 08/15/21 08/15/21 Range/Units 15:40 15:58 17:17 WBC 10.30 (4.0-11.0) K/uL RBC 4.60 (4.50-5.90) M/uL Hgb 12.8 L (13.0-17.0) g/dL Hct 39.9 (38.0-50.0) % MCV 86.7 (80.0-98.0) fL MCH 27.8 (27.0-32.0) pg MCHC 32.1 (31.0-37.0) g/dL RDW Std Deviation 48.8 (28.0-62.0) fl RDW Coeff of Azeem 15 (11.0-15.0) % Plt Count 348 (150-400) K/uL MPV 10.30 (7.40-12.00) fL Neut % (Auto) 74.5 (48.0-80.0) % Lymph % (Auto) 10.9 L (16.0-40.0) % [place] % (Auto) 12.4 (0.0-15.0) % Eos % (Auto) 1.8 (0.0-7.0) % Baso % (Auto) 0.4 (0.0-1.5) % Neut # (Auto) 7.7 H (1.4-5.7) K/uL Lymph # (Auto) 1.1 (0.6-2.4) K/uL [place] # (Auto) 1.3 H (0.0-0.8) K/uL Eos # (Auto) 0.2 (0.0-0.7) K/uL Baso # (Auto) 0.0 (0.0-0.1) K/uL Nucleated RBC % 0.0 /100WBC Nucleated RBCs # 0 K/uL Sodium (136-148) mmol/L Potassium (3.5-5.1) mmol/L Chloride (98-107) mmol/L Carbon Dioxide (21.0-32.0) mmol/L BUN (7.0-18.0) mg/dL Creatinine (0.8-1.3) mg/dL Est Cr Clr Drug Dosing mL/min Estimated GFR (MDRD) ml/min Glucose (74-106) mg/dL Calcium (8.5-10.1) mg/dL Total Bilirubin (0.2-1.0) mg/dL AST (15-37) IU/L ALT (14-63) IU/L Alkaline Phosphatase (46-116) U/L Total Protein (6.4-8.2) g/dL Albumin (3.4-5.0) g/dL Globulin (2.6-4.0) g/dL Albumin/Globulin Ratio (0.9-1.6) Urine Color YELLOW Urine Appearance CLOUDY Urine pH 7.5 (5.0-8.0) Ur Specific [place] 1.020 (1.001-1.035) Urine Protein 100 H (NEGATIVE) mg/dL Urine Glucose (UA) NEGATIVE (NEGATIVE) mg/dL Urine Ketones NEGATIVE (NEGATIVE) mg/dL Urine Occult Blood SMALL H (NEGATIVE) Urine Nitrite NEGATIVE (NEGATIVE) Urine Bilirubin NEGATIVE (NEGATIVE) Urine Urobilinogen 0.2 (<2.0) EU/dL Ur Leukocyte Esterase LARGE H (NEGATIVE) Urine RBC 3-6 (0-2/HPF) Urine WBC 40-50 (0-5/HPF) Ur Epithelial Cells OCCASIONAL (NONE-FEW) Urine Bacteria 3+ H (NEGATIVE) Influenza Type A RNA NEGATIVE (NEGATIVE) Influenza Type B RNA NEGATIVE (NEGATIVE) SARS-CoV-2 RNA (BRENDA) NEGATIVE (NEGATIVE) 08/15/21 Range/Units 17:17 WBC (4.0-11.0) K/uL RBC (4.50-5.90) M/uL Hgb (13.0-17.0) g/dL Hct (38.0-50.0) % MCV (80.0-98.0) fL MCH (27.0-32.0) pg MCHC (31.0-37.0) g/dL RDW Std Deviation (28.0-62.0) fl RDW Coeff of Azeem (11.0-15.0) % Plt Count (150-400) K/uL MPV (7.40-12.00) fL Neut % (Auto) (48.0-80.0) % Lymph % (Auto) (16.0-40.0) % [place] % (Auto) (0.0-15.0) % Eos % (Auto) (0.0-7.0) % Baso % (Auto) (0.0-1.5) % Neut # (Auto) (1.4-5.7) K/uL Lymph # (Auto) (0.6-2.4) K/uL [place] # (Auto) (0.0-0.8) K/uL Eos # (Auto) (0.0-0.7) K/uL Baso # (Auto) (0.0-0.1) K/uL Nucleated RBC % /100WBC Nucleated RBCs # K/uL Sodium 141 (136-148) mmol/L Potassium 4.1 (3.5-5.1) mmol/L Chloride 104 (98-107) mmol/L Carbon Dioxide 27.5 (21.0-32.0) mmol/L BUN 28 H (7.0-18.0) mg/dL Creatinine 1.3 (0.8-1.3) mg/dL Est Cr Clr Drug Dosing 40.71 mL/min Estimated GFR (MDRD) 54.6 ml/min Glucose 107 H (74-106) mg/dL Calcium 8.4 L (8.5-10.1) mg/dL Total Bilirubin 0.3 (0.2-1.0) mg/dL AST 5 L (15-37) IU/L ALT 8 L (14-63) IU/L Alkaline Phosphatase 85 (46-116) U/L Total Protein 7.3 (6.4-8.2) g/dL Albumin 3.7 (3.4-5.0) g/dL Globulin 3.6 (2.6-4.0) g/dL Albumin/Globulin Ratio 1.0 (0.9-1.6) Urine Color Urine Appearance Urine pH (5.0-8.0) Ur Specific [place] (1.001-1.035) Urine Protein (NEGATIVE) mg/dL Urine Glucose (UA) (NEGATIVE) mg/dL Urine Ketones (NEGATIVE) mg/dL Urine Occult Blood (NEGATIVE) Urine Nitrite (NEGATIVE) Urine Bilirubin (NEGATIVE) Urine Urobilinogen (<2.0) EU/dL Ur Leukocyte Esterase (NEGATIVE) Urine RBC (0-2/HPF) Urine WBC (0-5/HPF) Ur Epithelial Cells (NONE-FEW) Urine Bacteria (NEGATIVE) Influenza Type A RNA (NEGATIVE) Influenza Type B RNA (NEGATIVE) SARS-CoV-2 RNA (BRENDA) (NEGATIVE) Result Diagrams: 08/16/21 05:56 08/16/21 05:56 Sepsis Event Note - Evaluation Sepsis Screening Result: No Definite Risk - Focused Exam Vital Signs: Vital Signs Temp Temp Pulse Resp BP Pulse Ox 08/15/21 21:20 36.3 C 88 16 118/70 93 L 08/15/21 21:06 85 18 131/65 95 08/15/21 18:55 88 120/63 94 L 08/15/21 17:55 86 117/67 92 L 08/15/21 17:46 36.7 C 08/15/21 17:16 37.2 C 08/15/21 16:55 102 H 132/64 93 L 08/15/21 15:54 37.2 C 96 18 136/91 H 95 - Problem List (1) Urinary tract infection SNOMED Code(s): 78468349 ICD Code: N39.0 - URINARY TRACT INFECTION, SITE NOT SPECIFIED Status: Acute Current Visit: Yes (2) Altered mental status SNOMED Code(s): 371072063 ICD Code: R41.82 - ALTERED MENTAL STATUS, UNSPECIFIED Status: Acute Current Visit: No Problem List Initiated/Reviewed/Updated: Yes Orders Last 24hrs: Active Orders 24 hr Category Date Time Status Admission Status [Patient Status] [ADT] Stat ADT 08/15/21 19:52 Active Antiembolic Devices [RC] PER UNIT ROUTINE Care 08/15/21 22:35 Ordered Blanc Catheter Insertion [Insert Urinary Catheter] [OM. Care 08/15/21 16:45 Ordered PC] Q24H Oxygen Therapy [RC] PRN Care 08/15/21 22:34 Ordered Up ad Iliana [RC] ASDIRECTED Care 08/15/21 22:34 Ordered Urinary Catheter Assessment [RC] ASDIRECTED Care 08/15/21 16:46 Active VTE/DVT Education [RC] PER UNIT ROUTINE Care 08/15/21 22:34 Ordered Vital Signs [RC] Q4H Care 08/15/21 22:34 Ordered Regular Diet [DIET] Diet 08/15/21 Breakfast Ordered BASIC METABOLIC PANEL,BMP [CHEM] AM Lab 08/16/21 05:11 Ordered CBC WITH AUTO DIFF [HEME] AM Lab 08/16/21 05:11 Ordered CULTURE URINE [MREF] Stat Lab 08/15/21 15:40 Received Enoxaparin [Lovenox] Med 08/15/21 22:45 Ordered 40 mg SUBCUT Q24H QUEtiapine [SEROqueL] Med 08/15/21 21:00 Ordered 50 mg PO BEDTIME Sodium Chloride 0.9% [Saline Flush] Med 08/15/21 16:46 Active 10 ml FLUSH ASDIRECTED PRN Sodium Chloride 0.9% [Saline Flush] Med 08/15/21 16:46 Active 2.5 ml FLUSH ASDIRECTED PRN cefTRIAXone [Rocephin in Dextrose,Iso-Osm 1 GM/50 ML] 1 Med 08/16/21 18:00 Ordered gm Premix Bag 1 bag IV Q24H Saline Lock Insert [OM.PC] Stat Oth 08/15/21 16:46 Ordered Sequential Compression Device [OM.PC] Per Unit Routine Oth 08/15/21 22:35 Ordered Medication Orders Ceftriaxone Sodium/Dextrose 1 (gm/ Premix) 50 mls @ 100 mls/hr IV Q24H [facility] Quetiapine Fumarate (Quetiapine 25 Mg Tab) 50 mg PO BEDTIME [facility] Sodium Chloride (Sodium Chloride 0.9% 10 Ml Syringe) 10 ml FLUSH ASDIRECTED PRN PRN Reason: Keep Vein Open Last Admin: 08/15/21 17:17 Dose: 10 ml Documented by: NORA Sodium Chloride (Sodium Chloride 0.9% 2.5 Ml Syringe) 2.5 ml FLUSH ASDIRECTED PRN PRN Reason: Keep Vein Open Last Admin: 08/15/21 17:17 Dose: 2.5 ml Documented by: NORA Assessment/Plan Comment:: 71 yo male admitted for UTI. Blanc catheter has been exchanged. We will treat with Rocephin.
[2021-08-15] MEDS: QUEtiapine 25 MG Tab PO SCH (22:48)
[2021-08-15] MEDS: Enoxaparin 40 MG/0.4 ML Syringe SUBCUT SCH (22:49)
[2021-08-16 06:52] LABS: BLOOD UREA NITROGEN,BUN 15 mg/dL (7.0-18.0); CARBON DIOXIDE,CO2 27.4 mmol/L (21.0-32.0); CHLORIDE,CL 107 mmol/L (98-107); GLUCOSE RANDOM 84 mg/dL (74-106); POTASSIUM,K 3.8 mmol/L (3.5-5.1); SODIUM,NA 141 mmol/L (136-148)
--- NOTE | 2021-08-16 11:57 | PCM.PN ---
- General Info Date of Service: 08/16/21 - Review of Systems Systems Review Comment:: denies any pain, no fevers, more alert today - Patient Data Vitals - Most Recent: Last Vital Signs Temp 35.9 C L 08/16/21 09:57 Pulse 54 L 08/16/21 09:57 Resp 18 08/16/21 09:57 BP 119/59 L 08/16/21 09:57 Pulse Ox 95 08/16/21 09:57 Weight - Most Recent: 53.07 kg I&O - Last 24 Hours: Intake & Output 08/15/21 08/16/21 08/16/21 22:59 06:59 14:59 Intake Total 560 Output Total 400 Balance 160 Lab Results Last 24 Hours: Laboratory Results - last 24 hr 08/15/21 08/15/21 08/15/21 Range/Units 15:40 15:58 17:17 WBC 10.30 (4.0-11.0) K/uL RBC 4.60 (4.50-5.90) M/uL Hgb 12.8 L (13.0-17.0) g/dL Hct 39.9 (38.0-50.0) % MCV 86.7 (80.0-98.0) fL MCH 27.8 (27.0-32.0) pg MCHC 32.1 (31.0-37.0) g/dL RDW Std Deviation 48.8 (28.0-62.0) fl RDW Coeff of Azeem 15 (11.0-15.0) % Plt Count 348 (150-400) K/uL MPV 10.30 (7.40-12.00) fL Neut % (Auto) 74.5 (48.0-80.0) % Lymph % (Auto) 10.9 L (16.0-40.0) % [place] % (Auto) 12.4 (0.0-15.0) % Eos % (Auto) 1.8 (0.0-7.0) % Baso % (Auto) 0.4 (0.0-1.5) % Neut # (Auto) 7.7 H (1.4-5.7) K/uL Lymph # (Auto) 1.1 (0.6-2.4) K/uL [place] # (Auto) 1.3 H (0.0-0.8) K/uL Eos # (Auto) 0.2 (0.0-0.7) K/uL Baso # (Auto) 0.0 (0.0-0.1) K/uL Nucleated RBC % 0.0 /100WBC Nucleated RBCs # 0 K/uL Sodium (136-148) mmol/L Potassium (3.5-5.1) mmol/L Chloride (98-107) mmol/L Carbon Dioxide (21.0-32.0) mmol/L BUN (7.0-18.0) mg/dL Creatinine (0.8-1.3) mg/dL Est Cr Clr Drug Dosing mL/min Estimated GFR (MDRD) ml/min Glucose (74-106) mg/dL Calcium (8.5-10.1) mg/dL Total Bilirubin (0.2-1.0) mg/dL AST (15-37) IU/L ALT (14-63) IU/L Alkaline Phosphatase (46-116) U/L Total Protein (6.4-8.2) g/dL Albumin (3.4-5.0) g/dL Globulin (2.6-4.0) g/dL Albumin/Globulin Ratio (0.9-1.6) Urine Color YELLOW Urine Appearance CLOUDY Urine pH 7.5 (5.0-8.0) Ur Specific [place] 1.020 (1.001-1.035) Urine Protein 100 H (NEGATIVE) mg/dL Urine Glucose (UA) NEGATIVE (NEGATIVE) mg/dL Urine Ketones NEGATIVE (NEGATIVE) mg/dL Urine Occult Blood SMALL H (NEGATIVE) Urine Nitrite NEGATIVE (NEGATIVE) Urine Bilirubin NEGATIVE (NEGATIVE) Urine Urobilinogen 0.2 (<2.0) EU/dL Ur Leukocyte Esterase LARGE H (NEGATIVE) Urine RBC 3-6 (0-2/HPF) Urine WBC 40-50 (0-5/HPF) Ur Epithelial Cells OCCASIONAL (NONE-FEW) Urine Bacteria 3+ H (NEGATIVE) Influenza Type A RNA NEGATIVE (NEGATIVE) Influenza Type B RNA NEGATIVE (NEGATIVE) SARS-CoV-2 RNA (BRENDA) NEGATIVE (NEGATIVE) 08/15/21 08/16/21 08/16/21 Range/Units 17:17 05:56 05:56 WBC 6.75 (4.0-11.0) K/uL RBC 4.20 L (4.50-5.90) M/uL Hgb 11.7 L (13.0-17.0) g/dL Hct 36.6 L (38.0-50.0) % MCV 87.1 (80.0-98.0) fL MCH 27.9 (27.0-32.0) pg MCHC 32.0 (31.0-37.0) g/dL RDW Std Deviation 48.8 (28.0-62.0) fl RDW Coeff of Azeem 15 (11.0-15.0) % Plt Count 305 (150-400) K/uL MPV 11.20 (7.40-12.00) fL Neut % (Auto) 53.6 (48.0-80.0) % Lymph % (Auto) 22.2 (16.0-40.0) % [place] % (Auto) 19.1 H (0.0-15.0) % Eos % (Auto) 4.7 (0.0-7.0) % Baso % (Auto) 0.4 (0.0-1.5) % Neut # (Auto) 3.6 (1.4-5.7) K/uL Lymph # (Auto) 1.5 (0.6-2.4) K/uL [place] # (Auto) 1.3 H (0.0-0.8) K/uL Eos # (Auto) 0.3 (0.0-0.7) K/uL Baso # (Auto) 0.0 (0.0-0.1) K/uL Nucleated RBC % 0.0 /100WBC Nucleated RBCs # 0 K/uL Sodium 141 141 (136-148) mmol/L Potassium 4.1 3.8 (3.5-5.1) mmol/L Chloride 104 107 (98-107) mmol/L Carbon Dioxide 27.5 27.4 (21.0-32.0) mmol/L BUN 28 H 15 (7.0-18.0) mg/dL Creatinine 1.3 0.9 (0.8-1.3) mg/dL Est Cr Clr Drug Dosing 40.71 57.33 mL/min Estimated GFR (MDRD) 54.6 > 60.0 ml/min Glucose 107 H 84 (74-106) mg/dL Calcium 8.4 L 8.0 L (8.5-10.1) mg/dL Total Bilirubin 0.3 (0.2-1.0) mg/dL AST 5 L (15-37) IU/L ALT 8 L (14-63) IU/L Alkaline Phosphatase 85 (46-116) U/L Total Protein 7.3 (6.4-8.2) g/dL Albumin 3.7 (3.4-5.0) g/dL Globulin 3.6 (2.6-4.0) g/dL Albumin/Globulin Ratio 1.0 (0.9-1.6) Urine Color Urine Appearance Urine pH (5.0-8.0) Ur Specific [place] (1.001-1.035) Urine Protein (NEGATIVE) mg/dL Urine Glucose (UA) (NEGATIVE) mg/dL Urine Ketones (NEGATIVE) mg/dL Urine Occult Blood (NEGATIVE) Urine Nitrite (NEGATIVE) Urine Bilirubin (NEGATIVE) Urine Urobilinogen (<2.0) EU/dL Ur Leukocyte Esterase (NEGATIVE) Urine RBC (0-2/HPF) Urine WBC (0-5/HPF) Ur Epithelial Cells (NONE-FEW) Urine Bacteria (NEGATIVE) Influenza Type A RNA (NEGATIVE) Influenza Type B RNA (NEGATIVE) SARS-CoV-2 RNA (BRENDA) (NEGATIVE) Med Orders - Current: Current Medications Enoxaparin Sodium (Enoxaparin 40 Mg/0.4 Ml Syringe) 40 mg SUBCUT Q24H [facility] Last Admin: 08/15/21 22:49 Dose: 40 mg Documented by: Ceftriaxone Sodium/Dextrose 1 (gm/ Premix) 50 mls @ 100 mls/hr IV Q24H [facility] Quetiapine Fumarate (Quetiapine 25 Mg Tab) 50 mg PO BEDTIME [facility] Last Admin: 08/15/21 22:48 Dose: 50 mg Documented by: Sodium Chloride (Sodium Chloride 0.9% 10 Ml Syringe) 10 ml FLUSH ASDIRECTED PRN PRN Reason: Keep Vein Open Last Admin: 08/15/21 17:17 Dose: 10 ml Documented by: Sodium Chloride (Sodium Chloride 0.9% 2.5 Ml Syringe) 2.5 ml FLUSH ASDIRECTED PRN PRN Reason: Keep Vein Open Last Admin: 08/15/21 17:17 Dose: 2.5 ml Documented by: Discontinued Medications Acetaminophen (Acetaminophen 500 Mg Tab) 1,000 mg PO ONETIME ONE Stop: 08/15/21 16:48 Last Admin: 08/15/21 17:16 Dose: 1,000 mg Documented by: Sodium Chloride (Normal Saline) 1,000 mls @ 750 mls/hr IV STAT ONE Stop: 08/15/21 18:06 Last Admin: 08/15/21 17:25 Dose: 750 mls/hr Documented by: Ceftriaxone Sodium 1,000 mg/ (Sodium Chloride) 50 mls @ 100 mls/hr IV ONETIME ONE Stop: 08/15/21 18:43 Last Admin: 08/15/21 18:22 Dose: Not Given Documented by: Ceftriaxone Sodium/Dextrose 1 (gm/ Premix) 50 mls @ 100 mls/hr IV ONETIME ONE Stop: 08/15/21 18:50 Last Admin: 08/15/21 18:25 Dose: 100 mls/hr Documented by: Lorazepam (Lorazepam 2 Mg/Ml Sdv) 1 mg IVPUSH ONETIME ONE Stop: 08/15/21 16:54 Last Admin: 08/15/21 17:21 Dose: 1 mg Documented by: - Exam Urinary Catheter Total Time: 0Days 0Hours General: Cooperative Lungs: Clear to Auscultation, Normal Respiratory Effort Cardiovascular: Regular Rate, Regular Rhythm GI/Abdominal Exam: Normal Bowel Sounds, Soft Extremities: Non-Tender, No Pedal Edema Skin: Warm, Dry, Intact Neurological: No New Focal Deficit - Patient Data Lab Results Last 24 hrs: Laboratory Results - last 24 hr 08/15/21 08/15/21 08/15/21 Range/Units 15:40 15:58 17:17 WBC 10.30 (4.0-11.0) K/uL RBC 4.60 (4.50-5.90) M/uL Hgb 12.8 L (13.0-17.0) g/dL Hct 39.9 (38.0-50.0) % MCV 86.7 (80.0-98.0) fL MCH 27.8 (27.0-32.0) pg MCHC 32.1 (31.0-37.0) g/dL RDW Std Deviation 48.8 (28.0-62.0) fl RDW Coeff of Azeem 15 (11.0-15.0) % Plt Count 348 (150-400) K/uL MPV 10.30 (7.40-12.00) fL Neut % (Auto) 74.5 (48.0-80.0) % Lymph % (Auto) 10.9 L (16.0-40.0) % [place] % (Auto) 12.4 (0.0-15.0) % Eos % (Auto) 1.8 (0.0-7.0) % Baso % (Auto) 0.4 (0.0-1.5) % Neut # (Auto) 7.7 H (1.4-5.7) K/uL Lymph # (Auto) 1.1 (0.6-2.4) K/uL [place] # (Auto) 1.3 H (0.0-0.8) K/uL Eos # (Auto) 0.2 (0.0-0.7) K/uL Baso # (Auto) 0.0 (0.0-0.1) K/uL Nucleated RBC % 0.0 /100WBC Nucleated RBCs # 0 K/uL Sodium (136-148) mmol/L Potassium (3.5-5.1) mmol/L Chloride (98-107) mmol/L Carbon Dioxide (21.0-32.0) mmol/L BUN (7.0-18.0) mg/dL Creatinine (0.8-1.3) mg/dL Est Cr Clr Drug Dosing mL/min Estimated GFR (MDRD) ml/min Glucose (74-106) mg/dL Calcium (8.5-10.1) mg/dL Total Bilirubin (0.2-1.0) mg/dL AST (15-37) IU/L ALT (14-63) IU/L Alkaline Phosphatase (46-116) U/L Total Protein (6.4-8.2) g/dL Albumin (3.4-5.0) g/dL Globulin (2.6-4.0) g/dL Albumin/Globulin Ratio (0.9-1.6) Urine Color YELLOW Urine Appearance CLOUDY Urine pH 7.5 (5.0-8.0) Ur Specific [place] 1.020 (1.001-1.035) Urine Protein 100 H (NEGATIVE) mg/dL Urine Glucose (UA) NEGATIVE (NEGATIVE) mg/dL Urine Ketones NEGATIVE (NEGATIVE) mg/dL Urine Occult Blood SMALL H (NEGATIVE) Urine Nitrite NEGATIVE (NEGATIVE) Urine Bilirubin NEGATIVE (NEGATIVE) Urine Urobilinogen 0.2 (<2.0) EU/dL Ur Leukocyte Esterase LARGE H (NEGATIVE) Urine RBC 3-6 (0-2/HPF) Urine WBC 40-50 (0-5/HPF) Ur Epithelial Cells OCCASIONAL (NONE-FEW) Urine Bacteria 3+ H (NEGATIVE) Influenza Type A RNA NEGATIVE (NEGATIVE) Influenza Type B RNA NEGATIVE (NEGATIVE) SARS-CoV-2 RNA (BRENDA) NEGATIVE (NEGATIVE) 08/15/21 08/16/21 08/16/21 Range/Units 17:17 05:56 05:56 WBC 6.75 (4.0-11.0) K/uL RBC 4.20 L (4.50-5.90) M/uL Hgb 11.7 L (13.0-17.0) g/dL Hct 36.6 L (38.0-50.0) % MCV 87.1 (80.0-98.0) fL MCH 27.9 (27.0-32.0) pg MCHC 32.0 (31.0-37.0) g/dL RDW Std Deviation 48.8 (28.0-62.0) fl RDW Coeff of Azeem 15 (11.0-15.0) % Plt Count 305 (150-400) K/uL MPV 11.20 (7.40-12.00) fL Neut % (Auto) 53.6 (48.0-80.0) % Lymph % (Auto) 22.2 (16.0-40.0) % Scott % (Auto) 19.1 H (0.0-15.0) % Eos % (Auto) 4.7 (0.0-7.0) % Baso % (Auto) 0.4 (0.0-1.5) % Neut # (Auto) 3.6 (1.4-5.7) K/uL Lymph # (Auto) 1.5 (0.6-2.4) K/uL Scott # (Auto) 1.3 H (0.0-0.8) K/uL Eos # (Auto) 0.3 (0.0-0.7) K/uL Baso # (Auto) 0.0 (0.0-0.1) K/uL Nucleated RBC % 0.0 /100WBC Nucleated RBCs # 0 K/uL Sodium 141 141 (136-148) mmol/L Potassium 4.1 3.8 (3.5-5.1) mmol/L Chloride 104 107 (98-107) mmol/L Carbon Dioxide 27.5 27.4 (21.0-32.0) mmol/L BUN 28 H 15 (7.0-18.0) mg/dL Creatinine 1.3 0.9 (0.8-1.3) mg/dL Est Cr Clr Drug Dosing 40.71 57.33 mL/min Estimated GFR (MDRD) 54.6 > 60.0 ml/min Glucose 107 H 84 (74-106) mg/dL Calcium 8.4 L 8.0 L (8.5-10.1) mg/dL Total Bilirubin 0.3 (0.2-1.0) mg/dL AST 5 L (15-37) IU/L ALT 8 L (14-63) IU/L Alkaline Phosphatase 85 (46-116) U/L Total Protein 7.3 (6.4-8.2) g/dL Albumin 3.7 (3.4-5.0) g/dL Globulin 3.6 (2.6-4.0) g/dL Albumin/Globulin Ratio 1.0 (0.9-1.6) Urine Color Urine Appearance Urine pH (5.0-8.0) Ur Specific [place] (1.001-1.035) Urine Protein (NEGATIVE) mg/dL Urine Glucose (UA) (NEGATIVE) mg/dL Urine Ketones (NEGATIVE) mg/dL Urine Occult Blood (NEGATIVE) Urine Nitrite (NEGATIVE) Urine Bilirubin (NEGATIVE) Urine Urobilinogen (<2.0) EU/dL Ur Leukocyte Esterase (NEGATIVE) Urine RBC (0-2/HPF) Urine WBC (0-5/HPF) Ur Epithelial Cells (NONE-FEW) Urine Bacteria (NEGATIVE) Influenza Type A RNA (NEGATIVE) Influenza Type B RNA (NEGATIVE) SARS-CoV-2 RNA (BRENDA) (NEGATIVE) Result Diagrams: 08/16/21 05:56 08/16/21 05:56 Sepsis Event Note - Evaluation Sepsis Screening Result: No Definite Risk - Focused Exam Vital Signs: Vital Signs Temp Pulse Resp BP Pulse Ox 08/16/21 09:57 35.9 C L 54 L 18 119/59 L 95 08/16/21 04:26 36.1 C 63 18 134/51 L 95 - Problem List & Annotations (1) Urinary tract infection SNOMED Code(s): 53970756 Code(s): N39.0 - URINARY TRACT INFECTION, SITE NOT SPECIFIED Status: Acute Current Visit: Yes (2) Altered mental status SNOMED Code(s): 243367763 Code(s): R41.82 - ALTERED MENTAL STATUS, UNSPECIFIED Status: Acute Current Visit: No - Problem List Review Problem List Initiated/Reviewed/Updated: Yes - My Orders Last 24 Hours: My Active Orders 08/15/21 21:00 QUEtiapine [SEROqueL] 50 mg PO BEDTIME 08/15/21 22:34 Oxygen Therapy [RC] PRN Up ad Iliana [RC] ASDIRECTED VTE/DVT Education [RC] PER UNIT ROUTINE Vital Signs [RC] Q4H 08/15/21 22:35 Antiembolic Devices [RC] PER UNIT ROUTINE Sequential Compression Device [OM.PC] Per Unit Routine 08/15/21 22:45 Enoxaparin [Lovenox] 40 mg SUBCUT Q24H 08/16/21 18:00 cefTRIAXone [Rocephin in Dextrose,Iso-Osm 1 GM/50 ML] 1 gm Premix Bag 1 bag IV Q24H - Plan Plan:: 71 yo male admitted for UTI. Prince catheter has been exchanged. We will continue Rocephin. Cultures pending. Plan on discharge home tomorrow.
[2021-08-16] MEDS ORDERED: cefTRIAXone 1 GM in Premix Bag 1 BAG IV SCH (18:00)
[2021-08-16] MEDS: QUEtiapine 25 MG Tab PO SCH (21:48)
[2021-08-16] MEDS: Enoxaparin 40 MG/0.4 ML Syringe SUBCUT SCH (21:50)
[2021-08-16] MEDS ORDERED: Albuterol/Ipratropium 3.0-0.5 MG/3 ML Neb Soln NEB PRN (23:59)
--- NOTE | 2021-08-17 12:00 | PCM.DCSUM1 ---
Discharge Summary - Discharge Data Discharge Date: 08/17/21 Discharge Disposition: Home, Self-Care 01 Condition: Good - Referral to Home Health Primary Care Physician: Renato Sol MD - Discharge Diagnosis/Problem(s) (1) Urinary tract infection SNOMED Code(s): 91188733 ICD Code: N39.0 - URINARY TRACT INFECTION, SITE NOT SPECIFIED Status: Acute Current Visit: Yes (2) Altered mental status SNOMED Code(s): 222014266 ICD Code: R41.82 - ALTERED MENTAL STATUS, UNSPECIFIED Status: Acute Current Visit: No - Patient Summary/Data Hospital Course: 71 yo male with pmh of dementia and urinary obstruction with chronic indwelling blanc who present with fever and worsening confusion. He was found to have a UTI. His blanc was replaced and he was treated with IV fluids and Rocephin. He has improvement in his mentation back to his baseline. He is to be discharge home today. Family was informed of the need to replace the blanc monthly. - Patient Instructions Diet: Regular Diet as Tolerated Activity: As Tolerated - Discharge Plan Prescriptions/Med Rec: cephALEXin [Keflex] 500 mg PO BID #14 cap Home Medications: Home Meds Albuterol Sulfate [Albuterol Sulfate HFA] 8.5 gm INH Q2H #1 inhaler 01/27/21 [Rx] Docusate Sodium [Colace] 100 mg PO BID PRN #30 cap 01/27/21 [Rx] QUEtiapine [SEROquel] 50 mg PO BEDTIME #30 tab 01/27/21 [Rx] Tamsulosin [Flomax] 0.4 mg PO DAILY 30 Days #30 cap.er 03/10/21 [Rx] cephALEXin [Keflex] 500 mg PO BID #14 cap 08/17/21 [Rx] Patient Handouts: Acute Urinary Retention, Male, [id number] Referrals: Renato Sol MD [Primary Care Provider] - 08/28/21 3:15 pm - Discharge Summary/Plan Comment DC Time >30 min.: No Total # of Minutes for Discharge Time: 15 - Patient Data Vitals - Most Recent: Last Vital Signs Temp 36.4 C 08/17/21 09:00 Pulse 57 L 08/17/21 09:00 Resp 16 08/17/21 09:00 BP 112/61 08/17/21 09:00 Pulse Ox 94 L 08/17/21 09:00 Weight - Most Recent: 53.07 kg I&O - Last 24 hours: Intake & Output 08/16/21 08/17/21 08/17/21 22:59 06:59 14:59 Intake Total 1340 600 Output Total 1600 2400 Balance -260 -1800 Med Orders - Current: Current Medications Albuterol/Ipratropium (Albuterol/Ipratropium 3.0-0.5 Mg/3 Ml Neb Soln) 3 ml NEB Q6HRRT PRN PRN Reason: Wheezing Enoxaparin Sodium (Enoxaparin 40 Mg/0.4 Ml Syringe) 40 mg SUBCUT Q24H LEONARD Last Admin: 08/16/21 21:50 Dose: 40 mg Documented by: Ceftriaxone Sodium/Dextrose 1 (gm/ Premix) 50 mls @ 100 mls/hr IV Q24H LEONARD Last Admin: 08/16/21 18:02 Dose: 100 mls/hr Documented by: Quetiapine Fumarate (Quetiapine 25 Mg Tab) 50 mg PO BEDTIME LEONARD Last Admin: 08/16/21 21:48 Dose: 50 mg Documented by: Sodium Chloride (Sodium Chloride 0.9% 10 Ml Syringe) 10 ml FLUSH ASDIRECTED PRN PRN Reason: Keep Vein Open Last Admin: 08/15/21 17:17 Dose: 10 ml Documented by: Sodium Chloride (Sodium Chloride 0.9% 2.5 Ml Syringe) 2.5 ml FLUSH ASDIRECTED PRN PRN Reason: Keep Vein Open Last Admin: 08/15/21 17:17 Dose: 2.5 ml Documented by: Discontinued Medications Acetaminophen (Acetaminophen 500 Mg Tab) 1,000 mg PO ONETIME ONE Stop: 08/15/21 16:48 Last Admin: 08/15/21 17:16 Dose: 1,000 mg Documented by: Sodium Chloride (Normal Saline) 1,000 mls @ 750 mls/hr IV STAT ONE Stop: 08/15/21 18:06 Last Admin: 08/15/21 17:25 Dose: 750 mls/hr Documented by: Ceftriaxone Sodium 1,000 mg/ (Sodium Chloride) 50 mls @ 100 mls/hr IV ONETIME ONE Stop: 08/15/21 18:43 Last Admin: 12/29/21 18:22 Dose: Not Given Documented by: Ceftriaxone Sodium/Dextrose 1 (gm/ Premix) 50 mls @ 100 mls/hr IV ONETIME ONE Stop: 08/15/21 18:50 Last Admin: 08/15/21 18:25 Dose: 100 mls/hr Documented by: Lorazepam (Lorazepam 2 Mg/Ml Sdv) 1 mg IVPUSH ONETIME ONE Stop: 08/15/21 16:54 Last Admin: 08/15/21 17:21 Dose: 1 mg Documented by:
== END 2021-08-17 13:30 | disposition home or self-care (01) ==
LOC: MW.ED 15:44 → MW.MS 19:52
PROVIDERS: ADMIT Internal Medicine; ATTEND Internal Medicine
DX: N39.0 Urinary tract infection, site not specified (principal); R41.82 Altered mental status, unspecified; F03.90 Unspecified dementia, unspecified severity, without behavioral disturbance, psychotic disturbance, mood disturbance, and anxiety; J44.9 Chronic obstructive pulmonary disease, unspecified; Z79.899 Other long term (current) drug therapy; Z98.890 Other specified postprocedural states; Z20.822 Contact with and (suspected) exposure to COVID-19
CPT/HCPCS: 0240U; 36415; 51702; 80048; 80053; 81001; 85025; 87086; 96374; 96375; 99284-25; A9270-GY; J0696; J1650; J2060; J7030

== ENCOUNTER 2022-01-05 13:35 | Emergency (ER) | payer MEDICARE, OTHER ==
[2022-01-05] MEDS ORDERED: LORazepam 2 MG/ML SDV IM ONE (14:23)
[2022-01-05] MEDS ORDERED: Cephalexin 500 MG Cap PO ONE (15:18)
== END 2022-01-05 15:35 | disposition home or self-care (01) ==
LOC: MW.ED 13:35
DX: T83.021A Displacement of indwelling urethral catheter, initial encounter (principal); N39.0 Urinary tract infection, site not specified; F03.91 Unspecified dementia, unspecified severity, with behavioral disturbance; J45.909 Unspecified asthma, uncomplicated; Z79.899 Other long term (current) drug therapy
CPT/HCPCS: 51702; 81001; 87086; 96372; 99283; A9270; J2060

== ENCOUNTER 2022-02-05 15:48 | Emergency (ER) | payer MEDICARE, OTHER | END 2022-02-05 17:17 | disposition home or self-care (01) | LOC: MW.ED 15:48 | DX: T83.091A Other mechanical complication of indwelling urethral catheter, initial encounter (principal); J45.909 Unspecified asthma, uncomplicated; Z79.899 Other long term (current) drug therapy | CPT/HCPCS: 51702; 99283-25 ==

== ENCOUNTER 2022-02-26 16:01 | Emergency (ER) | payer MEDICARE, OTHER ==
[2022-02-26] MEDS ORDERED: LORazepam 2 MG/ML SDV IM ONE (16:34)
[2022-02-26] MEDS ORDERED: Lidocaine 2% Jelly 30 ML Tube MUCMEM STA (17:34)
== END 2022-02-26 18:09 | disposition home or self-care (01) ==
LOC: MW.ED 16:01
DX: R31.9 Hematuria, unspecified (principal); N48.89 Other specified disorders of penis; J44.9 Chronic obstructive pulmonary disease, unspecified; Z79.899 Other long term (current) drug therapy
CPT/HCPCS: 96372; 99283; J2060

== ENCOUNTER 2022-02-28 17:32 | Inpatient (IN) | payer MEDICARE, OTHER ==
[2022-02-28] MEDS ORDERED: Piperacillin/Tazobactam 4.5 GM in Sodium Chloride 0.9% 100 ML IV ONE (17:47)
[2022-02-28] MEDS ORDERED: Acetaminophen 500 MG Tab PO ONE (17:47)
[2022-02-28] MEDS ORDERED: Sodium Chloride 0.9% 1,000 ML IV ONE ×2 (17:47→17:48)
[2022-02-28 18:37] LABS: CARBON DIOXIDE,CO2 25.4 mmol/L (21.0-32.0); POTASSIUM,K 3.7 mmol/L (3.5-5.1)
[2022-02-28] MEDS ORDERED: Ondansetron 4 MG/2 ML SDV IVPUSH PRN (21:21)
[2022-02-28] MEDS ORDERED: Acetaminophen 325 MG Tab PO PRN (21:21)
[2022-02-28] MEDS: Pantoprazole 40 MG in Sodium Chloride 0.9% 10 ML IVPUSH SCH (22:22)
[2022-02-28] MEDS: Heparin Sodium 5,000 Units/ML Vial SUBCUT SCH (22:23)
[2022-02-28] MEDS: Meropenem Premix 50 ML IV SCH (22:23)
[2022-02-28] MEDS: Nicotine 14 MG/24 Hr Patch TRDERM SCH (23:01)
[2022-03-01] MEDS: Heparin Sodium 5,000 Units/ML Vial SUBCUT SCH ×3 (04:53→21:40)
[2022-03-01] MEDS: Meropenem Premix 50 ML IV SCH ×3 (04:53→21:38)
[2022-03-01 06:21] LABS: CARBON DIOXIDE,CO2 22.3 mmol/L (21.0-32.0); POTASSIUM,K 2.9 mmol/L (3.5-5.1)
[2022-03-01] MEDS: Nicotine 14 MG/24 Hr Patch TRDERM SCH (10:00)
[2022-03-01] MEDS ORDERED: Phosphorus #1 250 MG Tab PO ONE (12:37)
[2022-03-01] MEDS ORDERED: Lactated Ringers 1,000 ML IV SCH (12:45)
[2022-03-01] MEDS: Dextrose 5%-Lact Ringers w/KCl 1,000 ML IV SCH ×3 (15:04→22:50)
[2022-03-01] MEDS: Pantoprazole 40 MG in Sodium Chloride 0.9% 10 ML IVPUSH SCH (21:39)
[2022-03-02] MEDS: Lactated Ringers 1,000 ML IV SCH ×3 (01:44→19:49)
[2022-03-02] MEDS: Meropenem Premix 50 ML IV SCH (05:24)
[2022-03-02] MEDS: Heparin Sodium 5,000 Units/ML Vial SUBCUT SCH ×3 (05:24→21:02)
[2022-03-02 06:12] LABS: CARBON DIOXIDE,CO2 26.8 mmol/L (21.0-32.0); POTASSIUM,K 3.1 mmol/L (3.5-5.1)
[2022-03-02] MEDS: Nicotine 14 MG/24 Hr Patch TRDERM SCH (08:01)
[2022-03-02] MEDS ORDERED: Potassium Chloride 20 MEQ Tab.ER PO ONE (08:56)
[2022-03-02] MEDS ORDERED: Magnesium Sulfate/Water 2 GM in Premix Bag 1 BAG IV ONE (10:00)
[2022-03-02] MEDS: Phosphorus #1 250 MG Tab PO SCH ×3 (12:38→23:20)
[2022-03-02] MEDS: Albuterol/Ipratropium 3.0-0.5 MG/3 ML Neb Soln NEB PRN (12:56)
[2022-03-02] MEDS ORDERED: cefTRIAXone 2 GM in Sodium Chloride 0.9% 100 ML IV SCH (13:00)
[2022-03-02] MEDS ORDERED: cefTRIAXone 2 GM/50 ML BAG IV SCH (13:15)
[2022-03-02] MEDS: Pantoprazole 40 MG in Sodium Chloride 0.9% 10 ML IVPUSH SCH (21:02)
[2022-03-02] MEDS ORDERED: QUEtiapine 25 MG Tab PO SCH (23:47)
[2022-03-02] MEDS ORDERED: Docusate Sodium 100 MG Cap PO PRN (23:47)
[2022-03-03] MEDS: Lactated Ringers 1,000 ML IV SCH (04:05)
[2022-03-03] MEDS: Heparin Sodium 5,000 Units/ML Vial SUBCUT SCH (05:14)
[2022-03-03] MEDS: Phosphorus #1 250 MG Tab PO SCH ×2 (05:14→12:21)
[2022-03-03 06:16] LABS: CARBON DIOXIDE,CO2 31.1 mmol/L (21.0-32.0)
[2022-03-03] MEDS: Albuterol/Ipratropium 3.0-0.5 MG/3 ML Neb Soln NEB PRN (07:40)
[2022-03-03] MEDS ORDERED: Magnesium Sulfate/Water 2 GM in Premix Bag 1 BAG IV ONE (08:56)
[2022-03-03] MEDS ORDERED: Potassium Chloride 10% 20 MEQ/15 ML Soln 30 ML UD Cup PO ONE ×2 (08:59→12:00)
[2022-03-03] MEDS ORDERED: Tamsulosin 0.4 MG Cap.ER PO SCH (09:00)
[2022-03-03] MEDS ORDERED: POTASSIUM CHLORIDE IV ONE (09:01)
[2022-03-03] MEDS: Nicotine 14 MG/24 Hr Patch TRDERM SCH (10:03)
[2022-03-03] MEDS ORDERED: Levofloxacin 750 MG Tab PO SCH (11:30)
[2022-03-03] MEDS ORDERED: Donepezil 5 MG Tab PO SCH (21:00)
== END 2022-03-03 13:25 | disposition home health service (06) | DRG 698 ==
LOC: MW.ED 17:32 → MW.MS 20:12
PROVIDERS: ADMIT Student in an Organized Health Care Education/Training Program; ATTEND Student in an Organized Health Care Education/Training Program
DX: T83.511A Infection and inflammatory reaction due to indwelling urethral catheter, initial encounter (principal); A41.9 Sepsis, unspecified organism; R65.20 Severe sepsis without septic shock; Z93.6 Other artificial openings of urinary tract status; N13.9 Obstructive and reflux uropathy, unspecified; F03.91 Unspecified dementia, unspecified severity, with behavioral disturbance; N17.9 Acute kidney failure, unspecified; N39.0 Urinary tract infection, site not specified; F03.90 Unspecified dementia, unspecified severity, without behavioral disturbance, psychotic disturbance, mood disturbance, and anxiety; Z20.822 Contact with and (suspected) exposure to COVID-19; Z96.0 Presence of urogenital implants; J44.9 Chronic obstructive pulmonary disease, unspecified; E83.42 Hypomagnesemia; E87.6 Hypokalemia; E86.0 Dehydration; Y84.6 Urinary catheterization as the cause of abnormal reaction of the patient, or of later complication, without mention of misadventure at the time of the procedure; Y92.89 Other specified places as the place of occurrence of the external cause; Z79.52 Long term (current) use of systemic steroids; Z79.899 Other long term (current) drug therapy; Z79.2 Long term (current) use of antibiotics
CPT/HCPCS: 36415; 71045; 74176; 80053; 81001; 83605; 83735; 84484; 85025; 85610; 85730; 86140; 87040 ×2; 87086; 93005; 96361; 96365; 99285; A9270 ×2; J2543; J7030 ×2; U0002; 80048; 84100; 94640; 97163-GP; C9113; J0696; J1644; J2185; J3475; J3480; J3490; J7120; J7620-GY

== ENCOUNTER 2022-08-16 14:04 | Inpatient (IN) | payer MEDICARE, OTHER ==
[~2022-08-16 14:04] MED LIST: Docusate Sodium/Sennosides Tab PO PRN
[2022-08-16] MEDS ORDERED: Albuterol 0.083% 2.5 MG/3 ML Neb Soln INH PRN (14:42)
[2022-08-16] MEDS ORDERED: Bisacodyl 10 MG Supp RECTAL PRN (14:55)
[2022-08-16] MEDS ORDERED: Haloperidol Lactate 2 MG/ML Oral Soln 15 ML Bottle PO PRN (14:55)
[2022-08-16] MEDS ORDERED: Ibuprofen 200 MG Tab PO PRN (15:00)
[2022-08-16] MEDS: LORazepam ORAL Concentrate 1MG/0.5ML U/D PO PRN (16:00)
[2022-08-16] MEDS ORDERED: Docusate Sodium 100 MG Cap PO PRN (21:00)
[2022-08-16] MEDS: QUEtiapine 25 MG Tab PO SCH (21:27)
[2022-08-16] MEDS: Fluticasone/Salmeterol 250-50 MCG Inhalation Powder 14/Diskus INH SCH (21:27)
[2022-08-17] MEDS: LORazepam ORAL Concentrate 1MG/0.5ML U/D PO PRN ×4 (00:30→21:44)
[2022-08-17] MEDS: Morphine 10 MG/0.5 ML Oral Syringe PO PRN ×4 (04:01→23:51)
[2022-08-17] MEDS: Fluticasone/Salmeterol 250-50 MCG Inhalation Powder 14/Diskus INH SCH ×2 (08:45→21:44)
[2022-08-17] MEDS: QUEtiapine 25 MG Tab PO SCH (21:43)
[2022-08-18] MEDS: Morphine 10 MG/0.5 ML Oral Syringe PO PRN (01:58)
[2022-08-18] MEDS: LORazepam ORAL Concentrate 1MG/0.5ML U/D PO PRN (03:26)
[2022-08-18] MEDS: Fluticasone/Salmeterol 250-50 MCG Inhalation Powder 14/Diskus INH SCH ×3 (08:12→22:33)
[2022-08-18] MEDS: QUEtiapine 25 MG Tab PO SCH ×2 (21:47→22:33)
[2022-08-19] MEDS: Morphine 10 MG/0.5 ML Oral Syringe PO PRN ×2 (06:43→14:01)
[2022-08-19] MEDS: Fluticasone/Salmeterol 250-50 MCG Inhalation Powder 14/Diskus INH SCH ×2 (12:29→21:46)
[2022-08-19] MEDS: QUEtiapine 25 MG Tab PO SCH (21:46)
[2022-08-20] MEDS: Fluticasone/Salmeterol 250-50 MCG Inhalation Powder 14/Diskus INH SCH ×3 (12:01→21:52)
[2022-08-20] MEDS: LORazepam ORAL Concentrate 1MG/0.5ML U/D PO PRN (21:52)
[2022-08-20] MEDS: QUEtiapine 25 MG Tab PO SCH (21:52)
[2022-08-21] MEDS: Fluticasone/Salmeterol 250-50 MCG Inhalation Powder 14/Diskus INH SCH ×2 (09:26→21:15)
[2022-08-21] MEDS: QUEtiapine 25 MG Tab PO SCH (21:15)
[2022-08-22] MEDS: LORazepam ORAL Concentrate 1MG/0.5ML U/D PO PRN (03:19)
[2022-08-22] MEDS: Fluticasone/Salmeterol 250-50 MCG Inhalation Powder 14/Diskus INH SCH ×2 (09:34→21:46)
[2022-08-22] MEDS: QUEtiapine 25 MG Tab PO SCH (21:46)
[2022-08-23] MEDS: Fluticasone/Salmeterol 250-50 MCG Inhalation Powder 14/Diskus INH SCH ×2 (09:38→22:44)
[2022-08-23] MEDS: QUEtiapine 25 MG Tab PO SCH (22:44)
[2022-08-24] MEDS: Fluticasone/Salmeterol 250-50 MCG Inhalation Powder 14/Diskus INH SCH (08:28)
== END 2022-08-24 17:30 | disposition home or self-care (01) | DRG 951 ==
LOC: MW.MS 14:04
PROVIDERS: ADMIT Student in an Organized Health Care Education/Training Program; ATTEND Student in an Organized Health Care Education/Training Program
DX: Z51.5 Encounter for palliative care (principal); Z79.899 Other long term (current) drug therapy; Z75.5 Holiday relief care
CPT/HCPCS: 94640; A9270-GY; J3490

== ENCOUNTER 2023-02-10 20:18 | Inpatient (IN) | payer OTHER ==
[2023-02-11] MEDS: Morphine 10 MG/0.5 ML Oral Syringe PO SCH ×4 (00:04→21:18)
[2023-02-11] MEDS: QUEtiapine 25 MG Tab PO SCH ×2 (00:04→21:18)
[2023-02-11] MEDS ORDERED: Albuterol 0.083% 2.5 MG/3 ML Neb Soln NEB PRN (03:05)
[2023-02-11] MEDS ORDERED: Bisacodyl 5 MG Tab PO PRN (03:06)
[2023-02-11] MEDS ORDERED: Haloperidol Lactate 2 MG/ML Oral Soln 15 ML Bottle SL PRN (03:06)
[2023-02-11] MEDS ORDERED: Ibuprofen 200 MG Tab PO PRN (03:09)
[2023-02-11] MEDS ORDERED: Hyoscyamine 0.125 MG Tab.SL SL PRN (03:10)
[2023-02-11] MEDS ORDERED: Loperamide 2 MG Cap PO PRN (03:26)
[2023-02-11] MEDS ORDERED: Morphine 100 MG/5 ML (15 ML) Oral Solution PO PRN (03:36)
[2023-02-11] MEDS: LORazepam 0.5 MG Tab PO PRN (09:02)
[2023-02-11] MEDS: Lactulose Soln 10 GM/15 ML 15 ML UD Cup PO SCH (09:02)
[2023-02-12] MEDS: LORazepam 0.5 MG Tab PO PRN (01:29)
[2023-02-12] MEDS: Morphine 10 MG/0.5 ML Oral Syringe PO SCH ×3 (06:57→21:38)
[2023-02-12] MEDS: Lactulose Soln 10 GM/15 ML 15 ML UD Cup PO SCH (09:19)
[2023-02-12] MEDS: QUEtiapine 25 MG Tab PO SCH (21:38)
[2023-02-13] MEDS: Morphine 10 MG/0.5 ML Oral Syringe PO SCH ×3 (06:26→21:29)
[2023-02-13] MEDS: Lactulose Soln 10 GM/15 ML 15 ML UD Cup PO SCH (09:36)
[2023-02-13] MEDS: QUEtiapine 25 MG Tab PO SCH (21:29)
[2023-02-14] MEDS: Morphine 10 MG/0.5 ML Oral Syringe PO SCH ×3 (06:25→21:22)
[2023-02-14] MEDS: Lactulose Soln 10 GM/15 ML 15 ML UD Cup PO SCH (08:26)
[2023-02-14] MEDS: QUEtiapine 25 MG Tab PO SCH (21:22)
[2023-02-15] MEDS: LORazepam 0.5 MG Tab PO PRN ×2 (02:56→15:14)
[2023-02-15] MEDS: Morphine 10 MG/0.5 ML Oral Syringe PO SCH ×3 (06:37→21:11)
[2023-02-15] MEDS: Lactulose Soln 10 GM/15 ML 15 ML UD Cup PO SCH (10:26)
[2023-02-15] MEDS: QUEtiapine 25 MG Tab PO SCH (21:10)
[2023-02-16] MEDS: Morphine 10 MG/0.5 ML Oral Syringe PO SCH ×3 (06:20→21:24)
[2023-02-16] MEDS: Lactulose Soln 10 GM/15 ML 15 ML UD Cup PO SCH (08:57)
[2023-02-16] MEDS: LORazepam 0.5 MG Tab PO PRN (14:48)
[2023-02-16] MEDS: QUEtiapine 25 MG Tab PO SCH (21:25)
[2023-02-17] MEDS: Morphine 10 MG/0.5 ML Oral Syringe PO SCH ×2 (06:25→14:08)
[2023-02-17] MEDS: Lactulose Soln 10 GM/15 ML 15 ML UD Cup PO SCH (10:23)
[2023-02-17] MEDS: LORazepam 0.5 MG Tab PO PRN (13:23)
== END 2023-02-17 14:45 | disposition hospice, home (50) | DRG 951 ==
LOC: MW.MS 20:18
PROVIDERS: ADMIT Internal Medicine; ATTEND Internal Medicine
DX: Z51.5 Encounter for palliative care (principal); Z75.5 Holiday relief care; Z66 Do not resuscitate
CPT/HCPCS: A9270-GY; J3490

== ENCOUNTER 2023-02-20 17:30 | Inpatient (IN) | payer OTHER ==
[2023-02-20] MEDS ORDERED: Morphine 10 MG/0.5 ML Oral Syringe SL PRN (18:02)
[2023-02-20] MEDS ORDERED: Loperamide 2 MG Cap PO PRN ×2 (18:06→18:30)
[2023-02-20] MEDS ORDERED: Hyoscyamine 0.125 MG Tab.SL SL PRN (18:09)
[2023-02-20] MEDS ORDERED: Haloperidol Lactate 2 MG/ML Oral Soln 15 ML Bottle SL PRN (18:14)
[2023-02-20] MEDS ORDERED: Ibuprofen 200 MG Tab PO PRN (18:14)
[2023-02-20] MEDS ORDERED: Bisacodyl 10 MG Supp RECTAL PRN (18:16)
[2023-02-20] MEDS ORDERED: Albuterol 0.083% 2.5 MG/3 ML Neb Soln NEB PRN (18:16)
[2023-02-20] MEDS: QUEtiapine 25 MG Tab PO SCH (21:24)
[2023-02-20] MEDS: Morphine 10 MG/0.5 ML Oral Syringe SL SCH (21:24)
[2023-02-21] MEDS: Morphine 10 MG/0.5 ML Oral Syringe SL SCH ×3 (06:47→21:07)
[2023-02-21] MEDS: Lactulose Soln 10 GM/15 ML 15 ML UD Cup PO SCH (09:24)
[2023-02-21] MEDS: LORazepam ORAL Concentrate 1MG/0.5ML U/D SL PRN (13:12)
[2023-02-21] MEDS: QUEtiapine 25 MG Tab PO SCH (21:07)
[2023-02-22] MEDS: Morphine 10 MG/0.5 ML Oral Syringe SL SCH ×3 (06:17→21:51)
[2023-02-22] MEDS: Lactulose Soln 10 GM/15 ML 15 ML UD Cup PO SCH (09:57)
[2023-02-22] MEDS: LORazepam ORAL Concentrate 1MG/0.5ML U/D SL PRN (09:57)
[2023-02-22] MEDS: QUEtiapine 25 MG Tab PO SCH (21:51)
[2023-02-23] MEDS: Morphine 10 MG/0.5 ML Oral Syringe SL SCH ×3 (06:01→22:35)
[2023-02-23] MEDS: Lactulose Soln 10 GM/15 ML 15 ML UD Cup PO SCH (09:37)
[2023-02-23] MEDS: QUEtiapine 25 MG Tab PO SCH (20:31)
[2023-02-24] MEDS: Morphine 10 MG/0.5 ML Oral Syringe SL SCH ×3 (06:26→21:41)
[2023-02-24] MEDS: Lactulose Soln 10 GM/15 ML 15 ML UD Cup PO SCH (09:01)
[2023-02-24] MEDS: LORazepam ORAL Concentrate 1MG/0.5ML U/D SL PRN (13:01)
[2023-02-24] MEDS: QUEtiapine 25 MG Tab PO SCH (21:41)
[2023-02-25] MEDS: Morphine 10 MG/0.5 ML Oral Syringe SL SCH ×2 (05:54→13:17)
[2023-02-25] MEDS: Lactulose Soln 10 GM/15 ML 15 ML UD Cup PO SCH (09:30)
== END 2023-02-25 13:40 | disposition hospice, home (50) | DRG 951 ==
LOC: MW.MS 17:30
PROVIDERS: ADMIT Hospitalist; ATTEND Hospitalist
DX: Z51.5 Encounter for palliative care (principal); Z75.5 Holiday relief care
CPT/HCPCS: A9270-GY; J3490

== ENCOUNTER 2023-04-04 11:01 | Inpatient (IN) | payer OTHER ==
[2023-04-04] MEDS ORDERED: Naloxone 0.4 MG/ML SDV IVPUSH PRN (13:05)
[2023-04-04] MEDS ORDERED: Morphine 10 MG/0.5 ML Oral Syringe SL PRN (13:05)
[2023-04-04] MEDS ORDERED: Bisacodyl 10 MG Supp RECTAL SCH (13:15)
[2023-04-04] MEDS: Morphine 10 MG/0.5 ML Oral Syringe SL SCH ×2 (14:13→21:28)
[2023-04-04] MEDS: QUEtiapine 25 MG Tab PO SCH (21:29)
[2023-04-05] MEDS: LORazepam ORAL Concentrate 1MG/0.5ML U/D SL PRN ×2 (00:07→16:08)
[2023-04-05] MEDS: Morphine 10 MG/0.5 ML Oral Syringe SL SCH ×3 (05:57→21:03)
[2023-04-05] MEDS ORDERED: Bisacodyl 10 MG Supp RECTAL ONE (15:15)
[2023-04-05] MEDS: QUEtiapine 25 MG Tab PO SCH (21:04)
[2023-04-06] MEDS: LORazepam ORAL Concentrate 1MG/0.5ML U/D SL PRN (02:44)
[2023-04-06] MEDS: Morphine 10 MG/0.5 ML Oral Syringe SL SCH ×3 (07:23→21:45)
[2023-04-06] MEDS: QUEtiapine 25 MG Tab PO SCH (21:45)
[2023-04-07] MEDS: Morphine 10 MG/0.5 ML Oral Syringe SL SCH ×3 (07:20→21:03)
[2023-04-07] MEDS: QUEtiapine 25 MG Tab PO SCH (21:03)
[2023-04-07] MEDS: LORazepam ORAL Concentrate 1MG/0.5ML U/D SL PRN (22:06)
[2023-04-08] MEDS: Morphine 10 MG/0.5 ML Oral Syringe SL SCH ×3 (05:41→21:04)
[2023-04-08] MEDS: QUEtiapine 25 MG Tab PO SCH (21:04)
[2023-04-08] MEDS: LORazepam ORAL Concentrate 1MG/0.5ML U/D SL PRN (23:06)
[2023-04-09] MEDS: Morphine 10 MG/0.5 ML Oral Syringe SL SCH (06:17)
== END 2023-04-09 10:30 | disposition hospice, home (50) | DRG 951 ==
LOC: MW.MS 11:01
PROVIDERS: ADMIT Family Medicine; ATTEND Family Medicine
DX: Z51.5 Encounter for palliative care (principal); Z75.5 Holiday relief care; K59.09 Other constipation; Z66 Do not resuscitate; Z97.8 Presence of other specified devices; Z79.899 Other long term (current) drug therapy; Z87.440 Personal history of urinary (tract) infections
CPT/HCPCS: A9270-GY; J3490

== ENCOUNTER 2023-04-17 13:49 | Inpatient (IN) | payer OTHER ==
[2023-04-17] MEDS ORDERED: LORazepam ORAL Concentrate 1MG/0.5ML U/D SL PRN (15:51)
[2023-04-17] MEDS ORDERED: Hyoscyamine 0.125 MG Tab.SL SL PRN (15:51)
[2023-04-17] MEDS ORDERED: Docusate Sodium 100 MG Cap PO PRN (15:51)
[2023-04-17] MEDS ORDERED: Magnesium Hydroxide 400 MG/5 ML Susp 30 ML Cup PO PRN (15:51)
[2023-04-17] MEDS ORDERED: SALMETEROL INH PRN (15:51)
[2023-04-17] MEDS ORDERED: Ibuprofen 800 MG Tab PO PRN (15:51)
[2023-04-17] MEDS ORDERED: Albuterol 0.083% 2.5 MG/3 ML Neb Soln INH PRN (15:51)
[2023-04-17] MEDS ORDERED: Loperamide 2 MG Cap PO PRN (15:51)
[2023-04-17] MEDS ORDERED: Morphine 10 MG/0.5 ML Oral Syringe PO PRN (15:51)
[2023-04-17] MEDS ORDERED: FLUTICASONE PROPION INH PRN (15:51)
[2023-04-17] MEDS: Bisacodyl 10 MG Supp RECTAL SCH (17:26)
[2023-04-17] MEDS: QUEtiapine 25 MG Tab PO SCH (21:03)
[2023-04-17] MEDS: Morphine 10 MG/0.5 ML Oral Syringe PO SCH (21:04)
[2023-04-18] MEDS: Morphine 10 MG/0.5 ML Oral Syringe PO SCH ×3 (05:33→21:30)
[2023-04-18] MEDS: QUEtiapine 25 MG Tab PO SCH (21:33)
[2023-04-19] MEDS: Morphine 10 MG/0.5 ML Oral Syringe PO SCH ×3 (06:25→21:53)
[2023-04-19] MEDS: QUEtiapine 25 MG Tab PO SCH (21:54)
[2023-04-19] MEDS: Haloperidol Lactate 2 MG/ML Oral Soln 15 ML Bottle SL PRN (23:38)
[2023-04-20] MEDS: Morphine 10 MG/0.5 ML Oral Syringe PO SCH ×3 (07:02→21:33)
[2023-04-20] MEDS: Bisacodyl 10 MG Supp RECTAL SCH (15:06)
[2023-04-20] MEDS: Haloperidol Lactate 2 MG/ML Oral Soln 15 ML Bottle SL PRN (18:14)
[2023-04-20] MEDS: QUEtiapine 25 MG Tab PO SCH (21:35)
[2023-04-21] MEDS: Morphine 10 MG/0.5 ML Oral Syringe PO SCH ×3 (06:39→22:08)
[2023-04-21] MEDS: QUEtiapine 25 MG Tab PO SCH (22:08)
[2023-04-22] MEDS: Morphine 10 MG/0.5 ML Oral Syringe PO SCH ×2 (05:20→14:56)
== END 2023-04-22 16:45 | disposition still patient (30) | DRG 951 ==
LOC: OBSVTOIN 13:49 → MW.MS 13:49
PROVIDERS: ADMIT Internal Medicine; ATTEND Internal Medicine
DX: Z75.5 Holiday relief care (principal)
CPT/HCPCS: 82947; A9270-GY; J3490